=== PATIENT | male | born 1975 | race Caucasian/White ===

== ENCOUNTER 2025-04-10 16:48 | Emergency (ER) | payer SELFPAY ==
[2025-04-10 16:49] VITALS: BP 136/87; PULSE 74; RESP 18; TEMP 36.9; O2SAT 96; BMI 33.0
[2025-04-10 16:56] VITALS: BP 136/87; PULSE 76; RESP 18; TEMP 36.9; O2SAT 96
[2025-04-10] MEDS: Ketorolac 30 MG/ML Syringe IV (17:18)
[2025-04-10 17:22] LABS: Hematocrit 38.3 % (40-54); Hemoglobin 12.8 g/dL (13.0-16.5); Immature Granulocytes Count 0.200 X10^3/uL (0.0-0.0); Mean Corp Hgb Conc 33.4 g/dL (32-36); Mean Corpuscular Volume 91.2 fL (80-94); Mean Platelet Vol. 9.5 fl (6.2-12.0); NRBC Flagged by Analyzer 0 % (0-5); Platelet Count 398 K/mm3 (150-450); RBC Distribution Width CV 13.6 % (11.6-14.6); RBC Distribution Width SD 45.3 fl (35.1-43.9); Red Blood Count 4.20 M/mm3 (4.6-6.2); White Blood Count 9.0 K/mm3 (4.4-11.0)
[2025-04-10 17:56] VITALS: BP 137/82; PULSE 98; RESP 18; TEMP 36.6; O2SAT 99
[2025-04-10 18:17] LABS: Anion Gap 12 (5-15); BUN 24 mg/dL (4-19); BUN/Creat Ratio 15.1 RATIO (10-20); Calcium,Total 9.2 mg/dL (7.6-11.0); Carbon Dioxide 23.1 mmol/L (21.0-32.0); Chloride 105 mmol/L (98-108); Estimated Creatinine Clearance 78.05 ml/min (50-250); Glucose 95 mg/dL (70-99); Potassium 4.4 mmol/L (3.3-5.1)
[2025-04-10] MEDS: Piperacil/Tazobactam 3.375 GM in 0.9% Normal Saline (50mL MB+) 50 ML IV (18:56)
[2025-04-10 18:59] VITALS: BP 130/98; PULSE 67; RESP 18; TEMP 36.6; O2SAT 97
[2025-04-10] MEDS: Vancomycin HCl 2,000 MG in 0.9% Normal Saline (500mL Bag) 500 ML 250 MG IV (19:29)
[2025-04-10 19:58] VITALS: BP 137/76; PULSE 59
[2025-04-10 21:54] VITALS: BP 149/88; PULSE 62; RESP 16; TEMP 36.6; O2SAT 95
== END 2025-04-10 22:16 | disposition home or self-care (01) ==
PROVIDERS: Physician Assistant; Emergency Provider Emergency Medicine; Visit Provider Emergency Medicine
DX: L03.115 Cellulitis of right lower limb (principal); L97.311 Non-pressure chronic ulcer of right ankle limited to breakdown of skin; Z95.828 Presence of other vascular implants and grafts
CPT/HCPCS: 73610; 80048; 85025; 96365; 96366; 96368; 96375; 99284; A4216

== ENCOUNTER 2025-04-12 15:03 | Emergency (ER) | payer SELFPAY ==
[2025-04-12 15:04] VITALS: BP 150/80; PULSE 80; RESP 16; TEMP 36.6; O2SAT 98
[2025-04-12 16:20] LABS: Hematocrit 39.8 % (40-54); Hemoglobin 13.3 g/dL (13.0-16.5); Immature Granulocytes Count 0.070 X10^3/uL (0.0-0.0); Mean Corp Hgb Conc 33.4 g/dL (32-36); Mean Corpuscular Volume 92.6 fL (80-94); Mean Platelet Vol. 9.3 fl (6.2-12.0); NRBC Flagged by Analyzer 0 % (0-5); Platelet Count 431 K/mm3 (150-450); RBC Distribution Width CV 13.7 % (11.6-14.6); RBC Distribution Width SD 46.5 fl (35.1-43.9); Red Blood Count 4.30 M/mm3 (4.6-6.2); White Blood Count 9.6 K/mm3 (4.4-11.0)
[2025-04-12 16:54] LABS: Anion Gap 15 (5-15); BUN 32 mg/dL (4-19); BUN/Creat Ratio 15.2 RATIO (10-20); Calcium,Total 9.5 mg/dL (7.6-11.0); Carbon Dioxide 20.7 mmol/L (21.0-32.0); Chloride 104 mmol/L (98-108); Glucose 102 mg/dL (70-99); Potassium 4.3 mmol/L (3.3-5.1)
== END 2025-04-12 18:00 | disposition left against medical advice (07) ==
PROVIDERS: Emergency Provider Emergency Medicine; Visit Provider Emergency Medicine
DX: L03.115 Cellulitis of right lower limb (principal); N17.9 Acute kidney failure, unspecified; E86.0 Dehydration; F15.90 Other stimulant use, unspecified, uncomplicated; F17.290 Nicotine dependence, other tobacco product, uncomplicated
CPT/HCPCS: 80048; 85025; 99285; A4216

== ENCOUNTER 2025-06-25 19:10 | Emergency (ER) | payer SELFPAY ==
[2025-06-25 19:11] VITALS: BP 143/101; PULSE 77; RESP 16; TEMP 36.9; O2SAT 98
[2025-06-25 19:17] VITALS: BMI 33.1
--- NOTE | 2025-06-25 19:45 | ED.RN ---
when this rn asks about pt meds he states yeah theres a list somewhere in that bag from the previous facility as he points to an extra large black trash bag with all patients belongings in it. this rn unable to obtain at this time. trash bag removed from room and this rn unable to lift. bag had to be drug across the floor.
--- OUTSIDE RECORDS SUMMARY | 2025-06-25 19:53 | XMS RPT_ITS | CCD ---
Author Organization [facility] Inform ion Partnership [facility] Care Team Providers Care Online Advertising Manager Name Role Phone OBED CELAYA Attending Unavailable PCP, NO Primary Care Unavailable LEONID PARRY Attending Unavailable Unavailable Primary Care Provider UnavailDr. Yahir Campo DO Emergency Provider [phone] Care Physician, No Primary Primary Care Provider Unavailable Dr. Bryant Orellana MD Emergency Provider [phone] ABEL CORTEZ Attending Unavailable ROBERT MICHAEL Consulting Unavailable FORTINO MILLER Admitting Unavailable Yahir Torres Attending Unavailable Care Physician, No Primary Primary Care Unava ilable Care Physician, No Primary Primary Care Unava ilBryant Guzman Attending Unavailable Medications Current Medications Medication Drug Class(es) Dates Sig (Normalized) Sig (Original) amoxicillin 875 mg / clavulanate 125 mg oral tablet (4 sources) Penicillin-class Antibacterial Start: 04-08-2025 End: 04-12-2025 Amoxicillin-Pot Clavulanate 875-125 mg tablet Active 1 {tbl} PO TWICE A DAY April 10, 2025 12:00am doxycycline hyclate 100 mg oral capsule (2 sources) Tetracycline-class Drug Start: 04-10-2025 take 1 capsule by mouth twice daily Doxycycline Hyclate 100 mg capsule Active 100 mg PO TWICE A DAY 14 7 0 April 10, 2025 12:00am gabapentin 300 mg oral capsule (6 sources) Anti-epileptic Agent Start: 04-10-2025 take 1 capsule by mouth every eight hours Gabapentin 300 mg capsule Active 300 mg PO Q8H April 10, 2025 12:00am Start: 04-03-2025 End: 04-08-2025 take 1 capsule by mouth every eight hours gabapentin (Neurontin) 300 MG capsule Take 1 capsule (300 mg) by mouth every 8 hours. 90 capsule 04/08/2025 1:57 PM EDT 04/08/2025 Active sulfamethoxazole 800 mg / trimethoprim 160 mg oral tablet (4 sources) Dihydrofolate Reductase Inhibitor Antibacterial, Sulfonamide Antimicrobial Start: 04-08-2025 End: 04-12-2025 Sulfamethoxazole-Trimethopri m (Bactrim Ds) 800-160 mg tablet Active 1 {tbl} PO TWICE A DAY April 10, 2025 12:00am traZODone hydrochloride 100 mg oral tablet (6 sources) Serotonin Reuptake Inhibitor Start: 04-10-2025 take 1 tablet by mouth at bedtime Trazodone 100 mg tablet Active 100 mg PO AT BEDTIME April 10, 2025 12:00am Start: 04-04-2025 End: 04-08-2025 take 1 tablet by mouth once daily traZODone (Desyrel) 100 MG tablet Take 1 tablet (100 mg) by mouth Nightly. 30 tablet 04/08/2025 1:57 PM EDT 04/08/2025 Active Completed/Discontinued Medications Medication Drug Class(es) Dates Sig (Normalized) Sig (Original) Acetaminophen (6 sources) Start: 04-03-2025 End: 04-03-2025 1,000 mg, IntraVENous, at 400 mL/hr, Administer over 15 Minutes, Once, On Sun04/03/25 at 0200, For 1 dose Start: 04-03-2025 End: 04-08-2025 take 1 tablet by mouth every six hours as needed for pain and fever acetaminophen (Tylenol) tablet 650 mg Start: 04-02-2025 End: 04-02-2025 650 mg, Oral, Once, On Sun at 1855, For 1 dose, Maximum dose of acetaminophen is 4000 mg from all sources in 24 hours. calcium chloride 0.0014 meq/ ml / potassium chloride 0.004 meq/ml / sodium chloride 0.103 meq/ml / sodium lactate 0.028 meq/ml injectable solution (4 sources) Start: 04-03-2025 End: 04-03-2025 1,000 mL, IntraVENous, at 50 0 mL/hr, Administer over 2 Hours, Once, On Sun04/03/25 at 1645, For 1 dose Start: 04-02-2025 End: 04-03-2025 take 200 mL intravenously every hour 200 mL/hr, IntraVENous, Continuous, Starting on Bekah 04/02/25 at 2155, For 12 hours chlordiazePOXIDE hydrochloride 25 mg oral capsule (2 sources) Benzodiazepine Start: 04-03-2025 End: 04-03-2025 take 25 mg by mouth once 25 mg, Oral, Once, On Sun04/03/25 at 1145, For 1 dose, Hold for excessive sedation 1 ml diphenhydrAMINE hydrochloride 50 mg/ml cartridge (2 sources) Histamine-1 Receptor Antagonist Start: 04-03-2025 End: 04-03-2025 50 mg, IntraVENous, Once, On Sun04/03/25 at 0145, For 1 dose 0.4 ml enoxaparin sodium 100 mg/ml prefilled syringe (2 sources) Low Molecular Weight Heparin Start: 04-03-2025 End: 04-08-2025 inject 40 mg by subcutaneous injection every twenty-four hours 40 mg, SubCUTAneous, Every 24 hours scheduled (Daily), First dose on Sun04/03/25 at 0900, Indication of Use: Prophylaxis-DVT/PE , Indications: Prophylaxis of Venous Thromboembolism gadopiclenol (Vueway) injection 11 mL (2 sources) Start: 04-05-2025 End: 04-07-2025 take 11 mL intravenously once as needed 11 mL, IntraVENous, IMG once PRN, contrast, Starting on Sun04/05/25 at 0911, For 1 dose 1 ml haloperidol 5 mg/ml prefilled syringe (2 sources) Typical Antipsychotic Start: 04-03-2025 End: 04-03-2025 5 mg, IntraMUSCular, Once, On Sun04/03/25 at 0145, For 1 dose, IM route of administration preferred. Because of the risk of TdP and QT prolongation, ECG monitoring is recommended if haloperidol is given IV hydrOXYzine pamoate 25 mg oral capsule (2 sources) Antihistamine Start: 04-04-2025 End: 04-04-2025 take 50 mg by mouth once as needed for anxiety 50 mg, Oral, Once PRN, anxiety prior to lab draw, Starting on 04/04/25 at 1035, For 1 dose iopamidol (Isovue-370) 76 % injection 75 mL (2 sources) Start: 04-02-2025 End: 04-02-2025 take 75 mL intravenously once as needed 75 mL, IntraVENous, IMG once PRN, contrast, Starting on Bkeah 04/02/25 at 1947, For 1 dose 1 ml LORazepam 2 mg/ml injection (10 sources) Benzodiazepine Start: 04-04-2025 End: 04-05-2025 take 1 mL intravenously once as needed 1 mg, IntraVENous, Once PRN, Please give shortly before MRI for anxiety, Starting on 04/04/25 at 1037, For 1 dose, Please notify day habilitation specialist attending if this has to be utilized for a seizure. For IV doses dilute dose with 1ml NS. Start: 04-03-2025 End: 04-03-2025 1 mg, IntraVENous, Once, On Sun04/03/25 at 0145, For 1 dose, For IV doses dilute dose with 1ml NS. Start: 04-03-2025 End: 04-07-2025 1 mg, IntraVENous, Every 3 h ours PRN, agitation, Starting on Sun04/03/25 at 0014, For IV doses dilute dose with 1ml NS. Start: 04-02-2025 End: 04-03-2025 take 1 mg intravenously every four hours as needed 1 mg, IntraVENous, Every 4 hours PRN, agitation, Starting on Sun04/02/25 at 2320, For IV doses dilute dose with 1ml NS. LORazepam (Ativan) injection 1 mg (2 sources) Start: 04-07-2025 End: 04-08-2025 LORazepam (Ativan) injection 1 mg melatonin 3 mg oral tablet (2 sources) Start: 04-03-2025 End: 04-08-2025 take 3 mg by mouth once daily as needed for sleep 3 mg, Oral, Nightly PRN, sleep, Starting on Sun04/03/25 at 0048 1 ml naloxone hydrochloride 0.4 mg/ml injection (2 sources) Opioid Antagonist Start: 04-07-2025 End: 04-08-2025 0.4 mg, IntraVENous, Every 5 min PRN, opioid reversal, respiratory depression, Starting on Sun04/07/25 at 1339, +++ For RR ondansetron ODT (Zofran-ODT) disintegrating tablet 4 mg (2 sources) Start: 04-03-2025 End: 04-08-2025 take 1 tablet by mouth every eight hours as needed for nausea and vomiting ondansetron ODT (Zofran-ODT) disintegrating tablet 4 mg oxyCODONE (2 sources) Opioid Agonist Start: 04-07-2025 End: 04-08-2025 take 1 tablet by mouth every four hours as needed for pain oxyCODONE (Roxicodone) immediate release tablet 2.5 mg perflutren protein A microsphere (Optison) 3 mL in sodium chloride (PF) 0.9 % 10 mL IV (2 sources) Start: 04-03-2025 End: 04-03-2025 0-10 mL, IntraVENous, IMG once PRN, other, Suboptimal echo image, Starting on Sun04/03/25 at 0950, For 1 dose, CV Procedural Medications, Administer via slow IVP for suboptimal echocardiogram enhancement. May administer as divided doses to reach optimal image enhancement piperacillin-tazoba ctam (Zosyn) 4,500 mg in sodium chloride 0.9 % 100 mL IVPB Mini-Bag Plus (2 sources) Start: 04-03-2025 End: 04-08-2025 take 4500 mg intravenously every six hours polyethylene glycol 3350 67347 mg powder for oral solution (2 sources) Osmotic Laxative Start: 04-03-2025 End: 04-08-2025 take 17 g by mouth every twenty-four hours as needed for constipation risperiDONE 1 mg oral tablet (4 sources) Atypical Antipsychotic Start: 04-05-2025 End: 04-05-2025 take 1 mg by mouth twice daily 1 mg, Oral, 2 times daily, First dose (after last modification) on Sun04/05/25 at 2100, For 1 dose, Indications: Delusion, Psychomotor Agitation Start: 04-05-2025 End: 04-05-2025 take 1 mg by mouth twice daily 1 mg, Oral, 2 times misty ly, First dose (after last modification) on Sun04/05/25 at 2100, For 1 dose, Indications: Delusion, Psychomotor Agitation Start: 04-03-2025 End: 04-05-2025 take 1 mg by mouth twice daily 1 mg, Oral, 2 times misty ly, First dose on Sun04/03/25 at 1145, Indications: Delusion, Psychomotor Agitation 50 ml sodium chloride 9 mg/ml injection (4 sources) Start: 04-02-2025 End: 04-02-2025 1,000 mL, IntraVENous, at 1,000 mL/hr, Administer over 1 Hours, Once, On Bekah 04/02/25 at 1855, For 1 dose Vancomycin (6 sources) Glycopeptide Antibacterial Start: 04-05-2025 End: 04-08-2025 take 1250 mg intravenously every twelve hours Start: 04-03-2025 End: 04-05-2025 Start: 04-02-2025 End: 04-02-2025 Problems Problem Classification Problem Date Documented Date Episodic/Chronic Acute and unspecified renal failure (1 source) Acute renal failure syndrome; Translations: [Acute kidney failure, unspecified] 04-12-2025 Episodic Fluid and electrolyte disorders (1 source) Dehydration; Translations: [Dehydration] 04-12-2025 Episodic Nonspecific chest pain (4 sources) Chest pain; Translations: [Chest pain, unspecified] Onset: 04-02-2025 04-02-2025 Episodic Other connective tissue disease (1 source) Pain in right foot; Translations: [Pain in right foot] Onset: 12-19-2024 Episodic Other connective tissue disease (1 source) Pain in lower limb Onset: 02-25-2025 Episodic Other connective tissue disease (2 sources) Non-traumatic rhabdomyolysis; Translations: [Rhabdomyolysis] 04-02-2025 Episodic Other connective tissue disease (2 sources) Rhabdomyolysis; Translations: [Rhabdomyolysis] Onset: 04-02-2025 Episodic Other lower respiratory disease (3 sources) Dyspnea; Translations: [Shortness of breath] Onset: 04-02-2025 04-02-2025 Episodic Other lower respiratory disease (1 source) Shortness of breath; Translations: [Shortness of breath] Onset: 04-02-2025 Episodic Other non-traumatic joint disorders (2 sources) Ankle pain; Translations: [Pain in right ankle and joints of right foot] 04-10-2025 Episodic Schizophrenia and other psychotic disorders (1 source) Delusional disorders; Translations: [Delusional disorders] Onset: 03-02-2025 Chronic Septicemia (except in labor) (8 sources) Sepsis; Translations: [Sepsis, unspecified organism] Onset: 04-02-2025 04-02-2025 Episodic Skin and subcutaneous tissue infections (4 sources) Cellulitis of right ankle; Translations: [Cellulitis of right lower limb] Onset: 04-17-2025 04-10-2025 Episodic Substance-related disorders (1 source) Methamphetamine abuse; Translations: [Other stimulant abuse, uncomplicated] 04-12-2025 Chronic Substance-related disorders (4 sources) Finding related to substance use; Translations: [Other stimulant use, unspecified, uncomplicated] Onset: 04-02-2025 04-03-2025 Episodic Unclassified (1 source) paranoia Onset: 03-02-2025 Results Test Name Value Interpretation Reference Range Facility Progress Noteon 04-13-2025 Progress Note Initial Post-Hospital Follow Up Call Call / mychart message / face to face attempted within 2 business days of discharge: yes Patient: Viral Ann Patient : 1975 Spoke with: n/a Discharge department/facilit y: [facility] Additional attempt made to contact Viral Ann via telephone. Again, there was no answer. Block Stacker did not leave additional voicemail. Plan: Sign encounter and await future recommendations. Gjp-qkjf-on-face services provided: Assessment and support for treatment adherence and medication management - Did the patient get his medications filled and are they taking them as instructed from discharge? -Unable to assess as call(s) went unanswered. - Patient was encouraged to follow his discharge instructions from his recent hospital stay. -Unable to complete as patient did not answer telephone call(s) - Confirmed patient is scheduled for a follow up appointment within 14 days of hospital discharge -Unable to assess transportation needs as call(s) went unanswered / unable to reach patient. Follow Up Future Appointments Date Time Provider Department Center 04/16/2025 3:00 PM Jazmín Devi DO [facility] Campbell RN Normal [facility] Progress Note Attempted to contact patient via telephone to discuss transition of care from recent hospitalization. Viral Ann did not answer, left generic voicemail. Mychart not activated for patient. Plan: Attempt to call patient again at a later time. If patient were to call back, please transfer call to Memo (Ext. [phone]), thank you. Normal [facility] Absolute lymphocyte countOrd ered By: Bryant Orellana on 04-12-2025 Lymphocytes Auto (Unsp spec) [#/Vol] 1.85 10*3/uL 0.83-4.51 [facility] Absolute neutrophil countOrd ered By: Bryant Orellana on 04-12-2025 Neutrophils (Bld) [#/Vol] 6.5 10*3/uL 2.0-7.7 [facility] Anion gap in Serum or Plasma Ordered By: Bryant Orellana on 04-12-2025 Anion gap [Moles/Vol] 15 mmol/L - [facility] Automated lymphocyte count a s percentage of total leukocytesOrdered By: Bryant Orellana on 04-12-2025 Lymphocytes/100 WBC Auto (Unsp spec) 19.3 % - [facility] BUN/creatinine ratioOrdered By: Bryant Orellana on 04-12-2025 Urea nitrogen/Creatinine [Mass ratio] 15.2 mg/mg 07-27 [facility] Basic Metabolic Profile (BMP )on 04-12-2025 BUN/CRE 15.2 RATIO Normal - [facility] Comment on above: Performed By: #### L 500.2500, L100.0100 #### [facility] [address] [place], [address] Calcium [Mass/Vol] 9.5 mg/dL Normal 7.6-11.0 [facility] Comment on above: Performed By: #### L 500.2500, L100.0100 #### [facility] [address] [place], [address] Chloride [Moles/Vol] 104 mmol/L Normal 98-108 [facility] Comment on above: Performed By: #### L 500.2500, L100.0100 #### [facility] [address] [place], [address] CO2 [Moles/Vol] 20.7 mmol/L Low 21.0-32.0 [facility] Comment on above: Performed By: #### L 500.2500, L100.0100 #### [facility] [address] [place], [address] Creatinine [Mass/Vol] 2.08 mg/dL High 0.70-1.20 [facility] Comment on above: Performed By: #### L 500.2500, L100.0100 #### [facility] [address] [place], [address] GAP 15 Normal 5-15 [facility] Comment on above: Performed By: #### L 500.2500, L100.0100 #### [facility] [address] [place], [address] GFR/1.73 sq M.predicted among non-blacks MDRD (S/P/Bld) [Vol rate/Area] 38 mL/min/{1.73_m2} Low >60 [facility] Comment on above: Result Comment: mL/m in/1.73m2 CKD-EPI Creatinine Equation (2020) Performed By: #### L 500.2500, L100.0100 #### [facility] [address] [place], [address] Glucose [Mass/Vol] 102 mg/dL High 70-99 [facility] Comment on above: Performed By: #### L 500.2500, L100.0100 #### [facility] [address] [place], [address] Potassium [Moles/Vol] 4.3 mmol/L Normal 3.3-5.1 [facility] Comment on above: Performed By: #### L 500.2500, L100.0100 #### [facility] [address] [place], [address] Sodium [Moles/Vol] 140 mmol/L Normal 133-145 [facility] Comment on above: Performed By: #### L 500.2500, L100.0100 #### [facility] [address] [place], [address] Urea nitrogen [Mass/Vol] 32 mg/dL High 4-19 [facility] Comment on above: Performed By: #### L 500.2500, L100.0100 #### [facility] [address] [place], [address] Basophil percentageOrdered B y: Bryant Orellana on 04-12-2024 Basophils/100 WBC (Bld) 0.6 % 0-[address] [facility] CBC W/Diff, Automatedon -2024 Absolute Lymph 1.85 X10 3/uL Normal 0.83-4.51 [facility] Comment on above: Performed By: #### L 500.2500, L100.0100 #### [facility] [address] [place], [address] Absolute Neut 6.5 X10 3/uL Normal 2.0-7.7 [facility] Comment on above: Performed By: #### L 500.2500, L100.0100 #### [facility] [address] [place], [address] Basophils/100 WBC (Bld) 0.6 % Normal 0-[address] [facility] Comment on above: Performed By: #### L 500.2500, L100.0100 #### [facility] [address] [place], [address] Eosinophils/100 WBC (Bld) 1.5 % Normal 0-5 [facility] Comment on above: Performed By: #### L 500.2500, L100.0100 #### [facility] [address] [place], [address] Erythrocyte distribution width (RBC) [Ratio] 13.7 % Normal 11.6-14.6 [facility] Comment on above: Performed By: #### L 500.2500, L100.0100 #### [facility] [address] [place], [address] Hematocrit (Bld) [Volume fraction] 39.8 % Low 40-54 [facility] Comment on above: Performed By: #### L 500.2500, L100.0100 #### [facility] [address] [place], [address] Hemoglobin (Bld) [Mass/Vol] 13.3 g/dL Normal 13.0-16.5 [facility] Comment on above: Performed By: #### L 500.2500, L100.0100 #### [facility] [address], [address] IG% 0.700 Normal 0.0-0.9 [facility] Comment on above: Result Comment: IG% - Immature Granulocytes (promyelocytes, myelocytes and metamyelocytes) > 1% indicates that a LEFT SHIFT is Present. Performed By: #### L 500.2500, L100.0100 #### [facility] [address] [place], [address] Lymphocytes/100 WBC (Bld) 19.3 % Normal 19-41 [facility] Comment on above: Performed By: #### L 500.2500, L100.0100 #### [facility] [address] [place], [address] MCH (RBC) [Entitic mass] 30.9 pg Normal 27.0-32.0 [facility] Comment on above: Performed By: #### L 500.2500, L100.0100 #### [facility] [address] [place], [address] MCHC (RBC) [Mass/Vol] 33.4 g/dL Normal 32-36 [facility] Comment on above: Performed By: #### L 500.2500, L100.0100 #### [facility] [address] [place], [address] MCV (RBC) [Entitic vol] 92.6 fL Normal 80-[address] [facility] Comment on above: Performed By: #### L 500.2500, L100.0100 #### [facility] [address] [place], [address] Monocytes/100 WBC (Bld) 10.6 % High 0-[address] [facility] Comment on above: Performed By: #### L 500.2500, L100.0100 #### [facility] [address] [place], [address] Neutrophils/100 WBC (Bld) 67.3 % Normal 47-70 [facility] Comment on above: Performed By: #### L 500.2500, L100.0100 #### [facility] [address] [place], [address] Nucleated RBC (Bld) [#/Vol] 0 10*3/uL Normal 0-5 [facility] Comment on above: Performed By: #### L 500.2500, L100.0100 #### [facility] [address] [place], [address] Platelet mean volume (Bld) [Entitic vol] 9.3 fL Normal 6.2-12.0 [facility] Comment on above: Performed By: #### L 500.2500, L100.0100 #### [facility] [address] [place], [address] Platelets (Bld) [#/Vol] 431 10*3/uL Normal 150-450 [facility] Comment on above: Performed By: #### L 500.2500, L100.0100 #### [facility] [address] [place], [address] RBC (Bld) [#/Vol] 4.30 10*6/uL Low 4.6-6.2 [facility] Comment on above: Performed By: #### L 500.2500, L100.0100 #### [facility] [address] [place], [address] RDW SD 46.5 fl High 35.1-43.9 [facility] Comment on above: Performed By: #### L 500.2500, L100.0100 #### [facility] [address] [place], [address] WBC (Bld) [#/Vol] 9.6 10*3/uL Normal 4.4-11.0 [facility] Comment on above: Performed By: #### L 500.2500, L100.0100 #### [facility] [address] [place] [place], [address] Carbon dioxide, total [Moles /volume] in Central venous bloodOrdered By: Bryant Orellana on 04-12-2025 CO2 [Moles/Vol] 20.7 mmol/L Low 21.0-32.0 [facility] Chloride assayOrdered By: Jasmyne Orellana on 04-12-2025 Chloride [Moles/Vol] 104 mmol/L 98-108 [facility] Emergency Department Summary on 04-12-2025 Emergency Department Summary [facility] Medical Records Department [address] [place] [address] Emergency Department Summary 04/12/25 MR#: [id number] Acct: [id number] Name: VIRAL ANN Rep #: [id number] : 1975 49 From: Bryant Orellana MD PCP: Care Physician,No Primary Status:REG ER Location: ED HPI History of Present Illness Chief Complaint: Cellulitis Detail of Chief Complaint: Patient was admitted to [facility] for 8 days for celluli Informant: patient Limited: other (Psychiatric disorder) Onset/Context/Neo ng Onset: - (HPI narrative) Context: - (HPI narrative) Quality: Increased pain and redness in the proximity of the lateral malleolus right Location: Lateral right ankle Current Severity: Mild Maximum Severity: Moderate Worsened by: Complains of increased pain with palpation Relieved by: Nothing Associated Symptoms Associated Symptoms: Nothing Narrative Narrative: Patient was admitted to [facility]. He was discharged 4 days ago. He was seen on April 10 in the emergency department by Dr. Torres. Dr. Torres's note was reviewed. Laboratory studies were obtained as well as imaging. Patient was prescribed antibiotics which she apparently did not fill. He states he was kicked out of here. He did receive IV antibiotics and had appropriate workup. He was discharged with doxycycline 100 mg twice daily. He was discharged with Bactrim and amoxicillin from [facility]. Patient denies fever, chills night sweats. Patient does have history of drug use. He states does not use any drugs in the last several months. Patient denies drainage from the area. Patient is concerned because he had prior infection in that foot. Patient denies paresthesia, anesthesia or motor weakness. Prior similar symptoms: Yes Recent Illness/Hospitaliz ation: Yes PFSH PFS Medical History IV drug user Marijuana abuse Methamphetamine abuse Deep venous thrombosis Pulmonary embolism Presence of IVC filter Cellulitis Home Medications ???Medication ???Instructions ???Recorded ???Last Taken ???Type amoxicillin 875 mg-potassium 1 tab PO BID 04/10/25 Unknown Hist ory clavulanate 125 mg tablet doxycycline hyclate 100 mg capsule 100 mg PO BID 7 days #14 caps Unknown Rx gabapentin 300 mg capsule 300 mg PO Q8H 04/10/25 Unknown His tory sulfamethoxazole 800 1 tab PO BID 04/10/25 Unknown Hist ory mg-trimethoprim 160 mg tablet (Bactrim DS) trazodone 100 mg tablet 100 mg PO QHS 04/10/25 Unknown His tory Allergy/AdvReac Type Severity Reaction Status Date / Time No Known Allergies Allergy Verified 04/12/25 15:03 Surgical History Hx of tonsillectomy H/O hernia repair Social History (Updated 04/12/25 @ 16:[address] Bryant Orellana MD) Smoking Status: Current every day smoker tobacco type: e-cigarettes substance use type: marijuana and amphetamines ROS ROS ED Constitutional Constitutional ED: Denies chills, fever(s), subjective, sweats or weight loss Eyes Eyes: Denies blurry vision or change in vision Cardiovascular Cardiovascular: Denies chest pain or palpitations Respiratory/Chest Respiratory/Chest: Denies cough, dyspnea or dyspnea on exertion Gastrointestinal Gastrointestinal: Denies abdominal pain, diarrhea, nausea or vomiting Musculoskeletal Musculoskeletal: Denies arthralgias, back pain or myalgias Integumentary Reports rash Neurologic Neurologic: Denies paresthesias or weakness Hematologic/Lympha tic Hematologic/Lympha tic: Reports systems reviewed and no addt'l complaints, except as documented EXAM Physical Exam Const Vital Signs: 04/12/25 15:04 Temperature 97.8 F Temperature Source Temporal Pulse Rate 80 Respiratory Rate 16 Blood Pressure 150/80 H Blood Pressure Mean 103 Pulse Ox 98 Oxygen Delivery Method Room Air Positive well nourished and well developed General Appearance ED: well developed and NAD; Negative for cyanotic or diaphoretic HEENT Reports moist mucous membranes HEENT Narrative: There is atraumatic normocephalic. Ears normal. Nares patent Eyes PERRL and EOMs intact bilaterally General Eye ED: Negative for pale conjunctiva or scleral icterus Resp normal respiratory effort Cardio regular rate and regular rhythm Extremity Negative for normal to inspection Extremity Narrative: Patient has 2 areas that are healing without evidence of infection. There is no fluctuance. There is slight erythema in the area of the lateral malleolus. There is no lymphangitis. There is no popliteal lymphadenopathy. Patient has absent pulses. He does have symptoms consistent with claudication. He also has stigmata vascular disease with thic (more content not included)... Normal [facility] Eosinophil percentageOrdered By: Bryant Orellana on 04-12-2025 Eosinophils/100 WBC (Bld) 1.5 % 0-5 [facility] Erythrocyte distribution wid th ratioOrdered By: Bryant Orellana on 04-12-2025 Erythrocyte distribution width (RBC) [Ratio] 13.7 % 11.6-14.6 [facility] Erythrocyte distribution wid th standard deviationOrdered By: Bryant Orellana on 04-12-2025 Erythrocyte distribution width (RBC) [Ratio] 46.5 fl High 35.1-43.9 [facility] Glomerular filtration rate ( GFR) estimation/1.73 sq m using serum, plasma, or whole bOrdered By: Bryant Orellana on 04-12-2025 GFR/1.73 sq M.predicted among non-blacks MDRD (S/P/Bld) [Vol rate/Area] 38 mL/min/{1.73_m2} Low >60 [facility] Comment on above: mL/min/1.73m2 CKD-EP I Creatinine Equation (2020) Hematocrit Auto (Bld) [Volum e fraction]Ordered By: Bryant Orellana on 04-12-2025 Hematocrit (Bld) [Volume fraction] 39.8 % Low 40-54 [facility] Hemoglobin measurementOrdere d By: Bryant Orellana on 04-12-2025 Hemoglobin (Bld) [Mass/Vol] 13.3 g/dL 13.0-16.5 [facility] Immature granulocytes/100 WB C Auto (Bld)Ordered By: Bryantkayla Orellana on 04-12-2025 Immature granulocytes/100 WBC (Bld) 0.700 % 0.0-0.9 [facility] Comment on above: IG% - Immature Granu locytes (promyelocytes, myelocytes and metamyelocytes) > 1% indicates that a LEFT SHIFT is Present. MCV (mean corpuscular volume ) determinationOrdered By: Bryant Orellana on 04-12-2025 MCV (RBC) [Entitic vol] 92.6 fL 80-[address] [facility] Mean corpuscular hemoglobin (MCH) determinationOrdered By: Bryantkayla Orellana on 04-12-2025 MCH (RBC) [Entitic mass] 30.9 pg 27.0-32.0 [facility] Mean corpuscular hemoglobin concentration (MCHC) determinationOrdered By: Bryantkayla Orellana on 04-12-2025 MCHC (RBC) [Mass/Vol] 33.4 g/dL 32-36 [facility] Mean platelet volume determi nationOrdered By: Bryant Orellana on 04-12-2025 Platelet mean volume (Bld) [Entitic vol] 9.3 fL 6.2-12.0 [facility] Monocyte percentageOrdered B y: Bryant Orellana on 04-12-2025 Monocytes/100 WBC (Bld) 10.6 % High 0-[address] [facility] Neutrophil percentageOrdered By: Bryant Orellana on 04-12-2025 Neutrophils/100 WBC (Bld) 67.3 % 47-70 [facility] Nucleated red blood cell per centageOrdered By: Bryant Orellana on 04-12-2025 Nucleated RBC/100 WBC (Bld) [Ratio] 0 % 0-5 [facility] Platelet countOrdered By: Jasmyne garza Orellana on 04-12-2025 Platelets (Bld) [#/Vol] 431 10*3/uL 150-450 [facility] Potassium measurement (mass/ volume)Ordered By: Bryant Orellana on 04-12-2025 Potassium (Unsp spec) [Mass/Vol] 4.3 mmol/L 3.3-5.1 [facility] RBC Auto (Bld) [#/Vol]Ordere d By: Bryant Orellana on 04-12-2025 RBC (Bld) [#/Vol] 4.30 10*6/uL Low 4.6-6.2 [facility] Serum creatinine measurement (mass/volume)Ordered By: Bryant Orellana on 04-12-2025 Creatinine [Mass/Vol] 2.08 mg/dL High 0.70-1.20 [facility] Serum glucose measurement (m ass/volume)Ordered By: Bryant Orellana on 04-12-2025 Glucose [Mass/Vol] 102 mg/dL High 70-99 [facility] Serum or plasma calcium susannah urement (mass/volume)Ordered By: Bryant Orellana on 04-12-2025 Calcium [Mass/Vol] 9.5 mg/dL 7.6-11.0 [facility] Serum or plasma urea nitroge n measurement (mass/volume)Ordered By: Bryant Orellana on 04-12-2025 Urea nitrogen [Mass/Vol] 32 mg/dL High 4-19 [facility] Sodium levelOrdered By: Bryant Orellana on 04-12-2025 Sodium [Moles/Vol] 140 mmol/L 133-145 [facility] White blood cell (WBC) count Ordered By: Bryant Orellana on 04-12-2025 WBC (Bld) [#/Vol] 9.6 10*3/uL 4.4-11.0 [facility] Absolute lymphocyte countOrd ered By: Ale Ortiz on 04-10-2025 Lymphocytes Auto (Unsp spec) [#/Vol] 1.89 10*3/uL 0.83-4.51 [facility] Absolute neutrophil countOrd ered By: Ale Ortiz on 04-10-2025 Neutrophils (Bld) [#/Vol] 5.6 10*3/uL 2.0-7.7 [facility] Anion gap in Serum or Plasma Ordered By: Ale Ortiz on 04-10-2025 Anion gap [Moles/Vol] 12 mmol/L - [facility] Ankle min 3 Viewson 04-10-20 Ankle min 3 Views [facility] Imaging Services [address] [place], [place] [address] Ankle min 3 Views MR#: [id number] Acct: [id number] Name: VIRAL ANN Rep #: [id number] : 1975 M 49 From: Shalini Webb nd, MD PCP: Care Physician,No Primary Status: REG ER Study: Ankle min 3 Views Date of Exam: 04/10/25 Exam# [id number] Ordering Dr: Ale Ortiz PROCEDURE: ANKLE MIN 3 VIEWS N/A REASON FOR EXAM: INFECTION TECHNIQUE: ANKLE MIN 3 VIEWS COMPARISON: None. FINDINGS: Bones: No acute fracture. No aggressive osseous lesions. No focal area of cortical lucency to suggest osteomyelitis. Joints: Normal alignment. Mild degenerative changes. Soft tissues: No obvious soft tissue swelling or soft tissue gas seen by radiographic imaging. Other: No radiopaque foreign body. RAD/Ankle min 3 Views IMPRESSION: NO ACUTE FRACTURE OR DISLOCATION. Reading Location: [id number] CC: RUDDY Ferguson; No Primary Care Physician St[employer] Sewer: Signed Normal [facility] Automated lymphocyte count a s percentage of total leukocytesOrdered By: Ale Ortiz on 04-10-2025 Lymphocytes/100 WBC Auto (Unsp spec) 21.0 % - [facility] BUN/creatinine ratioOrdered By: Ale Ortiz on 04-10-2025 Urea nitrogen/Creatinine [Mass ratio] 15.1 mg/mg - [facility] Basic Metabolic Profile (BMP )on 04-10-2025 BUN/CRE 15.1 RATIO Normal 07-27 [facility] Comment on above: Performed By: #### L 500.2500, L100.0100 #### [facility] [address] [place], [address] Calcium [Mass/Vol] 9.2 mg/dL Normal 7.6-11.0 [facility] Comment on above: Performed By: #### L 500.2500, L100.0100 #### [facility] [address] [place], [address] Chloride [Moles/Vol] 105 mmol/L Normal 98-108 [facility] Comment on above: Performed By: #### L 500.2500, L100.0100 #### [facility] [address] [place], [address] CO2 [Moles/Vol] 23.1 mmol/L Normal 21.0-32.0 [facility] Comment on above: Performed By: #### L 500.2500, L100.0100 #### [facility] [address] [place], [address] Creatinine [Mass/Vol] 1.58 mg/dL High 0.70-1.20 [facility] Comment on above: Performed By: #### L 500.2500, L100.0100 #### [facility] [address] [place], [address] ECRCL 78.05 ml/min Normal 50-250 [facility] Comment on above: Performed By: #### L 500.2500, L100.0100 #### [facility] [address] [place], [address] GAP 12 Normal 5-15 [facility] Comment on above: Performed By: #### L 500.2500, L100.0100 #### [facility] [address] [place], [address] GFR/1.73 sq M.predicted among non-blacks MDRD (S/P/Bld) [Vol rate/Area] 53 mL/min/{1.73_m2} Low >60 [facility] Comment on above: Result Comment: mL/m in/1.73m2 CKD-EPI Creatinine Equation (2020) Performed By: #### L 500.2500, L100.0100 #### [facility] [address] [place], [address] Glucose [Mass/Vol] 95 mg/dL Normal 70-99 [facility] Comment on above: Performed By: #### L 500.2500, L100.0100 #### [facility] [address] [place], [address] Potassium [Moles/Vol] 4.4 mmol/L Normal 3.3-5.1 [facility] Comment on above: Performed By: #### L 500.2500, L100.0100 #### [facility] [address] [place], [address] Sodium [Moles/Vol] 140 mmol/L Normal 133-145 [facility] Comment on above: Performed By: #### L 500.2500, L100.0100 #### [facility] [address] [place], [address] Urea nitrogen [Mass/Vol] 24 mg/dL High 4-19 [facility] Comment on above: Performed By: #### L 500.2500, L100.0100 #### [facility] [address] [place], [address] Basophil percentageOrdered B y: Ale Ortiz on 04-10-2025 Basophils/100 WBC (Bld) 1.0 % 0-[address] [facility] CBC W/Diff, Automatedon Absolute Lymph 1.89 X10 3/uL Normal 0.83-4.51 [facility] Comment on above: Performed By: #### L 500.2500, L100.0100 #### [facility] [address] [place] [place], [address] Absolute Neut 5.6 X10 3/uL Normal 2.0-7.7 [facility] Comment on above: Performed By: #### L 500.2500, L100.0100 #### [facility] [address] [place], [address] Basophils/100 WBC (Bld) 1.0 % Normal 0-[address] [facility] Comment on above: Performed By: #### L 500.2500, L100.0100 #### [facility] [address] [place], [address] Eosinophils/100 WBC (Bld) 1.9 % Normal 0-5 [facility] Comment on above: Performed By: #### L 500.2500, L100.0100 #### [facility] [address] [place], [address] Erythrocyte distribution width (RBC) [Ratio] 13.6 % Normal 11.6-14.6 [facility] Comment on above: Performed By: #### L 500.2500, L100.0100 #### [facility] [address] [place], [address] Hematocrit (Bld) [Volume fraction] 38.3 % Low 40-54 [facility] Comment on above: Performed By: #### L 500.2500, L100.0100 #### [facility] [address] [place], [address] Hemoglobin (Bld) [Mass/Vol] 12.8 g/dL Low 13.0-16.5 [facility] Comment on above: Performed By: #### L 500.2500, L100.0100 #### [facility] [address] [place], [address] IG% 2.200 High 0.0-0.9 [facility] Comment on above: Result Comment: IG% - Immature Granulocytes (promyelocytes, myelocytes and metamyelocytes) > 1% indicates that a LEFT SHIFT is Present. Performed By: #### L 500.2500, L100.0100 #### [facility] [address] [place], [address] Lymphocytes/100 WBC (Bld) 21.0 % Normal 19-41 [facility] Comment on above: Performed By: #### L 500.2500, L100.0100 #### [facility] [address] [place], [address] MCH (RBC) [Entitic mass] 30.5 pg Normal 27.0-32.0 [facility] Comment on above: Performed By: #### L 500.2500, L100.0100 #### [facility] [address] [place], [address] MCHC (RBC) [Mass/Vol] 33.4 g/dL Normal 32-36 [facility] Comment on above: Performed By: #### L 500.2500, L100.0100 #### [facility] [address] [place], [address] MCV (RBC) [Entitic vol] 91.2 fL Normal 80-94 [facility] Comment on above: Performed By: #### L 500.2500, L100.0100 #### [facility] [address] [place], [address] Monocytes/100 WBC (Bld) 11.3 % High 0-[address] [facility] Comment on above: Performed By: #### L 500.2500, L100.0100 #### [facility] [address] [place], [address] Neutrophils/100 WBC (Bld) 62.6 % Normal 47-70 [facility] Comment on above: Performed By: #### L 500.2500, L100.0100 #### [facility] [address] [place], [address] Nucleated RBC (Bld) [#/Vol] 0 10*3/uL Normal 0-5 [facility] Comment on above: Performed By: #### L 500.2500, L100.0100 #### [facility] [address] [place], [address] Platelet mean volume (Bld) [Entitic vol] 9.5 fL Normal 6.2-12.0 [facility] Comment on above: Performed By: #### L 500.2500, L100.0100 #### [facility] [address] [place], [address] Platelets (Bld) [#/Vol] 398 10*3/uL Normal 150-450 [facility] Comment on above: Performed By: #### L 500.2500, L100.0100 #### [facility] [address] [place], [address] RBC (Bld) [#/Vol] 4.20 10*6/uL Low 4.6-6.2 [facility] Comment on above: Performed By: #### L 500.2500, L100.0100 #### [facility] [address] [place], [address] RDW SD 45.3 fl High 35.1-43.9 [facility] Comment on above: Performed By: #### L 500.2500, L100.0100 #### [facility] [address] [place], [address] WBC (Bld) [#/Vol] 9.0 10*3/uL Normal 4.4-11.0 [facility] Comment on above: Performed By: #### L 500.2500, L100.0100 #### [facility] [address] [place], [address] Carbon dioxide, total [Moles /volume] in Central venous bloodOrdered By: lAe Ortiz on 04-10-2025 CO2 [Moles/Vol] 23.1 mmol/L 21.0-32.0 [facility] Chloride assayOrdered By: Babita Ortiz on 04-10-2025 Chloride [Moles/Vol] 105 mmol/L 98-108 [facility] Emergency Department Summary on 04-10-2025 Emergency Department Summary [facility] Medical Records Department [address] [place] [address] Emergency Department Summary 04/10/25 MR#: [id number] Acct: [id number] Name: VIRAL ANN Rep #: [id number] : 1975 49 From: Yahir Torres DO PCP: Care Physician,No [facility] Location: ED Patient was seen and examined with physician spa assistant manager Ale All components of the history and physical confirmed and agreed. History of present illness and physical exam: Patient is a 49-year-old male with past medical history of DVT, PE IVC filter in place, IV drug user who presents to the emergency department with a chief complaint of right ankle pain and concern for infection. Patient states that he was at [facility] for 8 days and received IV antibiotics he states that he was discharged on 4 more days of oral antibiotics and states that he is not getting better therefore he came here for further evaluation management. Patient states that in the past after several days of IV antibiotics when this happened also he was much improved. He states that he is on Bactrim and Augmentin at this point in time. Patient denies any history of diabetes. Patient states that he was given gabapentin but states that he did not try this for pain. Review of systems: Reviewed above Physical exam: Agree with above MDM Patient is a 49-year-old male who presented to the emergency department chief complaint of right ankle and foot pain with a concern for infection. On the differential diagnose includes but not limited to cellulitis, osteomyelitis. Once workup is obtained reviewed he will be reevaluated. Patient CBC reviewed showed no evidence leukocytosis white blood count normal at 9, hemoglobin 12.8, platelet count 398. Patient sodium was 140, potassium normal 4.4, creatinine was 1.58. Patient's x-ray reviewed by myself and by radiology showed no acute fracture dislocations no osseous changes. Patient be given IV antibiotics as he is persistent then he needs strong IV antibiotics to be given vancomycin and Zosyn and Toradol for pain. Patient does have range of motion of his ankle no short arc syndrome. Patient was updated on the results and he would like to go home at this point time. Clinically the wound appears to be healing well and there is minimal surrounding erythema. I do feel that the patient's cellulitis has resolved at this point in time however he is insistent that it is not. We will change his antibiotics to doxycycline and was advised to follow-up with her doctor in the outpatient setting. He states he is homeless and states that retirement currently does not have a primary care physician and wants to try to obtain 1. All question concerns answered he is discharged home in stable condition. Final impression: Right ankle pain History of cellulitis Disposition: Patient will be discharged home in stable condition Supervising attending attestation: Yahir MEEHAN History of Present Illness Chief Complaint: Cellulitis Narrative Narrative: 49-year-old male states he was admitted at [facility] for 1 week for right ankle and foot cellulitis. He had a small wound on the ankle. He is not sure how it started but developed redness and swelling. 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 He states he is not on blood thinners because he has an IVC filter. After 7 days of IV antibiotics he was discharged 2 days ago on Bactrim and Augmentin but states the pain and swelling has not improved prompting him to come in. It has not worsened. He has no fever or chills. He denies diabetes or immunocompromise. He is not taking any pain relievers. The hospital prescribed him gabapentin but he did not try it. [facility] Medical History (Updated 04/10/25 @ 19:15 by RUDDY Ferguson) IV drug user Marijuana abuse Methamphetamine abuse Deep venous thrombosis Pulmonary embolism Presence of IVC filter Cellulitis Home Medications ???Medication ???Instructions ???Recorded ???Last Taken ???Type amoxicillin 875 mg-potassium 1 tab PO BID 04/10/25 Unknown Hist ory clavulanate 125 mg tablet doxycycline hyclate 100 mg capsule 100 mg PO BID 7 days #14 caps Unknown Rx gabapentin 300 mg capsule 300 mg PO Q8H 04/10/25 Unknown His tory sulfamethoxazole 800 1 tab PO BID 04/10/25 Unknown Hist ory mg-trimethoprim 160 mg tablet (Bactrim DS) trazodone 100 mg tablet 100 mg PO QHS 04/10/25 Unknown His tory Allergy/AdvReac Type Severity Reaction Status Date / Time No Known Allergies Allergy Verified 04/10/25 16:49 Surgical History Hx of tonsillectomy H/O hernia repair Social History Smoking Status: Current every day smoker tobacco type: e-cigarettes ROS ROS ED ROS Narrative Constituti (more content not included)... Normal [facility] Eosinophil percentageOrdered By: Ale Ortiz on 04-10-2025 Eosinophils/100 WBC (Bld) 1.9 % 0-5 [facility] Erythrocyte distribution wid th ratioOrdered By: Ale Ortiz on 04-10-2025 Erythrocyte distribution width (RBC) [Ratio] 13.6 % 11.6-14.6 [facility] Erythrocyte distribution wid th standard deviationOrdered By: Ale Ortiz on 04-10-2025 Erythrocyte distribution width (RBC) [Ratio] 45.3 fl High 35.1-43.9 [facility] Glomerular filtration rate ( GFR) estimation/1.73 sq m using serum, plasma, or whole bOrdered By: Ale Ortiz on 04-10-2025 GFR/1.73 sq M.predicted among non-blacks MDRD (S/P/Bld) [Vol rate/Area] 53 mL/min/{1.73_m2} Low >60 [facility] Comment on above: mL/min/1.73m2 CKD-EP I Creatinine Equation (2020) Hematocrit Auto (Bld) [Volum e fraction]Ordered By: Ale Ortiz on 04-10-2025 Hematocrit (Bld) [Volume fraction] 38.3 % Low 40-54 [facility] Hemoglobin measurementOrdere d By: Ale Ortiz on 04-10-2025 Hemoglobin (Bld) [Mass/Vol] 12.8 g/dL Low 13.0-16.5 [facility] Immature granulocytes/100 WB C Auto (Bld)Ordered By: Ale Ortiz on 04-10-2025 Immature granulocytes/100 WBC (Bld) 2.200 % High 0.0-0.9 [facility] Comment on above: IG% - Immature Granu locytes (promyelocytes, myelocytes and metamyelocytes) > 1% indicates that a LEFT SHIFT is Present. MCV (mean corpuscular volume ) determinationOrdered By: Ale Ortiz on 04-10-2025 MCV (RBC) [Entitic vol] 91.2 fL 80-[address] [facility] Mean corpuscular hemoglobin (MCH) determinationOrdered By: Ale Ortiz on 04-10-2025 MCH (RBC) [Entitic mass] 30.5 pg 27.0-32.0 [facility] Mean corpuscular hemoglobin concentration (MCHC) determinationOrdered By: Ale Ortiz on 04-10-2025 MCHC (RBC) [Mass/Vol] 33.4 g/dL 32-36 [facility] Mean platelet volume determi nationOrdered By: Ale Ortiz on 04-10-2025 Platelet mean volume (Bld) [Entitic vol] 9.5 fL 6.2-12.0 [facility] Monocyte percentageOrdered B y: Ale Ortiz on 04-10-2025 Monocytes/100 WBC (Bld) 11.3 % High 0-[address] [facility] Neutrophil percentageOrdered By: Ale Ortiz on 04-10-2025 Neutrophils/100 WBC (Bld) 62.6 % 47-70 [facility] Nucleated red blood cell per centageOrdered By: Ale Ortiz on 04-10-2025 Nucleated RBC/100 WBC (Bld) [Ratio] 0 % 0-5 [facility] Platelet countOrdered By: Babita Ortiz on 04-10-2025 Platelets (Bld) [#/Vol] 398 10*3/uL 150-450 [facility] Potassium measurement (mass/ volume)Ordered By: Ale Ortiz on 04-10-2025 Potassium (Unsp spec) [Mass/Vol] 4.4 mmol/L 3.3-5.1 [facility] RBC Auto (Bld) [#/Vol]Ordere d By: Ale Ortiz on 04-10-2025 RBC (Bld) [#/Vol] 4.20 10*6/uL Low 4.6-6.2 [facility] Serum creatinine measurement (mass/volume)Ordered By: Ale Ortiz on 04-10-2025 Creatinine [Mass/Vol] 1.58 mg/dL High 0.70-1.20 [facility] Serum glucose measurement (m ass/volume)Ordered By: Ale Ortiz on 04-10-2025 Glucose [Mass/Vol] 95 mg/dL 70-99 [facility] Serum or plasma calcium susannah urement (mass/volume)Ordered By: Ale Ortiz on 04-10-2025 Calcium [Mass/Vol] 9.2 mg/dL 7.6-11.0 [facility] Serum or plasma urea nitroge n measurement (mass/volume)Ordered By: Ale Ortiz on 04-10-2025 Urea nitrogen [Mass/Vol] 24 mg/dL High 4-19 [facility] Sodium levelOrdered By: Ale Ortiz on 04-10-2025 Sodium [Moles/Vol] 140 mmol/L 133-145 [facility] White blood cell (WBC) count Ordered By: Ale Ortiz on 04-10-2025 WBC (Bld) [#/Vol] 9.0 10*3/uL 4.4-11.0 [facility] 30on 04-08-2025 30 Problem: Pain - Adult Goal: Verbalizes/display s adequate comfort level or baseline comfort level Outcome: Progressing Problem: Safety - Adult Goal: Free from fall injury Outcome: Progressing Problem: Discharge Planning Goal: Discharge to home or other facility with appropriate resources Outcome: Progressing Problem: Chronic Conditions and Co-morbidities Goal: Patient's chronic conditions and co-morbidity symptoms are monitored and maintained or improved Outcome: Progressing Problem: Knowledge Deficit Goal: Patient/family/car egiver demonstrates understanding of disease process, treatment plan, medications, and discharge instructions Outcome: Progressing Problem: Potential for Compromised Skin Integrity Goal: Skin Integrity is Maintained or Improved Outcome: Progressing Goal: Nutritional status is improving Outcome: Progressing Problem: Urinary Incontinence Goal: Perineal skin integrity is maintained or improved Outcome: Progressing Normal [facility] [id number] 04-08-2025 [id number] follow up: Received secure chat, [facility] RN met with pt last night. Pt agreeable and signed release for a referral to [facility]. SW met with pt. Pt is exploring options. Pt felt drt and drts' sponsor were pressuring pt to go to treatment. Pt indicated pt had been to many treatment facilities, doesn't feel he needs recovery, but if there is not another option, pt would go to [facility]. Pt plans on making calls and researching options. Pt agreeable for SW to send referral to [facility]. SW met with pt, updated sent referral. Pt then indicated now wants to go to [facility]. Pt called [place] and no openings at [facility]. Called a retirement in [place], no openings. SW sent clinical referral to [facility] intake. DJ from [facility] let SW know, their clinical team reviewed, and they can accept pt. SW went to update pt, [facility] accepted, and pt will need to call [facility] and complete telephone intake. Pt updated SW, change in plan, pt found a retirement in [place] [facility] , that is able to accept pt. Pt declined [facility] as a discharge plan. Pt indicated pt will just need transport set up to the homeless [facility]. Address :[address] [place], [place] [address] , [place]. Called [facility] updated, pt declined program. SW completed Roundtrip, requesting uber with hospital paying, as pt insurance does not cover transport. Requested transport at 2:00pm. Updated team on discharge time. . 36on 04-08-2025 36 Notification of Hospital Discharge Viral Ann was discharged from [facility] to home on 04/08/2025. Viral Ann plans to follow up outpatient with the [facility]. Will route this note to Pantera Campbell (Nate) to initiate Transitional Care Management Process. Prior to patient's discharge, the patient was scheduled an [facility] follow up appointment within 7 days of hospital discharge (preferred). Future Appointments Date Time Provider Department Center 04/16/2025 3:00 PM Jazmín Devi DO [facility] RNA panel SAMUEL+probeon 07 -02-2025 HCV RNA SAMUEL+probe [Log units/Vol] Not detected [facility] HCV RNA SAMUEL+probe Qn Not detected [facility] Interpretation and review of laboratory results Normal [facility] The linear detection limit for this assay is 15 HCV IU/ml. A result of <15 IU (<1.18 log IU) indicates that HCV was detected, but at a level below the linear cutoff. A result of None Detected means that no HCV RNA was detected. This test is performed via rtPCR methodology. [facility] MR Ankle - right WO and W co ntrast Mark 04-08-2025 Impression: Mildly enhancing nonloculated soft tissue fluid and edema along the lateral aspect of the ankle; correlate with cellulitis. No organized fluid collection or abscess. CRITICAL TEST RESULT COMMUNICATION: Notification of these findings was made to Dr. Bradly Dyer via [employer] Secure Chat on 04/07/2025 10:26 PM EDT. [Valeriy Feng 04-07-2025, 22:26] Report Dictated on Electronically Signed By: Mauro Andersen MD Electronically Signed Date/Time: 04/08/2025 11:41 AM T [facility] Patient Name: VIRAL ANN : 1975 Exam Date/Time: 04/07/2025 18:23 Procedure: MR ANKLE RIGHT W AND WO CONTRAST Ordering Provider: NEELY MEREDITH Reason For Exam: Concern for possible abcess found on previous imaging Examination: MRI right ankle Clinical Indication: Concern for abscess. Cellulitis. Comparison: None Findings: Multiplanar multisequence MRI images were obtained through the right ankle with and without administration of intravenous gadolinium. Mildly enhancing nonloculated soft tissue fluid and edema along the lateral aspect of the ankle. No organized fluid collection or abscess. No joint effusion to suggest septic arthritis. No abnormal bone marrow signal intensity/replacem ent or postcontrast enhancement to suggest osteomyelitis No evidence of fracture, contusion or avascular necrosis. No osteochondral lesion. Lateral ankle: The anterior and posterior talofibular and calcaneofibular ligaments are intact. The tibiofibular ligaments are preserved. The anterior and posterior syndesmosis are intact. The peroneal brevis and longus tendons are normal. The sinus tarsi fat is preserved. Medial structures: The deep fibers of the deltoid ligament are intact. The posterior tibial, flexor digitorum longus and flexor hallucis longus tendons are normal. Anterior structures: The extensor tendons are within normal limits. Posterior structures: The Achilles tendon is normal. The fat within Kaeger's fat pad is preserved. Normal muscle volume and signal intensity. Normal plantar fascia. [facility] Mauro Andersen MD - 04/08/2025 Patient Name: VIRAL ANN : 1975 Exam Date/Time: 04/07/2025 18:23 Procedure: MR ANKLE RIGHT W AND WO CONTRAST Ordering Provider: NEELY MEREDITH Reason For Exam: Concern for possible abcess found on previous imaging Examination: MRI right ankle Clinical Indication: Concern for abscess. Cellulitis. Comparison: None Findings: Multiplanar multisequence MRI images were obtained through the right ankle with and without administration of intravenous gadolinium. Mildly enhancing nonloculated soft tissue fluid and edema along the lateral aspect of the ankle. No organized fluid collection or abscess. No joint effusion to suggest septic arthritis. No abnormal bone marrow signal intensity/replacem ent or postcontrast enhancement to suggest osteomyelitis No evidence of fracture, contusion or avascular necrosis. No osteochondral lesion. Lateral ankle: The anterior and posterior talofibular and calcaneofibular ligaments are intact. The tibiofibular ligaments are preserved. The anterior and posterior syndesmosis are intact. The peroneal brevis and longus tendons are normal. The sinus tarsi fat is preserved. Medial structures: The deep fibers of the deltoid ligament are intact. The posterior tibial, flexor digitorum longus and flexor hallucis longus tendons are normal. Anterior structures: The extensor tendons are within normal limits. Posterior structures: The Achilles tendon is normal. The fat within Kaeger's fat pad is preserved. Normal muscle volume and signal intensity. Normal plantar fascia. IMPRESSION: Impression: Mildly enhancing nonloculated soft tissue fluid and edema along the lateral aspect of the ankle; correlate with cellulitis. No organized fluid collection or abscess. CRITICAL TEST RESULT COMMUNICATION: Notification of these findings was made to Dr. Bradly Dyer via [employer] Secure Chat on 04/07/2025 10:26 PM EDT. [Valeriy Feng 04-07-2025, 22:26] Report Dictated on Electronically Signed By: Mauro Andersen MD Electronically Signed Date/Time: 04/08/2025 11:41 AM EDT [facility] MR Ankle - right WO and W co ntrast IVOrdered By: Mauro Andersen on 04-08-2025 [facility] Factor 14 Work Phone: Nursing Noteon 04-08-2025 Nursing Note Wound Care consulted for Pressure Injury Prevention. Pt's Noah= 20, pt is no longer at risk at this time. Will continue to follow peripherally. Please vocera or secure chat message with any questions. Deepti Garay RN, CWCN [facility] 30on 04-07-2025 30 Problem: Pain - Adult Goal: Verbalizes/display s adequate comfort level or baseline comfort level Outcome: Progressing Problem: Safety - Adult Goal: Free from fall injury Outcome: Progressing Problem: Discharge Planning Goal: Discharge to home or other facility with appropriate resources Outcome: Progressing Problem: Chronic Conditions and Co-morbidities Goal: Patient's chronic conditions and co-morbidity symptoms are monitored and maintained or improved Outcome: Progressing Problem: Knowledge Deficit Goal: Patient/family/car egiver demonstrates understanding of disease process, treatment plan, medications, and discharge instructions Outcome: Progressing 30 Problem: Pain - Adult Goal: Verbalizes/display s adequate comfort level or baseline comfort level Outcome: Progressing Problem: Safety - Adult Goal: Free from fall injury Outcome: Progressing Problem: Discharge Planning Goal: Discharge to home or other facility with appropriate resources Outcome: Progressing Problem: Chronic Conditions and Co-morbidities Goal: Patient's chronic conditions and co-morbidity symptoms are monitored and maintained or improved Outcome: Progressing Problem: Knowledge Deficit Goal: Patient/family/car egiver demonstrates understanding of disease process, treatment plan, medications, and discharge instructions Outcome: Progressing Problem: Potential for Compromised Skin Integrity Goal: Skin Integrity is Maintained or Improved Outcome: Progressing Goal: Nutritional status is improving Outcome: Progressing Problem: Urinary Incontinence Goal: Perineal skin integrity is maintained or improved Outcome: Progressing Normal [facility] [id number] 04-07-2025 [id number] THOMAS follow up: THOMAS met with pt, pt drt and dressence' sponsor at bedside. Introduced self/role to drt. Drt is here to be a support for pt, and advocating for pt to enter substance abuse treatment. Pt is agreeable to this option. Drt does not want pt to go to [facility], where pt has no support. SW discussed if pt goes to rehab, SW will assist in getting transportation arranged, and can send, with pt permission clinicals to rehab. SW discussed having hospital [facility] RN meet with pt, to discuss treatment options, pt agreeable. THOMAS sent secure chat to [facility] team, requesting a visit to assess pt for possible in-patient. . Bacteria identified Cx Nom ( Bld)on 04-07-2025 Interpretation and review of laboratory results Normal [facility] Blood Collection Site: Right Antecubital [facility] Interpretation and review of laboratory results Normal [facility] Blood Collection Site: Left Forearm [facility] C-REACTIVE PROTEINon 025 CRP [Mass/Vol] 27.2 mg/L High <5.0 [facility] Comment on above: Performed By: #### L [id number] #### [employer] Processor: MYLA EDDY ([id number]) [facility] ([facility]) [address] [place] [address] CBC (HEMOGRAM)on 04-07-2025 Erythrocyte distribution width (RBC) [Ratio] 13.4 % Normal 11.5-15.0 [facility] Comment on above: Performed By: #### L [id number] ####[employer] Processor: MYLA [id number])[facility] ([facility])[address] [place] [address] Hematocrit (Bld) [Volume fraction] 38.1 % Low 40.0-52.0 [facility] Comment on above: Performed By: #### L [id number] ####[employer] Processor: MYLA [id number])[facility])[address] [place] [address] Hemoglobin (Bld) [Mass/Vol] 12.6 g/dL Low 13.0-18.0 [facility] Comment on above: Performed By: #### L [id number] ####[employer]or: MYLA EDDY ([id number])[facility])[address] [place] [address] MCH (RBC) [Entitic mass] 30.5 pg Normal 26.0-34.0 [facility] Comment on above: Performed By: #### L [id number] ####[employer] Processor: MYLA EDDY ([id number])[facility])[address] [place] [address] MCHC 33.1 % Normal 30.5-36.0 [facility] Comment on above: Performed By: #### L [id number] ####[employer] Processor: MYLA EDDY ([id number])[facility] ([facility])[address] [place] [address] MCV (RBC) [Entitic vol] 92.3 fL Normal 77.0-99.0 [facility] Comment on above: Performed By: #### L [id number] ####[employer] Processor: MYLA EDDY ([id number])[facility])[address] [place] [address] Platelet mean volume (Bld) [Entitic vol] 10.4 fL Normal 9.0-12.7 [facility] Comment on above: Performed By: #### L AB294 ####[employer] Processor: MYLA EDDY ([id number])[facility] ([facility])[address] [place] [address] [place] Platelets (Bld) [#/Vol] 269 10*3/uL Normal 140-440 [facility] Comment on above: Performed By: #### L [id number] ####[employer] Processor: MYLA EDDY ([id number])[facility])[address] [place] [address] RBC (Bld) [#/Vol] 4.13 10*6/uL Low 4.40-5.90 [facility] Comment on above: Performed By: #### L AB294 ####[employer] Processor: MYLA EDDY ([id number])[facility] ([facility])[address] [place] [address] WBC (Bld) [#/Vol] 7.5 10*3/uL Normal 3.6-10.7 [facility] Comment on above: Performed By: #### L AB294 ####[employer] Processor: MYLA EDDY ([id number])[facility] ([facility])[address] [place] [address] CBC panel Auto (Bld)Ordered By: Mar Henao on 04-07-2025 Erythrocyte distribution width (RBC) [Ratio] 13.4 % 11.5 - 15.0 % [facility] Hematocrit (Bld) [Volume fraction] 38.1 % Low 40.0 - 52.0 % [facility] Hemoglobin (Bld) [Mass/Vol] 12.6 g/dL Low 13.0 - 18.0 g/dL [facility] Interpretation and review of laboratory results Abnormal [facility] MCH (RBC) [Entitic mass] 30.5 pg 26.0 - 34.0 pg [facility] MCHC (RBC) [Mass/Vol] 33.1 % 30.5 - 36.0 % [facility] MCV (RBC) [Entitic vol] 92.3 fL 77.0 - 99.0 fL [facility] Platelet mean volume (Bld) [Entitic vol] 10.4 fL 9.0 - 12.7 fL [facility] Platelets (Bld) [#/Vol] 269 10*3/uL 140 - 440 10*3/uL [facility] RBC (Bld) [#/Vol] 4.13 10*6/uL Low 4.40 - 5.9 0 10*6/uL [facility] WBC (Bld) [#/Vol] 7.5 10*3/uL 3.6 - 10.7 10*3/uL [facility] COMPREHENSIVE METABOLIC PANE Abraham 04-07-2025 Albumin [Mass/Vol] 3.2 g/dL Low 3.5-5.0 [facility] Comment on above: Performed By: #### L [id number], LAB17 ####[employer]or: MYLA EDDY ([id number])[facility] ([facility])[address] [place] [address] ALP [Catalytic activity/Vol] 24 U/L Low 40-150 [facility] Comment on above: Performed By: #### L AB103, LAB17 ####[employer]or: MYLA EDDY ([id number])[facility] ([facility])[address] [place] [address] ALT [Catalytic activity/Vol] 27 U/L Normal <40 [facility] Comment on above: Performed By: #### L AB103, LAB17 ####[employer]or: MYLA EDDY ([id number])[facility] ([facility])[address] [place] [address] Anion gap [Moles/Vol] 7 mmol/L Normal 3-13 [facility] Comment on above: Performed By: #### L AB103, LAB17 ####[employer]or: MYLA EDDY ([id number])[facility] ([facility])[address] [place] [address] AST [Catalytic activity/Vol] 33 U/L Normal <34 [facility] Comment on above: Performed By: #### L AB103, LAB17 ####[employer]or: MYLA EDDY ([id number])[facility] ([facility])[address] [place] [address] Bilirubin [Mass/Vol] 0.3 mg/dL Normal <1.2 [facility] Comment on above: Performed By: #### L AB103, LAB17 ####[employer]or: MYLA EDDY ([id number])[facility] ([facility])[address] [place] [address] [place] Calcium [Mass/Vol] 9.0 mg/dL Normal 8.4-10.2 [facility] Comment on above: Performed By: #### L AB103, LAB17 ####[employer]or: MYLA EDDY ([id number])[facility] ([facility])[address] [place] [address] Chloride [Moles/Vol] 106 mmol/L Normal 98-107 [facility] Comment on above: Performed By: #### L AB103, LAB17 ####[employer] Processor: MYLA EDDY ([id number])[facility])[address] [place] [address] CO2 [Moles/Vol] 26 mmol/L Normal 22-29 [facility] Comment on above: Performed By: #### L AB103, LAB17 ####[employer] Processor: MYLA EDDY ([id number])[facility])[address] [place] [address] Creatinine [Mass/Vol] 1.25 mg/dL Normal 0.72-1.25 [facility] Comment on above: Performed By: #### L AB103, LAB17 ####[employer] Processor: MYLA EDDY ([id number])[facility])[address] [place] [address] GLOMERULAR FILTRATION RATE ML/MIN/1.73 SQ M.PREDICTED 70.2 mL/min/1.73m*2 Normal >60.0 [facility] Comment on above: Result Comment: Calc ulation based on the Chronic Kidney Disease Epidemiology Collaboration (CKD-EPI) equation refit without adjustment for race Performed By: #### L AB103, LAB17 ####[employer] Processor: MYLA EDDY ([id number])[facility])[address] [place] [address] Glucose [Mass/Vol] 93 mg/dL Normal 74-100 [facility] Comment on above: Performed By: #### L AB103, LAB17 ####[employer] Processor: MYLA EDDY ([id number])[facility])[address] [place] [address] Potassium [Moles/Vol] 4.0 mmol/L Normal 3.5-5.1 [facility] Comment on above: Result Comment: [facility] potassium values may be up to 0.5 mmol/L lower than serum values. Performed By: #### L AB103, LAB17 ####[employer]or: MYLA EDDY ([id number])[facility] ([facility])[address] [place] [address] Protein [Mass/Vol] 7.1 g/dL Normal 6.4-8.3 [facility] Comment on above: Performed By: #### L AB103, LAB17 ####[employer] Processor: MYLA EDDY ([id number])[facility] ([facility])[address] [place] [address] Sodium [Moles/Vol] 139 mmol/L Normal 136-145 [facility] Comment on above: Performed By: #### L AB103, LAB17 ####[employer] Processor: MYLA EDDY ([id number])[facility] ([facility])[address] [place] [address] Urea nitrogen [Mass/Vol] 15 mg/dL Normal 9-23 [facility] Comment on above: Performed By: #### L AB103, LAB17 ####[employer] Processor: MYLA EDDY ([id number])[facility] ([facility])[address] [place] [address] CREATININE, SERUMon 04-07-20 25 Creatinine [Mass/Vol] 0.97 mg/dL Normal 0.72-1.25 [facility] Comment on above: Performed By: #### L [id number] #### [employer]or: MYLA EDDY ([id number]) [facility] ([facility]) [address] [place] [address] GLOMERULAR FILTRATION RATE ML/MIN/1.73 SQ M.PREDICTED >90.0 Normal >60.0 [facility] Comment on above: Result Comment: Calc ulation based on the Chronic Kidney Disease Epidemiology Collaboration (CKD-EPI) equation refit without adjustment for race Performed By: #### L AB462 #### [employer]or: MYLA EDDY ([id number]) [facility] ([facility]) [address] [place] [address] [place] CRP [Mass/Vol]on 04-07-2025 Interpretation and review of laboratory results Abnormal [facility] metabolic 1998 panelon 04-07-2025 Albumin [Mass/Vol] 3.2 g/dL Low 3.5 - 5.0 g/dL [facility] ALP [Catalytic activity/Vol] 24 U/L Low 40 - 150 U/L [facility] ALT [Catalytic activity/Vol] 27 U/L [facility] U/L [facility] Anion gap [Moles/Vol] 7 mmol/L 3 - 13 mmol/L [facility] AST [Catalytic activity/Vol] 33 U/L [facility] - 34 U/L [facility] Bilirubin [Mass/Vol] 0.3 mg/dL NINF - 1.2 mg/dL [facility] Calcium [Mass/Vol] 9 mg/dL 8.4 - 10. 2 mg/dL [facility] Chloride [Moles/Vol] 106 mmol/L 98 - 10 7 mmol/L [facility] CO2 [Moles/Vol] 26 mmol/L 22 - 29 mmol/L [facility] Creatinine [Mass/Vol] 1.25 mg/dL 0.72 - 1.25 mg/dL [facility] GFR/1.73 sq M.predicted (S/P/Bld) [Vol rate/Area] 70.2 mL/min - [facility] Comment on above: Calculation based on the Chronic Kidney Disease Epidemiology Collaboration (CKD-EPI) equation refit without adjustment for race Glucose [Mass/Vol] 93 mg/dL 74 - 100 mg/dL [facility] Interpretation and review of laboratory results Abnormal [facility] th Potassium [Moles/Vol] 4 mmol/L 3.5 - 5.1 mmol/L [facility] Comment on above: Plasma potassium ramesh ues may be up to 0.5 mmol/L lower than serum values. Protein [Mass/Vol] 7.1 g/dL 6.4 - 8.3 g/dL [facility] Sodium [Moles/Vol] 139 mmol/L 136 - 145 mmol/L [facility] Urea nitrogen [Mass/Vol] 15 mg/dL 9 - 23 mg/d L [facility] Creatinine [Mass/Vol]on GFR/1.73 sq M.predicted (S/P/Bld) [Vol rate/Area] - [facility] Comment on above: Calculation based on the Chronic Kidney Disease Epidemiology Collaboration (CKD-EPI) equation refit without adjustment for race Interpretation and review of laboratory results Normal [facility] HBSAG CONFIRMATIONon 025 HBSAG CONFIRMATION Positive Abnormal Non Confirmed [facility] Comment on above: Result Comment: Hepa titis B surface antigen (HBsAg) did neutralize using anti-HBs. This specimen is therefore POSITIVE for HBsAg. False positives can occur. If the result is not supported by clinical evidence, repeat testing of a new sample usually helps clarify the diagnosis. INTERPRETIVE INFORMATION: Hepatitis B Surface Ag Confirmation This assay should not be used for blood donor screening, associated re-entry protocols, or for screening Human Cells, Tissues and Cellular and Tissue-Based Products (HCT/P). Performed By: [facility] [address] [place] [id number] Ep Tech: Cruz Oakley MD, PhD CLIA Number: [id number] Performed By: #### L [id number] ####[facility] ([facility])[address] [place] [id number] [place] HBV core IgM IA Qlon 025 Interpretation and review of laboratory results Normal [facility] HBV surface Ab IA Qnon 04-07 Interpretation: <8.0 Non-Reactive 8.0-11.9 Equivocal >= 12.0 Ab Detected Note: If an equivocal result is interpreted, an antibody status is unable to be determined. Collect new specimen if clinically indicated. [facility] HBV surface Ag IA QlOrdered By: Karyna Martin on 04-07-2025 Interpretation and review of laboratory results Abnormal [facility] HEPATITIS B CORE ANTIBODY, I GMon 04-07-2025 HEPATITIS B VIRUS CORE IGM AB Not detected Normal Not Detected [facility] Comment on above: Performed By: #### L AB549, [id number], [id number] ####[employer] Processor: MYLA EDDY ([id number])[address] HEPATITIS B SURFACE ANTIBODY on 04-07-2025 HEPATITIS B VIRUS SURFACE AB <8.0 Normal [facility] Comment on above: Result Comment: JESSICA Brown COMMENTS: Interpretation: <8.0 Non-Reactive 8.0-11.9 Equivocal >= 12.0 Ab Detected Note: If an equivocal result is interpreted, an antibody status is unable to be determined. Collect new specimen if clinically indicated. Performed By: #### L AB549, [id number], [id number] ####[employer] Processor: MYLA EDDY ([id number])[facility])[address] [place] [address] HEPATITIS B SURFACE ANTIGENo n 04-07-2025 HEPATITIS B VIRUS SURFACE AG Detected Abnormal Not Detected [facility] Comment on above: Result Comment: Conf irmation needs to be collected. Performed By: #### L AB549, [id number], [id number] ####[employer] Processor: MYLA EDDY ([id number])[address] HEPATITIS C VIRAL LOADon HCV RNA QUANT (ND) Not detected Normal <15 [facility] Comment on above: Performed By: #### L [id number] ####[employer] Processor: MYLA EDDY ([id number])[facility])[address] [place] [address] HCV RNA QUANT LOG (ND) Not detected Normal <1.18 [facility] Comment on above: Result Comment: JESSICA Brown COMMENTS: The linear detection limit for this assay is 15 HCV IU/ml. A result of <15 IU (<1.18 log IU) indicates that HCV was detected, but at a level below the linear cutoff. A result of None Detected means that no HCV RNA was detected. This test is performed via rtPCR methodology. Performed By: #### L [id number] ####[employer]or: MYLA EDDY ([id number])[facility])[address] [place] [address] Laboratory - Chemistry and C hemistry - challengeon 04-07-2025 Creatinine [Mass/Vol] 0.97 mg/dL 0.72 - 1.25 mg/dL [facility] [facility] CRP [Mass/Vol] 27.2 mg/L High NINF - 5.0 mg/L [facility] Magnesium [Mass/Vol] 1.7 mg/dL 1.6 - 2 .6 mg/dL [facility] Laboratory - Microbiology an d Antimicrobial susceptibilityon 04-07-2025 Bacteria identified Cx Nom (Bld) No growth at 5 days [facility] Bacteria identified Cx Nom (Bld) No growth at 5 days [facility] HBV core IgM IA Ql Not detected Not Detected [facility] HBV surface Ab IA Qn mIU/mL [facility] Laboratory - Microbiology an d Antimicrobial susceptibilityOrdered By: Karyna Martin on 04-07-2025 HBV surface Ag IA Ql Detected Abnormal Not Detected [facility] Comment on above: Confirmation needs t o be collected. MAGNESIUMon 04-07-2025 Magnesium [Mass/Vol] 1.7 mg/dL Normal 1.6-2.6 [facility] Comment on above: Result Comment: ORDE R COMMENTS: Higher values can be expected in females during menses. Performed By: #### L [id number], [id number] ####Solid Propellant Processor: MYLA EDDY ([id number])[facility] ([facility])[address] [place] [address] MR Ankle - right WO and W co ntrast Mark 04-07-2025 Radiology Study observation (narrative) [facility] Magnesium [Mass/Vol]on 04-07 Interpretation and review of laboratory results Normal [facility] th Higher values can be expected in females during menses. [facility] No Panel Informationon 04-07 [facility] Nursing Noteon 04-07-2025 Nursing Note This ACC RN went to see patient. Patient had just went to ultrasound. Will leave consult open. Normal [facility] Progress Noteon 04-07-2025 Progress Note -------- Attestation signed by Abel Cortez MD at 04/07/2025 6:01 PM I have personally examined the patient and reviewed the case with the residents. I agree with the current plan of care including the workup, evaluation, management, and diagnosis. Care plan has been discussed. The above documentation has been reviewed and edited as needed to reflect the findings of my evaluation. - pt has had a right foot non-contrasted MRI, which showed a fluid collection at the base of his 5th metatarsal joint. Pt states he has always had this abnormality. - his pain is primarily over the lateral right ankle, with erythema, and considerable tenderness. - will do a contrasted MRI of the foot and ankle, to r/o osteomyelitis. - continue Vanco and Zosyn as empiric atbx. -------- Med Team Progress Note Viral Ann : 1975(49 y.o.) Date: April 07, 2025 Med Team: Monica Attending: Dr. Cortez Chief Complaint: Right foot pain Brief Hospital Course: 49 y.o. male with PMHx IVDU and substance-induced psychosis that presented to [facility] on 04/02/2025 from home for acute on chronic right foot pain. A picture of the patient's right foot is uploaded in the media tab. A non-contrast right foot MRI was completed for concern of tissue infection requiring surgical intervention, which showed cellulitis and small fluid collection along the plantar lateral aspect of the fifth metatarsal head (may represent adventitious bursitis vs a small abscess) w/ no evidence of acute osteomyelitis. Awaiting contrast MRI of the ankle to rule out osteomyelitis. Subjective: - Patient's IV was infiltrated causing swelling of the left upper arm. IV was removed. - Currently, denies any questions or concerns. States that he has a history of infections, last one was treated with oral antibiotics while in snf. Rates pain as a 7/10 when walking, but is able to walk around the unit with no issues and no assistance. PRN meds used in last 24hrs: ativan x1, tylenol x1 Review of Systems Constitutional: Negative. Respiratory: Negative. Cardiovascular: Negative. Musculoskeletal: Negative. Skin: Positive for wound. Wound present on right ankle Neurological: Negative. Scheduled Meds:Scheduled Meds[1] Continuous Infusions:Continuo us Meds[2] Objective: BP 131/75 Pulse 64 Temp 36.3 ?C (97.4 ?F) (Temporal) Resp 18 Ht 6' 3 (1.905 m) Wt 250 lb (113 kg) SpO2 91% BMI 31.25 kg/m? Physical Exam Constitutional: General: He is not in acute distress. Appearance: Normal appearance. He is normal weight. HENT: Head: Normocephalic. Mouth/Throat: Mouth: Mucous membranes are moist. Pharynx: Oropharynx is clear. Cardiovascular: Rate and Rhythm: Normal rate and regular rhythm. Heart sounds: No murmur heard. Pulmonary: Effort: Pulmonary effort is normal. Breath sounds: Normal breath sounds. Abdominal: General: Abdomen is flat. Palpations: Abdomen is soft. Musculoskeletal: General: Swelling (right ankle) and tenderness (Right ankle) present. Cervical back: Normal range of motion. Neurological: Mental Status: He is alert and oriented to person, place, and time. Psychiatric: Mood and Affect: Mood normal. Select Recent Labs BMP: Recent Labs 04/05/25 1310 NA 139 K 4.0 CL 110* CO2 23 BUN 13 CREATININE 1.06 CALCIUM 8.3* LFTs: Recent Labs 04/05/25 1310 AST 44* ALT 24 PROT 6.5 ALBUMIN 2.8* BILITOT 0.3 ALKPHOS 23* Glucose: Recent Labs 04/05/25 1310 GLUCOSE 99 Procal: No results for input(s): PROCAL in the last 72 hours. CBC: Recent Labs 04/05/25 1310 04/07/25 1320 WBC 6.5 7.5 HGB 12.6* 12.6* HCT 37.1* 38.1* PLT 187 269 MCV 92.3 92.3 RDW 13.4 13.4 ABGs: No results for input(s): PHART, ACM9MSF, PO2ART, UVX2OLI, SO2ART, J7LEOAKJ in the last 72 hours. Lactic Acid: No results for input(s): LACTATE in the last 72 hours. INR: No results for input(s): INR in the last 72 hours. Cardiac Injury Profile: No results for input(s): CKTOTAL, CKMB, TROPONINI, TROPHSBASE, TROPHS2, BNP in the last 72 hours. Notable Prior Labs: No results found for: TSH, VITD25, PSA, INR, GLUF Notable Imaging: MR foot right wo IV contrast - Cellulitis. Small fluid collection, adventitious bursitis vs a small abscess. No evidence of acute osteomyelitis. Notable Micro: - Assessment and Plan: Acute on chronic R foot pain, cellulitis- clinically minimally improved, less tender to palpation, WBC trending down Reported history of R foot infection (NOS) -XR shows hallux valgus without definitive fx and no evidence of osteomyelitis -Wound appears stable on today's exam. See picture in media tab for compar (more content not included)... Normal [facility] [id number] 04-06-2025 [id number] THOMAS consult-homelessne ss. Reviewed chart. Pt address listed as being in [place]. THOMAS contacted [facility]. Spoke with Marco Antonio, who verified pt has stayed at the [facility] in the past and is able to return, if pt so desires. THOMAS met with pt. Introduced self/role. Pt agreeable to speaking with THOMAS. Pt reports being in [place] for about a week. Pt feels [place] is too big of an area to stay in. Pt expressed concern at staying at [facility], as you have to leave the retirement everyday. Pt worried about his foot infection and walking around all day, would not be good for pt foot infection. Pt asked several times if THOMAS could get bus pass for pt to go back to [place] or [place]. Pt is from [place], has family there. Pt left [place] about 10 years ago. Pt indicated he likes to travel. Had a car, up until a year ago, when car broke down. Pt would stay in campsites , during pt travels. when pt had his car. Pt took awhile to get up to [place], via hitchhiking. Pt indicated in [facility], he would be able to obtain housing within 30 days, which is why pt would like to go to [place]. In [place], pt has family he could stay with. THOMAS explained [facility] is able to accept pt back. THOMAS discussed SW would explore options. THOMAS reached out to SW bilingual case manager, Arminda Smallwood, asking if obtaining a bus ticket out of state is an option. SW waiting to hear back from bilingual case manager. . follow up: Nut Picker Arminda Bronson responded. Suggested calling [facility] and speak with director to see if pt could sit in day room, rather than walk street, until foot heals. Nut Picker not inclined to assist with bus trip to [place]. Indicated, if SW able to verify the retirement in [place] and verify pt could stay there, perhaps bilingual case manager may be agreeable to bus. Not willing to assist if pt would just be on the streets in [place], SW spoke with pt. Pt will try and get this info for SW to verify in the morning. SW explained if [place] discharges today, pt option would be [facility]. . [facility] Consulton 04-06-2025 Consult Ortho Consult Patient: Viral Ann Date of : 1975 Acct: [id number] PCP: No primary care provider on file. Date of Admission: 04/02/2025 Date of Service: Pt seen/examined on 04/06/2025 Chief Complaint: Right ankle cellulitis History Of Present Illness: This is a 49 y.o. male who has cellulitis of the right ankle and dorsal foot. Patient states that he has previously had an infection in the similar area approximately 4 months ago that was treated with antibiotics and improved. He states that the new infection has been present for several weeks and pain with ambulation is what prompted him to present to the hospital. He denies any new numbness and tingling in his lower extremity. He denies fevers and chills. Patient does not have any documented past medical history. 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 He notes chronic swelling to the right lower extremity and attributes his cellulitis to this. He is not known to any local orthopedic surgeons. He did have a left biceps repair around 20 to 30 years ago in [place]. Patient denies alcohol and tobacco use states that his IV methamphetamine, and has recently used cocaine proximately 1 week ago in the right antecubital fossa. Patient ambulation status: no difficulty Antiplatelets/Anti coagulation includes: none Hx from chart and/or Pt. Past Medical History: Medical History[1] Past Surgical History: Surgical History[2] Home Medications: Prior to Admission medications Not on File Current Hospital Medications: Current Medications[3] Allergies: Patient has no known allergies. Social History: Social History Socioeconomic History Marital status: Single Spouse name: Not on file Number of children: Not on file Years of education: Not on file Highest education level: Not on file Occupational History Not on file Tobacco Use Smoking status: Some Days Types: Cigarettes Smokeless tobacco: Never Vaping Use Vaping status: Never Used Substance and Sexual Activity Alcohol use: Not Currently Drug use: Yes Types: Cocaine, Methamphetamines, Marijuana Sexual activity: Not on file Other Topics Concern Not on file Social History Narrative Not on file Social Drivers of Health Financial Resource Strain: Not on file Food Insecurity: Not on file Transportation Needs: Not on file Physical Activity: Not on file Stress: Not on file Social Connections: Not on file Intimate Partner Violence: Not on file Housing Stability: Not on file Family History: Family History[4] Further Family History is noncontributory to this injury. REVIEW OF SYSTEMS: Review of Systems - General ROS: negative for - chills, fatigue, fever, malaise or night sweats Psychological ROS: negative Ophthalmic ROS: negative ENT ROS: negative for - headaches or sore throat Hematological and Lymphatic ROS: negative for - bleeding problems or blood clots Respiratory ROS: no cough, shortness of breath, or wheezing Cardiovascular ROS: no chest pain or dyspnea on exertion Gastrointestinal ROS: negative Musculoskeletal ROS: See HPI Neurological ROS: negative for - bowel and bladder control changes, gait disturbance or numbness/tingling All other systems reviewed and are negative PHYSICAL EXAM: BP 90/50 Pulse 65 Temp 37.1 ?C (98.7 ?F) (Temporal) Resp 17 Ht 1.905 m (6' 3) Wt 113 kg (250 lb) SpO2 95% BMI 31.25 kg/m? GENERAL APPEARANCE: Awake and oriented x 3. No acute distress, except appropriate to injury. MOOD AND AFFECT: Calm appropriate to situation GAIT AND STATION: Patient is in bed and unable to ambulate secondary to known injury. COORDINATION and BALANCE: Patient is grossly coordinated unable to ambulate secondary to known injury. Right Upper Extremity: -No obvious pain or deformity to inspection with normal joint range of motion, stability, and muscle strength except noted below -No TTP over clavicle, shoulder, humerus, elbow, forearm, wrist, hand, or fingers -TTP: nontender throughout extremity -Radial pulse palpable -SILT in radial/median/ ulnar nerve distributions -Motor + AIN/PIN/ulnar nerve functions -Skin intact except where noted below -Painless pROM at shoulder/elbow/wri st Injection site noted in the right antecubital fossa Left Upper Extremity: -No obvious pain or deformity to inspection with normal joint range of motion, stability, and muscle strength except noted below -No TTP over clavicle, shoulder, humerus, elbow, forearm, wrist, hand, or fingers -TTP: nontender throughout extremity -Radial pulse palpable -SILT in radial/median/ ulnar nerve distributions -Motor + AIN/PIN/ulnar nerve functions -Skin intact except where noted below -Painless pROM at shoulder/elbow/wri st Atraumatic Right Lower Extremity: -No obvious pain or deformity to inspection with normal joint range of mot (more content not included)... Normal [facility] HCV Ab IA QlOrdered By: Jeremy Hawk on 04-06-2025 Interpretation and review of laboratory results Abnormal [facility] HIV 1+2 Ab+HIV1 p24 Ag IA Ql on 04-06-2025 Interpretation and review of laboratory results Normal [facility] Laboratory - Microbiology an d Antimicrobial susceptibilityOrdered By: Christen Hawk on 04-06-2025 HCV Ab IA Ql Detected Abnormal Not Detected [facility] Comment on above: Patients with DETECT ED Hepatitis C Ab results should have a new specimen submitted for supplemental testing with a Hepatitis C Quantitative RNA assay (viral load), if clinically indicated. Laboratory - Microbiology an d Antimicrobial susceptibilityon 04-06-2025 HIV 1+2 Ab+HIV1 p24 Ag IA Ql Non-Reactive Nonreactive [facility] Comment on above: The specimen was non -reactive for HIV-1 and HIV-2 antibodies and p24 antigen using an FDA-cleared 4th generation HIV test. Based on this non-reactive screen result, further reflexive testing was not indicated and was, therefore, not performed. MR Foot - right WO contrasto n 04-06-2025 1. No evidence of acute osteomyelitis. 2. Cellulitis. 3. Small fluid collection along the plantar lateral aspect of the fifth metatarsal head. This may represent adventitious bursitis versus a small abscess. 4. Hallux valgus deformity and moderate first MTP joint DJD. Report Dictated on Electronically Signed By: Jazmine Duran MD Electronically Signed Date/Time: 04/06/2025 8:48 AM EDT [facility] [employer] Patient Name: VIRAL ANN : 1975 Exam Date/Time: 04/05/2025 09:10 Procedure: MR FOOT RIGHT WO IV CONTRAST Ordering Provider: NEELY MEREDITH Reason For Exam: Right foot swelling, worsening erythemia, concern for infection EXAM: MR Right Lower Extremity Without Intravenous Contrast, Foot CLINICAL INDICATION: Right foot swelling, worsening erythema, concern for infection. Elevated white count. Right foot wound. TECHNIQUE: Multiplanar magnetic resonance images of the right forefoot and midfoot without intravenous contrast. COMPARISON: Right foot radiographs from 04/02/2025 FINDINGS: Limitations: Some sequences are limited by motion artifact. LIGAMENTS: MEDIAL COLLATERAL: Unremarkable. LATERAL COLLATERAL: Unremarkable. LISFRANC: Unremarkable. TENDONS: FLEXOR: Unremarkable. EXTENSOR: Unremarkable. PERONEAL: Unremarkable. TIBIALIS ANTERIOR: Unremarkable. TIBIALIS POSTERIOR: Unremarkable. MUSCLES: Unremarkable. FLUID: Small first MTP joint effusion. PLANTAR FASCIA: Unremarkable as visualized. CARTILAGE: Unremarkable. BONES/JOINTS: Hallux valgus deformity. Moderate first MTP joint DJD. Incidental bipartite tibial hallux sesamoid. Mild degenerative change of the second IP joints. There appear to be a healed chronic fracture deformity of the fifth metatarsal proximal diaphysis. Mild degenerative change between the bases of the fourth and fifth metatarsals. Mild second TMT joint DJD. No evidence of acute osteomyelitis. No acute fracture. SOFT TISSUES: Subcutaneous edema at the dorsal and lateral aspects of the forefoot. Small fluid collection in the subcutaneous tissues at the plantar and lateral aspects of the fifth metatarsal head. This measures 1.6 x 0.4 x 2.0 cm. Lack of intravenous contrast material somewhat limits assessment for an abscess. [facility] Jazmine Duran MD - 04/06/2025 Patient Name: VIRAL ANN : 1975 Exam Date/Time: 04/05/2025 09:10 Procedure: MR FOOT RIGHT WO IV CONTRAST Ordering Provider: NEELY MEREDITH Reason For Exam: Right foot swelling, worsening erythemia, concern for infection EXAM: MR Right Lower Extremity Without Intravenous Contrast, Foot CLINICAL INDICATION: Right foot swelling, worsening erythema, concern for infection. Elevated white count. Right foot wound. TECHNIQUE: Multiplanar magnetic resonance images of the right forefoot and midfoot without intravenous contrast. COMPARISON: Right foot radiographs from 04/02/2025 FINDINGS: Limitations: Some sequences are limited by motion artifact. LIGAMENTS: MEDIAL COLLATERAL: Unremarkable. LATERAL COLLATERAL: Unremarkable. LISFRANC: Unremarkable. TENDONS: FLEXOR: Unremarkable. EXTENSOR: Unremarkable. PERONEAL: Unremarkable. TIBIALIS ANTERIOR: Unremarkable. TIBIALIS POSTERIOR: Unremarkable. MUSCLES: Unremarkable. FLUID: Small first MTP joint effusion. PLANTAR FASCIA: Unremarkable as visualized. CARTILAGE: Unremarkable. BONES/JOINTS: Hallux valgus deformity. Moderate first MTP joint DJD. Incidental bipartite tibial hallux sesamoid. Mild degenerative change of the second IP joints. There appear to be a healed chronic fracture deformity of the fifth metatarsal proximal diaphysis. Mild degenerative change between the bases of the fourth and fifth metatarsals. Mild second TMT joint DJD. No evidence of acute osteomyelitis. No acute fracture. SOFT TISSUES: Subcutaneous edema at the dorsal and lateral aspects of the forefoot. Small fluid collection in the subcutaneous tissues at the plantar and lateral aspects of the fifth metatarsal head. This measures 1.6 x 0.4 x 2.0 cm. Lack of intravenous contrast material somewhat limits assessment for an abscess. IMPRESSION: 1. No evidence of acute osteomyelitis. 2. Cellulitis. 3. Small fluid collection along the plantar lateral aspect of the fifth metatarsal head. This may represent adventitious bursitis versus a small abscess. 4. Hallux valgus deformity and moderate first MTP joint DJD. Report Dictated on Electronically Signed By: Jazmine Duran MD Electronically Signed Date/Time: 04/06/2025 8:48 AM EDT [facility] MR Foot - right WO contrastO rdered By: Jazmine Duran on 04-06-2025 [facility] Work Phone: 30on 04-05-2025 30 Problem: Pain - Adult Goal: Verbalizes/display s adequate comfort level or baseline comfort level Outcome: Progressing Problem: Safety - Adult Goal: Free from fall injury Outcome: Progressing Problem: Discharge Planning Goal: Discharge to home or other facility with appropriate resources Outcome: Progressing Problem: Chronic Conditions and Co-morbidities Goal: Patient's chronic conditions and co-morbidity symptoms are monitored and maintained or improved Outcome: Progressing Problem: Knowledge Deficit Goal: Patient/family/car egiver demonstrates understanding of disease process, treatment plan, medications, and discharge instructions Outcome: Progressing Problem: Potential for Compromised Skin Integrity Goal: Skin Integrity is Maintained or Improved Outcome: Progressing Goal: Nutritional status is improving Outcome: Progressing Problem: Urinary Incontinence Goal: Perineal skin integrity is maintained or improved Outcome: Progressing Normal [facility] C-REACTIVE PROTEINon 025 CRP [Mass/Vol] 90.3 mg/L High <5.0 [facility] Comment on above: Performed By: #### L [id number] #### Solid [employer] Processor: MYLA EDDY ([id number]) [facility]) [address] [place] [address] CBC (HEMOGRAM)on 04-05-2025 Erythrocyte distribution width (RBC) [Ratio] 13.4 % Normal 11.5-15.0 [facility] Comment on above: Performed By: #### L [id number], [id number] ####[employer] Processor: MYLA [id number])[address] Hematocrit (Bld) [Volume fraction] 37.1 % Low 40.0-52.0 [facility] Comment on above: Performed By: #### L [id number], [id number] ####[employer] Processor: MYLA EDDY ([id number])[facility])[address] [place] [address] Hemoglobin (Bld) [Mass/Vol] 12.6 g/dL Low 13.0-18.0 [facility] Comment on above: Performed By: #### L [id number], [id number] ####Solid [employer] Processor: MYLA [id number])[facility] ([facility])[address] [place] [address] MCH (RBC) [Entitic mass] 31.3 pg Normal 26.0-34.0 [facility] Comment on above: Performed By: #### L [id number], [id number] ####Solid [employer] Processor: MYLA EDDY ([id number])[facility])[address] [place] [address] MCHC 34.0 % Normal 30.5-36.0 [facility] Comment on above: Performed By: #### L [id number], [id number] ####Solid [employer] Processor: MYLA EDDY ([id number])[facility])[address] [place] [address] MCV (RBC) [Entitic vol] 92.3 fL Normal 77.0-99.0 [facility] Comment on above: Performed By: #### Bethany [id number], [id number] ####Solid [employer] Processor: MYLA EDDY ([id number])[facility] ([facility])[address] [place] [address] Platelet mean volume (Bld) [Entitic vol] 10.6 fL Normal 9.0-12.7 [facility] Comment on above: Performed By: #### L [id number], [id number] ####[employer] Processor: MYLA EDDY ([id number])[facility])[address] [place] [address] Platelets (Bld) [#/Vol] 187 10*3/uL Normal 140-440 [facility] Comment on above: Performed By: #### L [id number], [id number] ####[employer] Processor: MYLA EDDY ([id number])[facility])[address] [place] [address] RBC (Bld) [#/Vol] 4.02 10*6/uL Low 4.40-5.90 [facility] Comment on above: Performed By: #### Bethany [id number], [id number] ####[employer] Processor: MYLA EDDY ([id number])[facility] ([facility])[address] [place] [address] WBC (Bld) [#/Vol] 6.5 10*3/uL Normal 3.6-10.7 [facility] Comment on above: Performed By: #### L AB322, [id number] ####[employer] Processor: MYLA EDDY ([id number])[facility] ([facility])[address] [place] [address] CBC panel Auto (Bld)on 04-05 Erythrocyte distribution width (RBC) [Ratio] 13.4 % 11.5 - 15.0 % [facility] Hematocrit (Bld) [Volume fraction] 37.1 % Low 40.0 - 52.0 % [facility] Hemoglobin (Bld) [Mass/Vol] 12.6 g/dL Low 13.0 - 18.0 g/dL [facility] Interpretation and review of laboratory results Abnormal [facility] MCH (RBC) [Entitic mass] 31.3 pg 26.0 - 34.0 pg [facility] MCHC (RBC) [Mass/Vol] 34 % 30.5 - 36.0 % [facility] MCV (RBC) [Entitic vol] 92.3 fL 77.0 - 99.0 fL [facility] Platelet mean volume (Bld) [Entitic vol] 10.6 fL 9.0 - 12.7 fL [facility] Platelets (Bld) [#/Vol] 187 10*3/uL 140 - 440 10*3/uL [facility] RBC (Bld) [#/Vol] 4.02 10*6/uL Low 4.40 - 5.9 0 10*6/uL [facility] WBC (Bld) [#/Vol] 6.5 10*3/uL 3.6 - 10.7 10*3/uL [facility] COMPREHENSIVE METABOLIC PANE Abraham 04-05-2025 Albumin [Mass/Vol] 2.8 g/dL Low 3.5-5.0 [facility] Comment on above: Performed By: #### L [id number] #### [employer] Processor: MYLA EDDY ([id number]) [facility] [address] [place] [address] [place] ALP [Catalytic activity/Vol] 23 U/L Low 40-150 [facility] Comment on above: Performed By: #### L [id number] #### [employer]or: MYLA EDDY ([id number]) [facility] ([facility]) [address] [place] [address] ALT [Catalytic activity/Vol] 24 U/L Normal <40 [facility] Comment on above: Performed By: #### L [id number] #### [employer] Processor: MYLA EDDY ([id number]) [facility] ([facility]) [address] [place] [address] Anion gap [Moles/Vol] 6 mmol/L Normal 3-13 [facility] Comment on above: Performed By: #### L [id number] #### [employer]or: MYLA EDDY ([id number]) [facility] ([facility]) [address] [place] [address] AST [Catalytic activity/Vol] 44 U/L High <34 [facility] Comment on above: Performed By: #### L [id number] #### [employer]or: MYLA EDDY ([id number]) [facility] ([facility]) [address] [place] [address] Bilirubin [Mass/Vol] 0.3 mg/dL Normal <1.2 [facility] Comment on above: Performed By: #### L [id number] #### [employer]or: MYLA EDDY ([id number]) [facility] ([facility]) [address] [place] [address] Calcium [Mass/Vol] 8.3 mg/dL Low 8.4-10.2 [facility] Comment on above: Performed By: #### L [id number] #### [employer]or: MYLA EDDY ([id number]) [facility] ([facility]) [address] [place] [address] [place] Chloride [Moles/Vol] 110 mmol/L High 98-107 [facility] Comment on above: Performed By: #### L [id number] #### [employer] Processor: MYLA EDDY ([id number]) [facility] ([facility]) [address] [place] [address] CO2 [Moles/Vol] 23 mmol/L Normal 22-29 [facility] Comment on above: Performed By: #### L [id number] #### [employer] Processor: MYLA EDDY ([id number]) [facility] ([facility]) [address] [place] [address] Creatinine [Mass/Vol] 1.06 mg/dL Normal 0.72-1.25 [facility] Comment on above: Performed By: #### L [id number] #### [employer]or: MYLA EDDY ([id number]) [facility] ([facility]) [address] [place] [address] GLOMERULAR FILTRATION RATE ML/MIN/1.73 SQ M.PREDICTED 85.5 mL/min/1.73m*2 Normal >60.0 [facility] Comment on above: Result Comment: Calc ulation based on the Chronic Kidney Disease Epidemiology Collaboration (CKD-EPI) equation refit without adjustment for race Performed By: #### L [id number] #### [employer] Processor: MYLA EDDY ([id number]) [facility] ([facility]) [address] [place] [address] Glucose [Mass/Vol] 99 mg/dL Normal 74-100 [facility] Comment on above: Performed By: #### L [id number] #### [employer] Processor: MYLA EDDY ([id number]) [facility]) [address] [place] [address] [place] Potassium [Moles/Vol] 4.0 mmol/L Normal 3.5-5.1 [facility] Comment on above: Result Comment: [facility] potassium values may be up to 0.5 mmol/L lower than serum values. Performed By: #### L [id number] #### [employer]or: MYLA EDDY ([id number]) [facility] ([facility]) [address] [place] [address] Protein [Mass/Vol] 6.5 g/dL Normal 6.4-8.3 [facility] Comment on above: Performed By: #### L [id number] #### [employer]or: MYLA EDDY ([id number]) [facility] ([facility]) [address] [place] [address] Sodium [Moles/Vol] 139 mmol/L Normal 136-145 [facility] Comment on above: Performed By: #### L [id number] #### [employer] Processor: MYLA EDDY ([id number]) [facility] [address] [place] [address] Urea nitrogen [Mass/Vol] 13 mg/dL Normal 9-23 [facility] Comment on above: Performed By: #### L [id number] #### [employer]or: MYLA EDDY ([id number]) [facility] [address] [place] [address] CRP [Mass/Vol]on 04-05-2025 Interpretation and review of laboratory results Abnormal [facility] Comprehensive metabolic 1998 panelon 04-05-2025 Albumin [Mass/Vol] 2.8 g/dL Low 3.5 - 5.0 g/dL [facility] ALP [Catalytic activity/Vol] 23 U/L Low 40 - 150 U/L [facility] ALT [Catalytic activity/Vol] 24 U/[facility] U/L [facility] Anion gap [Moles/Vol] 6 mmol/L 3 - 13 mmol/L [facility] AST [Catalytic activity/Vol] 44 U/L High [facility] - 34 U/L [facility] Bilirubin [Mass/Vol] 0.3 mg/dL NINF - 1.2 mg/dL [facility] Calcium [Mass/Vol] 8.3 mg/dL Low 8.4 - 10. 2 mg/dL [facility] Chloride [Moles/Vol] 110 mmol/L High 98 - 10 7 mmol/L [facility] CO2 [Moles/Vol] 23 mmol/L 22 - 29 mmol/L [facility] Creatinine [Mass/Vol] 1.06 mg/dL 0.72 - 1.25 mg/dL [facility] GFR/1.73 sq M.predicted (S/P/Bld) [Vol rate/Area] 85.5 mL/min - PINF [facility] Comment on above: Calculation based on the Chronic Kidney Disease Epidemiology Collaboration (CKD-EPI) equation refit without adjustment for race Glucose [Mass/Vol] 99 mg/dL 74 - 100 mg/dL [facility] Interpretation and review of laboratory results Abnormal [facility] Potassium [Moles/Vol] 4 mmol/L 3.5 - 5.1 mmol/L [facility] Comment on above: Plasma potassium ramesh ues may be up to 0.5 mmol/L lower than serum values. Protein [Mass/Vol] 6.5 g/dL 6.4 - 8.3 g/dL [facility] Sodium [Moles/Vol] 139 mmol/L 136 - 145 mmol/L [facility] Urea nitrogen [Mass/Vol] 13 mg/dL 9 - 23 mg/d L [facility] ESR (Bld) [Velocity]Ordered By: Mckenzie Oseguera on 04-05-2025 Interpretation and review of laboratory results Abnormal [facility] HEPATITIS C ANTIBODYon 04-05 HCV Ab IA Ql Detected Abnormal Not Detected [facility] Comment on above: Result Comment: Karmen ents with DETECTED Hepatitis C Ab results should have a new specimen submitted for supplemental testing with a Hepatitis C Quantitative RNA assay (viral load), if clinically indicated. Performed By: #### L [id number] #### [employer] Processor: MYLA EDDY ([id number]) [address] HIV1,2 COMBO ANTIGEN-ANTIBOD Y SCREENon 04-05-2025 HIV 1,2 COMBO ANTIGEN/ANTIBODY Non-Reactive Normal Nonreactive [facility] Comment on above: Result Comment: The specimen was non-reactive for HIV-1 and HIV-2 antibodies and p24 antigen using an FDA-cleared 4th generation HIV test. Based on this non-reactive screen result, further reflexive testing was not indicated and was, therefore, not performed. Performed By: #### L [id number] #### [employer] Processor: MYLA EDDY ([id number]) [facility]) [address] [place] [address] Laboratory - Chemistry and C hemistry - challengeon 04-05-2025 CRP [Mass/Vol] 90.3 mg/L High NINF - 5.0 mg/L [facility] Laboratory - Hematology and Cell countsOrdered By: Mckenzie Oseguera on 04-05-2025 ESR (Bld) [Velocity] 17 mm/h High [facility] MR Foot - right WO contrasto n 04-05-2025 Radiology Study observation (narrative) [facility] He alth SEDIMENTATION RATE, AUTOMATE Don 04-05-2025 SEDIMENTATION RATE, ERYTHROCYTE 17 mm/hr High 0-10 [facility] Comment on above: Performed By: #### L [id number], [id number] ####[employer] Processor: MYLA EDDY ([id number])[facility] ([facility])[address] [place] [address] 30on 04-04-2025 30 Problem: Pain - Adult Goal: Verbalizes/display s adequate comfort level or baseline comfort level Outcome: Progressing Problem: Safety - Adult Goal: Free from fall injury Outcome: Progressing Problem: Discharge Planning Goal: Discharge to home or other facility with appropriate resources Outcome: Progressing Problem: Chronic Conditions and Co-morbidities Goal: Patient's chronic conditions and co-morbidity symptoms are monitored and maintained or improved Outcome: Progressing Problem: Knowledge Deficit Goal: Patient/family/car egiver demonstrates understanding of disease process, treatment plan, medications, and discharge instructions Outcome: Progressing Problem: Potential for Compromised Skin Integrity Goal: Skin Integrity is Maintained or Improved Outcome: Progressing Goal: Nutritional status is improving Outcome: Progressing Problem: Urinary Incontinence Goal: Perineal skin integrity is maintained or improved Outcome: Progressing Normal [facility] 30 Problem: Pain - Adult Goal: Verbalizes/display s adequate comfort level or baseline comfort level Outcome: Progressing Problem: Safety - Adult Goal: Free from fall injury Outcome: Progressing Problem: Discharge Planning Goal: Discharge to home or other facility with appropriate resources Outcome: Progressing Problem: Chronic Conditions and Co-morbidities Goal: Patient's chronic conditions and co-morbidity symptoms are monitored and maintained or improved Outcome: Progressing Problem: Knowledge Deficit Goal: Patient/family/car egiver demonstrates understanding of disease process, treatment plan, medications, and discharge instructions Outcome: Progressing Problem: Potential for Compromised Skin Integrity Goal: Skin Integrity is Maintained or Improved Outcome: Progressing Goal: Nutritional status is improving Outcome: Progressing Problem: Potential for Compromised Skin Integrity Goal: Skin Integrity is Maintained or Improved Outcome: Progressing Goal: Nutritional status is improving Outcome: Progressing Problem: Urinary Incontinence Goal: Perineal skin integrity is maintained or improved Outcome: Progressing Normal [facility] CBC W Auto Differential pane l (Bld)on 04-04-2025 Basophils (Bld) [#/Vol] 0 10*3/uL 0.0 - 0.2 10*3/uL [facility] Basophils/100 WBC (Bld) 0.3 % 0.0 - 2.0 % [facility] Eosinophils (Bld) [#/Vol] 0 10*3/uL 0. 0 - 0.5 10*3/uL [facility] Eosinophils/100 WBC (Bld) 0 % 0.0 - 6.0 % [facility] Erythrocyte distribution width (RBC) [Ratio] 13.5 % 11.5 - 15.0 % [facility] Hematocrit (Bld) [Volume fraction] 36.7 % Low 40.0 - 52.0 % [facility] Hemoglobin (Bld) [Mass/Vol] 12.3 g/dL Low 13.0 - 18.0 g/dL [facility] Immature granulocytes (Bld) [#/Vol] 0.1 10*3/uL High NINF - 0.1 10*3/uL [facility] Immature granulocytes/100 WBC (Bld) 0.5 % 0.0 - 2.0 % [facility] Interpretation and review of laboratory results Abnormal [facility] th Lymphocytes (Bld) [#/Vol] 1 10*3/uL 1. 0 - 4.3 10*3/uL [facility] Lymphocytes/100 WBC (Bld) 8.5 % Low 15.0 - 45. 0 % [facility] MCH (RBC) [Entitic mass] 30.4 pg 26.0 - 34.0 pg [facility] MCHC (RBC) [Mass/Vol] 33.5 % 30.5 - 36.0 % [facility] MCV (RBC) [Entitic vol] 90.6 fL 77.0 - 99.0 fL [facility] Monocytes (Bld) [#/Vol] 1.1 10*3/uL High 0.0 - 0.9 10*3/uL [facility] Monocytes/100 WBC (Bld) 9.2 % 5.0 - 13.0 % [facility] Neutrophils (Bld) [#/Vol] 9.4 10*3/uL High 1. 8 - 7.5 10*3/uL [facility] Neutrophils/100 WBC (Bld) 81.5 % 38.0 - 82. 0 % [facility] Nucleated RBC/100 WBC (Bld) [Ratio] 0 % [facility] Platelet mean volume (Bld) [Entitic vol] 10.3 fL 9.0 - 12.7 fL [facility] Platelets (Bld) [#/Vol] 159 10*3/uL 140 - 440 10*3/uL [facility] RBC (Bld) [#/Vol] 4.05 10*6/uL Low 4.40 - 5.9 0 10*6/uL [facility] WBC (Bld) [#/Vol] 11.5 10*3/uL High 3.6 - 10.7 10*3/uL [facility] CBC WITH AUTO DIFFERENTIALon 04-04-2025 Basophils (Bld) [#/Vol] 0.0 10*3/uL Normal 0.0-0.2 [facility] Comment on above: Performed By: #### L [id number] ####[employer] Processor: MYLA EDDY ([id number])[facility])[address] [place] [address] Basophils/100 WBC (Bld) 0.3 % Normal 0.0-2.0 [facility] Comment on above: Performed By: #### L [id number] ####[employer] Processor: MYLA EDDY ([id number])[facility])[address] [place] [address] Eosinophils (Bld) [#/Vol] 0.0 10*3/uL Normal 0.0-0.5 [facility] Comment on above: Performed By: #### L [id number] ####[employer] Processor: MYLA EDDY ([id number])[facility])[address] [place] [address] Eosinophils/100 WBC (Bld) 0.0 % Normal 0.0-6.0 [facility] Comment on above: Performed By: #### L [id number] ####[employer] Processor: MYLA [id number])[facility])[address] [place] [address] Erythrocyte distribution width (RBC) [Ratio] 13.5 % Normal 11.5-15.0 [facility] Comment on above: Performed By: #### L [id number] ####[employer] Processor: MYLA EDDY ([id number])[facility])[address] [place] [address] Hematocrit (Bld) [Volume fraction] 36.7 % Low 40.0-52.0 [facility] Comment on above: Performed By: #### L [id number] ####[employer] Processor: MYLA EDDY ([id number])[facility])[address] [place] [address] Hemoglobin (Bld) [Mass/Vol] 12.3 g/dL Low 13.0-18.0 [facility] Comment on above: Performed By: #### L [id number] ####[employer] Processor: MYLA EDDY ([id number])[facility])[address] [place] [address] IMMATURE GRANS % 0.5 % Normal 0.0-2.0 [facility] Comment on above: Performed By: #### L [id number] ####[employer] Processor: MYLA EDDY ([id number])[facility])[address] [place] [address] IMMATURE GRANS ABSOLUTE 0.1 10*3/uL High <0.1 [facility] Comment on above: Performed By: #### L [id number] ####[employer] Processor: MYLA EDDY ([id number])[facility])[address] [place] [address] Lymphocytes (Bld) [#/Vol] 1.0 10*3/uL Normal 1.0-4.3 [facility] Comment on above: Performed By: #### L [id number] ####[employer] Processor: MYLA EDDY ([id number])[address] Lymphocytes/100 WBC (Bld) 8.5 % Low 15.0-45.0 [facility] Comment on above: Performed By: #### L [id number] ####[employer] Processor: MYLA EDDY ([id number])[facility])[address] [place] [address] MCH (RBC) [Entitic mass] 30.4 pg Normal 26.0-34.0 [facility] Comment on above: Performed By: #### L [id number] ####[employer] Processor: MYLA EDDY ([id number])[facility])[address] [place] [address] MCHC 33.5 % Normal 30.5-36.0 [facility] Comment on above: Performed By: #### L [id number] ####[employer] Processor: MYLA EDDY ([id number])[facility])[address] [place] [address] MCV (RBC) [Entitic vol] 90.6 fL Normal 77.0-99.0 [facility] Comment on above: Performed By: #### L [id number] ####[employer] Processor: MYLA EDDY ([id number])[facility])[address] [place] [address] Monocytes (Bld) [#/Vol] 1.1 10*3/uL High 0.0-0.9 [facility] Comment on above: Performed By: #### L [id number] ####[employer] Processor: MYLA EDDY ([id number])[facility])[address] [place] [address] Monocytes/100 WBC (Bld) 9.2 % Normal 5.0-13.0 [facility] Comment on above: Performed By: #### L [id number] ####[employer] Processor: MYLA EDDY ([id number])[facility])[address] [place] [address] NEUTROPHILS ABSOLUTE 9.4 10*3/uL High 1.8-7.5 [facility] Comment on above: Performed By: #### L [id number] ####[employer] Processor: MYLA EDDY ([id number])[facility] [place] [address] Neutrophils/100 WBC (Bld) 81.5 % Normal 38.0-82.0 [facility] Comment on above: Performed By: #### L [id number] ####[employer] Processor: MYLA EDDY ([id number])[facility] ([facility])[address] [place] [address] NRBC 0.0 /100 WBCs Normal 0.0-2.0 [facility] Comment on above: Performed By: #### L [id number] ####[employer] Processor: MYLA EDDY ([id number])[facility] ([facility])[address] [place] [address] Platelet mean volume (Bld) [Entitic vol] 10.3 fL Normal 9.0-12.7 [facility] Comment on above: Performed By: #### L [id number] ####[employer] Processor: MYLA EDDY ([id number])[facility] ([facility])[address] [place] [address] Platelets (Bld) [#/Vol] 159 10*3/uL Normal 140-440 [facility] Comment on above: Performed By: #### L [id number] ####[employer] Processor: MYLA EDDY ([id number])[facility] ([facility])[address] [place] [address] RBC (Bld) [#/Vol] 4.05 10*6/uL Low 4.40-5.90 [facility] Comment on above: Performed By: #### L [id number] ####[employer] Processor: MYLA EDDY ([id number])[facility] ([facility])[address] [place] [address] WBC (Bld) [#/Vol] 11.5 10*3/uL High 3.6-10.7 [facility] Comment on above: Performed By: #### L [id number] ####[employer] Processor: MYLA EDDY ([id number])[facility] ([facility])[address] [place] [address] CKon 04-04-2025 CK [Catalytic activity/Vol] 928 U/L High 30-185 [facility] Comment on above: Performed By: #### L [id number] #### [employer] Processor: MYLA EDDY ([id number]) [facility] ([facility]) [address] [place] [address] COMPREHENSIVE METABOLIC PANE Abraham 04-04-2025 Albumin [Mass/Vol] 2.8 g/dL Low 3.5-5.0 [facility] Comment on above: Performed By: #### L [id number] #### [employer] Processor: MYLA EDDY ([id number]) [facility] ([facility]) [address] [place] [address] ALP [Catalytic activity/Vol] 24 U/L Low 40-150 [facility] Comment on above: Performed By: #### L [id number] #### [employer] Processor: MYLA EDDY ([id number]) [facility] ([facility]) [address] [place] [address] ALT [Catalytic activity/Vol] 23 U/L Normal <40 [facility] Comment on above: Performed By: #### L [id number] #### [employer] Processor: MYLA EDDY ([id number]) [facility]) [address] [place] [address] Anion gap [Moles/Vol] 7 mmol/L Normal 3-13 [facility] Comment on above: Performed By: #### L [id number] #### [employer] Processor: MYLA EDDY ([id number]) [facility]) [address] [place] [address] AST [Catalytic activity/Vol] 42 U/L High <34 [facility] Comment on above: Performed By: #### L [id number] #### [employer] Processor: MYLA EDDY ([id number]) [facility]) [address] [place] [address] Bilirubin [Mass/Vol] 0.5 mg/dL Normal <1.2 [facility] Comment on above: Performed By: #### L [id number] #### [employer] Processor: MYLA EDDY ([id number]) [facility] [address] [place] [address] Calcium [Mass/Vol] 7.9 mg/dL Low 8.4-10.2 [facility] Comment on above: Performed By: #### L [id number] #### [employer]or: MYLA EDDY ([id number]) [facility] [address] [place] [address] [place] Chloride [Moles/Vol] 107 mmol/L Normal 98-107 [facility] Comment on above: Performed By: #### L [id number] #### [employer] Processor: MYLA EDDY ([id number]) [facility] [address] [place] [address] CO2 [Moles/Vol] 23 mmol/L Normal 22-29 [facility] Comment on above: Performed By: #### L [id number] #### [employer]or: MYLA EDDY ([id number]) [facility] [address] [place] [address] [place] Creatinine [Mass/Vol] 1.38 mg/dL High 0.72-1.25 [facility] Comment on above: Performed By: #### L [id number] #### [employer]or: MYLA EDDY ([id number]) [facility] ([facility]) [address] [place] [address] [place] GLOMERULAR FILTRATION RATE ML/MIN/1.73 SQ M.PREDICTED 62.3 mL/min/1.73m*2 Normal >60.0 [facility] Comment on above: Result Comment: Calc ulation based on the Chronic Kidney Disease Epidemiology Collaboration (CKD-EPI) equation refit without adjustment for race Performed By: #### L [id number] #### [employer]or: MYLA EDDY ([id number]) [facility] [address] [place] [address] [place] Glucose [Mass/Vol] 118 mg/dL High 74-100 [facility] Comment on above: Performed By: #### L [id number] #### [employer]or: MYLA EDDY ([id number]) [facility] ([facility]) [address] [place] [address] Potassium [Moles/Vol] 3.4 mmol/L Low 3.5-5.1 [facility] Comment on above: Result Comment: [facility] potassium values may be up to 0.5 mmol/L lower than serum values. Performed By: #### L [id number] #### [employer]or: MYLA EDDY ([id number]) [facility] [address] [place] [address] Protein [Mass/Vol] 6.1 g/dL Low 6.4-8.3 [facility] Comment on above: Performed By: #### L [id number] #### [employer]or: MYLA EDDY ([id number]) [facility] ([facility]) [address] [place] [address] Sodium [Moles/Vol] 137 mmol/L Normal 136-145 [facility] Comment on above: Performed By: #### L [id number] #### [employer]or: MYLA EDDY ([id number]) [facility] [address] [place] [address] Urea nitrogen [Mass/Vol] 15 mg/dL Normal 9-23 [facility] Comment on above: Performed By: #### L [id number] #### [employer]or: MYLA EDDY ([id number]) [facility] ([facility]) [address] [place] [address] Comprehensive metabolic 1998 panelon 04-04-2025 Albumin [Mass/Vol] 2.8 g/dL Low 3.5 - 5.0 g/dL [facility] ALP [Catalytic activity/Vol] 24 U/L Low 40 - 150 U/L [facility] ALT [Catalytic activity/Vol] 23 U/L NINF - 40 U/L [facility] Anion gap [Moles/Vol] 7 mmol/L 3 - 13 mmol/L [facility] AST [Catalytic activity/Vol] 42 U/L High NINF - 34 U/L [facility] Bilirubin [Mass/Vol] 0.5 mg/dL NINF - 1.2 mg/dL [facility] Calcium [Mass/Vol] 7.9 mg/dL Low 8.4 - 10. 2 mg/dL [facility] Chloride [Moles/Vol] 107 mmol/L 98 - 10 7 mmol/L [facility] CO2 [Moles/Vol] 23 mmol/L 22 - 29 mmol/L [facility] [facility] Creatinine [Mass/Vol] 1.38 mg/dL High 0.72 - 1.25 mg/dL [facility] GFR/1.73 sq M.predicted (S/P/Bld) [Vol rate/Area] 62.3 mL/min - PINF [facility] Comment on above: Calculation based on the Chronic Kidney Disease Epidemiology Collaboration (CKD-EPI) equation refit without adjustment for race Glucose [Mass/Vol] 118 mg/dL High 74 - 100 mg/dL [facility] Potassium [Moles/Vol] 3.4 mmol/L Low 3.5 - 5.1 mmol/L [facility] Comment on above: Plasma potassium ramesh ues may be up to 0.5 mmol/L lower than serum values. Protein [Mass/Vol] 6.1 g/dL Low 6.4 - 8.3 g/dL [facility] Sodium [Moles/Vol] 137 mmol/L 136 - 145 mmol/L [facility] Urea nitrogen [Mass/Vol] 15 mg/dL 9 - 23 mg/d L [facility] Laboratory - Chemistry and C hemistry - challengeon 04-04-2025 Magnesium [Mass/Vol] 1.7 mg/dL 1.6 - 2 .6 mg/dL [facility] CK [Catalytic activity/Vol] 928 U/L High 30 - 185 U/L [facility] Laboratory - Drug toxicology on 04-04-2025 Vancomycin trough [Mass/Vol] 6.7 ug/mL [facility] MAGNESIUMon 04-04-2025 Magnesium [Mass/Vol] 1.7 mg/dL Normal 1.6-2.6 [facility] Comment on above: Result Comment: JESSICA Brown COMMENTS: Higher values can be expected in females during menses. Performed By: #### L [id number] #### Solid Propellant Processor: MYLA EDDY ([id number]) [facility] ([facility]) [address] [place] [address] Magnesium [Mass/Vol]on 04-04 Interpretation and review of laboratory results Normal [facility] Higher values can be expected in females during menses. [facility] No Panel Informationon 04-04 Interpretation and review of laboratory results Abnormal [facility] Nursing Noteon 04-04-2025 Nursing Note Patient refused labs. Normal [facility] Nursing Note Patient refused his labs again Normal [facility] Progress Noteon 04-04-2025 Progress Note Needs screened for MRI please or will need KUB and orbit xrays for MRI clearance Normal [facility] Progress Note Nutrition rescreen completed. Chart reviewed. Patient to be monitored and followed by the diet plasma processing technician. Normal [facility] VANCOMYCIN, AUC TIMED DOSING on 04-04-2025 VANCOMYCIN, AUC 6.7 ug/mL Normal [facility] Comment on above: Result Comment: JESSICA Brown COMMENTS: Please draw random level at least >2 hours after the end of the last vancomycin infusion, or 30-minutes before next infusion. Toxicity is seen at concentrations >80-100 ug/mL Therapeutic (Peak) range: 20-40 Therapeutic (Trough) range: 5-10 Performed By: #### L [id number] ####[employer] Processor: MYLA EDDY ([id number])[facility] ([address] Vancomycin trough [Mass/Vol] on 04-04-2025 Toxicity is seen at concentrations >80-100 ug/mL Therapeutic (Peak) range: 20-40 Therapeutic (Trough) range: 5-10 [facility] [id number] 04-03-2025 [id number] Social work follow up on consult- homelessness. Social work review of chart. Appears patient may be from [place]- visiting family in the area? Social work attempted to meet with the patient on this day- soundly sleeping. Social work will continue to follow and will follow back up as time permits. W Auto Differential pane l (Bld)on 04-03-2025 Basophils (Bld) [#/Vol] 0 10*3/uL 0.0 - 0.2 10*3/uL [facility] Basophils/100 WBC (Bld) 0.3 % 0.0 - 2.0 % [facility] Eosinophils (Bld) [#/Vol] 0 10*3/uL 0. 0 - 0.5 10*3/uL [facility] Eosinophils/100 WBC (Bld) 0.1 % 0.0 - 6.0 % [facility] Erythrocyte distribution width (RBC) [Ratio] 13.2 % 11.5 - 15.0 % [facility] Hematocrit (Bld) [Volume fraction] 37.6 % Low 40.0 - 52.0 % [facility] Hemoglobin (Bld) [Mass/Vol] 12.6 g/dL Low 13.0 - 18.0 g/dL [facility] Immature granulocytes (Bld) [#/Vol] 0.1 10*3/uL High NINF - 0.1 10*3/uL [facility] Immature granulocytes/100 WBC (Bld) 0.5 % 0.0 - 2.0 % [facility] Interpretation and review of laboratory results Abnormal [facility] th Lymphocytes (Bld) [#/Vol] 0.8 10*3/uL Low 1. 0 - 4.3 10*3/uL [facility] Lymphocytes/100 WBC (Bld) 5.5 % Low 15.0 - 45. 0 % [facility] MCH (RBC) [Entitic mass] 31.2 pg 26.0 - 34.0 pg [facility] MCHC (RBC) [Mass/Vol] 33.5 % 30.5 - 36.0 % [facility] MCV (RBC) [Entitic vol] 93.1 fL 77.0 - 99.0 fL [facility] Monocytes (Bld) [#/Vol] 0.8 10*3/uL 0.0 - 0.9 10*3/uL [facility] Monocytes/100 WBC (Bld) 5.5 % 5.0 - 13.0 % [facility] Neutrophils (Bld) [#/Vol] 12.2 10*3/uL High 1. 8 - 7.5 10*3/uL [facility] Neutrophils/100 WBC (Bld) 88.1 % High 38.0 - 82. 0 % [facility] Nucleated RBC/100 WBC (Bld) [Ratio] 0 % [facility] Platelet mean volume (Bld) [Entitic vol] 10.3 fL 9.0 - 12.7 fL [facility] Platelets (Bld) [#/Vol] 193 10*3/uL 140 - 440 10*3/uL [facility] RBC (Bld) [#/Vol] 4.04 10*6/uL Low 4.40 - 5.9 0 10*6/uL [facility] WBC (Bld) [#/Vol] 13.9 10*3/uL High 3.6 - 10.7 10*3/uL [facility] CBC WITH AUTO DIFFERENTIALon 04-03-2025 Basophils (Bld) [#/Vol] 0.0 10*3/uL Normal 0.0-0.2 [facility] Comment on above: Performed By: #### L [id number] ####[employer] Processor: MYLA EDDY ([id number])[facility] ([facility])[address] [place] [address] Basophils/100 WBC (Bld) 0.3 % Normal 0.0-2.0 [facility] Comment on above: Performed By: #### L [id number] ####[employer] Processor: MYLA EDDY ([id number])[facility] ([facility])[address] [place] [address] Eosinophils (Bld) [#/Vol] 0.0 10*3/uL Normal 0.0-0.5 [facility] Comment on above: Performed By: #### L [id number] ####[employer] Processor: MYLA EDDY ([id number])[facility] ([facility])[address] [place] [address] Eosinophils/100 WBC (Bld) 0.1 % Normal 0.0-6.0 [facility] Comment on above: Performed By: #### L [id number] ####[employer] Processor: MYLA EDDY ([id number])[facility])[address] [place] [address] Erythrocyte distribution width (RBC) [Ratio] 13.2 % Normal 11.5-15.0 [facility] Comment on above: Performed By: #### L [id number] ####[employer] Processor: MYLA [id number])[facility] ([facility])[address] [place] [address] Hematocrit (Bld) [Volume fraction] 37.6 % Low 40.0-52.0 [facility] Comment on above: Performed By: #### L [id number] ####[employer] Processor: MYLA EDDY ([id number])[facility])[address] [place] [address] Hemoglobin (Bld) [Mass/Vol] 12.6 g/dL Low 13.0-18.0 [facility] Comment on above: Performed By: #### L [id number] ####[employer] Processor: MYLA EDDY ([id number])[facility])[address] [place] [address] IMMATURE GRANS % 0.5 % Normal 0.0-2.0 [facility] Comment on above: Performed By: #### L [id number] ####[employer] Processor: MYLA EDDY ([id number])[facility])[address] [place] [address] IMMATURE GRANS ABSOLUTE 0.1 10*3/uL High <0.1 [facility] Comment on above: Performed By: #### L [id number] ####[employer] Processor: MYLA EDDY ([id number])[facility])[address] [place] [address] Lymphocytes (Bld) [#/Vol] 0.8 10*3/uL Low 1.0-4.3 [facility] Comment on above: Performed By: #### L [id number] ####[employer] Processor: MYLA EDDY ([id number])[facility])[address] [place] [address] Lymphocytes/100 WBC (Bld) 5.5 % Low 15.0-45.0 [facility] Comment on above: Performed By: #### L [id number] ####[employer] Processor: MYLA EDDY ([id number])[facility])[address] [place] [address] [place] MCH (RBC) [Entitic mass] 31.2 pg Normal 26.0-34.0 [facility] Comment on above: Performed By: #### L [id number] ####[employer] Processor: MYLA EDDY ([id number])[facility])[address] [place] [address] MCHC 33.5 % Normal 30.5-36.0 [facility] Comment on above: Performed By: #### L [id number] ####[employer] Processor: MYLA EDDY ([id number])[facility])[address] [place] [address] MCV (RBC) [Entitic vol] 93.1 fL Normal 77.0-99.0 [facility] Comment on above: Performed By: #### L [id number] ####Solid [employer] Processor: MYLA EDDY ([id number])[facility])[address] [place] [address] Monocytes (Bld) [#/Vol] 0.8 10*3/uL Normal 0.0-0.9 [facility] Comment on above: Performed By: #### L [id number] ####Solid [employer] Processor: MYLA EDDY ([id number])[facility])[address] [place] [address] Monocytes/100 WBC (Bld) 5.5 % Normal 5.0-13.0 [facility] Comment on above: Performed By: #### L [id number] ####Solid Propellant Processor: MYLA EDDY ([id number])[facility])[address] [place] [address] NEUTROPHILS ABSOLUTE 12.2 10*3/uL High 1.8-7.5 [facility] Comment on above: Performed By: #### L [id number] ####Solid Propellant Processor: MYLA EDDY ([id number])[facility])[address] [place] [address] Neutrophils/100 WBC (Bld) 88.1 % High 38.0-82.0 [facility] Comment on above: Performed By: #### L [id number] ####Solid Propellant Processor: MYLA EDDY ([id number])[facility] ([facility])[address] [place] [address] NRBC 0.0 /100 WBCs Normal 0.0-2.0 [facility] Comment on above: Performed By: #### L [id number] ####Solid Propellant Processor: MYLA EDDY ([id number])[facility] ([facility])[address] [place] [address] Platelet mean volume (Bld) [Entitic vol] 10.3 fL Normal 9.0-12.7 [facility] Comment on above: Performed By: #### L [id number] ####Solid Propellant Processor: MYLA EDDY ([id number])[facility] ([facility])[address] [place] [address] Platelets (Bld) [#/Vol] 193 10*3/uL Normal 140-440 [facility] Comment on above: Performed By: #### L [id number] ####Solid Propellant Processor: MYLA EDDY ([id number])[facility] ([facility])[address] [place] [address] RBC (Bld) [#/Vol] 4.04 10*6/uL Low 4.40-5.90 [facility] Comment on above: Performed By: #### L [id number] ####Solid [employer]ellant Processor: MYLA EDDY ([id number])[facility] ([facility])[address] [place] [address] WBC (Bld) [#/Vol] 13.9 10*3/uL High 3.6-10.7 [facility] Comment on above: Performed By: #### L [id number] ####Solid [employer]ellant Processor: MYLA EDDY ([id number])[facility])[address] [place] [address] CKon 04-03-2025 CK [Catalytic activity/Vol] 1021 U/L High 30-185 [facility] Comment on above: Performed By: #### L [id number], LAB17, LAB62 ####Solid [employer] Processor: MYLA EDDY ([id number])[facility] ([facility])[address] [place] [address] CK [Catalytic activity/Vol]o n 04-03-2025 Interpretation and review of laboratory results Abnormal [facility] Interpretation and review of laboratory results Abnormal [facility] COMPREHENSIVE METABOLIC PANE Abraham 04-03-2025 Albumin [Mass/Vol] 3.2 g/dL Low 3.5-5.0 [facility] Comment on above: Performed By: #### Bethany BECERRA, LAB17, LAB62 ####Solid Propellant Processor: MYLA EDDY ([id number])[facility] ([facility])[address] [place] [address] ALP [Catalytic activity/Vol] 25 U/L Low 40-150 [facility] Comment on above: Performed By: #### Bethany BECERRA, LAB17, LAB62 ####Solid Propellant Processor: MYLA EDDY ([id number])[facility] ([facility])[address] [place] [address] ALT [Catalytic activity/Vol] 25 U/L Normal <40 [facility] Comment on above: Performed By: #### Bethany BECERRA, LAB17, LAB62 ####Solid Propellant Processor: MYLA EDDY ([id number])[facility] ([facility])[address] [place] [address] Anion gap [Moles/Vol] 8 mmol/L Normal 3-13 [facility] Comment on above: Performed By: #### Bethany BECERRA, LAB17, LAB62 ####Solid Propellant Processor: MYLA EDDY ([id number])[facility] ([facility])[address] [place] [address] AST [Catalytic activity/Vol] 50 U/L High <34 [facility] Comment on above: Performed By: #### Bethany ABAlirio, LAB17, LAB62 ####Solid Propellant Processor: MYLA EDDY ([id number])[facility] ([facility])[address] [place] [address] Bilirubin [Mass/Vol] 0.8 mg/dL Normal <1.2 [facility] Comment on above: Performed By: #### Bethany BECERRA, LAB17, LAB62 ####Solid Propellant Processor: MYLA EDDY ([id number])[facility] ([facility])[address] [place] [address] Calcium [Mass/Vol] 8.1 mg/dL Low 8.4-10.2 [facility] Comment on above: Performed By: #### Bethany BECERRA, LAB17, LAB62 ####Solid Propellant Processor: MYLA EDDY ([id number])[facility] ([facility])[address] [place] [address] Chloride [Moles/Vol] 104 mmol/L Normal 98-107 [facility] Comment on above: Performed By: #### Bethany BECERRA LAB17, LAB62 ####Solid Propellant Processor: MYLA EDDY ([id number])[facility] ([facility])[address] [place] [address] CO2 [Moles/Vol] 21 mmol/L Low 22-29 [facility] Comment on above: Performed By: #### Bethany BECERRA LAB17, LAB62 ####Solid Propellant Processor: MYLA EDDY ([id number])[facility])[address] [place] [address] Creatinine [Mass/Vol] 1.40 mg/dL High 0.72-1.25 [facility] Comment on above: Performed By: #### Bethany BECERRA LAB17, LAB62 ####Solid Propellant Processor: MYLA EDDY ([id number])[facility])[address] [place] [address] [place] GLOMERULAR FILTRATION RATE ML/MIN/1.73 SQ M.PREDICTED 61.2 mL/min/1.73m*2 Normal >60.0 [facility] Comment on above: Result Comment: Calc ulation based on the Chronic Kidney Disease Epidemiology Collaboration (CKD-EPI) equation refit without adjustment for race Performed By: #### Bethany BECERRA, LAB17, LAB62 ####Solid Propellant Processor: MYLA EDDY ([id number])[facility])[address] [place] [address] Glucose [Mass/Vol] 94 mg/dL Normal 74-100 [facility] Comment on above: Performed By: #### Bethany BECERRA, LAB17, LAB62 ####Solid Propellant Processor: MYLA EDDY ([id number])[facility] ([facility])[address] [place] [address] Potassium [Moles/Vol] 3.5 mmol/L Normal 3.5-5.1 [facility] Comment on above: Result Comment: [facility] potassium values may be up to 0.5 mmol/L lower than serum values. Performed By: #### Bethany BECERRA, LAB17, LAB62 ####Solid Propellant Processor: MYLA EDDY ([id number])[facility] ([facility])[address] [place] [address] Protein [Mass/Vol] 6.1 g/dL Low 6.4-8.3 [facility] Comment on above: Performed By: #### Bethany BECERRA, LAB17, LAB62 ####Solid Propellant Processor: MYLA EDDY ([id number])[facility] ([facility])[address] [place] [address] Sodium [Moles/Vol] 133 mmol/L Low 136-145 [facility] Comment on above: Performed By: #### Bethany BECERRA, LAB17, LAB62 ####Solid Propellant Processor: MYLA EDDY ([id number])[facility])[address] [place] [address] Urea nitrogen [Mass/Vol] 24 mg/dL High 9-23 [facility] Comment on above: Performed By: #### Bethany BECERRA, LAB17, LAB62 ####Solid Propellant Processor: MYLA EDDY ([id number])[facility])[address] [place] [address] Comprehensive metabolic 1998 panelOrdered By: Emilie Ngo on 04-03-2025 Albumin [Mass/Vol] 3.2 g/dL Low 3.5 - 5.0 g/dL [facility] ALP [Catalytic activity/Vol] 25 U/L Low 40 - 150 U/L [facility] ALT [Catalytic activity/Vol] 25 U/L [facility]/L [facility] Anion gap [Moles/Vol] 8 mmol/L 3 - 13 mmol/L [facility] AST [Catalytic activity/Vol] 50 U/L High [facility] - 34 U/L [facility] Bilirubin [Mass/Vol] 0.8 mg/dL NINF - 1.2 mg/dL [facility] Calcium [Mass/Vol] 8.1 mg/dL Low 8.4 - 10. 2 mg/dL [facility] Chloride [Moles/Vol] 104 mmol/L 98 - 10 7 mmol/L [facility] CO2 [Moles/Vol] 21 mmol/L Low 22 - 29 mmol/L [facility] Creatinine [Mass/Vol] 1.4 mg/dL High 0.72 - 1.25 mg/dL [facility] GFR/1.73 sq M.predicted (S/P/Bld) [Vol rate/Area] 61.2 mL/min - PINF [facility] Comment on above: Calculation based on the Chronic Kidney Disease Epidemiology Collaboration (CKD-EPI) equation refit without adjustment for race Glucose [Mass/Vol] 94 mg/dL 74 - 100 mg/dL [facility] Interpretation and review of laboratory results Abnormal [facility] th Potassium [Moles/Vol] 3.5 mmol/L 3.5 - 5.1 mmol/L [facility] Comment on above: Plasma potassium ramesh ues may be up to 0.5 mmol/L lower than serum values. Protein [Mass/Vol] 6.1 g/dL Low 6.4 - 8.3 g/dL [facility] Sodium [Moles/Vol] 133 mmol/L Low 136 - 145 mmol/L [facility] Urea nitrogen [Mass/Vol] 24 mg/dL High 9 - 23 mg/d L [facility] Consulton 04-03-2025 Consult [facility] Consult service H&P Admit Date: 04/02/2025 Primary Care Physician: No primary care provider on file. ] Chief Complaint Patient presents with Shortness of Breath Pt has hx of blood clots in his right leg and IVC filter, pt reports shortness of breath. Pt able to speak in full sentences at this time. Substance dependence disorder History of Present Illness Viral Ann is a 49 y.o. year old male unknown to addiction medicine department The patient presented to the emergency room for left foot pain Addiction medicine is consulted because the patient was positive for amphetamine The patient is a very poor historian because he is extremely restless Patient also that he is paranoid but he denies any auditory or visual hallucinations Patient stated that he injects around 2 g of methamphetamine daily for years He also said that he has not had a good sleep for few days now Patient denies alcohol use disorder Denies sedative use disorder Denies opioid use disorder Patient denies any history withdrawal seizures Denies any history of DTs Denies any history of overdoses The patient said that he had multiple admissions psych wards in the past due to hallucinations but not suicidal or homicidal ideation Patient denies being on any psych medication Denies being diagnosed with any psych illness Urine drug screen is positive for methamphetamine Also his CK was elevated above 1200 Substance Use Disorder Criteria 1. Taking substance in larger amounts and/or for longer than intended [x] 2. Wanting to cut down or quit substance use but not being able to [x] 3. Spending a lot of time obtaining the substance [x] 4. Craving or a strong desire to use substance [x] 5. Repeatedly doesn't carry out major obligations due to substance use [x] 6. Using despite recurring social or interpersonal problems caused by substance use [x] 7. Reducing social, occupational, or recreational activities due to substance use [x] 8. Recurrent use of substance in physically hazardous situations [x] 9. Consistent use of substance despite recurrent physical or psychological difficulties [x] 10. Tolerance (increased amounts to achieve intoxication or diminished effect) [x] 11. Withdrawal syndrome or the substance is used to avoid withdrawal [x] 2-3 = mild; 4-5 = moderate; 6 or >6 = severe substance use disorder Remaining History Medical History[1] Surgical History[2] Family History[3] Social History Socioeconomic History Marital status: Single Spouse name: Not on file Number of children: Not on file Years of education: Not on file Highest education level: Not on file Occupational History Not on file Tobacco Use Smoking status: Some Days Types: Cigarettes Smokeless tobacco: Never Vaping Use Vaping status: Never Used Substance and Sexual Activity Alcohol use: Not Currently Drug use: Yes Types: Cocaine, Methamphetamines, Marijuana Sexual activity: Not on file Other Topics Concern Not on file Social History Narrative Not on file Social Drivers of Health Financial Resource Strain: Not on file Food Insecurity: Not on file Transportation Needs: Not on file Physical Activity: Not on file Stress: Not on file Social Connections: Not on file Intimate Partner Violence: Not on file Housing Stability: Not on file Allergies: Patient has no known allergies. Review of Systems Denies suicidal or homicidal ideation denies tactile auditory or visual hallucinations All of systems ROS was completed and was negative unless stated above Physical Exam Vitals: 04/03/25 0149 04/03/25 0247 04/03/25 0249 04/03/25 0416 BP: 105/80 90/56 BP Location: Right arm Patient Position: Sitting Pulse: 92 97 93 82 Resp: 22 20 Temp: 37.4 ?C (99.3 ?F) (!) 38.2 ?C (100.7 ?F) TempSrc: Oral Temporal SpO2: 96% 91% 95% 96% Weight: Height: General appearance: Cooperative, no distress, appears stated age, non-toxic. Musculoskeletal: Normal muscle strength and tone in 4 distal extremities. Normal range of motion in 4 distal extremities. Psychiatric: Alert and oriented to person, place, and time. Insight: poor. Judgment: poor. Diaphoresis: 0/10 Restlessness: 0/10 Palmar Erythema 0/10 Tongue Fasciculations: 0/10 Extremity Tremors: 0/10 Imaging/Labs/Meds @RISRSLT@ Recent Results (from the past 48 hours) ECG 12 lead Collection Time: 04/02/25 6:27 PM Result Value Ref Range Heart Rate 100 bpm QRSD Interval 103 ms QT Interval 323 ms QTC Interval 417 ms P [place] 2 degrees QRS [place] -11 degrees T Wave [place] 59 degrees DE Interval 147 ms Basic metabolic panel Collection Time: 04/02/25 7:16 PM Result Value Ref Range SODIUM 137 136 - 145 mmol/L POTASSIUM 3.7 3.5 - 5.1 mmol/L CHLORIDE 101 98 - 107 mmol/L CARBON DIOXIDE 21 (L) 22 - 29 mmol/L UREA NITROGEN 51 (H) 9 - 23 mg/dL CREATININE 2.43 (H) 0.72 - 1.25 mg/dL GLUCOSE 91 (more content not included)... Normal [facility] ECG 12-LEADon 04-03-2025 ECG 12-LEAD IMPRESSION: Sinus tachycardia Electronically Signed On 04-03-2025 06:59:05 EDT by Cruz Simons Normal [facility] ED Nursing Noteon 04-03-2025 ED Nursing Note Patient is calm and responsive to staff, breathing even and unlabored on RA. Patient vitals are stable. Patient is ready for transport at this time. Normal [facility] Laboratory - Chemistry and C hemistry - challengeon 04-03-2025 Magnesium [Mass/Vol] 1.7 mg/dL 1.6 - 2 .6 mg/dL [facility] CK [Catalytic activity/Vol] 1021 U/L High 30 - 185 U/L [facility] Urate [Mass/Vol] 9 mg/dL High 3.7 - 7.7 mg/dL [facility] CK [Catalytic activity/Vol] 1296 U/L High 30 - 185 U/L [facility] Laboratory - Drug toxicology on 04-03-2025 Vancomycin trough [Mass/Vol] 6.9 ug/mL [facility] MAGNESIUMon 04-03-2025 Magnesium [Mass/Vol] 1.7 mg/dL Normal 1.6-2.6 [facility] Comment on above: Result Comment: JESSICA Brown COMMENTS: Higher values can be expected in females during menses. Performed By: #### L [id number], LAB17, LAB62 ####[employer] Processor: MYLA EDDY ([id number])[address] Magnesium [Mass/Vol]on 04-03 Interpretation and review of laboratory results Normal [facility] Higher values can be expected in females during menses. [facility] No Panel InformationOrdered By: Cruz Simons on 04-03-2025 P [place] 2 degrees [facility] [employer] Work Phone: DE Interval 147 ms [facility] [employer] Work Phone: QRS [place] -11 degrees [facility] [employer] Work Phone: QRSD Interval 103 ms [facility] h Work Phone: QT Interval 323 ms [facility] [employer] Work Phone: QTC Interval 417 ms [facility] [employer] Work Phone: T Wave [place] 59 degrees [facility] [employer] Phone: [facility] [employer] Phone: No Panel Informationon 04-03 Sinus tachycardia Electronically Signed On 04-03-2025 06:59:05 EDT by Cruz Simons CV Cruz Quiroz MD - 04/03/2025 IMPRESSION: Sinus tachycardia Electronically Signed On 04-03-2025 06:59:05 EDT by Cruz Simons [facility] Nursing Noteon 04-03-2025 Nursing Note This RN asked patient several time if I could draw his labs, he ept telling me to come back later. I came back later and now patient is telling me he will do it in the am. Will try again. Normal [facility] Nursing Note Patient brought to floor by transport. Patient laying on on his side with his eyes closed yelling out making whale like sounds. Patient thrashing around on the cart. Resident called to bedside, see new orders. Patient able to answer some basic questions but admission questions unable to be answered at this time. Raine Ngo RN Normal [facility] Progress Noteon 04-03-2025 Progress Note PHYSICAL THERAPY [facility] Name/MRN: Viral Ann ([id number]) Date: 04/03/2025 PT orders received and eval attempted. RN, Sarthak, reports pt currently has withdrawal symptoms and is not appropriate for participation with therapy at this time. Will follow and re-attempt at later date/time as schedule permits. Jazmine Reyna, PT Normal [facility] US Heart TransthoracicOrdere d By: Erick Pickering on 04-03-2025 Aortic Arch 4.9 cm [facility] [employer] Phone: Aortic Sinus Valsalva 3.8 cm [facility] [employer] Work Phone: Aortic Sinus Valsalva Index 1.58 cm/m2 [facility] [employer] Phone: Aortic valve Mean systole pressure gradient by US.doppler derived full Bernoulli 5 mmHg [facility] [employer] Phone: Aortic valve Orifice area by US 4.2 cm2 [facility] Work Phone: Aortic valve Peak systolic flow by US.doppler 1.1 m/s [facility] Work Phone: Ascending Aorta 4.7 cm [facility] Work Phone: Ascending Aorta Index 1.95 cm/m2 [facility] Work Phone: AV Area by Peak Velocity 3.5 cm2 [facility] Work Phone: AV Area by VTI 3.9 cm2 [facility] Work Phone: AV Peak Gradient 11 mmHg [facility] al[facility] Work Phone: AV Peak Velocity 1.7 m/s [facility] Work Phone: AV Velocity Ratio 0.82 [facility] Work Phone: AV VTI 25.9 cm [facility] Work Phone: KAYE/BSA Peak Velocity 1.5 cm2/m2 [facility] Work Phone: KAYE/BSA VTI 1.6 cm2/m2 [facility] Work Phone: E/E' Lateral 5.56 [facility] Work Phone: E/E' Ratio (Averaged) 7.73 [facility] Work Phone: E/E' Septal 9.89 [facility] Work Phone: Est. RA Pressure 3 mmHg [facility] Work Phone: Fractional Shortening 2D 28 % 28 - 44 % [facility] Work Phone: Interpretation and review of laboratory results Abnormal [facility] Work Phone: IVC Diameter 1.9 cm [facility] Work Phone: IVSd 1.2 cm Abnormal 0.6 - 1.0 cm [facility] Work Phone: LA Volume 2C 71 mL Abnormal 18 - 58 mL [facility] Work Phone: LA Volume 4C 52 mL 18 - 58 mL [facility] Work Phone: LA Volume A/L 69 mL [facility] Work Phone: LA Volume BP 65 mL Abnormal 18 - 58 mL [facility] Work Phone: LA Volume Index 2C 29 mL/m2 16 - 34 mL/m2 [facility] Work Phone: LA Volume Index 4C 22 mL/m2 16 - 34 mL/m2 [facility] Work Phone: LA Volume Index A/L 29 mL/m2 16 - 34 mL/m2 [facility] Work Phone: LA Volume Index BP 27 ml/m2 16 - 34 ml/m2 [facility] Work Phone: Left ventricular Ejection fraction by US.2D+Calculated by biplane method of disks 71 % 55 - 100 % [facility] Work Phone: LV E' Lateral Velocity 16 cm/s [facility] Work Phone: LV E' Septal Velocity 9 cm/s [facility] Work Phone: LV EDV A2C 98 mL [facility] Work Phone: LV EDV A4C 111 mL [facility] Work Phone: LV EDV BP 104 mL 67 - 155 mL [facility] Work Phone: LV EDV Index A2C 41 mL/m2 [facility] Work Phone: LV EDV Index A4C 46 mL/m2 [facility] Work Phone: LV EDV Index BP 43 mL/m2 [facility] Work Phone: LV Ejection Fraction A2C 73 % [facility] Work Phone: LV Ejection Fraction A4C 72 % [facility] Work Phone: LV ESV A2C 27 mL [facility] Work Phone: LV ESV A4C 31 mL [facility] Work Phone: LV ESV BP 30 mL 22 - 58 mL [facility] Work Phone: LV ESV Index A2C 11 mL/m2 [facility] al[facility] Work Phone: LV ESV Index A4C 13 mL/m2 [facility] Work Phone: LV ESV Index BP 12 mL/m2 [facility] Work Phone: LV Mass 2D 165.5 g 88 - 224 g [facility] Work Phone: LV Mass 2D Index 68.7 g/m2 49 - 115 g/m2 [facility] Work Phone: LV RWT Ratio 0.6 [facility] Work Phone: LVIDd 4 cm Abnormal 4.2 - 5.9 cm [facility] [employer] Work Phone: LVIDd Index 1.66 cm/m2 [facility] [employer] Work Phone: LVIDs 2.9 cm [facility] Work Phone: LVIDs Index 1.2 cm/m2 [facility] [employer] Work Phone: LVOT Cardiac Output 8.8 liter/minute [facility] [employer] Work Phone: LVOT Diameter 2.3 cm [facility] [employer] Work Phone: LVOT Mean Gradient 4 mmHg [facility] [employer] Work Phone: LVOT Peak Gradient 8 mmHg [facility] [employer] Work Phone: LVOT Peak Velocity 1.4 m/s [facility] [employer] Work Phone: LVOT Stroke Volume Index 41.5 mL/m2 [facility] [employer] Work Phone: LVOT SV 100.1 ml [facility] Work Phone: LVOT VTI 24.1 cm [facility] Work Phone: LVOT:AV VTI Index 0.93 [facility] Work Phone: LVPWd 1.2 cm Abnormal 0.6 - 1.0 cm [facility] Work Phone: MV A Velocity 1.03 m/s [facility] [employer] Work Phone: MV E Velocity 0.89 m/s [facility] [employer] Work Phone: MV E Wave Deceleration Time 171.9 ms [facility] Work Phone: MV E/A 0.86 [facility] Work Phone: Pulmonary Artery EDP 5 mmHg [facility] Work Phone: RA Area 4C 59.6 mL [facility] Work Phone: RA Area 4C 58 mL [facility] Work Phone: RV Basal Dimension 3.5 cm [facility] Work Phone: RV Free Wall Peak S' 19 cm/s [facility] Work Phone: RV Longitudinal Dimension 9.9 cm [facility] Work Phone: RV Mid Dimension 2.4 cm [facility] alth Work Phone: Sinotubular Junction 3.6 cm [facility] Work Phone: TAPSE 2.6 cm 1.7 cm [facility] Work Phone: [phone] [facility] [employer] Work Phone: [phone] US Heart Transthoracicon Left Ventricle: Left ventricle size is normal. Mildly increased wall thickness. Normal left ventricular systolic function. EF by 2D [employer] is 71%. Normal wall motion. Right Ventricle: Right ventricle size is normal. Normal systolic function. Aorta: Mildly dilated sinuses of Valsalva. Sinuses of Valsalva diameter is 3.8 cm. Moderately dilated ascending aorta. Ao ascending diameter is 4.7 cm. AHI (cm/m) 2.6, correlates to a 7% risk of aortic complications in one year. No significant valvular abnormalities. No vegetations or other evidence for infectious endocarditis. Left Ventricle Left ventricle size is normal. Mildly increased wall thickness. Normal left ventricular systolic function. EF by 2D [employer] is 71%. Normal wall motion. Normal diastolic function. Right Ventricle Right ventricle size is normal. Normal systolic function. Left Atrium Left atrium size is normal. LA Vol Index A/L is 29 mL/m2. Right Atrium Right atrium size is normal. IVC/SVC IVC diameter is normal and decreases greater than 50% during inspiration; therefore the estimated right atrial pressure is normal (~3 mmHg). Mitral Valve Valve structure is normal. Trace regurgitation. No stenosis noted. Tricuspid Valve Valve structure is normal. Trace regurgitation. Aortic Valve Trileaflet. No cusp thickening. No cusp calcification. Trace regurgitation. No stenosis. Pulmonic Valve The pulmonic valve visualization is suboptimal but appears to be functioning normally. Mild (1+) regurgitation. Ascending Aorta Mildly dilated sinuses of Valsalva. Sinuses of Valsalva diameter is 3.8 cm. Moderately dilated ascending aorta. Ao ascending diameter is 4.7 cm. AHI (cm/m) 2.6, correlates to a 7% risk of aortic complications in one year. Pericardium No pericardial effusion. Septum No interatrial shunt visualized on color Doppler. Study Details Image quality: fair. Heart rate: 89 bpm. Blood pressure: 90/56 mmHg. Technical qualifiers: Technically difficult study and technically difficult study with poor endocardial visualization. Ultrasound enhancement agent was given to enhance imaging. Echo Additional Conclusions No significant valvular abnormalities.No vegetations or other evidence for infectious endocarditis. CV CPACS Urate [Mass/Vol]on Interpretation and review of laboratory results Abnormal [facility] VANCOMYCIN, AUC TIMED DOSING on 04-03-2025 VANCOMYCIN, AUC 6.9 ug/mL Normal [facility] Comment on above: Result Comment: JESSICA Brown COMMENTS: Please draw random level at least >2 hours after the end of the last vancomycin infusion, or 30-minutes before next infusion. Toxicity is seen at concentrations >80-100 ug/mL Therapeutic (Peak) range: 20-40 Therapeutic (Trough) range: 5-10 Performed By: #### L [id number] #### [employer] Processor: MYLA EDDY ([id number]) [facility] ([facility] [address] [place] [address] Vancomycin trough [Mass/Vol] on 04-03-2025 Toxicity is seen at concentrations >80-100 ug/mL Therapeutic (Peak) range: 20-40 Therapeutic (Trough) range: 5-10 [facility] Vital signsOrdered By: Long Simons on 04-03-2025 Heart rate 100 /min bpm [facility] Work Phone: BASIC METABOLIC PANELon 06-2 Anion gap [Moles/Vol] 15 mmol/L High 3-13 [facility] Comment on above: Performed By: #### L AB15, [id number], [id number], [id number] ####[employer] Processor: MYLA EDDY ([id number])[facility] ([facility])[address] [place] [address] Calcium [Mass/Vol] 8.8 mg/dL Normal 8.4-10.2 [facility] Comment on above: Performed By: #### L AB15, [id number], [id number], LAB62 ####[employer]or: MYLA EDDY ([id number])[facility] ([facility])[address] [place] [address] Chloride [Moles/Vol] 101 mmol/L Normal 98-107 [facility] Comment on above: Performed By: #### L AB15, [id number], [id number], LAB62 ####[employer] Processor: MYLA EDDY ([id number])[facility] ([facility])[address] [place] [address] CO2 [Moles/Vol] 21 mmol/L Low 22-29 [facility] Comment on above: Performed By: #### L AB15, [id number], [id number], LAB62 ####[employer] Processor: MYLA EDDY ([id number])[facility] ([facility])[address] [place] [address] Creatinine [Mass/Vol] 2.43 mg/dL High 0.72-1.25 [facility] Comment on above: Performed By: #### L AB15, [id number], [id number], LAB62 ####[employer] Processor: MYLA EDDY ([id number])[facility])[address] [place] [address] GLOMERULAR FILTRATION RATE ML/MIN/1.73 SQ M.PREDICTED 31.6 mL/min/1.73m*2 Low >60.0 [facility] Comment on above: Result Comment: Calc ulation based on the Chronic Kidney Disease Epidemiology Collaboration (CKD-EPI) equation refit without adjustment for race Performed By: #### L AB15, [id number], [id number], LAB62 ####[employer] Processor: MYLA EDDY ([id number])[facility])[address] [place] [address] Glucose [Mass/Vol] 91 mg/dL Normal 74-100 [facility] Comment on above: Performed By: #### L AB15, [id number], [id number], LAB62 ####[employer] Processor: MYLA EDDY ([id number])[facility])[address] [place] [address] Potassium [Moles/Vol] 3.7 mmol/L Normal 3.5-5.1 [facility] Comment on above: Result Comment: [facility] potassium values may be up to 0.5 mmol/L lower than serum values. Performed By: #### Bethany AB15, [id number], [id number], LAB62 ####[employer] Processor: MYLA EDDY ([id number])[facility])[address] [place] [address] Sodium [Moles/Vol] 137 mmol/L Normal 136-145 [facility] Comment on above: Performed By: #### L AB15, [id number], [id number], LAB62 ####[employer] Processor: MYLA EDDY ([id number])[facility])[address] [place] [address] Urea nitrogen [Mass/Vol] 51 mg/dL High 9-23 [facility] Comment on above: Performed By: #### L AB15, [id number], [id number], LAB62 ####[employer] Processor: MYLA EDDY ([id number])[facility])[address] [place] [address] BLOOD CULTUREon 04-02-2025 Bacteria identified Cx Nom (Bld) BLOOD CULTURE Reference No growth at 5 days ORDER COMMENTS: Blood Collection Site: Right Antecubital [ S = SUSCEPTIBLE R = RESISTANT I = INTERMEDIATE S-DD = Susceptible-dose dependent NS = Non-susceptible NO = No Interpretation ] Normal [facility] Comment on above: Performed By: #### L [id number] #### [employer] Processor: MYLA EDDY ([id number]) [address] Bacteria identified Cx Nom (Bld) BLOOD CULTURE Reference No growth at 5 days ORDER COMMENTS: Blood Collection Site: Left Forearm [ S = SUSCEPTIBLE R = RESISTANT I = INTERMEDIATE S-DD = Susceptible-dose dependent NS = Non-susceptible NO = No Interpretation ] Normal [facility] Comment on above: Performed By: #### L [id number] ####[employer] Processor: MYLA EDDY ([id number])[facility] ([address] Basic metabolic 1998 panelon 04-02-2025 Anion gap [Moles/Vol] 15 mmol/L High 3 - 13 mmol/L [facility] Calcium [Mass/Vol] 8.8 mg/dL 8.4 - 10. 2 mg/dL [facility] Chloride [Moles/Vol] 101 mmol/L 98 - 10 7 mmol/L [facility] CO2 [Moles/Vol] 21 mmol/L Low 22 - 29 mmol/L [facility] Creatinine [Mass/Vol] 2.43 mg/dL High 0.72 - 1.25 mg/dL [facility] GFR/1.73 sq M.predicted (S/P/Bld) [Vol rate/Area] 31.6 mL/min Low - PINF [facility] Comment on above: Calculation based on the Chronic Kidney Disease Epidemiology Collaboration (CKD-EPI) equation refit without adjustment for race Glucose [Mass/Vol] 91 mg/dL 74 - 100 mg/dL [facility] Potassium [Moles/Vol] 3.7 mmol/L 3.5 - 5.1 mmol/L [facility] Comment on above: Plasma potassium ramesh ues may be up to 0.5 mmol/L lower than serum values. Sodium [Moles/Vol] 137 mmol/L 136 - 145 mmol/L [facility] Urea nitrogen [Mass/Vol] 51 mg/dL High 9 - 23 mg/d L [facility] C-REACTIVE PROTEINon 025 CRP [Mass/Vol] 26.9 mg/L High <5.0 [facility] Comment on above: Performed By: #### L AB15, [id number], [id number], LAB62 ####[employer]or: MYLA EDDY ([id number])[facility] ([facility])[address] [place] [address] CBC W Auto Differential pane l (Bld)Ordered By: Senia Bello on 04-02-2025 Erythrocyte distribution width (RBC) [Ratio] 13.2 % 11.5 - 15.0 % [facility] Hematocrit (Bld) [Volume fraction] 38.5 % Low 40.0 - 52.0 % [facility] Hemoglobin (Bld) [Mass/Vol] 13.3 g/dL 13.0 - 18.0 g/dL [facility] Interpretation and review of laboratory results Abnormal [facility] MCH (RBC) [Entitic mass] 31.1 pg 26.0 - 34.0 pg [facility] MCHC (RBC) [Mass/Vol] 34.5 % 30.5 - 36.0 % [facility] MCV (RBC) [Entitic vol] 90.2 fL 77.0 - 99.0 fL [facility] Platelet mean volume (Bld) [Entitic vol] 10.1 fL 9.0 - 12.7 fL [facility] Platelets (Bld) [#/Vol] 233 10*3/uL 140 - 440 10*3/uL [facility] RBC (Bld) [#/Vol] 4.27 10*6/uL Low 4.40 - 5.9 0 10*6/uL [facility] WBC (Bld) [#/Vol] 16.3 10*3/uL High 3.6 - 10.7 10*3/uL [facility] CBC WITH AUTO DIFFERENTIALon 04-02-2025 Erythrocyte distribution width (RBC) [Ratio] 13.2 % Normal 11.5-15.0 [facility] Comment on above: Performed By: #### L [id number], [id number], [id number] ####[employer]or: MYLA EDDY ([id number])[facility] ([facility])[address] [place] [address] Hematocrit (Bld) [Volume fraction] 38.5 % Low 40.0-52.0 [facility] Comment on above: Performed By: #### L [id number], [id number], [id number] ####[employer]or: MYLA EDDY ([id number])[facility])[address] [place] [address] Hemoglobin (Bld) [Mass/Vol] 13.3 g/dL Normal 13.0-18.0 [facility] Comment on above: Performed By: #### Bethany [id number], [id number], [id number] ####[employer]or: MYLA EDDY ([id number])[facility] ([facility])[address] [place] [address] MCH (RBC) [Entitic mass] 31.1 pg Normal 26.0-34.0 [facility] Comment on above: Performed By: #### Bethany [id number], [id number], [id number] ####[employer]or: MYLA EDDY ([id number])[facility] ([facility])[address] [place] [address] MCHC 34.5 % Normal 30.5-36.0 [facility] Comment on above: Performed By: #### Bethany [id number], [id number], [id number] ####[employer]or: MYLA EDDY ([id number])[facility] ([facility])[address] [place] [address] MCV (RBC) [Entitic vol] 90.2 fL Normal 77.0-99.0 [facility] Comment on above: Performed By: #### L [id number], [id number], [id number] ####[employer]or: MYLA EDDY ([id number])[facility])[address] [place] [address] Platelet mean volume (Bld) [Entitic vol] 10.1 fL Normal 9.0-12.7 [facility] Comment on above: Performed By: #### L [id number], [id number], [id number] ####[employer]or: MYLA EDDY ([id number])[facility] [place] [address] Platelets (Bld) [#/Vol] 233 10*3/uL Normal 140-440 [facility] Comment on above: Performed By: #### L [id number], [id number], [id number] ####[employer]or: MYLA EDDY ([id number])[facility] ([facility])[address] [place] [address] RBC (Bld) [#/Vol] 4.27 10*6/uL Low 4.40-5.90 [facility] Comment on above: Performed By: #### L [id number], [id number], [id number] ####[employer]or: MYLA EDDY ([id number])[facility])[address] [place] [address] WBC (Bld) [#/Vol] 16.3 10*3/uL High 3.6-10.7 [facility] Comment on above: Performed By: #### L [id number], [id number], [id number] ####[employer]or: MYLA EDDY ([id number])[facility] ([facility])[address] [place] [address] 04-02-2025 CK [Catalytic activity/Vol] 1296 U/L High 30-185 [facility] Comment on above: Performed By: #### L [id number] #### [employer]or: MYLA EDDY ([id number]) [facility]) [address] [place] [address] CK [Catalytic activity/Vol] 1504 U/L High 30-185 [facility] Comment on above: Performed By: #### L AB15, [id number], [id number], LAB62 ####[employer]or: MYLA EDDY ([id number])[facility])[address] [place] [address] COMPLETE URINALYSIS WITH REF ANDREA TO CULTUREon 04-02-2025 BACTERIA (#/HPF) IN URINE Negative Normal Negative [facility] Comment on above: Performed By: #### L [id number] ####[employer]or: MYLA EDDY ([id number])[facility] ([facility])[address] [place] [address] BILIRUBIN, TOTAL PRESENCE IN URINE Negative Normal Negative [facility] Comment on above: Performed By: #### L [id number] ####Solid Propellant Processor: MYLA EDDY ([id number])[facility] ([facility])[address] [place] [address] Clarity (U) Clear Normal Clear [facility] Comment on above: Performed By: #### L [id number] ####Solid Propellant Processor: MYLA EDDY ([id number])[facility])[address] [place] [address] Color (U) Light Yellow Normal Lt. Yellow [facility] Comment on above: Performed By: #### L [id number] ####Solid Propellant Processor: MYLA EDDY ([id number])[facility] ([facility])[address] [place] [address] GLUCOSE (MG/DL) IN URINE Normal Normal Normal (<70 ) [facility] Comment on above: Performed By: #### L [id number] ####Solid Propellant Processor: MYLA EDDY ([id number])[facility] ([facility])[address] [place] [address] HEMOGLOBIN PRESENCE IN URINE 0.1 mg/dL Abnormal Negative [facility] Comment on above: Performed By: #### L [id number] ####Solid Propellant Processor: MYLA EDDY ([id number])[facility] ([facility])[address] [place] [address] HYALINE CASTS (#/LPF) IN URINE SEDIMENT BY MICROSCOPY 0-2 Abnormal Negative [facility] Comment on above: Performed By: #### L [id number] ####Solid [employer]ellant Processor: MYLA EDDY ([id number])[facility] ([facility])[address] [place] [address] Ketones Ql (U) 10 mg/dL Abnormal Negative [facility] Comment on above: Performed By: #### L [id number] ####Solid Propellant Processor: MYLA EDDY ([id number])[facility] ([facility])[address] [place] [address] LEUKOCYTE ESTERASE PRESENCE IN URINE BY TEST STRIP Negative Normal Negative [facility] Comment on above: Performed By: #### L [id number] ####Solid Propellant Processor: MYLA EDDY ([id number])[facility] ([facility])[address] [place] [address] [place] MUCUS (#/LPF) IN URINE SEDIMENT Few Normal Negative [facility] Comment on above: Performed By: #### L [id number] ####Solid Propellant Processor: MYLA EDDY ([id number])[facility] ([facility])[address] [place] [address] NITRITE PRESENCE IN URINE Negative Normal Negative [facility] Comment on above: Performed By: #### L [id number] ####Solid Propellant Processor: MYLA EDDY ([id number])[facility] ([facility])[address] [place] [address] pH (U) 5.5 [pH] Normal 5.0-8.0 [facility] Comment on above: Performed By: #### L [id number] ####Solid Propellant Processor: MYLA EDDY ([id number])[facility] ([facility])[address] [place] [address] Protein (U) [Mass/Vol] 50 mg/dL Abnormal Negative [facility] Comment on above: Performed By: #### L [id number] ####Solid Propellant Processor: MYLA EDDY ([id number])[facility] ([facility])[address] [place] [address] RBC (#/HPF) IN URINE SEDIMENT 0-2 Normal 0-2 [facility] Comment on above: Performed By: #### L [id number] ####Solid Propellant Processor: MYLA EDDY ([id number])[facility] ([facility])[address] [place] [address] Specific gravity (U) [Rel density] 1.038 High 1.005-1.030 [facility] Comment on above: Result Comment: JESSICA Kevin COMMENTS: A specimen with <=10 WBC is not consistent with inflammation. This specimen will not reflex to a urine culture. Performed By: #### L [id number] ####Solid Propellant Processor: MYLA EDDY ([id number])[facility] ([facility])[address] [place] [address] SQUAMOUS EPITHELIAL CELLS (#/HPF) IN URINE SEDIMENT 0-2 Normal 3-5 [facility] Comment on above: Performed By: #### L [id number] ####Solid Propellant Processor: MYLA EDDY ([id number])[facility] ([facility])[address] [place] [address] UROBILINOGEN (MG/DL) IN URINE Normal Normal Normal (0-1) [facility] Comment on above: Performed By: #### L [id number] ####Solid Propellant Processor: MYLA EDDY ([id number])[facility] ([facility])[address] [place] [address] WBC (LEUKOCYTE) (#/HPF) IN URINE SEDIMENT 0-2 Normal 0-5 [facility] Comment on above: Performed By: #### L [id number] ####Solid Propellant Processor: MYLA EDDY ([id number])[facility])[address] [place] [address] CT CHEST ANGIOGRAM W AND/OR WO IV CONTRASTon 04-02-2025 CT CHEST ANGIOGRAM W AND/OR WO IV CONTRAST Patient Name: VIRAL ANN : 1975 [facility]#: [id number] Exam Date/Time: 04/02/2025 19:41 Procedure: CT CHEST ANGIOGRAM W AND/OR WO IV CONTRAST Ordering Provider: WOLFE AKASH Reason For Exam: Pulmonary embolism (PE) suspected, high prob HISTORY: Pulmonary embolism suspected CT scan of the chest were performed with bolus contrast and high resolution scans for CT pulmonary angiographic study, with images post-processed by myself on [employer] workstation, with 3D - volume rendered CT and MPR angiographic images reconstructed. Dose reduction was employed with automatic exposure control The heart size is normal, and there are no pericardial or pleural effusions. There are no congestive changes in the pulmonary vasculature. The thoracic aorta is unremarkable. CT pulmonary angiographic examination is a high quality study, which demonstrates no evidence of acute pulmonary embolism. The right side of the heart, pulmonary outflow tract, right and left main, lobar, and larger segmental pulmonary arteries all appear clear. Note that the technique is limited for detection of small, subsegmental, peripheral emboli, but none are seen. IMPRESSION: 1.Negative CT scan of the chest for evidence of acute pulmonary embolism. Report Dictated on Electronically Signed By: Buzz Riley MD Electronically Signed Date/Time: 04/02/2025 7:59 PM EDT Pt has hx of blood clots in his right leg and IVC filter, pt reports shortness of breath. Pt able to speak in full sentences at this time. Best possible images , pt will not stop moving and talking ... Pt refused reinjection Normal [facility] CTA Chest vessels WO and W c ontrast Mark 04-02-[address] scan of the chest for evidence of acute pulmonary embolism. Report Dictated on Electronically Signed By: Buzz Riley MD Electronically Signed Date/Time: 04/02/2025 7:59 PM EDT [facility] Patient Name: VIRAL ANN : 1975 [facility]#: [id number] Exam Date/Time: 04/02/2025 19:41 Procedure: CT CHEST ANGIOGRAM W AND/OR WO IV CONTRAST Ordering Provider: WOLFE AKASH Reason For Exam: Pulmonary embolism (PE) suspected, high prob HISTORY: Pulmonary embolism suspected CT scan of the chest were performed with bolus contrast and high resolution scans for CT pulmonary angiographic study, with images post-processed by myself on [employer] workstation, with 3D - volume rendered CT and MPR angiographic images reconstructed. Dose reduction was employed with automatic exposure control The heart size is normal, and there are no pericardial or pleural effusions. There are no congestive changes in the pulmonary vasculature. The thoracic aorta is unremarkable. CT pulmonary angiographic examination is a high quality study, which demonstrates no evidence of acute pulmonary embolism. The right side of the heart, pulmonary outflow tract, right and left main, lobar, and larger segmental pulmonary arteries all appear clear. Note that the technique is limited for detection of small, subsegmental, peripheral emboli, but none are seen. [facility] Buzz Riley MD - 04/02/2025 Patient Name: VIRAL ANN : 1975 [facility]#: [id number] Exam Date/Time: 04/02/2025 19:41 Procedure: CT CHEST ANGIOGRAM W AND/OR WO IV CONTRAST Ordering Provider: WOLFE AKASH Reason For Exam: Pulmonary embolism (PE) suspected, high prob HISTORY: Pulmonary embolism suspected CT scan of the chest were performed with bolus contrast and high resolution scans for CT pulmonary angiographic study, with images post-processed by myself on [employer] workstation, with 3D - volume rendered CT and MPR angiographic images reconstructed. Dose reduction was employed with automatic exposure control The heart size is normal, and there are no pericardial or pleural effusions. There are no congestive changes in the pulmonary vasculature. The thoracic aorta is unremarkable. CT pulmonary angiographic examination is a high quality study, which demonstrates no evidence of acute pulmonary embolism. The right side of the heart, pulmonary outflow tract, right and left main, lobar, and larger segmental pulmonary arteries all appear clear. Note that the technique is limited for detection of small, subsegmental, peripheral emboli, but none are seen. IMPRESSION: 1.Negative CT scan of the chest for evidence of acute pulmonary embolism. Report Dictated on Electronically Signed By: Buzz Riley MD Electronically Signed Date/Time: 04/02/2025 7:59 PM EDT [facility] Radiology Study observation (narrative) [facility] irvin DRUGS OF ABUSEon 04-02-2025 AMPHETAMINE SCREEN Positive Normal [facility] Comment on above: Performed By: #### L [id number] ####Solid Propellant Processor: MYLA EDDY ([id number])[facility] ([facility])[address] [place] [address] BARBITURATES SCREEN Negative Normal [facility] Comment on above: Performed By: #### L [id number] ####Solid Propellant Processor: MYLA EDDY ([id number])[facility] ([facility])[address] BENZODIAZEPINE SCREEN Negative Normal [facility] Comment on above: Performed By: #### L [id number] ####Solid Propellant Processor: MYLA EDDY ([id number])[facility] ([facility])[address] COCAINE METAB. SCREEN Negative Normal [facility] Comment on above: Performed By: #### L [id number] ####Solid Propellant Processor: MYLA EDDY ([id number])[facility] ([facility])[address] [place] [address] FENTANYL SCREEN, UR QUAL Negative Normal [facility] Comment on above: Result Comment: JESSICA Brown COMMENTS: The expected value for all of the drugs listed above is Negative. The following drugs or drug groups have been screened for by Immunoassay at the following thresholds: Amphetamine class (1000 ng/mL) Barbiturates (200 ng/mL) Benzodiazepines (200 ng/mL) Cocaine (300 ng/mL) Methadone (300 ng/mL) Opiates (300 ng/mL) Oxycodone (100 ng/mL) PCP (25 ng/mL) Fentanyl (1.0 ng/ml) NOTE: These results are for medical treatment only. Analysis performed using non-forensic procedures. POSITIVE results are NOT confirmed by a more specific alternative method unless requested. If confirmation is needed, request confirmation under separate order. Performed By: #### L [id number] ####Solid Propellant Processor: MYLA EDDY ([id number])[facility] ([facility])[address] METHADONE SCREEN Negative Normal [facility] Comment on above: Performed By: #### L [id number] ####Solid Propellant Processor: MYLA EDDY ([id number])[facility] [place] [address] [place] OPIATES SCREEN Negative Normal [facility] Comment on above: Performed By: #### L [id number] ####Solid Propellant Processor: MYLA EDDY ([id number])[facility] ([facility])[address] [place] [address] [place] OXYCODONE SCREEN Negative Normal [facility] Comment on above: Performed By: #### L [id number] ####Solid Propellant Processor: MYLA YOMerry ([id number])[facility] ([facility])[address] [place] [address] PHENCYCLIDINE SCREEN Negative Normal [facility] Comment on above: Performed By: #### L [id number] ####Solid Propellant Processor: MYLA YOMerry ([id number])[facility] ([facility])[address] [place] [address] ED Nursing Noteon 04-02-2025 ED Nursing Note Provided patient with sacked lunch Normal [facility] ED Nursing Note Admitting team at bedside ED Provider Noteon ED Provider Note Emergency Department Encounter [facility] Patient: Viral Ann : 1975 Date of Evaluation: 04/02/2025 ED Supervising Physician: David Wolfe DO I personally evaluated Viral Ann and made/approved the management plan and take responsibility for the patient management. This will serve as my Supervisory note and shared attestation. I did perform a substantive portion of the visit including all aspects of the Medical Decision Making. I wore appropriate PPE for the entirety of this encounter. In brief, Viral Ann is a 49 y.o. that presents to the emergency department with complaints of chest pain and shortness of breath. Patient is concerned there is an infection in his right foot. 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 Unable to verify validity. Patient also endorses polysubstance abuse including meth and cocaine use today and history of IV drug use. Patient is a little tangential in history taking Focused exam: On exam, vitals tachycardic, febrile. Gen: Nontoxic appearing. Head: NC/AT. CV: RRR. Resp: CTA bilaterally. Abd: Abd soft and notender. Back: No midline vertebral tenderness, no stepoff, no deformity Ext: No obvious deformity or abnormalities of bilat UE and LE, Pulses 2+ bilateral UE and LE. Neuro: No focal neurologic deficit. Skin: No obvious rashes, warm, dry Brief ED course/MDM: Patient with hx of drug abuse presents to the ED with a chief complaint of sob. Additional information found above and also refer to cookie/resident note for further details. On exam, vitals febrile. Per above. Otherwise per above Additional information found above and also refer to cookie/resident note for further details. (Differential diagnosis) With consideration of age, sex/gender, risk factors, to evaluate patient for high risk causes of morbidity and mortality such as, but not limited to, .acute infectious process (ie. CAP/viral/other) vs viral syndrome vs ACS vs inflammatory process vs other Today we will obtain labs and imaging We will also provide medical/symptomati c management with antipyretic . Diagnostic tests considered but not performed: na Independently reviewed external documents including previous none available Discussed plan with patient who agrees with current plan. Diagnostics interpreted by me: Per below I personally discussed the patient's management with other clinicians: Per resident End of visit medical decision making Patient was reassessed. Resting comfortably. No acute distress. Independently reviewed and interpreted the lab results which demonstrated the following: Leukocytosis of 16.3, no significant anemia, no major electrolyte abnormalities, GUIDO with a creatinine of 2.4 and a GFR of 31 with a CPK of 1200 consider rhabdo, lactic acid at 1.6, troponin negative, UDS positive for amphetamines, UA without overt signs of cystitis Independently reviewed and interpreted CXR which demonstrated the following: No acute intrathoracic abnormalities. No obvious consolidation. Sharp costophrenic angles. No pneumothorax. Trachea midline. Independently reviewed and interpreted EKG which demonstrated the following: Sinus tachycardia Rhythm Strip: The case monitor was ordered secondary to the patient's history of blood clots and to monitor the patient for dysrhythmia. I performed an independent interpretation of the rhythm strip which showed no arrhythmia, no signs of ischemic changes, no ectopy. Independently reviewed the reports of other imaging which demonstrated the following: no PE no acute intrathoracic abnl Response to medical management provided in the ED: improving (Consults) Discussed care with: Discussed case with financial consultant, admitting team. They agree with current work up and management. They will evaluate and provide further recommendations, please refer to their note for detailed explanation. They agree to admit the patient for further workup and management. Discussed all results with patient and/or family members. They verbalize understanding. Offered admission for further management. Discussed risks, benefits and alternatives for further management in the hospital. Due to high risk of morbidity and mortality of the stated findings and results, patient will be admitted for further management and care. Patient is agreeable to the plan. Discussed patient information, presentation and workup with admitting team. Admitting team is agreeable to current workup and evaluation. They will admit the patient and provide further care. Pending results to be followed by primary admitting team. Patient will need med [facility] level of care and not appropriate for lower acuity location of care due to risk of morbidity and mortality Patient's condition and/or care was impacted by drug use Patient's condition and/or care w (more content not included)... ED Provider Note EMERGENCY DEPARTMENT ENCOUNTER Pt Name: Viral Ann Birthdate 1975 Date of evaluation: 04/02/2025 ED Provider: Alta Medina DO CHIEF COMPLAINT Chief Complaint Patient presents with Shortness of Breath Pt has hx of blood clots in his right leg and IVC filter, pt reports shortness of breath. Pt able to speak in full sentences at this time. HISTORY OF PRESENT ILLNESS (Location/Symptom, Timing/Onset, Context/Setting, Quality, Duration, Modifying Factors, Severity) Note limiting factors. I wore appropriate PPE for the entirety of this encounter. HPI Viral Ann is a 49 y.o. who presents to the emergency department with concern for chest pain and shortness of breath and concerned that he has an infection in his right foot. The patient states he has a history of blood clots in his right leg and has had an IVC filter in place for the past 15 years. He states he was also in the hospital for a month for a previous infection of his right foot. He also endorses meth and cocaine use today. He does have a history of IV drug use. The patient has no medical history on chart for review. Patient denies any other medical conditions, he does not take any other medications. Patients speech is rapid and pressured on arrival. Nursing Notes were reviewed. Limitations to history: None Outside historians: None REVIEW OF SYSTEMS Review of Systems Constitutional: Positive for fever. Negative for chills. Respiratory: Positive for shortness of breath. Negative for cough and wheezing. Cardiovascular: Positive for chest pain. Gastrointestinal: Negative for abdominal pain, diarrhea, nausea and vomiting. Genitourinary: Negative for difficulty urinating and dysuria. Neurological: Negative for dizziness, syncope, light-headedness and headaches. Pertinent positives and negatives as per HPI. PAST MEDICAL HISTORY Medical History[1] SURGICAL HISTORY Surgical History[2] CURRENT MEDICATIONS Previous Medications No medications on file ALLERGIES Patient has no known allergies. FAMILY HISTORY Family History[3] SOCIAL HISTORY Social History[4] SCREENINGS PHYSICAL EXAM ED Triage Vitals [04/02/25 1835] Temp Heart Rate Resp BP (!) 38.9 ?C (102 ?F) 99 21 122/88 SpO2 Temp Source Heart Rate Source Patient Position 96 % Temporal -- -- BP Location FiO2 (%) -- -- Physical Exam Constitutional: General: He is not in acute distress. Cardiovascular: Rate and Rhythm: Regular rhythm. Tachycardia present. Heart sounds: Normal heart sounds. No murmur heard. Pulmonary: Effort: Pulmonary effort is normal. No respiratory distress. Breath sounds: No wheezing or rales. Abdominal: General: Abdomen is flat. There is no distension. Palpations: Abdomen is soft. Tenderness: There is no abdominal tenderness. There is no guarding. Musculoskeletal: Right lower leg: No edema. Left lower leg: No edema. Comments: Right foot appears atraumatic, no skin changes concerning for infection. Skin: General: Skin is warm and dry. Neurological: Mental Status: He is alert and oriented to person, place, and time. Psychiatric: Speech: Speech is rapid and pressured. Behavior: Behavior is hyperactive. Behavior is cooperative. DIAGNOSTIC RESULTS RADIOLOGY (Per Emergency Physician): Interpretation per the Radiologist below, if available at the time of this note: CT chest angiogram w and/or wo IV contrast Final Result 1.Negative CT scan of the chest for evidence of acute pulmonary embolism. Report Dictated on Electronically Signed By: Buzz Riley MD Electronically Signed Date/Time: 04/02/2025 7:59 PM EDT XR foot 3+ views right Final Result XR chest 1 view Final Result 1. No acute findings. Report Dictated on Electronically Signed By: Gregory Caal MD Electronically Signed Date/Time: 04/02/2025 7:10 PM EDT LABS: Labs Reviewed BASIC METABOLIC PANEL - Abnormal Result Value SODIUM 137 POTASSIUM 3.7 CHLORIDE 101 CARBON DIOXIDE 21 (*) UREA NITROGEN 51 (*) CREATININE 2.43 (*) GLUCOSE 91 CALCIUM 8.8 ANION GAP 15 (*) eGFR 31.6 (*) CBC WITH AUTO DIFFERENTIAL - Abnormal Auto WBC 16.3 (*) RBC 4.27 (*) Hemoglobin 13.3 Hematocrit 38.5 (*) MCV 90.2 MCH 31.1 MCHC 34.5 RDW 13.2 Platelets 233 MPV 10.1 COMPLETE URINALYSIS WITH REFLEX TO CULTURE - Abnormal Color, Urine Light Yellow Clarity, Urine Clear pH, Urine 5.5 Leukocytes, Urine Negative Nitrite, Urine Negative Protein, Urine 50 (*) Glucose, Urine Normal Bilirubin, Urine Negative Ketones, Urine 10 (*) Urobilinogen, Urine Normal Blood, Urine 0.1 (*) RBC, Urine 0-2 WBC, Urine 0-2 Squamous Epithelial, Urine 0-2 Bacteria, Urine Negative Mucus, Urine Few Hyaline Casts, Urine 0-2 (*) SPECIFIC GRAVITY OF URINE (NUMERIC) 1.038 (*) Narrative: A specimen with <=10 WBC is not consistent with inflammat (more content not included)... Normal [facility] ESR (Bld) [Velocity]on 04-02 Interpretation and review of laboratory results Abnormal [facility] HIGH SENSITIVITY TROPONIN, S ERIAL BASELINEon 04-02-2025 TROPONIN HS SERIAL BASELINE 5 ng/L Normal <=35 [facility] Comment on above: Result Comment: In i ndividuals presenting with symptoms > 2h, a baseline troponin <= 5 ng/L suggests acute cardiac injury is unlikely and further serial testing is generally not indicated. Performed By: #### L [id number] ####[employer] Processor: MYLA EDDY ([id number])[facility] ([address] HIGH SENSITIVITY TROPONIN, S ERIAL, SECOND TESTon 04-02-2025 2H TROPONIN HS (SERIAL 2ND TROPONIN) 6 ng/L Normal <=35 [facility] Comment on above: Result Comment: Risi ng or falling troponin delta below 2 ng/L as compared to baseline value suggests that acute cardiac injury is unlikely. Performed By: #### L [id number] #### [employer] Processor: MYLA EDDY ([id number]) [facility] ([facility]) [address] [place] [address] LACTIC ACID WITH REFLEXon Lactate [Moles/Vol] 1.6 mmol/L Normal 0.5-2.2 [facility] Comment on above: Performed By: #### L [id number] #### [employer] Processor: MYLA EDDY ([id number]) [facility] ([facility]) [address] [place] [address] Laboratory - Chemistry and C hemistry - challengeon 04-02-2025 CK [Catalytic activity/Vol] 1504 U/L High 30 - 185 U/L [facility] CRP [Mass/Vol] 26.9 mg/L High NINF - 5.0 mg/L [facility] Lactate [Moles/Vol] 1.6 mmol/L 0.5 - 2. 2 mmol/L [facility] Laboratory - Drug toxicology on 04-02-2025 Amphetamines Screen method >1000 ng/mL Ql (U) Positive [facility] Barbiturates Screen method >200 ng/mL Ql (U) Negative [facility]alth Benzodiazepines Ql (U) Negative [facility] Methadone Screen Ql (U) Negative [facility] Opiates Screen Ql (U) Negative [facility] oxyCODONE Ql (U) Negative [facility]th Phencyclidine Ql (U) Negative [facility] Laboratory - Hematology and Cell countson 04-02-2025 ESR (Bld) [Velocity] 14 mm/h High [facility] Lymphocytes (Bld) [#/Vol] 2.4 10*3/uL 1. 0 - 4.3 10*3/uL [facility] Lymphocytes/100 WBC (Bld) 15 % 15 - 45 % [facility] Monocytes (Bld) [#/Vol] 2.1 10*3/uL High 0.0 - 0.9 10*3/uL [facility] Monocytes/100 WBC (Bld) 13 % 5 - 13 % [facility] Neutrophils (Bld) [#/Vol] 11.9 10*3/uL High 1. 8 - 7.5 10*3/uL [facility] RBC morphology finding Nom (Bld) Normal [facility] Segmented neutrophils/100 WBC (Bld) 73 % 38 - 82 % [facility] MANUAL DIFFERENTIAL (CELLAVI SANTHOSH)on 04-02-2025 BAND NEUTROPHILS TOTAL PER COUNTED LEUKOCYTES BY MANUAL COUNT Comment on above: Performed By: #### L [id number], [id number], [id number] ####[employer]or: MYLA EDDY ([id number])[facility] [place] [address] [place] BASOPHILS TOTAL PER COUNTED LEUKOCYTES BY MANUAL COUNT Comment on above: Performed By: #### L [id number], [id number], [id number] ####[employer]or: MYLA EDDY ([id number])[facility] ([facility])[address] [place] [address] BLASTS TOTAL PER COUNTED LEUKOCYTES BY MANUAL COUNT Comment on above: Performed By: #### Bethany [id number], [id number], [id number] ####[employer]or: MYLA EDDY ([id number])[facility] [place] [address] [place] EOSINOPHILS TOTAL PER COUNTED LEUKOCYTES BY MANUAL COUNT Comment on above: Performed By: #### L [id number], [id number], [id number] ####[employer]or: MYLA EDDY ([id number])[facility] ([facility] [place] [address] [place] LYMPHOCYTES (10*3/UL) IN BLOOD-CELLAVISION 2.4 10*3/uL Normal 1.0-4.3 [facility] Comment on above: Performed By: #### L [id number], [id number], [id number] ####[employer]or: MYLA EDDY ([id number])[facility] ([facility])[address] [place] [address] [place] LYMPHOCYTES TOTAL PER COUNTED LEUKOCYTES BY MANUAL COUNT 15 Comment on above: Performed By: #### L [id number], [id number], [id number] ####[employer]or: MYLA EDDY ([id number])[facility] ([facility])[address] [place] [address] [place] LYMPHOCYTES/100 LEUKOCYTES IN BLOOD-CELLAVISION 15 % Normal 15-45 [facility] Comment on above: Performed By: #### L [id number], [id number], [id number] ####[employer]or: MYLA EDDY ([id number])[facility] ([facility])[address] [place] [address] [place] METAMYELOCYTES TOTAL PER COUNTED LEUKOCYTES BY MANUAL COUNT Normal [facility] Comment on above: Performed By: #### L [id number], [id number], [id number] ####[employer]or: MYLA EDDY ([id number])[facility] ([facility] [place] [address] [place] MONOCYTES (10*3/UL) IN BLOOD-CELLAVISION 2.1 10*3/uL High 0.0-0.9 [facility] Comment on above: Performed By: #### Bethany [id number], [id number], [id number] ####[employer]or: MYLA EDDY ([id number])[facility] [place] [address] [place] MONOCYTES TOTAL PER COUNTED LEUKOCYTES BY MANUAL COUNT 13 Normal [facility] Comment on above: Performed By: #### L [id number], [id number], [id number] ####[employer]or: MYLA EDDY ([id number])[facility] [place] [address] [place] MONOCYTES/100 LEUKOCYTES IN BLOOD-ANNIE 13 % Normal 5-13 [facility] Comment on above: Performed By: #### L [id number], [id number], [id number] ####[employer]or: MYLA EDDY ([id number])[facility] ([facility])[address] [place] [address] [place] MYELOCYTES COUNTED BY MANUAL COUNT Comment on above: Performed By: #### L [id number], [id number], [id number] ####[employer]or: MYLA EDDY ([id number])[facility] ([facility])[address] [place] [address] [place] NEUTROPHILS TOTAL PER COUNTED LEUKOCYTES BY MANUAL COUNT 74 Comment on above: Performed By: #### L [id number], [id number], [id number] ####[employer]or: MYLA EDDY ([id number])[facility] [place] [address] [place] PROMYELOCYTES TOTAL PER COUNTED LEUKOCYTES BY MANUAL COUNT Comment on above: Performed By: #### Bethany [id number], [id number], [id number] ####[employer]or: MYLA EDDY ([id number])[facility] [place] [address] [place] RBC MORPHOLOGY IN BLOOD Normal [facility] Comment on above: Performed By: #### Bethany [id number], [id number], [id number] ####[employer]or: MYLA EDDY ([id number])[facility] ([facility])[address] [place] [address] [place] SEGMENTED NEUTROPHILS (10*3/UL) IN BLOOD-CELLAVISION 11.9 10*3/uL High 1.8-7.5 [facility] Comment on above: Performed By: #### Bethany [id number], [id number], [id number] ####[employer]or: MYLA EDDY ([id number])[facility] ([facility])[address] [place] [address] [place] SEGMENTED NEUTROPHILS/100 LEUKOCYTES-CE 73 % Normal 38-82 [facility] Comment on above: Performed By: #### Bethany [id number], [id number], [id number] ####[employer]or: MYLA EDDY ([id number])[facility] [place] [address] [place] UNCLASSIFIED CELLS TOTAL PER COUNTED LEUKOCYTES BY MANUAL COUNT Comment on above: Performed By: #### Betahny [id number], [id number], [id number] ####[employer]or: MYLA EDDY ([id number])[facility] ([facility])[address] [place] [address] [place] VARIANT LYMPHOCYTES TOTAL PER COUNTED LEUKOCYTES BY MANUAL COUNT Comment on above: Performed By: #### L [id number], [id number], [id number] ####[employer]or: MYLA EDDY ([id number])[facility] ([facility] No Panel Informationon 04-02 COCAINE METAB. SCREEN Negative [facility] FENTANYL SCREEN, UR QUAL Negative [facility] The expected value for all of the drugs listed above is Negative. The following drugs or drug groups have been screened for by Immunoassay at the following thresholds: Amphetamine class (1000 ng/mL) Barbiturates (200 ng/mL) Benzodiazepines (200 ng/mL) Cocaine (300 ng/mL) Methadone (300 ng/mL) Opiates (300 ng/mL) Oxycodone (100 ng/mL) PCP (25 ng/mL) Fentanyl (1.0 ng/ml) NOTE: These results are for medical treatment only. Analysis performed using non-forensic procedures. POSITIVE results are NOT confirmed by a more specific alternative method unless requested. If confirmation is needed, request confirmation under separate order. [facility] 2h Troponin HS (Serial 2nd Troponin) 6 ng/L NINF - 35 ng/L [facility] Comment on above: Rising or falling tr oponin delta below 2 ng/L as compared to baseline value suggests that acute cardiac injury is unlikely. Interpretation and review of laboratory results Normal [facility] Atypical Lymphocytes Manual [facility] Bands Manual [facility] Basophils Manual [facility] Blasts Manual [facility] Eosin[facility] Manual [facility] Interpretation and review of laboratory results Abnormal [facility] Lymphocytes Manual 15 [facility] Metamyelocytes Manual [facility] Monocytes Manual 13 [facility] Myelocytes Manual [facility] Neutrophils Manual 74 [facility] Promyelocytes Manual [facility] Unclassified Cells, Manual [facility] Interpretation and review of laboratory results Normal [facility] Troponin HS Serial Baseline 5 ng/L NINF - 35 ng/L [facility] Comment on above: In individuals prese nting with symptoms > 2h, a baseline troponin <= 5 ng/L suggests acute cardiac injury is unlikely and further serial testing is generally not indicated. [facility] Interpretation and review of laboratory results Abnormal [facility] Interpretation and review of laboratory results Normal [facility] Radiology Study observation (narrative) [facility] Progress Noteon 04-02-2025 Progress Note Pharmacy Managed Vancomycin Dosing Service Consult Note Consult Date: 04/02/25 Patient Name: Viral Ann Allergies: Patient has no known allergies. Age: 49 y.o. Sex: male Estimated body mass index is 31.25 kg/m? as calculated from the following: Height as of this encounter: 1.905 m (6' 3). Weight as of this encounter: 113 kg (250 lb). DW: 113 kg Lab Results Component Value Date CREATININE 2.43 (H) 04/02/2025 BUN 51 (H) 04/02/2025 WBC 16.3 (H) 04/02/2025 Calculated CrCl: 58 mL/min (Cockcroft-Gault) Consulted By: David Wolfe DO Infectious Diagnosis: Sepsis (AUC Goal 400-600 mg/L*hr) Antimicrobials: Patient recently received an antibiotic (last 12 hours) Date/Time Action Medication Dose Rate 04/02/252058 New Bag vancomycin in NS (Vancocin) IVPB 2,000 mg 2,000 mg 250 mL/hr Assessment/Plan: Doses, serum creatinine, and vancomycin levels interfaced automatically to [employer] and data has been analyzed and interpreted. Start Vancomycin 1250 mg every 24 hours based on patient age, weight, renal function, and infectious diagnosis (11.1 mg/kg). Predicted AUC = 534 mg/L*hr (goal 400-600 mg/L*hr) PAUC = 92% (probability that AUC is >400 mg/L*hr) Pconc = 26% (probability that Ctrough is above 20 mcg/mL (toxicity)) Will assess random level on 04/03/25 and adjust as appropriate. Trend serum creatinine. Orders placed. Thank you for this consult. Please secure text or call with questions. DATE: 04/02/25 TIME: 9:55 PM Nicole MetzD Clinical Pharmacist Available via Secure Chat Normal [facility] SEDIMENTATION RATE, AUTOMATE Don 04-02-2025 SEDIMENTATION RATE, ERYTHROCYTE 14 mm/hr High 0-10 [facility] Comment on above: Performed By: #### L [id number], [id number], [id number] ####[employer]or: MYLA EDDY ([id number])[facility] ([facility])[address] [place] [address] URIC ACIDon 04-02-2025 Urate [Mass/Vol] 9.0 mg/dL High 3.7-7.7 [facility] Comment on above: Performed By: #### L [id number] #### [employer]or: MYLA EDDY ([id number]) [facility] ([facility]) [address] [place] [address] Urinalysis complete panel (U )on 04-02-2025 Bacteria LM.HPF (Urine sed) [#/Area] Negative Negative /HPF [facility] Bilirubin Ql (U) Negative Negative mg/dL [facility] Clarity (U) Clear Clear [facility] Color (U) Light Yellow Lt. Yellow [facility] Epithelial cells.squamous LM.HPF (Urine sed) [#/Area] 0-2 [facility] Glucose Ql (U) Normal Normal (<70) mg/dL [facility] Hemoglobin Ql (U) 0.1 mg/dL Abnormal Negative [facility] Hyaline casts Auto (Urine sed) [#/Area] 0-2 Abnormal Negative /LPF [facility] Interpretation and review of laboratory results Abnormal [facility] Ketones (U) [Mass/Vol] 10 mg/dL Abnormal Negative [facility] Leukocyte esterase Test strip Ql (U) Negative Negative Jacey/uL [facility] Mucus LM.HPF (Urine sed) [#/Area] Few Negative /LPF [facility] Nitrite Ql (U) Negative Negative [facility] th pH (U) 5.5 [pH] 5.0 - 8.0 pH [facility] Protein (U) [Mass/Vol] 50 mg/dL Abnormal Negative [facility] RBC LM.HPF (Urine sed) [#/Area] 0-2 [facility] Specific gravity (U) [Rel density] 1.038 High 1.005 - 1.030 [facility] Urobilinogen (U) [Mass/Vol] Normal Normal (0-1) mg/dL [facility] WBC LM.HPF (Urine sed) [#/Area] 0-2 [facility] A specimen with <=10 WBC is not consistent with inflammation. This specimen will not reflex to a urine culture. [facility] XR Chest Single viewon 04-02 1. No acute findings. Report Dictated on Electronically Signed By: Gregory Caal MD Electronically Signed Date/Time: 04/02/2025 7:10 PM EDT [facility] 1975 [id number] Exam Date/Time: 04/02/2025 19:03 Procedure: XR CHEST 1 VIEW Ordering Provider: WOLFE AKASH Reason For Exam: CHEST PAIN; Chest Pain CHEST PORTABLE CLINICAL INDICATION: CHEST PAIN TECHNIQUE: Portable chest x-ray(s). COMPARISON: None. FINDINGS: Cardiac and mediastinal silhouette within normal limits. Lungs are grossly clear. No significant vascular congestion. No apparent pneumothorax. Bony thorax grossly unremarkable. [facility] Gregory Caal MD - 04/02/2025 [facility] Name: [facility]IRAL ANN : 1975 [id number] Exam Date/Time: 04/02/2025 19:03 Procedure: XR CHEST 1 VIEW Ordering Provider: WOLFE AKASH Reason For Exam: CHEST PAIN; Chest Pain CHEST PORTABLE CLINICAL INDICATION: CHEST PAIN TECHNIQUE: Portable chest x-ray(s). COMPARISON: None. FINDINGS: Cardiac and mediastinal silhouette within normal limits. Lungs are grossly clear. No significant vascular congestion. No apparent pneumothorax. Bony thorax grossly unremarkable. IMPRESSION: 1. No acute findings. Report Dictated on Electronically Signed By: Gregory Caal MD Electronically Signed Date/Time: 04/02/2025 7:10 PM EDT [facility] XR Chest Single viewOrdered By: Gregory Caal on 04-02-2025 [facility] 14 Work Phone: XR Foot - right 3 Viewson Patient Name: VIRAL ANN : 1975 Exam Date/Time: 04/02/2025 19:03 Procedure: XR FOOT 3+ VIEWS RIGHT Ordering Provider: WOLFE AKASH Reason For Exam: infx HISTORY: Pain Three views right foot shows changes of hallux valgus with no definite acute fracture seen Report Dictated on Electronically Signed By: Buzz Riley MD Electronically Signed Date/Time: 04/02/2025 7:09 PM EDT [facility] Buzz Riley MD - 04/02/2025 Patient Name: VIRAL ANN : 1975 Exam Date/Time: 04/02/2025 19:03 Procedure: XR FOOT 3+ VIEWS RIGHT Ordering Provider: WOLFE AKASH Reason For Exam: infx HISTORY: Pain Three views right foot shows changes of hallux valgus with no definite acute fracture seen Report Dictated on Electronically Signed By: Buzz Riley MD Electronically Signed Date/Time: 04/02/2025 7:09 PM EDT [facility] XR Foot - right 3 ViewsOrder ed By: Buzz Riley on 04-02-2025 [facility] Work Phone: Bacteria Bld Culton 12-21-19 25 Bacteria identified Cx Nom (Bld) Culture, Blood Status = F No growth at 5 days Normal [facility] Comment on above: Performed By: #### 6 00-7 #### [facility] ([facility]) [facility] [address] [place] [address] CBC W Differential panel, me thod unspecified (Bld)on 12-20-2024 Sed Rate 35 mm/hr High 0-15 [facility] Comment on above: Performed By: #### 6 [id number] #### [facility] [address] [place] [address] LACTATE, WITH REFLEXon 12-20 Lactate [Moles/Vol] 1.1 mmol/L Normal 0.5-2.0 [facility] Comment on above: Performed By: #### L [id number] #### [facility] [address] [place] [address] Tropinin I.cardiac panel Hig h sensitivity methodon 12-20-2024 C-Reactive Protein 2.1 mg/dL High 0.0-1.0 [facility] Comment on above: Performed By: #### 8 [id number] #### [facility] [address] [place] [address] XR ANKLE 3+ VIEWS RIGHTon XR ANKLE 3+ VIEWS RIGHT EXAMINATION TYPE : XR ANKLE 3+ VIEWS RIGHT, XR FOOT 3+ VIEWS RIGHT DATE OF EXAM : 12/19/2024 9:50 PM HISTORY: fracture, foot infection with worsening pain COMPARISON: None FINDINGS: RIGHT ANKLE No fracture or dislocation. Mild degenerative changes at the anterior tibiotalar joint, best appreciated on the lateral view with a tibial plafond osteophyte. Medial and lateral malleoli are normal. Mineralization is normal. No loose body or foreign body. RIGHT FOOT Moderate hallux valgus with small bunion. Minimal narrowing of the 1st MTP joint. The other digits and metatarsals are normal. Tarsal bones are normal. There is dorsal soft tissue swelling. No foreign body. IMPRESSION: 1. No fracture or foreign body 2. Moderate hallux valgus with bunion 3. Dorsal soft tissue swelling over the foot -------- FINAL REPORT -------- Dictated By: Jony Levy Dictated Date: 12/19/2024 22:08 Assigned Physician: Jony Levy Reviewed and Electronically Signed By: Jony Levy Signed Date: 12/19/2024 22:10 Workstation ID: [id number] Transcribed By: Self Edit Transcribed Date: 12/19/2024 22:08 Normal [facility] XR FOOT 3+ VIEWS RIGHTon XR FOOT 3+ VIEWS RIGHT EXAMINATION TYPE: XR ANKLE 3+ VIEWS RIGHT, XR FOOT 3+ VIEWS RIGHT DATE OF EXAM : 12/19/2024 9:50 PM HISTORY: fracture, foot infection with worsening pain COMPARISON: None FINDINGS: RIGHT ANKLE No fracture or dislocation. Mild degenerative changes at the anterior tibiotalar joint, best appreciated on the lateral view with a tibial plafond osteophyte. Medial and lateral malleoli are normal. Mineralization is normal. No loose body or foreign body. RIGHT FOOT Moderate hallux valgus with small bunion. Minimal narrowing of the 1st MTP joint. The other digits and metatarsals are normal. Tarsal bones are normal. There is dorsal soft tissue swelling. No foreign body. IMPRESSION: 1. No fracture or foreign body 2. Moderate hallux valgus with bunion 3. Dorsal soft tissue swelling over the foot -------- FINAL REPORT -------- Dictated By: Jony Levy Dictated Date: 12/19/2024 22:08 Assigned Physician: Jony Levy Reviewed and Electronically Signed By: Jony Levy Signed Date: 12/19/2024 22:10 Workstation ID: [id number] Transcribed By: Self Edit Transcribed Date: 12/19/2024 22:08 Normal [facility] Vital Signs Date Time Vital Sign Value Performing Clinician Facility 04-12-2025 15:04-0400 Body height 190.[address] Yahir Torres DO Work Phone: [facility] 04-12-2025 15:04-0400 Body temperature 97.8 [degF] Dr. Yahir Torres DO Work Phone: [facility] 04-12-2025 15:04-0400 Diastolic blood pressure 80 mm[Hg] Dr. Yahir Torres DO Work Phone: [facility] 04-12-2025 15:04-0400 Heart rate 80 /min Dr. Yahir Torres DO Work Phone: [facility] 04-12-2025 15:04-0400 Respiratory rate 16 /min Dr. Yahir Torres DO Work Phone: [facility] 04-12-2025 15:04-0400 SaO2% (BldA) [Mass fraction] 98 % Dr. Yahir Torres DO Work Phone: [facility] 04-12-2025 15:04-0400 Systolic blood pressure 150 mm[Hg] Dr. Yahir Torres DO Work Phone: [facility] 04-10-2025 21:54-0400 Body temperature 97.9 [degF] Dr. Yahir Torers DO Work Phone: [facility] 04-10-2025 21:54-0400 Diastolic blood pressure 88 mm[Hg] Dr. Yahir Torres DO Work Phone: 8(820)840-262286 [place] [address] 04-10-2025 21:54-0400 Heart rate 62 /min Dr. Yahir Torres DO Work Phone: 5(985)538-567786 [place] [address] 04-10-2025 21:54-0400 Respiratory rate 16 /min Dr. Yahir Torres DO Work Phone: 0(987)758-176286 [place] [address] 04-10-2025 21:54-0400 SaO2% (BldA) [Mass fraction] 95 % Dr. Yahir Torres DO Work Phone: 1(813)221-170986 [place] [address] 04-10-2025 21:54-0400 Systolic blood pressure 149 mm[Hg] Dr. Yahir Torres DO Work Phone: 3(647)821-117086 [place] [address] 04-10-2025 16:49-0400 Body height 190.[address] Yahir Torres DO Work Phone: 6(045)965-660486 [place] [address] 04-10-2025 16:49-0400 Body mass index (BMI) [Ratio] 33 kg/m2 Dr. Yahir Torres DO Work Phone: [facility] 04-10-2025 16:49-0400 Body weight 119.[address] Yahir Torres DO Work Phone: [facility] 04-07-2025 16:42-0400 Body temperature 97.11 [degF] David Wolfe DO Work Phone: [facility] 04-07-2025 16:42-0400 Diastolic blood pressure 84 mm[Hg] David Wolfe DO Work Phone: [facility] 04-07-2025 16:42-0400 Heart rate 70 /min David Wolfe DO Work Phone: [facility] 04-07-2025 16:42-0400 Respiratory rate 16 /min David Wolfe DO Work Phone: [facility] 04-07-2025 16:42-0400 SaO2% (BldA) [Mass fraction] 95 % David Wolfe DO Work Phone: [facility] 04-07-2025 16:42-0400 Systolic blood pressure 127 mm[Hg] David Wolfe DO Work Phone: [facility] 04-03-2025 11:35-0400 Body height 190.5 cm David Wolfe DO Work Phone: [facility] 04-03-2025 11:35-0400 Body mass index (BMI) [Ratio] 31.25 kg/m2 David Wolfe DO Work Phone: [facility] 04-03-2025 11:35-0400 Body weight 113.4 kg David Wolfe DO Work Phone: [facility] Encounters Encounter Date Encounter Type Care Provider Facility Start: 04-12-2025 End: 04-12-2025 Emergency department patient visit Dr. Yahir Torres DO Work Phone: -Emergency Department Work Phone: Start: 04-10-2025 End: 04-10-2025 Emergency department patient visit Dr. Yahir Torres DO Work Phone: -Emergency Department Work Phone: Start: 04-02-2025 End: 04-08-2025 Evaluation and management of inpatient David Wolfe DO Work Phone: [facility] Res[facility] 7W Comment on above: Sepsis (HCC) (Primar y Dx); Shortness of breath; Chest pain, unspecified type; Non-traumatic rhabdomyolysis; Amphetamine use Start: 03-02-2025 End: 03-03-2025 Emergency department patient visit [facility] Start: 02-25-2025 End: 02-25-2025 Emergency department patient visit [facility] Start: 12-19-2024 End: 12-20-2024 Emergency department patient visit OBED CELAYA [facility] Procedures Date Procedure Procedure Detail Performing Clinician Start: 04-10-2025 X-ray of ankle, thre e or more views Dr. Yahir Torres DO Work Phone: Start: 04-10-[address] Yahir Torres DO Work Phone: Start: 04-07-2025 Mri any jt lower ext rem w/o & w/contrast malini Mathew DO Work Phone: Start: 04-07-2025 C-reactive protein Malcolm Manuel MD Work Phone: Start: 04-07-2025 Creatinine blood Jyotsnakusum Khalil Lang DO Work Phone: Start: 04-07-2025 Comprehensive metabo lic panel Jazmín Devi DO Work Phone: Start: 04-07-2025 Hepatitis b surf ant ibody hbsab Jyotsnakusum Khalil Lang DO Work Phone: Start: 04-07-2025 Iaad ia hepatitis b surface antigen Jyotsnakusum Khalil Lang DO Work Phone: Start: 04-05-2025 C-reactive protein Jhonny Mathew DO Work Phone: Start: 04-05-2025 Comprehensive metabo lic panel Adam Gauthier DO Work Phone: Start: 04-05-2025 Iaad ia hiv-1 ag w/h iv-1 & hiv-2 antbdy single Santiago Chicas MD Work Phone: Start: 04-05-2025 Mri lower extrem oth /thn jt w/contrast carolinal Juan Antonio Mathew DO Work Phone: Start: 04-04-2025 Comprehensive metabo lic panel Adam Gauthier DO Work Phone: Start: 04-04-2025 Drug screen quantita tive vancomycin Juan Antonio Mathew DO Work Phone: Start: 04-03-2025 Comprehensive metabo lic panel Adam Gauthier DO Work Phone: Start: 04-03-2025 Drug screen quantita tive vancomycin David Wolfe DO Work Phone: Start: 04-03-2025 TTE w or wo fol wcon,Doppler Adam Gauthier DO Work Phone: Start: 04-03-2025 Blood count complete auto&auto difrntl wbc Adam Gauthier DO Work Phone: Start: 04-02-2025 Drug tst prsmv instr mnt chem analyzers pr date David Wolfe DO Work Phone: Start: 04-02-2025 Urnls dip stick/tabl et reagent auto microscopy David Brown Wolfe DO Work Phone: Start: 04-02-2025 Creatine kinase total J berry Gauthier DO Work Phone: Start: 04-02-2025 Ct angiography chest w/contrast/noncontrast David Wolfe DO Work Phone: Start: 04-02-2025 End: 04-02-2025 Bacteria identified in Blood by Culture David Wolfe DO Work Phone: Start: 04-02-2025 Basic metabolic pane l calcium total David R Wolfe DO Work Phone: Start: 04-02-2025 C-reactive protein Akcharles Brown Wolfe DO Work Phone: Start: 04-02-2025 Manual Differential panel - Blood David R Wolfe DO Work Phone: Start: 04-02-2025 Radex foot complete minimum 3 views Davidyamilet Wolfe DO Work Phone: Start: 04-02-2025 Radiologic exam ches t single view David Brown Wolfe DO Work Phone: Start: 04-02-2025 Ecg routine ecg w/le ast 12 lds i&r only David R Wolfe DO Work Phone: Plan of Treatment Date Care Activity Detail Author Start: 2049 RSV Immunization for Adults (1 - 1-dose 75+ series) RSV Immunization for Adults (1 - 1-dose 75+ series) [facility] Start: 06-08-2025 Influenza vaccination Influenza Vacc ine (#1) [facility] Start: 04-16-2025 End: 04-16-2025 Patient encounter procedure 04/16/2025 3:00 PM EDT Office Visit [facility] [address] [place] [address] Jazmín Devi DO [address] [place] [address] [facility] Start: 04-10-2025 [facility] Start: 2024 Zoster Vaccines (1 of 2) Zoste r Vaccines (1 of 2) [facility] Start: 06-08-2024 COVID-19 Vaccine ( - season) COVID-19 Vaccine ( - season) [facility] Start: 1993 DTaP/Tdap/Td Vaccine s (1 - Tdap) DTaP/Tdap/Td Vaccines (1 - Tdap) [facility] Start: 1993 Hepatitis B Vaccines (1 of 3 - 19+ 3-dose series) Hepatitis B Vaccines (1 of 3 - 19+ 3-dose series) [facility] Start: 1993 Pneumococcal Vaccine : 50+ Years (1 of 2 - PCV) Pneumococcal Vaccine: 50+ Years (1 of 2 - PCV) [facility] Start: 1992 Diabetes mellitus screening Diabetes Screening [facility] Start: 1986 Depression Screening Depression Scre ening [facility] Start: 1975 MMR Vaccines (1 of 1 - Standard series) MMR Vaccines (1 of 1 - Standard series) [facility] Start: 1974 Lipid panel Lipid Panel [facility] Start: 1974 Screening for malign ant neoplasm of colon [facility] End: 04-07-2025 HBsAG Confirmation [facility] Work Phone: Comment on above: Once (Lab) for 1 Occ urrences starting 04/07/2025 until 04/07/2025 Patient Education [facility] Work Phone: Payers Date Payer Category Payer Self-pay 2024 [employer] - O IRVING GASTONKevin EXCHANGE [id number] 2024 Unknown [id number] Unknown [id number] Unknown [id number] Unknown [id number] Social History Date Type Detail Facility Start: 04-02-[address] [facility] Occasional tobacco smoker [facility] History of tobacco use Cigarette Smoker [facility] Start: 04-02-2025 Tobacco use and exposure Smokeless tobacco non-user [facility] Start: 04-02-2025 Alcoholic beverage intake Ex-drinker (finding) [facility] Start: 04-02-2025 History of Social function [facility] Start: 04-02-2025 Tobacco use panel [facility] Start: 1975 Sex assigned at Not on file [facility] Start: 04-02-2025 Sex Male (finding) [facility] Start: 04-10-2025 End: 04-12-2025 Tobacco smoking status NHIS Smokes tobacco daily (finding) [facility] Start: 1975 Sex Assigned At Male [facility] Mental Status Date Assessment Result Facility 04-10-2025 Cognitive function Level Of Cons ciousness Awake;Alert;Appropriate;Follow s Commands [facility] Work Phone: Clinical Notes 04-02-2025 to 04-13-2025 Note Date & Type Note Facility 04-13-2025 Note Hospital discharge t o home noted. Please see separate patient outreach encounter. [facility] 04-13-2025 Note Chart reviewed. ED A ddiction Coordinator KRISTNI Natarajan attempted to contact Viral at approx 1245 today but had to lvm. Plan to outreach Viral at a later time. [facility] 04-12-2025 Discharge summary Note Date/Time April 12, 2025 5:50p m [facility] Medical Records Department [address] [place] [address] Emergency Department Summary 04/12/25 MR#: [id number] Acct: [id number] Name: VIRAL ANN Rep #:[id number] : 1975 49 From: Bryant Orellana MD PCP: Care Physician,No Primary Status :REG ER Location: ED HPI History of Present Illness Chief Complaint: Cellulitis Detail of Chief Complaint: Patient was admitted to [facility] for 8 days for celluli Informant: patient Limited: other (Psychiatric disorder) Onset/Context/Timing Onset: - (HPI narrative) Context: - (HPI narrative) Quality: Increased pain and redness in the proximity of the lateral malleolus right Location: Lateral right ankle Current Severity: Mild Maximum Severity: Moderate Worsened by: Complains of increased pain with palpation Relieved by: Nothing Associated Symptoms Associated Symptoms: Nothing Narrative Narrative: Patient was admitted to [facility]. He was discharged 4 days ago. He was seen on April 10 in the emergency department by Dr. Torres. Dr. Torres's note was reviewed. Laboratory studies were obtained as well as imaging. Patient was prescribed antibiotics which she apparently did not fill. He states he was kicked out of here. He did receive IV antibiotics and had appropriate workup. He was discharged with doxycycline 100 mg twice daily. He was discharged with Bactrim and amoxicillin from [facility]. Patient denies fever, chills night sweats. Patient does have history of drug use. He states does not use any drugs in the last several months. Patient denies drainage from the area. Patient is concerned because he had prior infection in that foot. Patient denies paresthesia, anesthesia or motor weakness. Prior similar symptoms: Yes Recent Illness/Hospitalization: Yes PFSH PFSH Medical History IV drug user Marijuana abuse Methamphetamine abuse Deep venous thrombosis Pulmonary embolism Presence of IVC filter Cellulitis Home Medications ?Medication ?Instructions ?Recorded ?Last Taken ?Type amoxicillin 875 mg-potassium 1 tab PO BID 04/10/25 Unk nown History clavulanate 125 mg tablet doxycycline hyclate 100 mg capsule 100 mg PO BID 7 day s #14 caps 04/10/25 Unknown Rx gabapentin 300 mg capsule 300 mg PO Q8H 04/10/25 Unkno wn History sulfamethoxazole 800 1 tab PO BID 04/10/25 Unknow n History mg-trimethoprim 160 mg tablet (Bactrim DS) trazodone 100 mg tablet 100 mg PO QHS 04/10/25 Unkno wn History Allergy/AdvReac Type Severity Reaction Status Date / Time No Known Allergies Allergy Verified 04/12/25 15:03 Surgical History Hx of tonsillectomy H/O hernia repair Social History (Updated 04/12/25 @ 16:[address] Bryant Orellana MD) Smoking Status: Current every day smoker tobacco type: e-cigarettes substance use type: marijuana and amphetamines ROS ROS ED Constitutional Constitutional ED: Denies chills, fever(s), subjective, sweats or weight loss Eyes Eyes: Denies blurry vision or change in vision Cardiovascular Cardiovascular: Denies chest pain or palpitations Respiratory/Chest Respiratory/Chest: Denies cough, dyspnea or dyspnea on exertion Gastrointestinal Gastrointestinal: Denies abdominal pain, diarrhea, nausea or vomiting Musculoskeletal Musculoskeletal: Denies arthralgias, back pain or myalgias Integumentary Reports rash Neurologic Neurologic: Denies paresthesias or weakness Hematologic/Lymphatic Hematologic/Lymphatic: Reports systems reviewed and no addt'l complaints, exceptas documented EXAM Physical Exam Const Vital Signs: 04/12/25 15:04 Temperature 97.8 F Temperature Source Temporal Pulse Rate 80 Respiratory Rate 16 Blood Pressure 150/80 H Blood Pressure Mean 103 Pulse Ox 98 Oxygen Delivery Method Room Air Positive well nourished and well developed General Appearance ED: well developed and NAD; Negative for cyanotic or diaphoretic HEENT Reports moist mucous membranes HEENT Narrative: There is atraumatic normocephalic. Ears normal. Nares patent Eyes PERRL and EOMs intact bilaterally General Eye ED: Negative for pale conjunctiva or scleral icterus Resp normal respiratory effort Cardio regular rate and regular rhythm Extremity Negative for normal to inspection Extremity Narrative: Patient has 2 areas that are healing without evidence of infection. There is nofluctuance. There is slight erythema in the area of the lateral malleolus. There is no lymphangitis. There is no popliteal lymphadenopathy. Patient has absent pulses. He does have symptoms consistent with claudication. He also hasstigmata vascular disease with thickened toenails and absence of hair to his toes. Capillary refill is prompt. He has some venous congestion of his foot. Neuro oriented x3 and CN's II-XII intact bilaterally Sensorium / Orientation: alert Psych Psych Narrative: Patient is upset. He verbalized that he was upset and felt he was not treated appropriately on his prior ER visit. Skin Skin Narrative: Mild area of cellulitis size of a silver dollar lateral aspect of the right ankle. MDM MDM MDM Narrative Medical decision making narrative: Since patient is complaining of worsening symptoms has been noncompliant with his medication blood work was obtained and will compare to prior. History & Record Review Additional record(s) reviewed:: Prior inpatient record ([facility]), Prior ED visit (ER visit April 10) and Prior labs Lab Data Attestation: I reviewed the patient's lab results. Lab results narrative: White count is normal. There is no shift. BUN is 32 with a creatinine of 2.08 and an estimated GFR of 38. Patient's BUN and creatinine are worse compared to April 10. Labs: Laboratory Results - last 24 hr 04/12/25 16:03 WBC 9.6 RBC 4.30 L Hgb 13.3 Hct 39.8 L MCV 92.6 MCH 30.9 MCHC 33.4 RDW Std Deviation 46.5 H RDW Coeff of Errol 13.7 Plt Count 431 MPV 9.3 Immature Gran % (Auto) 0.700 Neut % (Auto) 67.3 Lymph % (Auto) 19.3 [place] % (Auto) 10.6 H Eos % (Auto) 1.5 Baso % (Auto) 0.6 Absolute Neuts (auto) 6.5 Absolute Lymphs (auto) 1.85 Nucleated RBC % 0 Sodium 140 Potassium 4.3 Chloride 104 Carbon Dioxide 20.7 L Anion Gap 15 BUN 32 H Creatinine 2.08 H Est GFR (MDRD) Non-Af 38 L BUN/Creatinine Ratio 15.2 Glucose 102 H Calcium 9.5 Treatment and Re-Evaluation :: Patient is not willing to stay now. Will have him sign out AGAINST MEDICAL ADVICE. He was explained risk benefits. And my professional opinion patient has capacity and understands the risks involved. With recent use of methamphetamine also will need to consider rhabdomyolysis. Patient not willing to have additional blood work drawn. The hospitalist was made aware. She stated if patient changes his mind and stated she will gladly see him. Comments:: Unable to obtain any old labs within the past year through [facility]. Since patient's BUN/creatinine have gotten worse over the past 48 hours hospitalist was paged for admission. Discharge Plan Triage Chief Complaint: Cellulitis ED Provider: Bryant Orellana Dx/Rx/DC Orders Clinical Impression: Cellulitis of right ankle, Acute kidney injury, Acute dehydration, Methamphetamine use Instructions: ED Cellulitis, ED Renal Insufficiency Prescriptions: No Action gabapentin 300 mg capsule 300 mg PO Q8H amoxicillin-pot clavulanate 875-125 mg tablet 1 tab PO BID trazodone 100 mg tablet 100 mg PO QHS sulfamethoxazole-trimethoprim [Bactrim DS] 800-160 mg tablet 1 tab PO BID doxycycline hyclate 100 mg capsule 100 mg PO BID 7 Days Qty: 14 0RF Primary Care Provider: Care Physician,Ping Primary Referrals: Care Physician,Ping Primary [Primary Care Provider] - [facility],Clari Baez [Non-Staff] - As soon as possible Activity Restrictions/Additional Instructions: I have been informed by Dr. Orellana that I need to be admitted because of injury to my kidney. I have been told that this may result in complications due to worsening kidney functions which includes but not limited to renal failure requiring dialysis, worsening really failure that would inhibit my lifestyle. Inability to perform 1 or more activities of daily living, seizure disorder, high semivegetative vegetative state. May require life support, feeding tube ortracheostomy for short or long-term. May result in my . There are additional tests that need to be done and I realize that not complying may result in more complications. Print Language: Cymro Disposition Disposition: Against Medical Advice What to do if you have Problems For any increased pain, shortness of breath, bleeding, nausea or vomiting, chestpain, or any unexpected problems, contact your Primary Care Provider. Call [facility] ([phone]) or report to the closest Emergency Room. Call 911 if necessary. 04/12/25 1750 <Electronically signed by Bryant Orellana MD> Cosigner Signature (if applicable): CC: No Primary Care Physician ~ Signed [facility] Work Phone: [phone]) 793-943507-06-2025 Discharge summary [facility] Medical Records Department [address] [place] [address] Emergency Department Summary 04/12/25 MR#: [id number] Acct: [id number] Name: VIRAL ANN Rep #:[id number] : 1975 49 From: Bryant Orellana MD PCP: Care Physician,No Primary Status :REG ER Location: ED HPI History of Present Illness Chief Complaint: Cellulitis Detail of Chief Complaint: Patient was admitted to [facility] for 8 days for celluli Informant: patient Limited: other (Psychiatric disorder) Onset/Context/Timing Onset: - (HPI narrative) Context: - (HPI narrative) Quality: Increased pain and redness in the proximity of the lateral malleolus right Location: Lateral right ankle Current Severity: Mild Maximum Severity: Moderate Worsened by: Complains of increased pain with palpation Relieved by: Nothing Associated Symptoms Associated Symptoms: Nothing Narrative Narrative: Patient was admitted to [facility]. He was discharged 4 days ago. He was seen on April 10 in the emergency department by Dr. Torres. Dr. Torres's note was reviewed. Laboratory studieswere obtained as well as imaging. Patient was prescribed antibiotics which she apparently did not fill. He states he was kicked out of here. He did receive IV antibiotics and had appropriate workup. He was discharged with doxycycline 100 mg twice daily. He was discharged with Bactrim and amoxicillin from [facility]. Patient denies fever, chills night sweats. Patient does have history of drug use. He states does not use any drugs in the last several months. Patient denies drainage from the area. Patient is concerned because he had prior infection in that foot. Patient denies paresthesia, anesthesia or motor weakness. Prior similar symptoms: Yes Recent Illness/Hospitalization: Yes PFSH PFSH Medical History IV drug user Marijuana abuse Methamphetamine abuse Deep venous thrombosis Pulmonary embolism Presence of IVC filter Cellulitis Home Medications ?Medication ?Instructions ?Recorded ?Last Taken ?Type amoxicillin 875 mg-potassium 1 tab PO BID 04/10/25 Unk nown History clavulanate 125 mg tablet doxycycline hyclate 100 mg capsule 100 mg PO BID 7 day s #14 caps 04/10/25 Unknown Rx gabapentin 300 mg capsule 300 mg PO Q8H 04/10/25 Unkno wn History sulfamethoxazole 800 1 tab PO BID 04/10/25 Unknow n History mg-trimethoprim 160 mg tablet (Bactrim DS) trazodone 100 mg tablet 100 mg PO QHS 04/10/25 Unkno wn History Allergy/AdvReac Type Severity Reaction Status Date / Time No Known Allergies Allergy Verified 04/12/25 15:03 Surgical History Hx of tonsillectomy H/O hernia repair Social History (Updated 04/12/25 @ 16:[address] Bryant Orellana MD) Smoking Status: Current every day smoker tobacco type: e-cigarettes substance use type: marijuana and amphetamines ROS ROS ED Constitutional Constitutional ED: Denies chills, fever(s), subjective, sweats or weight loss Eyes Eyes: Denies blurry vision or change in vision Cardiovascular Cardiovascular: Denies chest pain or palpitations Respiratory/Chest Respiratory/Chest: Denies cough, dyspnea or dyspnea on exertion Gastrointestinal Gastrointestinal: Denies abdominal pain, diarrhea, nausea or vomiting Musculoskeletal Musculoskeletal: Denies arthralgias, back pain or myalgias Integumentary Reports rash Neurologic Neurologic: Denies paresthesias or weakness Hematologic/Lymphatic Hematologic/Lymphatic: Reports systems reviewed and no addt'l complaints, exceptas documented EXAM Physical Exam Const Vital Signs: 04/12/25 15:04 Temperature 97.8 F Temperature Source Temporal Pulse Rate 80 Respiratory Rate 16 Blood Pressure 150/80 H Blood Pressure Mean 103 Pulse Ox 98 Oxygen Delivery Method Room Air Positive well nourished and well developed General Appearance ED: well developed and NAD; Negative for cyanotic or diaphoretic HEENT Reports moist mucous membranes HEENT Narrative: There is atraumatic normocephalic. Ears normal. Nares patent Eyes PERRL and EOMs intact bilaterally General Eye ED: Negative for pale conjunctiva or scleral icterus Resp normal respiratory effort Cardio regular rate and regular rhythm Extremity Negative for normal to inspection Extremity Narrative: Patient has 2 areas that are healing without evidence of infection. There is nofluctuance. There isslight erythema in the area of the lateral malleolus. There is no lymphangitis. There is no popliteal lymphadenopathy. Patient has absent pulses. He does have symptoms consistent with claudication. He also hasstigmata vascular disease with thickened toenails and absence of hair to his toes. Capillary refill is prompt. He has some venous congestion of his foot. Neuro oriented x3 and CN's II-XII intact bilaterally Sensorium / Orientation: alert Psych Psych Narrative: Patient is upset. He verbalized that he was upset and felt he was not treated appropriately on his prior ER visit. Skin Skin Narrative: Mild area of cellulitis size of a silver dollar lateral aspect of the right ankle. MDM MDM MDM Narrative Medical decision making narrative: Since patient is complaining of worsening symptoms has been noncompliant with his medication blood work was obtained and will compare to prior. History & Record Review Additional record(s) reviewed:: Prior inpatient record ([facility]), Prior ED visit (ER visit April 10) and Prior labs Lab Data Attestation: I reviewed the patient's lab results. Lab results narrative: White count is normal. There is no shift. BUN is 32 with a creatinine of 2.08 and an estimated GFR of 38. Patient's BUN and creatinine are worse compared to April 10. Labs: Laboratory Results - last 24 hr 04/12/25 16:03 WBC 9.6 RBC 4.30 L Hgb 13.3 Hct 39.8 L MCV 92.6 MCH 30.9 MCHC 33.4 RDW Std Deviation 46.5 H RDW Coeff of Errol 13.7 Plt Count 431 MPV 9.3 Immature Gran % (Auto) 0.700 Neut % (Auto) 67.3 Lymph % (Auto) 19.3 [place] % (Auto) 10.6 H Eos % (Auto) 1.5 Baso % (Auto) 0.6 Absolute Neuts (auto) 6.5 Absolute Lymphs (auto) 1.85 Nucleated RBC % 0 Sodium 140 Potassium 4.3 Chloride 104 Carbon Dioxide 20.7 L Anion Gap 15 BUN 32 H Creatinine 2.08 H Est GFR (MDRD) Non-Af 38 L BUN/Creatinine Ratio 15.2 Glucose 102 H Calcium 9.5 Treatment and Re-Evaluation :: Patient is not willing to stay now. Will have him sign out AGAINST MEDICAL ADVICE. He was explainedrisk benefits. And my professional opinion patient has capacity and understands the risks involved.With recent use of methamphetamine also will need to consider rhabdomyolysis. Patient not willing to have additional blood work drawn. The hospitalist was made aware. She stated if patient changes his mind and stated she will gladly see him. Comments:: Unable to obtain any old labs within the past year through [facility]. Since patient's BUN/creatinine have gotten worse over the past 48 hours hospitalist was paged for admission. Discharge Plan Triage Chief Complaint: Cellulitis ED Provider: Bryant Orellana Dx/Rx/DC Orders Clinical Impression: Cellulitis of right ankle, Acute kidney injury, Acute dehydration, Methamphetamine use Instructions: ED Cellulitis, ED Renal Insufficiency Prescriptions: No Action gabapentin 300 mg capsule 300 mg PO Q8H amoxicillin-pot clavulanate 875-125 mg tablet 1 tab PO BID trazodone 100 mg tablet 100 mg PO QHS sulfamethoxazole-trimethoprim [Bactrim DS] 800-160 mg tablet 1 tab PO BID doxycycline hyclate 100 mg capsule 100 mg PO BID 7 Days Qty: 14 0RF Primary Care Provider: Care Physician,Ping Primary Referrals: Care Physician,No [facility] - As soon as possible Activity Restrictions/Additional Instructions: I have been informed by Dr. Orellana that I need to be admitted because of injury to my kidney. I havebeen told that this may result in complications due to worsening kidney functions which includes but not limited to renal failure requiring dialysis, worsening really failure that would inhibit my lifestyle. Inability to perform 1 or more activities of daily living, seizure disorder, high semivegetative vegetative state. May require life support, feeding tube ortracheostomy for short or long-term. May result in my . There are additional tests that need to be done and I realize that not complying may result in more complications. Print Language: Cymro Disposition Disposition: Against Medical Advice What to do if you have Problems For any increased pain, shortness of breath, bleeding, nausea or vomiting, chestpain, or any unexpected problems, contact your Primary Care Provider. Call [facility] ([phone]) or report tothe closest Emergency Room. Call 911 if necessary. 04/12/25 1750 Cosigner Signature (if applicable): CC: No Primary Care Physician ~ Signed [facility]07-04-2025 Discharge summary Author Yahir Torres [facility] Note Date/Time April 10, 2025 8:16p m [facility] Medical Records Department [address] [place] [address] Emergency Department Summary 04/10/25 MR#: [id number] Acct: [id number] Name: VIRAL ANN Rep #:[id number] : 1975 49 From: Yahir Torres DO PCP: Care Physician,No Primary Status :REG ER Location: ED <Statement entered by Yahir Torres DO - 04/10/25 20:16> Patient was seen and examined with physician spa assistant manager Ale All components of the history and physical confirmed and agreed. History of present illness and physical exam: Patient is a 49-year-old male with past medical history of DVT, PE IVC filter inplace, IV drug user who presents to the emergency department with a chief complaint of right ankle pain and concern for infection. [facility] he states that he was discharged on 4 more days of oral antibiotics and states that he is not getting better therefore he came here for further evaluation management. Patient statesthat in the past after several days of IV antibiotics when this happened also hewas much improved. He states that he is on Bactrim and Augmentin at this point in time. Patient denies any history of diabetes. Patient states that he was given gabapentin but states that he did not try this for pain. Review of systems: Reviewed above Physical exam: Agree with above MDM Patient is a 49-year-old male who presented to the emergency department chief complaint of right ankle and foot pain with a concern for infection. On the differential diagnose includes but not limited to cellulitis, osteomyelitis. Once workup is obtained reviewed he will be reevaluated. Patient CBC reviewed showed no evidence leukocytosis white blood count normal at9, hemoglobin 12.8, platelet count 398. Patient sodium was 140, potassium normal 4.4, creatinine was 1.58. Patient's x-ray reviewed by myself and by radiology showed no acute fracture dislocations no osseous changes. Patient be given IV antibiotics as he is persistent then he needs strong IV antibiotics to be given vancomycin and Zosyn and Toradol for pain. Patient does have range of motion of his ankle no short arc syndrome. Patient was updated on the results and he would like to go home at this point time. Clinically the wound appears to be healing well and there is minimal surrounding erythema. I do feel that the patient's cellulitis has resolved at this point in time however he is insistent that it is not. We will change his antibiotics to doxycycline and was advised to follow-up with her doctor in the outpatient setting. He states he is homeless and states that retirement currently does not have a primary care physician and wants to try to obtain 1. All question concerns answered he is discharged home in stable condition. Final impression: Right ankle pain History of cellulitis Disposition: Patient will be discharged home in stable condition Supervising attending attestation: Yahir Torres D.O. [facility] History of Present Illness Chief Complaint: Cellulitis Narrative Narrative: 49-year-old male states he was admitted at [facility] for 1 week for right ankleand foot cellulitis. He had a small wound on the ankle. He is not sure how it started but developed redness and swelling. 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 He states he is not on blood thinners because hehas an IVC filter. After 7 days of IV antibiotics he was discharged 2 days ago on Bactrim and Augmentin but states the pain and swelling has not improved prompting him to come in. It has not worsened. He has no fever or chills. He denies diabetes or immunocompromise. He is not taking any pain relievers. The hospital prescribed him gabapentin but he did not try it. [facility] Medical History (Updated 04/10/25 @ 19:15 by RUDDY Ferguson) IV drug user Marijuana abuse Methamphetamine abuse Deep venous thrombosis Pulmonary embolism Presence of IVC filter Cellulitis Home Medications ?Medication ?Instructions ?Recorded ?Last Taken ?Type amoxicillin 875 mg-potassium 1 tab PO BID 04/10/25 Unk nown History clavulanate 125 mg tablet doxycycline hyclate 100 mg capsule 100 mg PO BID 7 day s #14 caps 04/10/25 Unknown Rx gabapentin 300 mg capsule 300 mg PO Q8H 04/10/25 Unkno wn History sulfamethoxazole 800 1 tab PO BID 04/10/25 Unknow n History mg-trimethoprim 160 mg tablet (Bactrim DS) trazodone 100 mg tablet 100 mg PO QHS 04/10/25 Unkno wn History Allergy/AdvReac Type Severity Reaction Status Date / Time No Known Allergies Allergy Verified 04/10/25 16:49 Surgical History Hx of tonsillectomy H/O hernia repair Social History Smoking Status: Current every day smoker tobacco type: e-cigarettes ROS ROS ED ROS Narrative Constitutional: Negative for fever, chills, malaise. GI: Negative for nausea, vomiting. Neuro: Negative for motor/sensory dysfunction. Skin: Positive for redness. EXAM Physical Exam Narrative Exam Narrative: CONST: Patient sitting in no acute distress. EYES: Normal inspection. NECK: Normal inspection. RESP: No respiratory distress, CTAB. CVS: Regular rate and rhythm, no murmur, no gallop. EXTREMITIES: Edema of right ankle and foot. Erythema and warmth. Superficial dime sized ulceration right lateral ankle. No lymphangitic streaking, compartments soft, no fluctuance or crepitus. 2+ DP pulses. NEURO: Alert and answering questions appropriately. PSYCH: Normal affect. Const Vital Signs: 04/10/25 16:49 04/10/25 16:56 04/10/25 17:21 Temperature 98.5 F 98.5 F Temperature Source Oral Oral Pulse Rate 74 76 Respiratory Rate 18 18 Respiratory Effort Normal Respiratory Pattern Normal Blood Pressure 136/87 H 136/87 H Blood Pressure Mean 103 103 Pulse Ox 96 96 Oxygen Delivery Method 04/10/25 17:56 04/10/25 18:59 Temperature 98 F 98 F Temperature Source Oral Oral Pulse Rate 98 67 Respiratory Rate 18 18 Respiratory Effort Respiratory Pattern Blood Pressure 137/82 H 130/98 H Blood Pressure Mean 100 108 Pulse Ox 99 97 Oxygen Delivery Method Room Air Room Air MDM MDM MDM Narrative Medical decision making narrative: Differential includes but not limited to cellulitis, abscess, osteomyelitis 49-year-old male has cellulitis of his right ankle and foot with a superficial ulcerative wound. He recently completed 1 week of IV antibiotics at [facility] and is on day 2 of p.o. Bactrim and Augmentin. I [facility] find these records [facility], but he does have discharge paperwork with him from [facility] verifying heis on these oral antibiotics. He appears well and nontoxic. He is afebrile andhemodynamically stable. Right lower extremity ankle and foot appears cellulitic. There is no signs of abscess. There is no crepitus or lymphangiticstreaking so I have low concern for necrotizing fasciitis. Extremity is neurovascularly intact. Labs show normal WBC of 9.0. Hemoglobin 12.8. Creatinine is 1.58 with no prior for comparison. Right ankle x-ray is negative with no acute osseous changes. States he had an MRI of his foot that was negative for osteomyelitis at [facility] recently. He was very concerned that the infection needs further treatment because it has not been improving, although itis not worsening. He was given a dose of IV vancomycin and Zosyn and Toradol for pain. I do not think he requires admission for IV antibiotics as he does not have systemic symptoms of illness, is hemodynamically stable, and has no leukocytosis. I prescribed doxycycline for 1 week. I recommended he follow-up with a PCP. He states he is homeless and stays at a retirement and does not have [facility] care doctor. He is staying in [place] and wants to try and obtain a PCP there. I thoroughly discussed return precautions and he was discharged in stable condition. Lab Data Attestation: I reviewed the patient's lab results. Labs: Laboratory Results - last 24 hr 04/10/25 17:14 WBC 9.0 RBC 4.20 L Hgb 12.8 L Hct 38.3 L MCV 91.2 MCH 30.5 MCHC 33.4 RDW Std Deviation 45.3 H RDW Coeff of Errol 13.6 Plt Count 398 MPV 9.5 Immature Gran % (Auto) 2.200 H Neut % (Auto) 62.6 Lymph % (Auto) 21.0 [place] % (Auto) 11.3 H Eos % (Auto) 1.9 Baso % (Auto) 1.0 Absolute Neuts (auto) 5.6 Absolute Lymphs (auto) 1.89 Nucleated RBC % 0 Sodium 140 Potassium 4.4 Chloride 105 Carbon Dioxide 23.1 Anion Gap 12 BUN 24 H Creatinine 1.58 H Estim Creat Clear Calc 78.05 Est GFR (MDRD) Non-Af 53 L BUN/Creatinine Ratio 15.1 Glucose 95 Calcium 9.2 Radiography Diagnostic Testing: Clinical Impression(s) from Imaging Studies Ankle X-Ray 04/10/25 18:50 IMPRESSION: NO ACUTE FRACTURE OR DISLOCATION. Reading [facility] ED attending interpretation of right ankle shows no fracture or dislocation, no bony changes. Discharge Plan Triage Chief Complaint: Cellulitis ED Midlevel Provider: Ale Ortiz ED Provider: Yahir Torres Dx/Rx/DC Orders Clinical Impression: Cellulitis of right ankle, Ankle pain, right Instructions: Cellulitis Dc Prescriptions: New doxycycline hyclate 100 mg capsule 100 mg PO BID 7 Days Qty: 14 0RF No Action gabapentin 300 mg capsule 300 mg PO Q8H amoxicillin-pot clavulanate 875-125 mg tablet 1 tab PO BID trazodone 100 mg tablet 100 mg PO QHS sulfamethoxazole-trimethoprim [Bactrim DS] 800-160 mg tablet 1 tab PO BID Primary Care Provider: Care PhysicianPing Primary Referrals: NOT,DEFINED [Non-Staff] - Activity Restrictions/Additional Instructions: You are given a dose of IV antibiotics. I also prescribed a new antibiotic to take at home called doxycycline which is twice daily. Follow-up with your primary care doctor closely. If symptoms worsen such as redness spreading up your leg, red streaking, fever, or pus from the wound please come back to the ER. Print Language: Cymro Disposition Disposition: Home, Self Care What to do if you have Problems For any increased pain, shortness of breath, bleeding, nausea or vomiting, chestpain, or any unexpected problems, contact your Primary Care Provider. Call [facility] ([phone]) or report to the closest Emergency Room. Call 911 if necessary. 04/10/252015 <Electronically signed by Yahir Torres DO> Cosigner Signature (if applicable): 04/10/251935 <Electronically signed by Ale FOX> CC: No Primary Care Physician ~ Signed [facility] Work Phone: [phone]) 618-220907-04-2025 Discharge summary [facility] Medical Records Department [address] [place] [address] Emergency Department Summary 04/10/25 MR#: [id number] Acct: [id number] Name: VIRAL ANN Rep #:[id number] : 1975 49 From: Yahir Torres DO PCP: Care Physician,No Primary Status :REG ER Location: ED Patient was seen and examined with physician spa assistant manager Ale All components of the history and physical confirmed and agreed. History of present illness and physical exam: Patient is a 49-year-old male with past medical history of DVT, PE IVC filter inplace, IV drug userwho presents to the emergency department with a chief complaint of right ankle pain and concern forinfection. [facility] and [facility] antibiotics he statesthat he was discharged on 4 more days of oral antibiotics and states that he is not getting better therefore he came here for further evaluation management. Patient statesthat in the past after several days of IV antibiotics when this happened also hewas much improved. He states that he is on Bactrim and Augmentin at this point in time. Patient denies any history of diabetes. Patient states that he was given gabapentin but states that he did not try this for pain. Review of systems: Reviewed above Physical exam: Agree with above MDM Patient is a 49-year-old male who presented to the emergency department chief complaint of right ankle and foot pain with a concern for infection. On the differential diagnose includes but not limited to cellulitis, osteomyelitis. Once workup is obtained reviewed he will be reevaluated. Patient CBC reviewed showed no evidence leukocytosis white blood count normal at9, hemoglobin 12.8,platelet count 398. Patient sodium was 140, potassium normal 4.4, creatinine was 1.58. Patient's x-ray reviewed by myself and by radiology showed no acute fracture dislocations no osseous changes. Patient be given IV antibiotics as he is persistent then he needs strong IV antibiotics to be given vancomycin and Zosyn and Toradol for pain. Patient does have range of motion of his ankle no short arcsyndrome. Patient was updated on the results and he would like to go home at this point time. Clinically the wound appears to be healing well and there is minimal surrounding erythema. I do feel that the patient's cellulitis has resolved at this point in time however he is insistent that it is not. We will change his antibiotics to doxycycline and was advised to follow-up with her doctor in the outpatient setting. He states he is homeless and states that retirement currently does not have a primary care physician and wants to try to obtain 1. All question concerns answered he is discharged home in stable condition. Final impression: Right ankle pain History of cellulitis Disposition: Patient will be discharged home in stable condition Supervising attending attestation: Yahir MEEHAN History of Present Illness Chief Complaint: Cellulitis Narrative Narrative: 49-year-old male states he was admitted at [facility] for 1 week for right ankleand foot cellulitis. He had a small wound on the ankle. He is not sure how it started but developed redness and swelling. 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 He states he is not on blood thinners because hehas an IVC filter. After 7 days of IV antibiotics he was discharged 2 days ago on Bactrim and Augmentin but states the pain and swelling has not improved prompting him to come in. It has not worsened. He has no fever or chills. He denies diabetes or immunocompromise. He is not taking any pain relievers. The hospital prescribed him gabapentin but he did not try it. [facility] Medical History (Updated 04/10/25 @ 19:15 by RUDDY Ferguson) IV drug user Marijuana abuse Methamphetamine abuse Deep venous thrombosis Pulmonary embolism Presence of IVC filter Cellulitis Home Medications ?Medication ?Instructions ?Recorded ?Last Taken ?Type amoxicillin 875 mg-potassium 1 tab PO BID 04/10/25 Unk nown History clavulanate 125 mg tablet doxycycline hyclate 100 mg capsule 100 mg PO BID 7 day s #14 caps 04/10/25 Unknown Rx gabapentin 300 mg capsule 300 mg PO Q8H 04/10/25 Unkno wn History sulfamethoxazole 800 1 tab PO BID 04/10/25 Unknow n History mg-trimethoprim 160 mg tablet (Bactrim DS) trazodone 100 mg tablet 100 mg PO QHS 04/10/25 Unkno wn History Allergy/AdvReac Type Severity Reaction Status Date / Time No Known Allergies Allergy Verified 04/10/25 16:49 Surgical History Hx of tonsillectomy H/O hernia repair Social History Smoking Status: Current every day smoker tobacco type: e-cigarettes ROS ROS ED ROS Narrative Constitutional: Negative for fever, chills, malaise. GI: Negative for nausea, vomiting. Neuro: Negative for motor/sensory dysfunction. Skin: Positive for redness. EXAM Physical Exam Narrative Exam Narrative: CONST: Patient sitting in no acute distress. EYES: Normal inspection. NECK: Normal inspection. RESP: No respiratory distress, CTAB. CVS: Regular rate and rhythm, no murmur, no gallop. EXTREMITIES: Edema of right ankle and foot. Erythema and warmth. Superficial dime sized ulceration right lateral ankle. No lymphangitic streaking, compartments soft, no fluctuance or crepitus. 2+ DP pulses. NEURO: Alert and answering questions appropriately. PSYCH: Normal affect. Const Vital Signs: 04/10/25 16:49 04/10/25 16:56 04/10/25 17:21 Temperature 98.5 F 98.5 F Temperature Source Oral Oral Pulse Rate 74 76 Respiratory Rate 18 18 Respiratory Effort Normal Respiratory Pattern Normal Blood Pressure 136/87 H 136/87 H Blood Pressure Mean 103 103 Pulse Ox 96 96 Oxygen Delivery Method 04/10/25 17:56 04/10/25 18:59 Temperature 98 F 98 F Temperature Source Oral Oral Pulse Rate 98 67 Respiratory Rate 18 18 Respiratory Effort Respiratory Pattern Blood Pressure 137/82 H 130/98 H Blood Pressure Mean 100 108 Pulse Ox 99 97 Oxygen Delivery Method Room Air Room Air MDM MDM MDM Narrative Medical decision making narrative: Differential includes but not limited to cellulitis, abscess, osteomyelitis 49-year-old male has cellulitis of his right ankle and foot with a superficial ulcerative wound. Herecently completed 1 week of IV antibiotics at [facility] and is on day 2 of p.o. Bactrim and Augmentin. I cannot find these records in [facility], but he does have discharge paperwork with him from [facility] verifying heis on these oral antibiotics. He appears well and nontoxic. He is afebrile andhemodynamically stable. Right lower extremity ankle and foot appears cellulitic. There is no signs of abscess. There is no crepitus or lymphangiticstreaking so I have low concern for necrotizing fasciitis.Extremity is neurovascularly intact. Labs show normal WBC of 9.0. Hemoglobin 12.8. Creatinine is 1.58 with no prior for comparison. Right ankle x-ray is negative with no acute osseous changes. Stateshe had an MRI of his foot that was negative for osteomyelitis at [facility] recently. He was very concerned that the infection needs further treatment because it has not been improving, although itis not w orsening. He was given a dose of IV vancomycin and Zosyn and Toradol for pain. I do not think he requires admission for IV antibiotics as he does not have systemic symptoms of illness, is hemodynamically stable, and has no leukocytosis. I prescribed doxycycline for 1 week. I recommended he follow-up with a PCP. He states he is homeless and stays at a retirement and [facility]. He is staying in [place] and wants to try and obtain a PCP there. I thoroughly discussed return precautions and he was discharged in stable condition. Lab Data Attestation: I reviewed the patient's lab results. Labs: Laboratory Results - last 24 hr 04/10/25 17:14 WBC 9.0 RBC 4.20 L Hgb 12.8 L Hct 38.3 L MCV 91.2 MCH 30.5 MCHC 33.4 RDW Std Deviation 45.3 H RDW Coeff of Errol 13.6 Plt Count 398 MPV 9.5 Immature Gran % (Auto) 2.200 H Neut % (Auto) 62.6 Lymph % (Auto) 21.0 [place] % (Auto) 11.3 H Eos % (Auto) 1.9 Baso % (Auto) 1.0 Absolute Neuts (auto) 5.6 Absolute Lymphs (auto) 1.89 Nucleated RBC % 0 Sodium 140 Potassium 4.4 Chloride 105 Carbon Dioxide 23.1 Anion Gap 12 BUN 24 H Creatinine 1.58 H Estim Creat Clear Calc 78.05 Est GFR (MDRD) Non-Af 53 L BUN/Creatinine Ratio 15.1 Glucose 95 Calcium 9.2 Radiography Diagnostic Testing: Clinical Impression(s) from Imaging Studies Ankle X-Ray 04/10/25 18:50 IMPRESSION: NO ACUTE FRACTURE OR DISLOCATION. Reading [facility] ED attending interpretation of right ankle shows no fracture or dislocation, no bony changes. Discharge Plan Triage Chief Complaint: Cellulitis ED Midlevel Provider: Ale Ortiz ED Provider: Yahir Torres Dx/Rx/DC Orders Clinical Impression: Cellulitis of right ankle, Ankle pain, right Instructions: Cellulitis Dc Prescriptions: New doxycycline hyclate 100 mg capsule 100 mg PO BID 7 Days Qty: 14 0RF No Action gabapentin 300 mg capsule 300 mg PO Q8H amoxicillin-pot clavulanate 875-125 mg tablet 1 tab PO BID trazodone 100 mg tablet 100 mg PO QHS sulfamethoxazole-trimethoprim [Bactrim DS] 800-160 mg tablet 1 tab PO BID Primary Care Provider: Care Physician,No Primary Referrals: NOT,DEFINED [Non-Staff] - Activity Restrictions/Additional Instructions: You are given a dose of IV antibiotics. I also prescribed a new antibiotic to take at home called doxycycline which is twice daily. Follow-up with your primary care doctor closely. If symptoms worsensuch as redness spreading up your leg, red streaking, fever, or pus from the wound please come backto the ER. Print Language: Cymro Disposition Disposition: Home, Self Care What to do if you have Problems For any increased pain, shortness of breath, bleeding, nausea or vomiting, chestpain, or any unexpected problems, contact your Primary Care Provider. Call [facility] ([phone]) or report tothe closest Emergency Room. Call 911 if necessary. 04/10/252015 Cosigner Signature (if applicable): 04/10/25 1936 CC: No Primary Care Physician ~ Signed [facility]07-04-2025 Radiology Diagnostic study note [facility] Imaging Services [address] [place], [place] [id number] Ankle min 3 Views MR#: [id number] Acct: [id number] Name: VIRAL ANN Rep #: [id number] : 1975 M 49 From: Ramandeep Casas MD PCP: Care Physician,No Primary Status: REG ER Study:Ankle min 3 Views Date of Exam: Exam# [id number] Ordering Dr: Ale Pettit PROCEDURE: ANKLE MIN 3 VIEWS N/A REASON FOR EXAM: INFECTION TECHNIQUE: ANKLE MIN 3 VIEWS COMPARISON: None. FINDINGS: Bones: No acute fracture. No aggressive osseous lesions. No focal area of cortical lucency to suggest osteomyelitis. Joints: Normal alignment. Mild degenerative changes. Soft tissues: No obvious soft tissue swelling or soft tissue gas seen by radiographic imaging. Other: No radiopaque foreign body. RAD/Ankle min 3 Views IMPRESSION: NO ACUTE FRACTURE OR DISLOCATION. Reading Location: [id number] CC: RUDDY Ferguson; No Primary Care Physician ~ Strap Sewer: Signed [facility]07-02-2025 Note Attestation signed by Abel Cortez MD at 04/09/2025 9:17 AM I have personally examined the patient and reviewed the case with the residents on 04/08/25. I agree with the current plan of care including the workup, evaluation, management, and diagnosis. Care plan has been discussed. The above documentation has been reviewed and edited as needed to reflect the findings of my evaluation. - pt states his right ankle pain is markedly improved, even with ambulation. - MRI of the right ankle did not show osteomyelitis, only cellulitis changes. - Vanco and Zosyn have been transitioned to Bactrim and Augmentin for 4 more days. - Stable for transfer to [facility] Internal Medicine: Med Team Discharge Summary Viral Ann : 1975 ADMIT DATE: 04/02/2025 DISCHARGE DATE: 04/08/25 PCP: No primary care provider on file. Visit Status: Admission Code Status: FULL CODE Primary Discharge Diagnosis: Acute on chronic R foot pain, cellulitis- clinically minimally improved, less tender to palpation, WBC trending down Reported history of R foot infection (NOS) Secondary Discharge Diagnoses: IV Meth amphetamine use Cocaine use Simple sepsis of unknown source, resolved Drug induced Rhabdomyolysis GUIDO, resolved Reported Hx of Hepatitis C Dilated Ascending Aorta Reported history of DVT/PE s/p IVC filter Homelessness Reason for Admission & Hospital Course: Viral Ann is a 49 y.o. male with PMHx IVDU and substance-induced psychosis that presented to [facility] on 04/02/2025 and was admitted for acute on chronic right foot pain with concern for possible osteomyelitis vs cellulitis. An MRI of the right foot wo contrast as well a right ankle MRI w and wo contrast were obtained which showed no evidence for osteomyelitis and mildly enhancing nonloculated soft tissue fluid and edema along the lateral aspect of the ankle supporting cellulitis. Orthopedic surgery was consulted, they reviewed the imaging and evaluated the patient. Patient initially presented with simple sepsis 2/2 to cellulitis of the right foot and was given a total of 6 days of zosyn and vancomycin over the course of their hospital stay with transitioning to bactrim and Augmentin on discharge for a total antibiotic course of 10 days. 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 Addiction medicine was consulted, he was given risperdal 1mg BID for 3 days, d/c'd on 04/05, trazodone 100 nightly for sleep w/ ativan 1mg q3h prn agitation. He was discharged on trazodone for sleep and gabapentin for withdrawal symptoms with recommendations for outpatient options, but patient was not interested in any ADM treatment after discharge. CTA chest was obtained for initial presentation of tachycardia and febrile in the setting of hx of DVT/PE, which was negative. TTE was obtained in the setting of sepsis presentation w/ hx of IVDU which was negative for vegetations. Blood cultures were obtained and showed no growth at 4 days. Patient was stable for discharged to [facility] in [place] on 04/08/2025. Physical Exam on Day of Discharge: Physical Exam Constitutional: General: He is not in acute distress. Appearance: Normal appearance. He is normal weight. HENT: Head: Normocephalic and atraumatic. Mouth/Throat: Mouth: Mucous membranes are moist. Pharynx: Oropharynx is clear. Cardiovascular: Rate and Rhythm: Normal rate and regular rhythm. Pulses: Normal pulses. Heart sounds: Normal heart sounds. Pulmonary: Effort: Pulmonary effort is normal. Breath sounds: Normal breath sounds. Abdominal: General: Abdomen is flat. Bowel sounds are normal. Palpations: Abdomen is soft. Musculoskeletal: General: No tenderness. Cervical back: Normal range of motion. Skin: General: Skin is warm and dry. Neurological: General: No focal deficit present. Mental Status: He is alert. Psychiatric: Mood and Affect: Mood normal. Disposition: Home Activity: No restriction. up with assist Diet: Adult diet Regular Discharge Medications: Medication List START taking these medications amoxicillin-clavulanate 875-125 MG tablet Commonly known as: Augmentin Take 1 tablet by mouth 2 times daily for 4 days. gabapentin 300 MG capsule Commonly known as: Neurontin Take 1 capsule (300 mg) by mouth every 8 hours. sulfamethoxazole-trimethoprim 800-160 MG tablet Commonly known as: Bactrim DS Take 1 tablet by mouth 2 times daily for 4 days. traZODone 100 MG tablet Commonly known as: Desyrel Take 1 tablet (100 mg) by mouth Nightly. Where to Get Your Medications These medic (more content not included)...[facility]07-02-2025 Note * Care Coordination - JACOBO Pressley - 04/08/2025 11:52 AM EDT THOMAS follow up: Received secure chat, ACC RN met with pt last night. Pt agreeable and signed release for a referral[facility]. SW met with pt. Pt is exploring options. Pt felt drt and drts' sponsor were pressuring pt to go to treatment. Pt indicated pt had been to many treatment facilities, doesn't feel he needs recovery, but if there is not another option, pt would go [facility]. Pt plans on making calls and researching options. Pt agreeable for SW to send referral to [facility]. SW met with pt, updated sent referral. Pt then indicated now wants to go to [facility]. Pt called [place] and no openings at [place]. [place] a retirement in [place], no openings. SW sent clinical referral to [facility]. DJ from [facility] let SW know, their clinical team reviewed, and they can accept pt. SW went to update pt, [facility] accepted, and pt will need to call [facility] and complete telephone intake. Pt updated SW, change in plan, pt found a retirement in [place] [facility] , that is able to accept pt. Pt declined [facility] as a discharge plan. Pt indicated pt will just need transport set up to the homeless retirement. Address :[facility] [address] , [place]. Called [facility] updated, pt declined program. SW completed Roundtrip, requesting uber with hospital paying, as pt insurance does not cover transport. Requested transport at 2:00pm. Updated team on discharge time. . [facility] [id number] Note* Care Coordination - JACOBO Pressley - 04/08/2025 11:52 AM EDT SW follow up: Received secure chat, ACC RN met with pt last night. Pt agreeable and signed release for a referralto [facility]. SW met with pt. Pt is exploring options. Pt felt drt and drts' sponsor were pressuring pt to go to treatment. Pt indicated pt had been to many treatment facilities, doesn't feel he needs recovery, but if there is not another option, pt would go to [facility]. Pt plans on making calls and researching options. Pt agreeable for SW to send referral to [facility]. SW met with pt, updated sent referral. Pt then indicated now wants to go to [facility]. Pt called [place] and no openings at [place]. Called a retirement in [place], no openings. SW sent clinical referral to [facility] intake. DJ from [facility] let SW know, their clinical team reviewed, and they can accept pt. SW went to update pt, [facility] accepted, and pt will need to call [facility] and complete telephone intake. Pt updated THOMAS, change in plan, pt found a retirement in [facility] , that is able to accept pt. Pt declined [facility] as a discharge plan. Pt indicated pt will just need transport set up to the homeless retirement. Address :[address] [place] [address], [place]. Called [facility] updated, pt declined program. SW completed Roundtrip, requesting uber with hospital paying, as pt insurance does not cover transport. Requested transport at 2:00pm. Updated team on discharge time. . [facility] [id number] Miscellaneous Notes* Care Coordination - JACOBO Pressley - 04/08/2025 11:52 AM EDT THOMAS follow up: Received secure chat, ACC RN met with pt last night. Pt agreeable and signed release for a referralto [facility]. SW met with pt. Pt is exploring options. Pt felt drt and drts' sponsor were pressuring pt to go to treatment. Pt indicated pt had been to many treatment facilities, doesn't feel he needs recovery, but if there is not another option, pt would go to [facility]. Pt plans on making calls and researching options. Pt agreeable for SW to send referral to [facility]. SW met with pt, updated sent referral. Pt then indicated now wants to go to [facility]. Pt called [place] and no openings at [place]. [place] a retirement in [place], no openings. SW sent clinical referral to [facility]. DJ from [facility] let SW know, their clinical team reviewed, and they can accept pt. SW went to update pt, [facility] accepted, and pt will need to call [facility] and complete telephone intake. Pt updated THOMAS, change in plan, pt found a retirement in [facility] , that is able to accept pt. Pt declined [facility] as a discharge plan. Pt indicated pt will just need transport set up to the homeless retirement. Address :[facility] [address] , [place]. Called [facility] updated, pt declined program. SW completed Roundtrip, requesting uber with hospital paying, as pt insurance does not cover transport. Requested transport at 2:00pm. Updated team on discharge time. . * Care Coordination - Shayy Loo RN - 04/08/2025 8:25 AM EDT Care Management Progress Note Short Medical why still here: IV atb plan, ortho so, noting no OM, cellulitis. ACC and SW assistingpt with [facility]. ACC, SW and CM will follow for assist with dc planning. Planned Discharge Disposition: Other (Comment) ([facility]) Barriers/Today we still Wait: Administering IV medications, Clinical stability, Post-discharge arrangement completion (comment) Length of Stay (Days): 6 GMLOS: 3.5 * Care Plan - Tyree Fisher RN - 04/08/2025 5:34 AM EDT Problem: Pain - Adult Goal: Verbalizes/displays adequate comfort level or baseline comfort level Outcome: Progressing Problem: Safety - Adult Goal: Free from fall injury Outcome: Progressing Problem: Discharge Planning Goal: Discharge to home or other facility with appropriate resources Outcome: Progressing Problem: Chronic Conditions and Co-morbidities Goal: Patient's chronic conditions and co-morbidity symptoms are monitored and maintained or improved Outcome: Progressing Problem: Knowledge Deficit Goal: Patient/family/caregiver demonstrates understanding of disease process, treatment plan, medications, and discharge instructions Outcome: Progressing Problem: Potential for Compromised Skin Integrity Goal: Skin Integrity is Maintained or Improved Outcome: Progressing Goal: Nutritional status is improving Outcome: Progressing Problem: Urinary Incontinence Goal: Perineal skin integrity is maintained or improved Outcome: Progressing * Care Plan - Lelo Lux RN - 04/07/2025 6:15 PM EDT Problem: Pain - Adult Goal: Verbalizes/displays adequate comfort level or baseline comfort level Outcome: Progressing Problem: Safety - Adult Goal: Free from fall injury Outcome: Progressing Problem: Discharge Planning Goal: Discharge to home or other facility with appropriate resources Outcome: Progressing Problem: Chronic Conditions and Co-morbidities Goal: Patient's chronic conditions and co-morbidity symptoms are monitored and maintained or improved Outcome: Progressing Problem: Knowledge Deficit Goal: Patient/family/caregiver demonstrates understanding of disease process, treatment plan, medications, and discharge instructions Outcome: Progressing * Care Coordination - JACOBO Pressley - 04/07/2025 12:37 PM EDT THOMAS follow up: SW met with pt, pt drt and drts' sponsor at bedside. Introduced self/role to drt. Drt is here to henrietta support for pt, and advocating for pt to enter substance abuse treatment. Pt is agreeable to thisoption. Drt does not want pt to go to [place], where pt has no support. SW discussed if pt goes to rehab, SW will assist in getting transportation arranged, and can send, with pt permission clinicals to rehab. THOMAS discussed having hospital ACC RN meet with pt, to discuss treatment options, pt agreeable. THOMAS sent secure chat to ACC team, requesting a visit to assess pt for possible in-patient. . * Care Plan - Tyree Fisher RN - 04/07/2025 4:21 AM EDT Problem: Pain - Adult Goal: Verbalizes/displays adequate comfort level or baseline comfort level Outcome: Progressing Problem: Safety - Adult Goal: Free from fall injury Outcome: Progressing Problem: Discharge Planning Goal: Discharge to home or other facility with appropriate resources Outcome: Progressing Problem: Chronic Conditions and Co-morbidities Goal: Patient's chronic conditions and co-morbidity symptoms are monitored and maintained or improved Outcome: Progressing Problem: Knowledge Deficit Goal: Patient/family/caregiver demonstrates understanding of disease process, treatment plan, medications, and discharge instructions Outcome: Progressing Problem: Potential for Compromised Skin Integrity Goal: Skin Integrity is Maintained or Improved Outcome: Progressing Goal: Nutritional status is improving Outcome: Progressing Problem: Urinary Incontinence Goal: Perineal skin integrity is maintained or improved Outcome: Progressing * Care Coordination - Ale Charles, DIRECTOR LEARNING SERVICES - 04/06/2025 2:23 PM EDT SW consult-homelessness. Reviewed chart. Pt address listed as being in [place]. SW contacted [facility]. Spoke with Marco Antonio, who verified pt has stayed at the [facility] and is able to return, if pt so desires. THOMAS met with pt. Introduced self/role. Pt agreeable to speaking with THOMAS. Pt reports being in [place] for about a week. Pt feels [place] is too big of an area to stay in. Pt expressed concern at staying at [facility], as you have to leave the retirement everyday. Pt worried about his foot infection and walking around all day, would not be good for pt foot infection. Pt asked several times if THOMAS could get bus pass for pt to go back to [place] or [place]. Pt is from [place], has family there. Pt left [place] about 10 years ago. Pt indicated he likes to travel. Had a car, up until a year ago, when car broke down. Pt would stay in campsites , during pt travels. when pt had his car. Pt took awhile to get up to [place], via hitchhiking. Pt indicated in [facility], he would be able to obtain housing within 30 days, which is why pt would like to go to [place]. In [place], pt has family he could stay with. THOMAS explained [facility] is able to accept pt back. THOMAS discussed SW would explore options. THOMAS reached out to bilingual case manager, Arminda Smallwood, asking if obtaining a bus ticket [place] [facility] [place] option. SW waiting to hear back from bilingual case manager. . follow up: Nut Picker Arminda Bronson responded. Suggested calling [facility] and speak with director to see if pt could sit in day room, rather than walk street, until foot heals. Nut Picker not inclined to assist with bus trip to [place]. Indicated, if SW able to verify the retirement in [place] and verify pt could stay there, perhaps bilingual case manager may be agreeable to bus. Not willing to assist if pt would just be on the streets in [place], SW spoke with pt. Pt will try and get this info for SW to verify in the morning. SW explained if [place] discharges today, pt option would be [facility]. . * Care Coordination - Shayy Loo RN - 04/06/2025 8:29 AM EDT Care Management Progress Note Short Medical why still here: IV atbs. MRI results pending. PT/OT rec home Independently; PT homeless, SW follows will provide resources as needed. Plan TBD. CM and SW follow for dc planning needs. Planned Discharge Disposition: Other (Comment) (Homeless) Barriers/Today we still Wait: Test results (comment), Post-discharge arrangement completion (comment), Symptomatic control, Diagnostic workup, Clinical stability Length of Stay (Days): 4 GMLOS: No GMLOS Documented * Care Plan - Jen Byrne RN - 04/05/2025 8:56 PM EDT Problem: Pain - Adult Goal: Verbalizes/displays adequate comfort level or baseline comfort level Outcome: Progressing Problem: Safety - Adult Goal: Free from fall injury Outcome: Progressing Problem: Discharge Planning Goal: Discharge to home or other facility with appropriate resources Outcome: Progressing Problem: Chronic Conditions and Co-morbidities Goal: Patient's chronic conditions and co-morbidity symptoms are monitored and maintained or improved Outcome: Progressing Problem: Knowledge Deficit Goal: Patient/family/caregiver demonstrates understanding of disease process, treatment plan, medications, and discharge instructions Outcome: Progressing Problem: Potential for Compromised Skin Integrity Goal: Skin Integrity is Maintained or Improved Outcome: Progressing Goal: Nutritional status is improving Outcome: Progressing Problem: Urinary Incontinence Goal: Perineal skin integrity is maintained or improved Outcome: Progressing * Care Plan - Jen Byrne RN - 04/04/2025 11:07 PM EDT Problem: Pain - Adult Goal: Verbalizes/displays adequate comfort level or baseline comfort level Outcome: Progressing Problem: Safety - Adult Goal: Free from fall injury Outcome: Progressing Problem: Discharge Planning Goal: Discharge to home or other facility with appropriate resources Outcome: Progressing Problem: Chronic Conditions and Co-morbidities Goal: Patient's chronic conditions and co-morbidity symptoms are monitored and maintained or improved Outcome: Progressing Problem: Knowledge Deficit Goal: Patient/family/caregiver demonstrates understanding of disease process, treatment plan, medications, and discharge instructions Outcome: Progressing Problem: Potential for Compromised Skin Integrity Goal: Skin Integrity is Maintained or Improved Outcome: Progressing Goal: Nutritional status is improving Outcome: Progressing Problem: Urinary Incontinence Goal: Perineal skin integrity is maintained or improved Outcome: Progressing * Care Plan - Melonie Gilmore RN - 04/04/2025 4:15 AM EDT Problem: Pain - Adult Goal: Verbalizes/displays adequate comfort level or baseline comfort level Outcome: Progressing Problem: Safety - Adult Goal: Free from fall injury Outcome: Progressing Problem: Discharge Planning Goal: Discharge to home or other facility with appropriate resources Outcome: Progressing Problem: Chronic Conditions and Co-morbidities Goal: Patient's chronic conditions and co-morbidity symptoms are monitored and maintained or improved Outcome: Progressing Problem: Knowledge Deficit Goal: Patient/family/caregiver demonstrates understanding of disease process, treatment plan, medications, and discharge instructions Outcome: Progressing Problem: Potential for Compromised Skin Integrity Goal: Skin Integrity is Maintained or Improved Outcome: Progressing Goal: Nutritional status is improving Outcome: Progressing Problem: Potential for Compromised Skin Integrity Goal: Skin Integrity is Maintained or Improved Outcome: Progressing Goal: Nutritional status is improving Outcome: Progressing Problem: Urinary Incontinence Goal: Perineal skin integrity is maintained or improved Outcome: Progressing * Care Coordination - Shayy Loo RN - 04/03/2025 1:38 PM EDT Care Management Progress Note Short Medical why still here: Pt admitted with Sepsis, SOB and infection in R foot. Hx of clots andIVC filter in RLE. IV atb's. TTE ordered. Pt polysubstance use, ADM follows, pt with reported withdrawal symptoms. Pt is noted as Homeless, from [place]. Pt sleeping soundly, will attempt to see at another time as able. SW to follow at other time as well. Planned Discharge Disposition: Other (Comment) (TBD, pt homeless) Barriers/Today we still Wait: Clinical stability, Symptomatic control, Identification Printing Machine Setter recommendations (comment), Post-discharge arrangement completion (comment) Length of Stay (Days): 1 GMLOS: No GMLOS Documented * Care Coordination - JACOBO Pitts - 04/03/2025 11:44 AM EDT Social work follow up on consult- homelessness. Social work review of chart. [place]- visiting family in the area? Social work attempted to meet with the patient on this day- soundly sleeping. Social work will continue to follow and will follow back up as time permits. documented in this [facility]07-02-2025 Nurse Note* Leanna Garay RN - 04/08/2025 8:43 AM EDT Wound Care consulted for Pressure Injury Prevention. Pt's Noah= 20, pt is no longer at risk at this time. Will continue to follow peripherally. Please vocera or secure chat message with any questions. Deepti Garay RN, CWCN [facility] [id number] Nurse Note* Leanna Garay RN - 04/08/2025 8:43 AM EDT Wound Care consulted for Pressure Injury Prevention. Pt's Noah= 20, pt is no longer at risk at this time. Will continue to follow peripherally. Please vocera or secure chat message with any questions. Deepti Garay RN, CWCN * Hallie Sunshine RN - 04/07/2025 7:43 PM EDT Patient agreeable to have referral sent over to [facility]. [facility] signed and in patient chart. I will notify to assist with referral process. * Hallie Sunshine RN - 04/07/2025 6:28 PM EDT This [facility] RN went to see patient. Patient had just went to ultrasound. Will leave consult open. * Hallie Sunshine RN - 04/07/2025 12:41 PM EDT This [facility] RN consulted by SW to see patient for evaluation for treatment options. Patient states Iwant to be alone right now. Please consult again if patient agreeable to discussion. * Lelo Lux RN - 04/04/2025 8:48 AM EDT Patient refused labs. * Melonie Gilmore RN - 04/04/2025 5:45 AM EDT Patient refused his labs again * Melonie Gilmore RN - 04/03/2025 9:00 PM EDT This RN asked patient several time if I could draw his labs, he ept telling me to come back later. I came back later and now patient is telling me he will do it in the am. Will try again. * Raine Ngo RN - 04/03/2025 1:50 AM EDT Patient brought to floor by transport. Patient laying on on his side with his eyes closed yelling out making whale like sounds. Patient thrashing around on the cart. Resident called to bedside, see new orders. Patient able to answer some basic questions but admission questions unable to be answeredat this time. Raine Ngo RN documented in this [facility]07-02-2025 Note* Care Coordination - Shayy Loo RN - 04/08/2025 8:25 AM EDT Care Management Progress Note Short Medical why still here: IV atb plan, ortho so, noting no OM, cellulitis. ACC and SW assistingpt with [facility]. ACC, SW and CM will follow for assist with dc planning. Planned Discharge Disposition: Other (Comment) ([facility]) Barriers/Today we still Wait: Administering IV medications, Clinical stability, Post-discharge arrangement completion (comment) Length of Stay (Days): 6 GMLOS: 3.5 [facility] [id number] Note* Care Coordination - Shayy Loo RN - 04/08/2025 8:25 AM EDT Care Management Progress Note Short Medical why still here: IV atb plan, ortho so, noting no OM, cellulitis. ACC and SW assistingpt with [facility]. ACC, SW and CM will follow for assist with dc planning. Planned Discharge Disposition: Other (Comment) ([facility]) Barriers/Today we still Wait: Administering IV medications, Clinical stability, Post-discharge arrangement completion (comment) Length of Stay (Days): 6 GMLOS: 3.5 [facility] [id number] NoteCare Management Progress Note Short Medical why still here: IV atb plan, ortho so, noting no OM, cellulitis. ACC and SW assisting pt with [facility]. ACC, SW and CM will follow for assist with dc planning. Planned Discharge Disposition: Other (Comment) ([facility]) Barriers/Today we still Wait: Administering IV medications, Clinical stability, Post-discharge arrangement completion (comment) Length of Stay (Days): 6 GMLOS: 3.5 [facility]07-02-2025 Hospital Discharge instructions* Discharge Instructions* Elba Oviedo PA-C - 04/08/2025 6:35 AM EDT Orthopaedic Surgery Discharge Instructions: - Weight bearing as tolerated - Activity as tolerated - Ice to reduce pain and swelling. Do not put ice directly on the skin. -Follow-up outpatient with Dr. Sorto. The office contact information is provided in your paperwork. -Take medications as prescribed by the hospital doctors documented in this [facility]07-02-2025 Plan of care note* Care Plan - Tyree Fisher RN - 04/08/2025 5:34 AM EDT Problem: Pain - Adult Goal: Verbalizes/displays adequate comfort level or baseline comfort level Outcome: Progressing Problem: Safety - Adult Goal: Free from fall injury Outcome: Progressing Problem: Discharge Planning Goal: Discharge to home or other facility with appropriate resources Outcome: Progressing Problem: Chronic Conditions and Co-morbidities Goal: Patient's chronic conditions and co-morbidity symptoms are monitored and maintained or improved Outcome: Progressing Problem: Knowledge Deficit Goal: Patient/family/caregiver demonstrates understanding of disease process, treatment plan, medications, and discharge instructions Outcome: Progressing Problem: Potential for Compromised Skin Integrity Goal: Skin Integrity is Maintained or Improved Outcome: Progressing Goal: Nutritional status is improving Outcome: Progressing Problem: Urinary Incontinence Goal: Perineal skin integrity is maintained or improved Outcome: Progressing [facility] [id number] NotePatient agreeable to have referral sent over to [facility]. [facility] signed and in patient chart. I will notify to assist with referral process. [facility]07-01-2025 Nurse Note* Hallie Sunshine RN - 04/07/2025 7:43 PM EDT Patient agreeable to have referral sent over to [facility]. [facility] signed and in patient chart. I will notify SW to assist with referral process. [facility] [id number] NoteOrthopedic progress note MRI: Right ankle: No apparent rim-enhancing fluid collection. No increased signal within the bone suggestive of osteomyelitis. Some increased signal within the lateral soft tissue suggestive of cellulitis. Inflammatory labs have been downtrending on IV antibiotics. Ortho to sign off. Bradly Dyer MD Orthopaedic Surgery [address]07-01-2025 History of Present illness Narrative* Bradly Dyer MD - 04/07/2025 6:53 PM EDT Orthopedic progress note MRI: Right ankle: No apparent rim-enhancing fluid collection. No increased signal within the bone suggestive of osteomyelitis. Some increased signal within the lateral soft tissue suggestive of cellulitis. Inflammatory labs have been downtrending on IV antibiotics. Ortho to sign off. Bradly Dyer MD Orthopaedic Surgery PGY2 * Nay Cardenas MD - 04/07/2025 1:33 PM EDT Med Team Progress Note Viral Ann : 1975(49 y.o.) Date: April 07, 2025 Med Team: Monica Attending: Dr. Cortez Chief Complaint: Right foot pain Brief Hospital Course: 49 y.o. male with PMHx IVDU and substance-induced psychosis that presented to [facility] on 04/02/2025 from home for acute on chronic right foot pain. A picture of the patient's right foot is uploaded in the media tab. A non-contrast right foot MRI was completed for concern of tissueinfection requiring surgical intervention, which showed cellulitis and small fluid collection alongthe plantar lateral aspect of the fifth metatarsal head (may represent adventitious bursitis vs a small abscess) w/ no evidence of acute osteomyelitis. Awaiting contrast MRI of the ankle to rule out osteomyelitis. Subjective: - Patient's IV was infiltrated causing swelling of the left upper arm. IV was removed. - Currently, denies any questions or concerns. States that he has a history of infections, last onewas treated with oral antibiotics while in snf. Rates pain as a 7/10 when walking, but is able to walk around the unit with no issues and no assistance. PRN meds used in last 24hrs: ativan x1, tylenol x1 Review of Systems Constitutional: Negative. Respiratory: Negative. Cardiovascular: Negative. Musculoskeletal: Negative. Skin: Positive for wound. Wound present on right ankle Neurological: Negative. Scheduled Meds:Scheduled Meds[1] Continuous Infusions:Continuous Meds[2] Objective: BP 131/75 Pulse 64 Temp 36.3 C (97.4 F) (Temporal) Resp 18 Ht 6' 3 (1.905 m) Wt 250 lb (113 kg) SpO2 91% BMI 31.25 kg/m Physical Exam Constitutional: General: He is not in acute distress. Appearance: Normal appearance. He is normal weight. HENT: Head: Normocephalic. Mouth/Throat: Mouth: Mucous membranes are moist. Pharynx: Oropharynx is clear. Cardiovascular: Rate and Rhythm: Normal rate and regular rhythm. Heart sounds: No murmur heard. Pulmonary: Effort: Pulmonary effort is normal. Breath sounds: Normal breath sounds. Abdominal: General: Abdomen is flat. Palpations: Abdomen is soft. Musculoskeletal: General: Swelling (right ankle) and tenderness (Right ankle) present. Cervical back: Normal range of motion. Neurological: Mental Status: He is alert and oriented to person, place, and time. Psychiatric: Mood and Affect: Mood normal. Select Recent Labs BMP: Recent Labs 04/05/25 1310 NA 139 K 4.0 CL 110* CO2 23 BUN 13 CREATININE 1.06 CALCIUM 8.3* LFTs: Recent Labs 04/05/25 1310 AST 44* ALT 24 PROT 6.5 ALBUMIN 2.8* BILITOT 0.3 ALKPHOS 23* Glucose: Recent Labs 04/05/25 1310 GLUCOSE 99 Procal: No results for input(s): PROCAL in the last 72 hours. CBC: Recent Labs 04/05/25 1310 04/07/25 1320 WBC 6.5 7.5 HGB 12.6* 12.6* HCT 37.1* 38.1* PLT 187 269 MCV 92.3 92.3 RDW 13.4 13.4 ABGs: No results for input(s): PHART, LKU8UUE, PO2ART, ZVE4RFU, SO2ART, E4MNKFRW in thelast 72 hours. Lactic Acid: No results for input(s): LACTATE in the last 72 hours. INR: No results for input(s): INR in the last 72 hours. Cardiac Injury Profile: No results for input(s): CKTOTAL, CKMB, TROPONINI, TROPHSBASE, TROPHS2, BNP in the last 72 hours. Notable Prior Labs: No results found for: TSH, VITD25, PSA, INR, GLUF Notable Imaging: MR foot right wo IV contrast - Cellulitis. Small fluid collection, adventitious bursitis vs a smallabscess. No evidence of acute osteomyelitis. Notable Micro: - Assessment and Plan: Acute on chronic R foot pain, cellulitis- clinically minimally improved, less tender to palpation, WBC trending down Reported history of R foot infection (NOS) -XR shows hallux valgus without definitive fx and no evidence of osteomyelitis -Wound appears stable on today's exam. See picture in media tab for comparison -Continue vanc/zosyn. Zosyn Day 5. Vanc Day 3 -MRI foot shows no evidence of acute osteomyelitis but there is a small fluid collection along the plantar lateral aspect of the fifth metatarsal head that may represent adventitious bursitis versus a small abscess. MRI with contrast of foot and ankle was ordered to further investigate osteomyelitis vs cellulitis. -Ortho consulted for further evaluation -If no indication for surgical treatment, will discharge on oral Augmentin and bactrim. IV Meth amphetamine use Cocaine use - ADM consulted and following - Ativan 1 mg q3h prn agitation - Risperdal 1 mg BID for drug induced psychosis and paranoia -trazodone 100 nightly for sleep -Not interested in any ADM treatment after discharge per ADM Resolved Problems: Simple sepsis of unknown source -TTE negative for vegetations - blood cx no growth at 4 days Drug induced Rhabdomyolysis GUIDO -Cr 2.43->1.38 -CK 1,500-928 and consistently down trending Chronic Problems and Follow Up Items: Reported Hx of Hepatitis C - Positive Hep C antibody, Hep C quant ordered - Hep B surface antibody, antigen, and core antibody ordered. Consider administering vaccine if indicated before discharge. 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 - Goals of Care: FULL CODE - DVT Prophylaxis: Lovenox 40 q24hr - CrCl >30 - GI Prophylaxis: Not Indicated - Diet: General [1] enoxaparin, 40 mg, SubCUTAneous, Daily gabapentin, 300 mg, Oral, q8h piperacillin-tazobactam, 4,500 mg, IntraVENous, q6h traZODone, 100 mg, Oral, Nightly vancomycin, 1,250 mg, IntraVENous, q12h [2] Cosigned by Abel Cortez MD at 04/07/2025 6:01 PM EDT Associated attestation - Abel Cortez MD - 04/07/2025 6:01 PM EDT I have personally examined the patient and reviewed the case with the residents. I agree with the current plan of care including the workup, evaluation, management, and diagnosis. Care plan has been discussed. The above documentation has been reviewed and edited as needed to reflect the findings ofmy evaluation. - pt has had a right foot non-contrasted MRI, which showed a fluid collection at the base of his 5th metatarsal joint. Pt states he has always had this abnormality. - his pain is primarily over the lateral right ankle, with erythema, and considerable tenderness. - will do a contrasted MRI of the foot and ankle, to r/o osteomyelitis. - continue Vanco and Zosyn as empiric atbx. * Radha Cavazos, PharmD - 04/07/2025 8:45 AM EDT Pharmacy to Dose Vancomycin - Progress Note Lab Results Component Value Date CREATININE 1.06 04/05/2025 BUN 13 04/05/2025 WBC 6.5 04/05/2025 VANCOTROUGH 6.7 04/04/2025 Doses, serum creatinine, and vancomycin levels interfaced automatically to Mobisc[employer] and data has been analyzed and interpreted. Infectious Diagnosis: Sepsis Est CrCl: 132 mL/min (Cockcroft-Gault) Assessment: Current regimen vancomycin 1250 mg every 12 hours (11.1 mg/kg) Predicted AUC = 461 mg/L*hr (goal 400-600 mg/L*hr) PAUC = 81% (probability that AUC is >400 mg/L*hr) Pconc = 5% (probability that Ctrough is above 20 mcg/mL (toxicity)) Plan: Is the current dose therapeutic? [x] Yes - obtain next level on 04/08 unless predicted AUC is sub-/supra-therapeutic or change in serum creatinine. Patient's IV infiltrated, labs refused this AM. Will re-order for 04/08 with a Scr. Trend serum creatinine. Trend AUC using Bayesian Modeling. Orders placed. DATE: 04/07/25 TIME: 8:43 AM Radha Cavazos PharmD Clinical Pharmacist Available via Secure Chat * Candelaria Neely MD - 04/06/2025 2:09 PM EDT Med Team Progress Note Viral Ann : 1975(49 y.o.) Date: April 06, 2025 Med Team: Monica Attending: Dr. Neely Chief Complaint: Right foot injury Brief Hospital Course: Viral Ann is a 49 y.o. male with PMHx IVDU and substance-induced psychosis that presented to [facility] on 04/02/2025 from home for acute on chronic right foot pain. A picture of the patient's right foot is uploaded in the media tab. A MRI was completed for concern of tissue infection requiring surgical intervention. Small abscess found on MRI, ortho has been consulted. Subjective: - No acute events overnight. - Currently, Viral is seen lying in his hospital bed, awake, and pleasant on approach. He denies any acute concerns or complaints. He states the last time his foot was infected he was admitted to the hospital for IV antibiotics and was discharged with oral antibiotics. He is agreeable to discharge with oral antibiotics pending further work-up based on formal MRI read. He states he plans on moving to a different state but is agreeable to following up in the [facility] in the interim. PRN meds used in last 24hrs: ativan x1, melatonin x3, Pt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 Normal. Comments: Right foot wound stable (see picture in media tab for comparison). Significantly less tender to palpation on today's exam Neurological: General: No focal deficit present. Mental Status: He is alert and oriented to person, place, and time. Awake, alert. Appears tired but not toxic, or even ill. Right foot erythema slightly improved, although remains indurated over forefoot. No extension of regions of erythema. No new skin changes. Slightly less TTP, no lymphangitic streaking. See image under media dated today. Left foot benign. Select Recent Labs BMP: Recent Labs 04/02/25 1916 04/03/25 1424 04/04/25 1047 NA 137 133* 137 K 3.7 3.5 3.4* CL 101 104 107 CO2 21* 21* 23 BUN 51* 24* 15 CREATININE 2.43* 1.40* 1.38* CALCIUM 8.8 8.1* 7.9* MG -- 1.7 1.7 LFTs: Recent Labs 04/02/25 2131 04/03/25 1424 04/04/25 1047 AST -- 50* 42* ALT -- PROT -- 6.1* 6.1* ALBUMIN -- 3.2* 2.8* BILITOT -- 0.8 0.5 BILIRUBINU Negative -- -- ALKPHOS -- 25* 24* Glucose: Recent Labs 04/02/25191504/03/25 1424 04/04/25 1047 GLUCOSE 91 94 118* Procal: No results for input(s): PROCAL in the last 72 hours. CBC: Recent Labs 04/02/25191504/03/25 0530 04/04/25 1047 WBC 16.3* 13.9* 11.5* HGB 13.3 12.6* 12.3* HCT 38.5* 37.6* 36.7* PLT 233 193 159 MCV 90.2 93.1 90.6 RDW 13.2 13.2 13.5 ABGs: No results for input(s): PHART, GWX8KCV, PO2ART, UWT3JYI, SO2ART, E9PZIGYE in thelast 72 hours. Lactic Acid: Recent Labs 04/02/251915 LACTATE 1.6 INR: No results for input(s): INR in the last 72 hours. Cardiac Injury Profile: Recent Labs 04/02/25191504/02/25 2102 04/03/25 1424 04/04/25 1047 CKTOTAL 1,504* 1,296* 1,021* 928* TROPHSBASE 5 -- -- -- TROPHS2 -- 6 -- -- Notable Prior Labs: No results found for: TSH, VITD25, PSA, INR, GLUF Assessment and Plan: Acute on chronic R foot pain, cellulitis- clinically minimally improved, less pain although see very TTP, WBC trending down Reported history of R foot infection (NOS) -XR shows hallux valgus without definitive fx and no evidence of osteomyelitis -MRI of right foot ordered d/t worsening of lesion and exquisite tenderness on today's exam. Concern for infection. The MRI is complete, we are awaiting the formal read -Wound appears stable on today's exam. See picture in media tab for comparison -Continue vanc/zosyn. Pharmacy consulted to dose vancomycin -Will get repeat CRP and ESR today .Agree. MRI done, awaiting read. Am making efforts to track down a radiologist to review (Sunday). IV Meth amphetamine use Cocaine use - ADM consulted and following - Ativan 1 mg q3h prn agitation -Risperdal 1 mg BID for drug induced psychosis and paranoia -trazodone 100 nightly for sleep -Not interested in any ADM treatment after discharge per ADM Agree. 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 I reviewed and agree with the findings and plan as documented in their note except as amended in green font. Addendums may have been dictated using the [employer] Voice Recognition Feature. The document was proofread; however, unrecognized voice recognition family reunification specialist errors may be present. Please note, the time of this note does not reflect the time I saw this patient today, but the time of this documentaton. Discussed with: [x]Residents [x]Patient []Family [x]RN []Consultants []SW/TCC [] PT/OT []Pharmacist [x]Other- MRI techs Reviewed: [x]Epic notes []Radiology studies [x]Labs []EKG []Other Subsequent Inpatient/OBS: Spent total time 50 minutes counseling or coordinating care, and discussion regarding stressing to pt the importance of getting MRI (refused last night) and labs. Pt finallyagreeable. 7AM-5PM: contact resident on [facility] (found by hovering over attending's name on left side of patient's chart) 5PM-7AM: contact AI3 resident 2025-04-05 2:35 pm addendum- Dr Mulligan of radiology briefly reviewed MRI foot (formal read tomorrow/Sunday)- no evidence of osteo or abscess. MD Chin [1] enoxaparin, 40 mg, SubCUTAneous, Daily gabapentin, 300 mg, Oral, q8h piperacillin-tazobactam, 4,500 mg, IntraVENous, q6h risperiDONE, 1 mg, Oral, BID traZODone, 100 mg, Oral, Nightly vancomycin, 1,500 mg, IntraVENous, q18h [2] * Juan Antonio Mathew DO - 04/04/2025 4:59 PM EDT Brief Progress Note: The patient's right foot wound was reassessed this evening. The degree of swelling, erythema, and tenderness to palpation appear the same compared to the exam this morning. The photo in the media tabwas used for [id number] comparison. Viral was encouraged to inform his nurse or other provider if the above symptoms worsen. * Jennifer Stiles PharmD - 04/04/2025 1:39 PM EDT Pharmacy to Dose Vancomycin - Progress Note Lab Results Component Value Date CREATININE 1.38 (H) 04/04/2025 BUN 15 04/04/2025 WBC 11.5 (H) 04/04/2025 VANCOTROUGH 6.7 04/04/2025 Doses, serum creatinine, and vancomycin levels interfaced automatically to [employer] and data has been analyzed and interpreted. Infectious Diagnosis: Sepsis Est CrCl: 100 mL/min (Cockcroft-Gault) Assessment: Current regimen vancomycin 1500 mg every 18 hours (13.3 mg/kg) Predicted AUC = 458 mg/L*hr (goal 400-600 mg/L*hr) PAUC = 82% (probability that AUC is >400 mg/L*hr) Pconc = 2% (probability that Ctrough is above 20 mcg/mL (toxicity)) Plan: Is the current dose therapeutic? [x] Yes - obtain next level on 04/07/25 unless predicted AUC is sub-/supra-therapeutic or change in serum creatinine. [] No Trend serum creatinine. Trend AUC using Bayesian Modeling. Orders placed. DATE: 04/04/25 TIME: 1:34 PM Jennifer Stiles PharmD Clinical Pharmacist Available via Secure Chat * Xochitl Cheng RT (R)(MR) - 04/04/2025 11:05 AM EDT Needs screened for MRI please or will need KUB and orbit xrays for MRI clearance * Анна Santos - 04/04/2025 10:04 AM EDT Nutrition rescreen completed. Chart reviewed. Patient to be monitored and followed by the diet plasma processing technician. * Candelaria Neely MD - 04/04/2025 8:46 AM EDT Med Team Progress Note Viral Ann : 1975(49 y.o.) Date: April 04, 2025 Med Team: C Attending: Dr. Neely Chief Complaint: Right foot pain Subjective: - NAEO - Currently, Viral is seen lying in hospital bed with eyes closed, easily roused to voice. He is noticeably more conversant today compared to yesterday. He agrees to blood work and an MRI today. Wediscussed trying hydroxyzine PRN for anxiety before blood work and ativan PRN for anxiety before imaging, he is agreeable. He continued to endorse right foot pain. Denied auditory or visual hallucinations. PRN meds used in last 24hrs: ativan 1 mg x1, melatonin 3 mg x1 Pt seen and examined earlier today on bedside resident teaching rounds. Hx and PE independently obtained and agree with above. Eye contact still only intermittent, but improved over yesterday. Appears in no distress. Pt states he has no metal in body other than IVC filter. Has NOT worked with metalgrinding or other means to have risk of metal in eye. No joint replacements. Review of Systems Cardiovascular: Negative for chest pain. Skin: Positive for wound (right lateral foot). Neurological: Negative for weakness and numbness. Psychiatric/Behavioral: Negative for hallucinations and sleep disturbance. The patient is nervous/anxious. Agree. Scheduled Meds:Scheduled Meds[1] Continuous Infusions:Continuous Meds[2] Objective: BP 99/58 (BP Location: Right arm, Patient Position: Lying) Pulse 84 Temp 37.4 C (99.4 F) (Temporal) Resp 20 Ht 6' 3 (1.905 m) Wt 250 lb (113 kg) SpO2 94% BMI 31.25 kg/m Physical Exam Vitals reviewed. Constitutional: General: He is not in acute distress. Appearance: He is ill-appearing. He is not toxic-appearing or diaphoretic. HENT: Head: Normocephalic. Eyes: Comments: Unable to adequately assess due to the patient having eyes closed during majority of exam Cardiovascular: Rate and Rhythm: Normal rate. Pulmonary: Effort: Pulmonary effort is normal. No respiratory distress. Musculoskeletal: Cervical back: Normal range of motion. Right upper leg: Normal. Left upper leg: Normal. Right lower leg: Normal. Left lower leg: Normal. Right ankle: Swelling present. Tenderness present over the lateral malleolus. Left ankle: Normal. Right foot: Swelling and tenderness (lateral aspect) present. Left foot: Normal. Neurological: General: No focal deficit present. Mental Status: He is alert. Psychiatric: Attention and Perception: He is inattentive. He does not perceive auditory or visual hallucinations. Mood and Affect: Affect is blunt. Speech: Speech normal. Behavior: Behavior is withdrawn. Thought Content: Thought content normal. Agree. Right foot (+) indurated with (+) TTP over medial malleolus as well as over dorsal aspect ofright foot. Appears slightly more progressed than yesterday. No lymphangitic streaks. No crepitance. Select Recent Labs BMP: Recent Labs 04/02/25191504/03/25142304/04/25 1047 NA 137 133* 137 K 3.7 3.5 3.4* CL 101 104 107 CO2 21* 21* 23 BUN 51* 24* 15 CREATININE 2.43* 1.40* 1.38* CALCIUM 8.8 8.1* 7.9* MG -- 1.7 1.7 LFTs: Recent Labs 04/02/25213004/03/25142304/04/25 1047 AST -- 50* 42* ALT -- PROT -- 6.1* 6.1* ALBUMIN -- 3.2* 2.8* BILITOT -- 0.8 0.5 BILIRUBINU Negative -- -- ALKPHOS -- 25* 24* Glucose: Recent Labs 04/02/25191504/03/25142304/04/25 1047 GLUCOSE 91 94 118* Procal: No results for input(s): PROCAL in the last 72 hours. CBC: Recent Labs 04/02/25191504/03/25 0530 04/04/25 1047 WBC 16.3* 13.9* 11.5* HGB 13.3 12.6* 12.3* HCT 38.5* 37.6* 36.7* PLT 233 193 159 MCV 90.2 93.1 90.6 RDW 13.2 13.2 13.5 ABGs: No results for input(s): PHART, GJS1IIV, PO2ART, JBS7EYL, SO2ART, W5HZUWRR in thelast 72 hours. Lactic Acid: Recent Labs 04/02/251915 LACTATE 1.6 INR: No results for input(s): INR in the last 72 hours. Cardiac Injury Profile: Recent Labs 04/02/25191504/02/25 21004/03/25142328/25 1047 CKTOTAL 1,504* 1,296* 1,021* 928* TROPHSBASE 5 -- -- -- TROPHS2 -- 6 -- -- Notable Prior Labs: No results found for: TSH, VITD25, PSA, INR, GLUF Assessment and Plan: Simple sepsis of unknown source- resolved - Fever of 38.9 C and WBC of 16.3 on arrival, now temp consistently about 99 but afebrile. Tmax 100.7 at 5:20 am today. WBC 11.5 -CTA chest negative -TTE negative for vegetations - blood cx no growth at 24 hours -Vanc, Zosyn for now; de-escalate as appropriate -Pharmacy consulted to dose vancomycin Agree. Acute on chronic R foot pain Reported history of R foot infection (NOS) -XR shows hallux valgus without definitive fx and no evidence of osteomyelitis -MRI of right foot ordered d/t worsening of lesion and exquisite tenderness on today's exam. Concern for infection. See media for image -Continue vanc/zosyn as above Agree. For MRI later today after 7 pm per d/w MRI team. Serial exams, and will plan on contacting Ortho if right foot exam progresses further. 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 I reviewed and agree with the findings and plan as documented in their note except as amended in green font. Addendums may have been dictated using the [employer] Voice Recognition Feature. The document was proofread; however, unrecognized voice recognition family reunification specialist errors may be present. Please note, the time of this note does not reflect the time I saw this patient today, but the time of this documentaton. Discussed with: [x]Residents [x]Patient []Family [x]RN []Consultants []SW/TCC [] PT/OT []Pharmacist []Other Reviewed: [x]Epic notes []Radiology studies [x]Labs []EKG []Other Subsequent Inpatient/OBS: Spent total time 35 minutes counseling or coordinating care, and discussion with pt regarding importance of allowing blood work to follow renal function, also MRI given progressive changes in right foot. 7AM-5PM: contact resident on [facility] Med Team (found by hovering over attending's name on left side of patient's chart) 5PM-7AM: contact AI3 resident [1] enoxaparin, 40 mg, SubCUTAneous, Daily gabapentin, 300 mg, Oral, q8h piperacillin-tazobactam, 4,500 mg, IntraVENous, q6h risperiDONE, 1 mg, Oral, BID traZODone, 100 mg, Oral, Nightly vancomycin, 1,500 mg, IntraVENous, q18h [2] * Micheline Moeller, BANKRUPTCY PROCESSOR - COMPOUND COATING MACHINE OFFBEARER - 04/04/2025 8:35 AM EDT Addiction Medicine Progress Note Patient: Viral Ann Chief Complaint Patient presents with Shortness of Breath Pt has hx of blood clots in his right leg and IVC filter, pt reports shortness of breath. Pt able to speak in full sentences at this time. Problem List: Principal Problem: Sepsis (HCC) Subjective Interim History: Patient was lying in bed. Endorses symptoms of withdrawal paranoia, diaphoreses and restlessness. Overall, withdrawal symptoms are same. No other physical complaints voiced. Has require PRN medicine.Positive signs and/or symptoms of withdrawal observed. No events overnight documented. Objective Review of Systems: All ROS was completed and was negative unless stated above Physical Exam: Vitals: 04/03/25 1135 04/03/25 1704 04/04/25 0519 04/04/25 0753 BP: 100/55 96/52 99/58 BP Location: Right arm Right arm Right arm Patient Position: Sitting Lying Lying Pulse: 89 81 84 Resp: 19 16 20 Temp: 36.9 C (98.5 F) (!) 38.2 C (100.7 F) 37.4 C (99.4 F) TempSrc: Temporal Temporal Temporal SpO2: 93% 95% 94% Weight: 113 kg (250 lb) Height: 1.905 m (6' 3) Physical Exam Vitals and nursing note reviewed. Constitutional: Appearance: He is not diaphoretic. Cardiovascular: Rate and Rhythm: Normal rate. Pulmonary: Effort: Pulmonary effort is normal. Musculoskeletal: General: Normal range of motion. Skin: General: Skin is dry. Coloration: Skin is not pale. Neurological: Mental Status: He is alert and oriented to person, place, and time. Psychiatric: Attention and Perception: He does not perceive auditory or visual hallucinations. Behavior: Behavior is withdrawn. Thought Content: Thought content is paranoid. Thought content does not include homicidal or suicidal ideation. Comments: restlessness Medications: Scheduled Meds[1] PRN Meds[2] Labs: Last 24 hours: Recent Results (from the past 24 hours) Comprehensive metabolic panel Collection Time: 04/03/25 2:24 PM Result Value Ref Range SODIUM 133 (L) 136 - 145 mmol/L POTASSIUM 3.5 3.5 - 5.1 mmol/L CHLORIDE 104 98 - 107 mmol/L CARBON DIOXIDE 21 (L) 22 - 29 mmol/L ANION GAP 8 3 - 13 mmol/L UREA NITROGEN 24 (H) 9 - 23 mg/dL CREATININE 1.40 (H) 0.72 - 1.25 mg/dL GLUCOSE 94 74 - 100 mg/dL CALCIUM 8.1 (L) 8.4 - 10.2 mg/dL AST (SGOT) 50 (H) <34 U/L ALT 25 <40 U/L ALKALINE PHOSPHATASE 25 (L) 40 - 150 U/L ALBUMIN 3.2 (L) 3.5 - 5.0 g/dL BILIRUBIN, TOTAL 0.8 <1.2 mg/dL TOTAL PROTEIN 6.1 (L) 6.4 - 8.3 g/dL eGFR 61.2 >60.0 mL/min/1.73m*2 CK Collection Time: 04/03/25 2:24 PM Result Value Ref Range CK 1,021 (H) 30 - 185 U/L Vancomycin, AUC Timed Dosing Collection Time: 04/03/25 2:24 PM Result Value Ref Range VANCOMYCIN, AUC 6.9 ug/mL Magnesium Collection Time: 04/03/25 2:24 PM Result Value Ref Range MAGNESIUM 1.7 1.6 - 2.6 mg/dL Assessment & Plan Methamphetamine use disorder, severe Counseled patient on biopsychosocial consequences of substance use. Encouraged professional chemical dependency treatment. Encouraged 12 step meeting attendance. Addiction treatment plan with patient: Patient not interested in any aftercare treatment. Stimulant withdrawal Last used [employer] T[employer] Continue Risperdal to manage methamphetamine withdrawal symptoms. 1 mg every 12 hours Trazodone 100 mg nightly CINA scores per unit protocol. PRN medications for withdrawal symptom management Homelessness Social work following Rhabdomyolysis GUIDO Per primary team Disposition: Detox anticipated pending: Resolution of withdrawal symptoms. Medical stabilization. Labs/tests/tasks: reviewed. Identification Printing Machine Setter recommendations: None. Remaining medical management per primary team. Will follow. Micheline Moeller APRN - COMPOUND COATING MACHINE OFFBEARER Addiction Medicine 04/04/2025 at 10:42 AM Note: Narrative portions of note written using [employer] dictation software. Efforts are made to dictate clearly and proofread but errors in dictation still may occur. Please reach out to author with any clarifying questions. [1] enoxaparin, 40 mg, SubCUTAneous, Daily gabapentin, 300 mg, Oral, q8h piperacillin-tazobactam, 4,500 mg, IntraVENous, q6h risperiDONE, 1 mg, Oral, BID traZODone, 100 mg, Oral, Nightly vancomycin, 1,500 mg, IntraVENous, q18h [2] PRN medications: acetaminophen OR acetaminophen, hydrOXYzine pamoate, LORazepam, LORazepam,melatonin, ondansetron ODT OR ondansetron, polyethylene glycol (PEG) 3350 * Erick Bruce RPh - 04/03/2025 3:08 PM EDT Pharmacy to Dose Vancomycin - Progress Note Lab Results Component Value Date CREATININE 1.40 (H) 04/03/2025 BUN 24 (H) 04/03/2025 WBC 13.9 (H) 04/03/2025 VANCOTROUGH 6.9 04/03/2025 Doses, serum creatinine, and vancomycin levels interfaced automatically to Mobiscope and data has been analyzed and interpreted. Infectious Diagnosis: Sepsis Est CrCl: 85 mL/min (Cockcroft-Gault) Assessment: Current regimen vancomycin 1250 mg every 24 hours (11.1 mg/kg) Predicted AUC = 318 mg/L*hr (goal 400-600 mg/L*hr) PAUC = 3% (probability that AUC is >400 mg/L*hr) Pconc = 0% (probability that Ctrough is above 20 mcg/mL (toxicity)) Plan: Is the current dose therapeutic? [x] No - change current regimen to vancomycin 1500 mg every 18 hours (13.3 mg/kg) for predicted AUC= 506 mg/L*hr, PAUC = 97% , and Pconc* = 5%. Obtain next level on Trend serum creatinine. Trend AUC using Bayesian Modeling. Orders placed. DATE: 04/03/25 TIME: 3:08 PM Erick Bruce RPh, PharmD. Available via Secure Chat * Jazmine Reyna, PT - 04/03/2025 10:21 AM EDT Images from the original note were not included. PHYSICAL THERAPY [facility] Name/MRN: Viral Ann ([id number]) Date: 04/03/2025 PT orders received and eval attempted. RN, Sarthak, reports pt currently has withdrawal symptoms and is not appropriate for participation with therapy at this time. Will follow and re-attempt at later date/time as schedule permits. Jazmine Reyna, PT * Nicole MetzD - 04/02/2025 10:01 PM EDT Images from the original note were not included. Pharmacy Managed Vancomycin Dosing Service Consult Note Consult Date: 04/02/25 Patient Name: Viral Ann Allergies: Patient has no known allergies. Age: 49 y.o. Sex: male Estimated body mass index is 31.25 kg/m as calculated from the following: Height as of this encounter: 1.905 m (6' 3). Weight as of this encounter: 113 kg (250 lb). DW: 113 kg Lab Results Component Value Date CREATININE 2.43 (H) 04/02/2025 BUN 51 (H) 04/02/2025 WBC 16.3 (H) 04/02/2025 Calculated CrCl: 58 mL/min (Cockcroft-Gault) Consulted By: David Wolfe DO Infectious Diagnosis: Sepsis (AUC Goal 400-600 mg/L*hr) Antimicrobials: Patient recently received an antibiotic (last 12 hours) Date/Time Action Medication Dose Rate 04/02/252058 New Bag vancomycin in NS (Vancocin) IVPB 2,000 mg 2,000 mg 250 mL/hr Assessment/Plan: Doses, serum creatinine, and vancomycin levels interfaced automatically to Mobiscope and data has been analyzed and interpreted. Start Vancomycin 1250 mg every 24 hours based on patient age, weight, renal function, and infectious diagnosis (11.1 mg/kg). Predicted AUC = 534 mg/L*hr (goal 400-600 mg/L*hr) PAUC = 92% (probability that AUC is >400 mg/L*hr) Pconc = 26% (probability that Ctrough is above 20 mcg/mL (toxicity)) Will assess random level on 04/03/25 and adjust as appropriate. Trend serum creatinine. Orders placed. Thank you for this consult. Please secure text or call with questions. DATE: 04/02/25 TIME: 9:55 PM Jazmín Farooq PharmD Clinical Pharmacist Available via Secure Chat documented in this [facility]07-01-2025 Nurse Note* Hallie Sunshine RN - 04/07/2025 6:28 PM EDT This ACC RN went to see patient. Patient had just went to ultrasound. Will leave consult open. [facility] [id number] Plan of care note* Care Plan - Lelo Lux RN - 04/07/2025 6:15 PM EDT Problem: Pain - Adult Goal: Verbalizes/displays adequate comfort level or baseline comfort level Outcome: Progressing Problem: Safety - Adult Goal: Free from fall injury Outcome: Progressing Problem: Discharge Planning Goal: Discharge to home or other facility with appropriate resources Outcome: Progressing Problem: Chronic Conditions and Co-morbidities Goal: Patient's chronic conditions and co-morbidity symptoms are monitored and maintained or improved Outcome: Progressing Problem: Knowledge Deficit Goal: Patient/family/caregiver demonstrates understanding of disease process, treatment plan, medications, and discharge instructions Outcome: Progressing [facility] [id number] NoteThis ACC RN consulted by to see patient for evaluation for treatment options. Patient states I want to be alone right now. Please consult again if patient agreeable to discussion.[facility]07-01-2025 Nurse Note* Hallie Sunshine RN - 04/07/2025 12:41 PM EDT This ACC RN consulted by to see patient for evaluation for treatment options. Patient states Iwant to be alone right now. Please consult again if patient agreeable to discussion. [facility] [id number] Note* Care Coordination - JACOBO Pressley - 04/07/2025 12:37 PM EDT THOMAS follow up: THOMAS met with pt, pt drt and drts' sponsor at bedside. Introduced self/role to drt. Drt is here to henrietta support for pt, and advocating for pt to enter substance abuse treatment. Pt is agreeable to thisoption. Drt does not want pt to go to [place], where pt has no support. SW discussed if pt goes to rehab, SW will assist in getting transportation arranged, and can send, with pt permission clinicals to rehab. SW discussed having hospital ACC RN meet with pt, to discuss treatment options, pt agreeable. SW sent secure chat to ACC team, requesting a visit to assess pt for possible in-patient. . [facility] [id number] Note* Care Coordination - JACOBO Pressley - 04/07/2025 12:37 PM EDT THOMAS follow up: THOMAS met with pt, pt drt and drts' sponsor at bedside. Introduced self/role to drt. Drt is here to henrietta support for pt, and advocating for pt to enter substance abuse treatment. Pt is agreeable to thisoption. Drt does not want pt to go [place], where [place] has no support. THOMAS discussed if pt goes to rehab, SW will assist in getting transportation arranged, and can send, with pt permission clinicals to rehab. SW discussed having hospital ACC RN meet with pt, to discuss treatment options, pt agreeable. SW sent secure chat to ACC team, requesting a visit to assess pt for possible in-patient. . [facility] Indy Food ToursOlmsted Medical [id number] NotePharmacy to Dose Vancomycin - Progress Note Lab Results Component Value Date CREATININE 1.06 04/05/2025 BUN 13 04/05/2025 WBC 6.5 04/05/2025 VANCOTROUGH 6.7 04/04/2025 Doses, serum creatinine, and vancomycin levels interfaced automatically to Mobiscope and data has been analyzed and interpreted. Infectious Diagnosis: Sepsis Est CrCl: 132 mL/min (Cockcroft-Gault) Assessment: Current regimen vancomycin 1250 mg every 12 hours (11.1 mg/kg) Predicted AUC = 461 mg/L*hr (goal 400-600 mg/L*hr) PAUC = 81% (probability that AUC is >400 mg/L*hr) Pconc = 5% (probability that Ctrough is above 20 mcg/mL (toxicity)) Plan: Is the current dose therapeutic? [x] Yes - obtain next level on 04/08 unless predicted AUC is sub-/supra-therapeutic or change in serum creatinine. Patient's IV infiltrated, labs refused this AM. Will re-order for 04/08 with a Scr. Trend serum creatinine. Trend AUC using Bayesian Modeling. Orders placed. DATE: 04/07/25 TIME: 8:43 AM Radha Cavazos, NicoleD Clinical Pharmacist Available via Secure [place] [id number] Plan of care note* Care Plan - Tyree Fisher RN - 04/07/2025 4:21 AM EDT Problem: Pain - Adult Goal: Verbalizes/displays adequate comfort level or baseline comfort level Outcome: Progressing Problem: Safety - Adult Goal: Free from fall injury Outcome: Progressing Problem: Discharge Planning Goal: Discharge to home or other facility with appropriate resources Outcome: Progressing Problem: Chronic Conditions and Co-morbidities Goal: Patient's chronic conditions and co-morbidity symptoms are monitored and maintained or improved Outcome: Progressing Problem: Knowledge Deficit Goal: Patient/family/caregiver demonstrates understanding of disease process, treatment plan, medications, and discharge instructions Outcome: Progressing Problem: Potential for Compromised Skin Integrity Goal: Skin Integrity is Maintained or Improved Outcome: Progressing Goal: Nutritional status is improving Outcome: Progressing Problem: Urinary Incontinence Goal: Perineal skin integrity is maintained or improved Outcome: Progressing [facility] [id number] Consult note* Delgado Sorto MD - 04/06/2025 6:03 PM EDT Associated Order(s): IP CONSULT TO ORTHOPAEDIC SURGERY Images from the original note were not included. Ortho Consult Patient: Viral Ann Date of : 1975 Acct: [id number] PCP: No primary care provider on file. Date of Admission: 04/02/2025 Date of Service: Pt seen/examined on 04/06/2025 Chief Complaint: Right ankle cellulitis History Of Present Illness: This is a 49 y.o. male who has cellulitis of the right ankle and dorsalfoot. Patient states that he has previously had an infection in the similar area approximately 4 months ago that was treated with antibiotics and improved. He states that the new infection has been present for several weeks and pain with ambulation is what prompted him to present to the hospital. He denies any new numbness and tingling in his lower extremity. He denies fevers and chills. Patient does not have any documented past medical history. 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 He notes chronic swelling to the right lower extremity and attributes his cellulitis to this. He is not known to any local orthopedic surgeons. He did have a left biceps repair around 20 to 30 years ago in [place]. 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 Patient ambulation status: no difficulty Antiplatelets/Anticoagulation includes: none Hx from chart and/or Pt. Past Medical History: Medical History[1] Past Surgical History: Surgical History[2] Home Medications: Prior to Admission medications Not on File Current Hospital Medications: Current Medications[3] Allergies: Patient has no known allergies. Social History: Social History Socioeconomic History Marital status: Single Spouse name: Not on file Number of children: Not on file Years of education: Not on file Highest education level: Not on file Occupational History Not on file Tobacco Use Smoking status: Some Days Types: Cigarettes Smokeless tobacco: Never Vaping Use Vaping status: Never Used Substance and Sexual Activity Alcohol use: Not Currently Drug use: Yes Types: Cocaine, Methamphetamines, Marijuana Sexual activity: Not on file Other Topics Concern Not on file Social History Narrative Not on file Social Drivers of Health Financial Resource Strain: Not on file Food Insecurity: Not on file Transportation Needs: Not on file Physical Activity: Not on file Stress: Not on file Social Connections: Not on file Intimate Partner Violence: Not on file Housing Stability: Not on file Family History: Family History[4] Further Family History is noncontributory to this injury. REVIEW OF SYSTEMS: Review of Systems - General ROS: negative for - chills, fatigue, fever, malaise or night sweats Psychological ROS: negative Ophthalmic ROS: negative ENT ROS: negative for - headaches or sore throat Hematological and Lymphatic ROS: negative for - bleeding problems or blood clots Respiratory ROS: no cough, shortness of breath, or wheezing Cardiovascular ROS: no chest pain or dyspnea on exertion Gastrointestinal ROS: negative Musculoskeletal ROS: See HPI Neurological ROS: negative for - bowel and bladder control changes, gait disturbance or numbness/tingling All other systems reviewed and are negative PHYSICAL EXAM: BP 90/50 Pulse 65 Temp 37.1 C (98.7 F) (Temporal) Resp 17 Ht 1.905 m (6' 3) Wt 113 kg (250 lb) SpO2 95% BMI 31.25 kg/m GENERAL APPEARANCE: Awake and oriented x 3. No acute distress, except appropriate to injury. MOOD AND AFFECT: Calm appropriate to situation GAIT AND STATION: Patient is in bed and unable to ambulate secondary to known injury. COORDINATION and BALANCE: Patient is grossly coordinated unable to ambulate secondary to known injury. Right Upper Extremity: -No obvious pain or deformity to inspection with normal joint range of motion, stability, and muscle strength except noted below -No TTP over clavicle, shoulder, humerus, elbow, forearm, wrist, hand, or fingers -TTP: nontender throughout extremity -Radial pulse palpable -SILT in radial/median/ ulnar nerve distributions -Motor + AIN/PIN/ulnar nerve functions -Skin intact except where noted below -Painless pROM at shoulder/elbow/wrist Injection site noted in the right antecubital fossa Left Upper Extremity: -No obvious pain or deformity to inspection with normal joint range of motion, stability, and muscle strength except noted below -No TTP over clavicle, shoulder, humerus, elbow, forearm, wrist, hand, or fingers -TTP: nontender throughout extremity -Radial pulse palpable -SILT in radial/median/ ulnar nerve distributions -Motor + AIN/PIN/ulnar nerve functions -Skin intact except where noted below -Painless pROM at shoulder/elbow/wrist Atraumatic Right Lower Extremity: -No obvious pain or deformity to inspection with normal joint range of motion, stability, and muscle strength except noted below -No TTP over pelvis, hip, thigh, knee, tibia, medial mal, calc, forefoot -TTP: lateral mal and midfoot -Pulse: DP Palpable -SILT in the superficial peroneal, deep peroneal, tibial, sural, saphenous nerve distributions -Motor function of quad, tibialis anterior, extensor hallucis longus, and gactrocsoleus complex intact -Skin intact except where noted below -Painless pROM at hip/knee/ankle Erythema and edema noted over the right lateral ankle and dorsum of the foot. The area of erythema is warm to touch. There is no obvious palpable fluctuance or isolated palpable abscess but the skin is quite boggy and he does not allow thorough evaluation due to pain. There is some epidermal lysis in the middle of the wound. There is no drainage from the wound. Left Lower Extremity: -No obvious pain or deformity to inspection with normal joint range of motion, stability, and muscle strength except noted below -No TTP over pelvis, hip, thigh, knee, tibia, lateral mal, medial mal, calc, midfoot, forefoot -TTP: Nontender throughout extremity -Pulse: DP Palpable -SILT in the superficial peroneal, deep peroneal, tibial, sural, saphenous nerve distributions -Motor function of quad, tibialis anterior, extensor hallucis longus, and gactrocsoleus complex intact -No Lymphedema -Skin intact except where noted below -Painless pROM at hip/knee/ankle Atraumatic Labs: CBC: Lab Results Component Value Date WBC 6.5 04/05/2025 RBC 4.02 (L) 04/05/2025 BMP: Lab Results Component Value Date GLUCOSE 99 04/05/2025 CO2 23 04/05/2025 BUN 13 04/05/2025 CREATININE 1.06 04/05/2025 CALCIUM 8.3 (L) 04/05/2025 PT/INR: No results found for: PT, INR, APTT Type and Screen: No results found for: RH, LABANTI CRP: Lab Results Component Value Date CRP 90.3 (H) 04/05/2025 ESR: Lab Results Component Value Date SEDRATE 17 (H) 04/05/2025 HgBA1c: No components found for: LABA1C The above labs were reviewed by me. Radiology: The below images were independently reviewed and interpreted with pertinent findings noted below. XR: Right foot: No acute fracture or dislocation. Hallux valgus deformity noted. There is soft tissue edema noted over the lateral aspect of the fifth metatarsal head that corresponds with bunionette deformity MRI: Right foot: Incompletely visualized subcutaneous edema and fluid collection overlying the lateral aspect of the foot/ankle. Soft tissue edema noted over the dorsum and lateral aspect of the right foot that is consistent with cellulitis. There is fluid collection present over the lateral aspect of the fifth metatarsal head that is consistent with bursitis from his bunionette deformity. No other abscesses noted, unable to fully visualize right ankle. Radiology reports reviewed. ASSESSMENT: 49 y.o. male right ankle cellulitis PLAN: -No acute surgical intervention. Recommend MRI with and without contrast of the right ankle to further evaluate if there is an abscess underlying the noted skin cellulitis. Recommend continued IV antibiotics for cellulitis. Recommend pain control with medical management. -WB as tolerated right lower extremity -Activity as tolerated -Ice & elevate -Neurovascular checks -Skin checks -IV antibiotics, medical management, and pain control per primary team -Dispo per primary -Orthopaedic surgery will follow for completion of right ankle MRI. Please page day habilitation specialist orthopaedicresident for questions or concerns. Santiago Chicas MD Orthopaedic Surgery PGY-1 Attestation: The patient was seen and examined on 04/07/25. All relevant radiographs were reviewed and independently interpreted which show a bunionette deformity of the right foot with associated bursal fluid collection seen on MRI. I agree with what is documented above with any changes noted. Theplan of care was discussed with the evaluating resident. Patient will require prescription medication for pain management - specifically has required oral oxycodone. I saw Viral this afternoon. He was coming by family. He has erythema and pain over the lateral side of his right ankle. This is consistent with cellulitis with concern for an underlying abscess. Heunderwent a right foot MRI which did not show any concerning findings. He does have some fluid collection over the bunion on his right foot but this is benign appearing on exam and nontender. He is pinpoint tender over the lateral malleolus so we will order an MRI of his right ankle to better evaluate this. We did discuss that this could require surgery during this admission or we may continue totreat him with IV antibiotics depending on what the MRI results show. All of their questions were answered. Electronically signed by Delgado Sorto M.D. 04/07/2025 at 1:54 PM. [1] History reviewed. No pertinent past medical history. [2] History reviewed. No pertinent surgical history. [3] Current Facility-Administered Medications: acetaminophen (Tylenol) tablet 650 mg, 650 mg, Oral, q6h PRN OR acetaminophen (Tylenol) suppository 650 mg, 650 mg, Rectal, q6h PRN, Adam Gauthier DO enoxaparin (Lovenox) syringe 40 mg, 40 mg, SubCUTAneous, Daily, Adam Gauthier DO, 40 mg at 04/06/25 0959 gabapentin (Neurontin) capsule 300 mg, 300 mg, Oral, q8h, Agapito Hoffman MD, 300 mg at 04/06/25 1216 gadopiclenol (Vueway) injection 11 mL, 11 mL, IntraVENous, Once PRN, Candelaria Neely MD LORazepam (Ativan) injection 1 mg, 1 mg, IntraVENous, q3h PRN, Adam Gauthier DO, 1 mg at 04/04/25 115 melatonin tablet 3 mg, 3 mg, Oral, Nightly PRN, Adam Gauthier DO, 3 mg at 04/05/25 194 ondansetron ODT (Zofran-ODT) disintegrating tablet 4 mg, 4 mg, Oral, q8h PRN OR ondansetron (Zofran) injection 4 mg, 4 mg, IntraVENous, q6h PRN, Adam Gauthier DO piperacillin-tazobactam (Zosyn) 4,500 mg in sodium chloride 0.9 % 100 mL IVPB Mini-Bag Plus, 4,500 mg, IntraVENous, q6h, Adam Gauthier DO, Last Rate: 33.3 mL/hr at 04/06/25 1723, 4,500 mg at 04/06/25 1723 polyethylene glycol (PEG) 3350 (Miralax) packet 17 g, 17 g, Oral, Daily PRN, Adam Gauthier DO traZODone (Desyrel) tablet 100 mg, 100 mg, Oral, Nightly, Micheline Moeller, BANKRUPTCY PROCESSOR - COMPOUND COATING MACHINE OFFBEARER, 100 mg at 04/05/25 194 vancomycin IVPB 1250 mg in 250 mL NS (premix), 1,250 mg, IntraVENous, q12h, David Wolfe DO, Stopped at 04/06/25 0430 [4] No family history on file. FIZZA Phone: [phone] 881-381206-30-2025 Consult note* Delgado Sorto MD - 04/06/2025 6:03 PM EDTAssociated Order(s): IP CONSULT TO ORTHOPAEDIC SURGERY Images from the original note were not included. Ortho Consult Patient: Viral Ann Date of : 1975 Acct: [id number] PCP: No primary care provider on file. Date of Admission: 04/02/2025 Date of Service: Pt seen/examined on 04/06/2025 Chief Complaint: Right ankle cellulitis History Of Present Illness: This is a 49 y.o. male who has cellulitis of the right ankle and dorsalfoot. Patient states that he has previously had an infection in the similar area approximately 4 months ago that was treated with antibiotics and improved. He states that the new infection has been present for several weeks and pain with ambulation is what prompted him to present to the hospital. He denies any new numbness and tingling in his lower extremity. He denies fevers and chills. Patient does not have any documented past medical history. 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 He notes chronic swelling to the right lower extremity and attributes his cellulitis to this. He is not known to any local orthopedic surgeons. He did have a left biceps repair around 20 to 30 years ago in [place]. 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 Patient ambulation status: no difficulty Antiplatelets/Anticoagulation includes: none Hx from chart and/or Pt. Past Medical History: Medical History[1] Past Surgical History: Surgical History[2] Home Medications: Prior to Admission medications Not on File Current Hospital Medications: Current Medications[3] Allergies: Patient has no known allergies. Social History: Social History Socioeconomic History Marital status: Single Spouse name: Not on file Number of children: Not on file Years of education: Not on file Highest education level: Not on file Occupational History Not on file Tobacco Use Smoking status: Some Days Types: Cigarettes Smokeless tobacco: Never Vaping Use Vaping status: Never Used Substance and Sexual Activity Alcohol use: Not Currently Drug use: Yes Types: Cocaine, Methamphetamines, Marijuana Sexual activity: Not on file Other Topics Concern Not on file Social History Narrative Not on file Social Drivers of Health Financial Resource Strain: Not on file Food Insecurity: Not on file Transportation Needs: Not on file Physical Activity: Not on file Stress: Not on file Social Connections: Not on file Intimate Partner Violence: Not on file Housing Stability: Not on file Family History: Family History[4] Further Family History is noncontributory to this injury. REVIEW OF SYSTEMS: Review of Systems - General ROS: negative for - chills, fatigue, fever, malaise or night sweats Psychological ROS: negative Ophthalmic ROS: negative ENT ROS: negative for - headaches or sore throat Hematological and Lymphatic ROS: negative for - bleeding problems or blood clots Respiratory ROS: no cough, shortness of breath, or wheezing Cardiovascular ROS: no chest pain or dyspnea on exertion Gastrointestinal ROS: negative Musculoskeletal ROS: See HPI Neurological ROS: negative for - bowel and bladder control changes, gait disturbance or numbness/tingling All other systems reviewed and are negative PHYSICAL EXAM: BP 90/50 Pulse 65 Temp 37.1 C (98.7 F) (Temporal) Resp 17 Ht 1.905 m (6' 3) Wt 113 kg (250 lb) SpO2 95% BMI 31.25 kg/m GENERAL APPEARANCE: Awake and oriented x 3. No acute distress, except appropriate to injury. MOOD AND AFFECT: Calm appropriate to situation GAIT AND STATION: Patient is in bed and unable to ambulate secondary to known injury. COORDINATION and BALANCE: Patient is grossly coordinated unable to ambulate secondary to known injury. Right Upper Extremity: -No obvious pain or deformity to inspection with normal joint range of motion, stability, and muscle strength except noted below -No TTP over clavicle, shoulder, humerus, elbow, forearm, wrist, hand, or fingers -TTP: nontender throughout extremity -Radial pulse palpable -SILT in radial/median/ ulnar nerve distributions -Motor + AIN/PIN/ulnar nerve functions -Skin intact except where noted below -Painless pROM at shoulder/elbow/wrist Injection site noted in the right antecubital fossa Left Upper Extremity: -No obvious pain or deformity to inspection with normal joint range of motion, stability, and muscle strength except noted below -No TTP over clavicle, shoulder, humerus, elbow, forearm, wrist, hand, or fingers -TTP: nontender throughout extremity -Radial pulse palpable -SILT in radial/median/ ulnar nerve distributions -Motor + AIN/PIN/ulnar nerve functions -Skin intact except where noted below -Painless pROM at shoulder/elbow/wrist Atraumatic Right Lower Extremity: -No obvious pain or deformity to inspection with normal joint range of motion, stability, and muscle strength except noted below -No TTP over pelvis, hip, thigh, knee, tibia, medial mal, calc, forefoot -TTP: lateral mal and midfoot -Pulse: DP Palpable -SILT in the superficial peroneal, deep peroneal, tibial, sural, saphenous nerve distributions -Motor function of quad, tibialis anterior, extensor hallucis longus, and gactrocsoleus complex intact -Skin intact except where noted below -Painless pROM at hip/knee/ankle Erythema and edema noted over the right lateral ankle and dorsum of the foot. The area of erythema is warm to touch. There is no obvious palpable fluctuance or isolated palpable abscess but the skin is quite boggy and he does not allow thorough evaluation due to pain. There is some epidermal lysis in the middle of the wound. There is no drainage from the wound. Left Lower Extremity: -No obvious pain or deformity to inspection with normal joint range of motion, stability, and muscle strength except noted below -No TTP over pelvis, hip, thigh, knee, tibia, lateral mal, medial mal, calc, midfoot, forefoot -TTP: Nontender throughout extremity -Pulse: DP Palpable -SILT in the superficial peroneal, deep peroneal, tibial, sural, saphenous nerve distributions -Motor function of quad, tibialis anterior, extensor hallucis longus, and gactrocsoleus complex intact -No Lymphedema -Skin intact except where noted below -Painless pROM at hip/knee/ankle Atraumatic Labs: CBC: Lab Results Component Value Date WBC 6.5 04/05/2025 RBC 4.02 (L) 04/05/2025 BMP: Lab Results Component Value Date GLUCOSE 99 04/05/2025 CO2 23 04/05/2025 BUN 13 04/05/2025 CREATININE 1.06 04/05/2025 CALCIUM 8.3 (L) 04/05/2025 PT/INR: No results found for: PT, INR, APTT Type and Screen: No results found for: RH, LABANTI CRP: Lab Results Component Value Date CRP 90.3 (H) 04/05/2025 ESR: Lab Results Component Value Date SEDRATE 17 (H) 04/05/2025 HgBA1c: No components found for: LABA1C The above labs were reviewed by me. Radiology: The below images were independently reviewed and interpreted with pertinent findings noted below. XR: Right foot: No acute fracture or dislocation. Hallux valgus deformity noted. There is soft tissue edema noted over the lateral aspect of the fifth metatarsal head that corresponds with bunionette deformity MRI: Right foot: Incompletely visualized subcutaneous edema and fluid collection overlying the lateral aspect of the foot/ankle. Soft tissue edema noted over the dorsum and lateral aspect of the right foot that is consistent with cellulitis. There is fluid collection present over the lateral aspect of the fifth metatarsal head that is consistent with bursitis from his bunionette deformity. No other abscesses noted, unable to fully visualize right ankle. Radiology reports reviewed. ASSESSMENT: 49 y.o. male right ankle cellulitis PLAN: -No acute surgical intervention. Recommend MRI with and without contrast of the right ankle to further evaluate if there is an abscess underlying the noted skin cellulitis. Recommend continued IV antibiotics for cellulitis. Recommend pain control with medical management. -WB as tolerated right lower extremity -Activity as tolerated -Ice & elevate -Neurovascular checks -Skin checks -IV antibiotics, medical management, and pain control per primary team -Dispo per primary -Orthopaedic surgery will follow for completion of right ankle MRI. Please page day habilitation specialist orthopaedicresident for questions or concerns. Santiago Chicas MD Orthopaedic Surgery PGY-1 Attestation: The patient was seen and examined on 04/07/25. All relevant radiographs were reviewed and independently interpreted which show a bunionette deformity of the right foot with associated bursal fluid collection seen on MRI. I agree with what is documented above with any changes noted. Theplan of care was discussed with the evaluating resident. Patient will require prescription medication for pain management - specifically has required oral oxycodone. I saw Viral this afternoon. He was coming by family. He has erythema and pain over the lateral side of his right ankle. This is consistent with cellulitis with concern for an underlying abscess. Heunderwent a right foot MRI which did not show any concerning findings. He does have some fluid collection over the bunion on his right foot but this is benign appearing on exam and nontender. He is pinpoint tender over the lateral malleolus so we will order an MRI of his right ankle to better evaluate this. We did discuss that this could require surgery during this admission or we may continue totreat him with IV antibiotics depending on what the MRI results show. All of their questions were answered. Electronically signed by Delgado Sorto M.D. 04/07/2025 at 1:54 PM. [1] History reviewed. No pertinent past medical history. [2] History reviewed. No pertinent surgical history. [3] Current Facility-Administered Medications: acetaminophen (Tylenol) tablet 650 mg, 650 mg, Oral, q6h PRN OR acetaminophen (Tylenol) suppository 650 mg, 650 mg, Rectal, q6h PRN, Adam Gauthier DO enoxaparin (Lovenox) syringe 40 mg, 40 mg, SubCUTAneous, Daily, Adam Gauthier DO, 40 mg at 04/06/25 0959 gabapentin (Neurontin) capsule 300 mg, 300 mg, Oral, q8h, Agapito Hoffman MD, 300 mg at 04/06/25 1216 gadopiclenol (Vueway) injection 11 mL, 11 mL, IntraVENous, Once PRN, Candelaria Neely MD LORazepam (Ativan) injection 1 mg, 1 mg, IntraVENous, q3h PRN, Adam Gauthier DO, 1 mg at 04/04/25 1152 melatonin tablet 3 mg, 3 mg, Oral, Nightly PRN, Adam Gauthier DO, 3 mg at 04/05/25 1944 ondansetron ODT (Zofran-ODT) disintegrating tablet 4 mg, 4 mg, Oral, q8h PRN OR ondansetron (Zofran) injection 4 mg, 4 mg, IntraVENous, q6h PRN, Adam Gauthier DO piperacillin-tazobactam (Zosyn) 4,500 mg in sodium chloride 0.9 % 100 mL IVPB Mini-Bag Plus, 4,500 mg, IntraVENous, q6h, Adam Gauthier DO, Last Rate: 33.3 mL/hr at 04/06/25 1723, 4,500 mg at 04/06/25 1723 polyethylene glycol (PEG) 3350 (Miralax) packet 17 g, 17 g, Oral, Daily PRN, Adam Gauthier DO traZODone (Desyrel) tablet 100 mg, 100 mg,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 and to alert nursing and physician staff to any changes in strength or mobility; pt verbalized understanding. No further PT needs at this time. Admitting Diagnosis: sepsis Prognosis: good Performance Deficits /Impairments: N/A Decision Making: Low Complexity Subjective Pt resting in bed and agreeable to PT tx; RN okayed session Pain: 0-10 pain scale: 8/10 Location: R foot Past Medical History: Medical History[1] Past Surgical History: Surgical History[2] Admission Diagnosis: Patient Active Problem List Diagnosis Date Noted Sepsis (HCC) 04/02/2025 Medical Precautions: No active isolations Proper PPE donned/doffed in accordance with facility standards. Fall Risk: Morales Fall Risk Score: 45 (High Risk) Precautions/Restrictions: Lines/Drains/Airways: IV, video monitor Family/Caregiver Present: none Overall Cognitive Status: WFL Overall Orientation Status: Oriented x4 Vision: Not Assessed Hearing: normal Social/Functional History Patient is currently homeless. Assistive Equipment: None Prior Level of Function Prior Level of ADL Function: Independent Prior Level of Mobility: Independent; Device: None Prior Level of Transfers: Independent Objective Lower Extremity Assessment AROM: WFL PROM: WFL Strength: WFL Sensation: Not assessed this session Balance: Balance During Session: Posture: good Sitting - Static: Independent Sitting - Dynamic: Independent Standing - Static: Independent Standing - Dynamic: Independent Bed Mobility: Supine to sit: Independent Sit to supine: Independent Transfers Sit to stand: Independent Stand to sit: Independent Ambulation Ambulation 1 Assistive device(s) used: None Assist level: Independent Distance (ft): 100ft Quality of gait: mild decreased florencia and step amplitude - improved with practice Outcome Measures AM-PAC How much HELP from another person do you currently need Turning from your back to your side while in a flat bed without using bedrails?: None Moving from lying on your back to sitting on the side of a flat bed without using bedrails?: None Moving to and from a bed to a chair (including a wheelchair)?: None Standing up from a chair using your arms (wheelchair or bedside chair)?: None Walking in a hospital room?: None Stair climbing assessed?: No AM-PAC Inpatient Mobility Raw Score (No Stairs) : 20 JH-HLM -HLM Score: Walked 25 ft or more (i.e. walked outside of room) Plan No skilled acute PT indicated at this time. Please reconsult should changes occur. Safety/Education Safety Safety Devices in place: call light within reach, nurse notified, patient left sitting EOB, and video monitor Restraints: No Education Education Given To: patient Education Provided: PT Role and Discharge Recommendations Education Method: Verbal Barriers to Learning: None Education Outcome: Verbalized Understanding Goals Patient Stated Goal: none stated Encounter Problems Encounter Problems (Active) Pain - Adult Therapy Time Individual Co-Treatment Co-Evaluation Time In 1506 Time Out 1514 Minutes 8 Jazmine Daily, PT Patient's Physical Therapy Plan of Care supervision is transferred to a [facility] Services Physical Therapist. Goals and/or treatment plan was established in collaboration with patient/family/other representatives. [1] History reviewed. No pertinent past medical history. [2] History reviewed. No pertinent surgical history.[facility] 04-05-2025 NotePharmacy to Dose Vancomycin - Progress Note Lab Results Component Value Date CREATININE 1.06 04/05/2025 BUN 13 04/05/2025 WBC 6.5 04/05/2025 VANCOTROUGH 6.7 04/04/2025 Doses, serum creatinine, and vancomycin levels interfaced automatically to Mobiscope and data has been analyzed and interpreted. Infectious Diagnosis: Sepsis Est CrCl: >125 mL/min (Cockcroft-Gault) Assessment: Current regimen vancomycin 1500 mg every 18 hours (13.3 mg/kg) Predicted AUC = 368 mg/L*hr (goal 400-600 mg/L*hr) PAUC = 30% (probability that AUC is >400 mg/L*hr) Pconc = 0% (probability that Ctrough is above 20 mcg/mL (toxicity)) Plan: Is the current dose therapeutic? [] Yes [x] No - predicted AUC subtherapeutc 2/2 SCr decrease (1.38-->1.06) --> change current regimen to vancomycin 1250 mg every 12 hours (11.1 mg/kg) for predicted AUC 459 mg/L*hr, PAUC = 82% , and Pconc* = 4%. Obtain next level on 04/06/25 @ 0900. Trend serum creatinine. Trend AUC using Bayesian Modeling. Orders placed. DATE: 04/05/25 TIME: 2:00 PM Jennifer Stiles PharmD Clinical Pharmacist Available via Secure [place] [id number] NoteOCCUPATIONAL THERAPY [facility] Initial Evaluation Name/MRN: Viral Ann ([id number]) Evaluation Date: 04/05/2025 Date of : 1975 Admission Date: 04/02/2025 6:24 PM Age: 49 y.o. [facility] A Discharge Recommendation: Home independently Equipment Needed: No Assessment IMPRESSION: Patient reports that he is currently homeless but is independent with ADLs at baseline and was not using an assistive device for mobility prior to admission. On eval patient reports ongoing pain in the right foot at rest and with movement. Demonstrates independence with all functional transfers and mobility in room without device and had no loss of balance. Patient has been up in room independently for self-care tasks without physical assist. At this time patient has no acute OT needs will sign off. Admitting Diagnosis: R foot pain (chronic) -- XR shows hallux valgus without definitive fx and no evidence of osteomyelitis per IM notes. Pt with active up with assist order and no WB restrictions per orders. Performance Deficits /Impairments: Increased Pain Prognosis: Good Decision Making: Low Complexity Subjective In bed, agreeable Pain: Parry-Caballero Pain Ratin = Hurts little more Pain Location: R foot Past Medical History: Medical History[1] Past Surgical History: Surgical History[2] Admission Diagnosis: Patient Active Problem List Diagnosis Date Noted Sepsis (HCC) 04/02/2025 Medical Precautions: No active isolations Proper PPE donned/doffed in accordance with facility standards. Fall Risk: Morales Fall Risk Score: 45 (High Risk) Precautions/Restrictions: N/A Family/Caregiver Present: none Overall Cognitive Status: WNL Overall Orientation Status: Oriented x4 Social/Functional History Patient is currently homeless. Assistive Equipment: None Prior Level of Function Prior Level of ADL Function: Independent Prior Level of Mobility: Independent; Device: None Prior Level of Transfers: Independent Objective ADLs LE Dressing: Independent Toileting: Independent Grooming: Independent Able to complete ADLs in room without assist Upper Extremity Assessment AROM: WFL PROM: Not assessed this session Strength: WFL Bed Mobility Supine to sit: Independent Sit to supine: Independent Transfers/Mobility Sit to stand: Independent Stand to sit: Independent Sitting balance: Independent Standing balance: Independent Functional mobility: Independent Indep mob near bedside without device, no LOB Device(s) used: None AM-PAC AM-PAC Inpatient Daily Activity Raw Score: 24 ADL Inpatient CMS G-Code Modifier: CH Plan No skilled acute OT indicated at this time. Please reconsult should changes occur. Safety/Education Safety Safety Devices in place: All fall risk precautions in place, call light within reach, left in bed, nurse notified, no alarms engaged upon entry, and video monitor Restraints: No Education Education Given To: patient Education Provided: OT Role and Plan of Care Education Method: Verbal Barriers to Learning: None Education Outcome: Verbalized Understanding Goals Patient Stated Goal: pain control Therapy Time Individual Co-Treatment Co-Evaluation Time In 1045 Time Out 1055 Minutes 10 Valeriy Benjamin OT Patient's Occupational Therapy Plan of Care supervision is transferred to a [facility] Therapy Services Occupational Therapist. Goals and/or treatment plan was established in collaboration with patient/family/other representatives. [1] History reviewed. No pertinent past medical history. [2] History reviewed. No pertinent surgical history.[facility] 04-05-2025 NoteAddiction Medicine Progress Note Patient: Virla Ann Chief Complaint Patient presents with Shortness of Breath Pt has hx of blood clots in his right leg and IVC filter, pt reports shortness of breath. Pt able to speak in full sentences at this time. Problem List: Principal Problem: Sepsis (HCC) Subjective Interim History: Patient was lying in bed. Denies symptoms of withdrawal. Overall, withdrawal symptoms are improved. No other physical complaints voiced. Did not require PRN medicine. No signs and/or symptoms of withdrawal observed. No events overnight documented. Objective Review of Systems: All ROS was completed and was negative unless stated above Physical Exam: Vitals: 04/04/25 0753 04/04/25 1737 04/04/25 1800 04/05/25 0503 BP: 99/58 (!) 87/59 125/69 112/76 BP Location: Right arm Right arm Right arm Right arm Patient Position: Lying Lying Sitting Lying Pulse: 84 87 98 74 Resp: 20 18 18 Temp: 37.4 ?C (99.4 ?F) 37.4 ?C (99.3 ?F) 36.9 ?C (98.4 ?F) TempSrc: Temporal Temporal Temporal SpO2: 94% 94% 92% Weight: Height: Physical Exam Vitals and nursing note reviewed. Constitutional: Appearance: He is not diaphoretic. Cardiovascular: Rate and Rhythm: Normal rate. Pulmonary: Effort: Pulmonary effort is normal. Musculoskeletal: General: Normal range of motion. Skin: General: Skin is dry. Coloration: Skin is not pale. Neurological: Mental Status: He is alert and oriented to person, place, and time. Psychiatric: Attention and Perception: He does not perceive auditory or visual hallucinations. Mood and Affect: Mood normal. Behavior: Behavior normal. Thought Content: Thought content normal. Thought content does not include homicidal or suicidal ideation. Judgment: Judgment normal. Medications: Scheduled Meds[1] PRN Meds[2] Labs: Last 24 hours: Recent Results (from the past 24 hours) Comprehensive metabolic panel Collection Time: 04/04/25 10:47 AM Result Value Ref Range SODIUM 137 136 - 145 mmol/L POTASSIUM 3.4 (L) 3.5 - 5.1 mmol/L CHLORIDE 107 98 - 107 mmol/L CARBON DIOXIDE 23 22 - 29 mmol/L ANION GAP 7 3 - 13 mmol/L UREA NITROGEN 15 9 - 23 mg/dL CREATININE 1.38 (H) 0.72 - 1.25 mg/dL GLUCOSE 118 (H) 74 - 100 mg/dL CALCIUM 7.9 (L) 8.4 - 10.2 mg/dL AST (SGOT) 42 (H) <34 U/L ALT 23 <40 U/L ALKALINE PHOSPHATASE 24 (L) 40 - 150 U/L ALBUMIN 2.8 (L) 3.5 - 5.0 g/dL BILIRUBIN, TOTAL 0.5 <1.2 mg/dL TOTAL PROTEIN 6.1 (L) 6.4 - 8.3 g/dL eGFR 62.3 >60.0 mL/min/1.73m*2 CBC auto differential Collection Time: 04/04/25 10:47 AM Result Value Ref Range Auto WBC 11.5 (H) 3.6 - 10.7 10*3/uL RBC 4.05 (L) 4.40 - 5.90 10*6/uL Hemoglobin 12.3 (L) 13.0 - 18.0 g/dL Hematocrit 36.7 (L) 40.0 - 52.0 % MCV 90.6 77.0 - 99.0 fL MCH 30.4 26.0 - 34.0 pg MCHC 33.5 30.5 - 36.0 % RDW 13.5 11.5 - 15.0 % Platelets 159 140 - 440 10*3/uL MPV 10.3 9.0 - 12.7 fL nRBC 0.0 0.0 - 2.0 /100 WBCs Neutrophils Relative 81.5 38.0 - 82.0 % Lymphocytes Relative 8.5 (L) 15.0 - 45.0 % Monocytes Relative 9.2 5.0 - 13.0 % Eosinophils Relative 0.0 0.0 - 6.0 % Basophils Relative 0.3 0.0 - 2.0 % Immature Grans % 0.5 0.0 - 2.0 % Neutrophils Absolute 9.4 (H) 1.8 - 7.5 10*3/uL Lymphocytes Absolute 1.0 1.0 - 4.3 10*3/uL Monocytes Absolute 1.1 (H) 0.0 - 0.9 10*3/uL Eosinophils Absolute 0.0 0.0 - 0.5 10*3/uL Basophils Absolute 0.0 0.0 - 0.2 10*3/uL Immature Grans Absolute 0.1 (H) <0.1 10*3/uL CK Collection Time: 04/04/25 10:47 AM Result Value Ref Range CK 928 (H) 30 - 185 U/L Vancomycin, AUC Timed Dosing Collection Time: 04/04/25 10:47 AM Result Value Ref Range VANCOMYCIN, AUC 6.7 ug/mL Magnesium Collection Time: 04/04/25 10:47 AM Result Value Ref Range MAGNESIUM 1.7 1.6 - 2.6 mg/dL Assessment & Plan Methamphetamine use disorder, severe Counseled patient on biopsychosocial consequences of substance use. Encouraged professional chemical dependency treatment. Encouraged 12 step meeting attendance. Addiction treatment plan with patient: Patient not interested in any aftercare treatment. Stimulant withdrawal Last used CREWMAN MAIN BATTLE TANK Continue Risperdal to manage methamphetamine withdrawal symptoms. 1 mg for dose tonight then stop Trazodone 100 mg nightly CINA scores per unit protocol. PRN medications for withdrawal symptom management Homelessness Social work following Rhabdomyolysis GUIDO Per primary team Disposition: Detox anticipated pending: Resolution of withdrawal symptoms. Medical stabilization. Labs/tests/tasks: reviewed. Identification Printing Machine Setter recommendations: None. Remaining medical management per primary team. Will sign off, thank you for this consultation, reconsult if needed Micheline Moeller, BANKRUPTCY PROCESSOR - COMPOUND COATING MACHINE OFFBEARER Addiction Medicine 04/05/2025 at 10:25 AM Note: Narrative portions of note written using [employer] dictation software. Efforts are made to dictate clearly and proofread but errors in dictatio (more content not included)...[facility]06-29-2025 NoteMed Team Progress Note Viral Ann : 1975(49 y.o.) Date: April 05, 2025 Med Team: Monica Attending: Dr. Neely Chief Complaint: Right foot injury Brief Hospital Course: Viral Ann is a 49 y.o. male with PMHx IVDU and substance-induced psychosis that presented to [facility] on 04/02/2025 from home for acute on chronic right foot pain. A picture of the patient's right foot is uploaded in the media tab. Subjective: - Pt declined MRI last night - Currently, Viral is seen lying in hospital bed with eyes closed, easily roused to voice. He is much more conversant today and even offers spontaneous history regarding his injury. He has no new concerns or complaints today. He states he did not decline the MRI last night, the engineer technician came into the room and asked if he wanted it done last night or this morning, so he chose this morning. He is agreeable to getting imaging and labs done today. We discussed the importance of both imaging and labs, he verbalized understanding. PRN meds used in last 24hrs: hydroxyzine 50 x1, ativan 1 x1 Pt seen and examined earlier today on bedside resident teaching rounds. Hx and PE independently obtained and agree with above. Resting comfortably. Slightly better spontaneous eye contact today. Is more conversant and spontaneously offers information. Willing to cooperate with labs and MRI today. Review of Systems Constitutional: Negative for chills and fever. Respiratory: Negative for shortness of breath. Cardiovascular: Negative for chest pain. Gastrointestinal: Negative for abdominal pain and nausea. Genitourinary: Negative for difficulty urinating. Skin: Positive for wound (right foot less tender today). Psychiatric/Behavioral: Negative for hallucinations and sleep disturbance. The patient is nervous/anxious. Scheduled Meds:Scheduled Meds[1] Continuous Infusions:Continuous Meds[2] Objective: BP 112/76 (BP Location: Right arm, Patient Position: Lying) Pulse 74 Temp 36.9 ?C (98.4 ?F) (Temporal) Resp 18 Ht 6' 3 (1.905 m) Wt 250 lb (113 kg) SpO2 92% BMI 31.25 kg/m? Physical Exam Vitals reviewed. Constitutional: General: He is not in acute distress. Appearance: He is ill-appearing. He is not toxic-appearing or diaphoretic. HENT: Head: Normocephalic. Mouth/Throat: Mouth: Mucous membranes are moist. Pharynx: Oropharynx is clear. Eyes: Extraocular Movements: Extraocular movements intact. Cardiovascular: Rate and Rhythm: Normal rate. Pulmonary: Effort: Pulmonary effort is normal. No respiratory distress. Musculoskeletal: Cervical back: Normal range of motion. Right ankle: Swelling present. Tenderness present over the lateral malleolus. Left ankle: Normal. Right foot: Swelling and tenderness present. Left foot: Normal. Comments: Right foot wound stable (see picture in media tab for comparison). Significantly less tender to palpation on today's exam Neurological: General: No focal deficit present. Mental Status: He is alert and oriented to person, place, and time. Awake, alert. Appears tired but not toxic, or even ill. Right foot erythema slightly improved, although remains indurated over forefoot. No extension of regions of erythema. No new skin changes. Slightly less TTP, no lymphangitic streaking. See image under media dated today. Left foot benign. Select Recent Labs BMP: Recent Labs 04/02/25 19104/03/25 1424 04/04/25 1047 NA 137 133* 137 K 3.7 3.5 3.4* CL 101 104 107 CO2 21* 21* 23 BUN 51* 24* 15 CREATININE 2.43* 1.40* 1.38* CALCIUM 8.8 8.1* 7.9* MG -- 1.7 1.7 LFTs: Recent Labs 04/02/25213004/03/25 1424 04/04/25 1047 AST -- 50* 42* ALT -- PROT -- 6.1* 6.1* ALBUMIN -- 3.2* 2.8* BILITOT -- 0.8 0.5 BILIRUBINU Negative -- -- ALKPHOS -- 25* 24* Glucose: Recent Labs 04/02/256 04/03/25 1424 04/04/25 1047 GLUCOSE 91 94 118* Procal: No results for input(s): PROCAL in the last 72 hours. CBC: Recent Labs 04/02/25191504/03/25 0530 04/04/25 1047 WBC 16.3* 13.9* 11.5* HGB 13.3 12.6* 12.3* HCT 38.5* 37.6* 36.7* PLT 233 193 159 MCV 90.2 93.1 90.6 RDW 13.2 13.2 13.5 ABGs: No results for input(s): PHART, CRF8UAN, PO2ART, LUP5FPK, SO2ART, L8UBQUFE in the last 72 hours. Lactic Acid: Recent Labs 04/02/251915 LACTATE 1.6 INR: No results for input(s): INR in the last 72 hours. Cardiac Injury Profile: Recent Labs 04/02/25191504/02/25 2102 04/03/25 1424 04/04/25 1047 CKTOTAL 1,504* 1,296* 1,021* 928* TROPHSBASE 5 -- -- -- TROPHS2 -- 6 -- -- Notable Prior Labs: No results found for: TSH, VITD25, PSA, INR, GLUF Assessment and Plan: Acute on chronic R foot pain, cellulitis- clinically minimally improved, less pain although see very TTP, WBC trending down Reported history of R foot infection (NOS) -XR shows hallux valgus without definitive fx and no evidence of osteomyel (more content not included)...[facility]06-28-2025 Plan of care note* Care Plan - Jen Byrne RN - 04/04/2025 11:07 PM EDT Problem: Pain - Adult Goal: Verbalizes/displays adequate comfort level or baseline comfort level Outcome: Progressing Problem: Safety - Adult Goal: Free from fall injury Outcome: Progressing Problem: Discharge Planning Goal: Discharge to home or other facility with appropriate resources Outcome: Progressing Problem: Chronic Conditions and Co-morbidities Goal: Patient's chronic conditions and co-morbidity symptoms are monitored and maintained or improved Outcome: Progressing Problem: Knowledge Deficit Goal: Patient/family/caregiver demonstrates understanding of disease process, treatment plan, medications, and discharge instructions Outcome: Progressing Problem: Potential for Compromised Skin Integrity Goal: Skin Integrity is Maintained or Improved Outcome: Progressing Goal: Nutritional status is improving Outcome: Progressing Problem: Urinary Incontinence Goal: Perineal skin integrity is maintained or improved Outcome: Progressing [id number] NoteAttempted to get patient for mri 04/04 @2210- patient declining to come down at this [facility]06-28-2025 Procedure note* RT Shan (R)(MR) - 04/04/2025 10:25 PM EDT Attempted to get patient for mri 04/04 @2210- patient declining to come down at this time [id number] Procedure note* RT Shan (R)(MR) - 04/04/2025 10:25 PM EDT Attempted to get patient for mri 04/04 @2210- patient declining to come down at this time documented in this [facility]06-28-2025 NoteBrief Progress Note: The patient's right foot wound was reassessed this evening. The degree of swelling, erythema, and tenderness to palpation appear the same compared to the exam this morning. The photo in the media tab was used for [id number] comparison. Viral was encouraged to inform his nurse or other provider if the above symptoms worsen. [facility]06-28-2025 NotePharmacy to Dose Vancomycin - Progress Note Lab Results Component Value Date CREATININE 1.38 (H) 04/04/2025 BUN 15 04/04/2025 WBC 11.5 (H) 04/04/2025 VANCOTROUGH 6.7 04/04/2025 Doses, serum creatinine, and vancomycin levels interfaced automatically to Mobiscope and data has been analyzed and interpreted. Infectious Diagnosis: Sepsis Est CrCl: 100 mL/min (Cockcroft-Gault) Assessment: Current regimen vancomycin 1500 mg every 18 hours (13.3 mg/kg) Predicted AUC = 458 mg/L*hr (goal 400-600 mg/L*hr) PAUC = 82% (probability that AUC is >400 mg/L*hr) Pconc = 2% (probability that Ctrough is above 20 mcg/mL (toxicity)) Plan: Is the current dose therapeutic? [x] Yes - obtain next level on 04/07/25 unless predicted AUC is sub-/supra-therapeutic or change in serum creatinine. [] No Trend serum creatinine. Trend AUC using Bayesian Modeling. Orders placed. DATE: 04/04/25 TIME: 1:34 PM Jennifer Stiles PharmD Clinical Pharmacist Available via Secure [place] [id number] Nurse Note* Lelo Lux RN - 04/04/2025 8:48 AM EDT Patient refused labs. [facility] [id number] NoteMed Team Progress Note Viral Ann : 1975(49 y.o.) Date: April 04, 2025 Med Team: Monica Attending: Dr. Neely Chief Complaint: Right foot pain Subjective: - NAEO - Currently, Viral is seen lying in hospital bed with eyes closed, easily roused to voice. He is noticeably more conversant today compared to yesterday. He agrees to blood work and an MRI today. We discussed trying hydroxyzine PRN for anxiety before blood work and ativan PRN for anxiety before imaging, he is agreeable. He continued to endorse right foot pain. Denied auditory or visual hallucinations. PRN meds used in last 24hrs: ativan 1 mg x1, melatonin 3 mg x1 Pt seen and examined earlier today on bedside resident teaching rounds. Hx and PE independently obtained and agree with above. Eye contact still only intermittent, but improved over yesterday. Appears in no distress. Pt states he has no metal in body other than IVC filter. Has NOT worked with metal grinding or other means to have risk of metal in eye. No joint replacements. Review of Systems Cardiovascular: Negative for chest pain. Skin: Positive for wound (right lateral foot). Neurological: Negative for weakness and numbness. Psychiatric/Behavioral: Negative for hallucinations and sleep disturbance. The patient is nervous/anxious. Agree. Scheduled Meds:Scheduled Meds[1] Continuous Infusions:Continuous Meds[2] Objective: BP 99/58 (BP Location: Right arm, Patient Position: Lying) Pulse 84 Temp 37.4 ?C (99.4 ?F) (Temporal) Resp 20 Ht 6' 3 (1.905 m) Wt 250 lb (113 kg) SpO2 94% BMI 31.25 kg/m? Physical Exam Vitals reviewed. Constitutional: General: He is not in acute distress. Appearance: He is ill-appearing. He is not toxic-appearing or diaphoretic. HENT: Head: Normocephalic. Eyes: Comments: Unable to adequately assess due to the patient having eyes closed during majority of exam Cardiovascular: Rate and Rhythm: Normal rate. Pulmonary: Effort: Pulmonary effort is normal. No respiratory distress. Musculoskeletal: Cervical back: Normal range of motion. Right upper leg: Normal. Left upper leg: Normal. Right lower leg: Normal. Left lower leg: Normal. Right ankle: Swelling present. Tenderness present over the lateral malleolus. Left ankle: Normal. Right foot: Swelling and tenderness (lateral aspect) present. Left foot: Normal. Neurological: General: No focal deficit present. Mental Status: He is alert. Psychiatric: Attention and Perception: He is inattentive. He does not perceive auditory or visual hallucinations. Mood and Affect: Affect is blunt. Speech: Speech normal. Behavior: Behavior is withdrawn. Thought Content: Thought content normal. Agree. Right foot (+) indurated with (+) TTP over medial malleolus as well as over dorsal aspect of right foot. Appears slightly more progressed than yesterday. No lymphangitic streaks. No crepitance. Select Recent Labs BMP: Recent Labs 04/02/25191504/03/25142304/04/25 1047 NA 137 133* 137 K 3.7 3.5 3.4* CL 101 104 107 CO2 21* 21* 23 BUN 51* 24* 15 CREATININE 2.43* 1.40* 1.38* CALCIUM 8.8 8.1* 7.9* MG -- 1.7 1.7 LFTs: Recent Labs 04/02/25213004/03/25142304/04/25 1047 AST -- 50* 42* ALT -- PROT -- 6.1* 6.1* ALBUMIN -- 3.2* 2.8* BILITOT -- 0.8 0.5 BILIRUBINU Negative -- -- ALKPHOS -- 25* 24* Glucose: Recent Labs 04/02/25191504/03/25142304/04/25 1047 GLUCOSE 91 94 118* Procal: No results for input(s): PROCAL in the last 72 hours. CBC: Recent Labs 04/02/25191504/03/25 0530 04/04/25 1047 WBC 16.3* 13.9* 11.5* HGB 13.3 12.6* 12.3* HCT 38.5* 37.6* 36.7* PLT 233 193 159 MCV 90.2 93.1 90.6 RDW 13.2 13.2 13.5 ABGs: No results for input(s): PHART, ZNM4OUB, PO2ART, BJD8LOB, SO2ART, T6PGTMQL in the last 72 hours. Lactic Acid: Recent Labs 04/02/251915 LACTATE 1.6 INR: No results for input(s): INR in the last 72 hours. Cardiac Injury Profile: Recent Labs 04/02/25191504/02/25210104/03/25142304/04/25 1047 CKTOTAL 1,504* 1,296* 1,021* 928* TROPHSBASE 5 -- -- -- TROPHS2 -- 6 -- -- Notable Prior Labs: No results found for: TSH, VITD25, PSA, INR, GLUF Assessment and Plan: Simple sepsis of unknown source- resolved - Fever of 38.9 C and WBC of 16.3 on arrival, now temp consistently about 99 but afebrile. Tmax 100.7 at 5:20 am today. WBC 11.5 -CTA chest negative -TTE negative for vegetations - blood cx no growth at 24 hours -Vanc, Zosyn for now; de-escalate as appropriate -Pharmacy consulted to dose vancomycin Agree. Acute on chronic R foot pain Reported history of R foot infection (NOS) -XR shows hallux valgus without definitive fx and no evidence of osteomyelitis -MRI of right foot ordered d/t worsening of lesion and exquisite tenderness on today's exam. Concern for infection. See media for image (more content not included)...[facility]06-28-2025 NoteAddiction Medicine Progress Note Patient: Viral Ann Chief Complaint Patient presents with Shortness of Breath Pt has hx of blood clots in his right leg and IVC filter, pt reports shortness of breath. Pt able to speak in full sentences at this time. Problem List: Principal Problem: Sepsis (HCC) Subjective Interim History: Patient was lying in bed. Endorses symptoms of withdrawal paranoia, diaphoreses and restlessness. Overall, withdrawal symptoms are same. No other physical complaints voiced. Has require PRN medicine. Positive signs and/or symptoms of withdrawal observed. No events overnight documented. Objective Review of Systems: All ROS was completed and was negative unless stated above Physical Exam: Vitals: 04/03/25 1135 04/03/25 1704 04/04/25 0519 04/04/25 0753 BP: 100/55 96/52 99/58 BP Location: Right arm Right arm Right arm Patient Position: Sitting Lying Lying Pulse: 89 81 84 Resp: 19 16 20 Temp: 36.9 ?C (98.5 ?F) (!) 38.2 ?C (100.7 ?F) 37.4 ?C (99.4 ?F) TempSrc: Temporal Temporal Temporal SpO2: 93% 95% 94% Weight: 113 kg (250 lb) Height: 1.905 m (6' 3) Physical Exam Vitals and nursing note reviewed. Constitutional: Appearance: He is not diaphoretic. Cardiovascular: Rate and Rhythm: Normal rate. Pulmonary: Effort: Pulmonary effort is normal. Musculoskeletal: General: Normal range of motion. Skin: General: Skin is dry. Coloration: Skin is not pale. Neurological: Mental Status: He is alert and oriented to person, place, and time. Psychiatric: Attention and Perception: He does not perceive auditory or visual hallucinations. Behavior: Behavior is withdrawn. Thought Content: Thought content is paranoid. Thought content does not include homicidal or suicidal ideation. Comments: restlessness Medications: Scheduled Meds[1] PRN Meds[2] Labs: Last 24 hours: Recent Results (from the past 24 hours) Comprehensive metabolic panel Collection Time: 04/03/25 2:24 PM Result Value Ref Range SODIUM 133 (L) 136 - 145 mmol/L POTASSIUM 3.5 3.5 - 5.1 mmol/L CHLORIDE 104 98 - 107 mmol/L CARBON DIOXIDE 21 (L) 22 - 29 mmol/L ANION GAP 8 3 - 13 mmol/L UREA NITROGEN 24 (H) 9 - 23 mg/dL CREATININE 1.40 (H) 0.72 - 1.25 mg/dL GLUCOSE 94 74 - 100 mg/dL CALCIUM 8.1 (L) 8.4 - 10.2 mg/dL AST (SGOT) 50 (H) <34 U/L ALT 25 <40 U/L ALKALINE PHOSPHATASE 25 (L) 40 - 150 U/L ALBUMIN 3.2 (L) 3.5 - 5.0 g/dL BILIRUBIN, TOTAL 0.8 <1.2 mg/dL TOTAL PROTEIN 6.1 (L) 6.4 - 8.3 g/dL eGFR 61.2 >60.0 mL/min/1.73m*2 CK Collection Time: 04/03/25 2:24 PM Result Value Ref Range CK 1,021 (H) 30 - 185 U/L Vancomycin, AUC Timed Dosing Collection Time: 04/03/25 2:24 PM Result Value Ref Range VANCOMYCIN, AUC 6.9 ug/mL Magnesium Collection Time: 04/03/25 2:24 PM Result Value Ref Range MAGNESIUM 1.7 1.6 - 2.6 mg/dL Assessment & Plan Methamphetamine use disorder, severe Counseled patient on biopsychosocial consequences of substance use. Encouraged professional chemical dependency treatment. Encouraged 12 step meeting attendance. Addiction treatment plan with patient: Patient not interested in any aftercare treatment. Stimulant withdrawal Last used CREWMAN [employer] TANK Continue Risperdal to manage methamphetamine withdrawal symptoms. 1 mg every 12 hours Trazodone 100 mg nightly CINA scores per unit protocol. PRN medications for withdrawal symptom management Homelessness Social work following Rhabdomyolysis GUIDO Per primary team Disposition: Detox anticipated pending: Resolution of withdrawal symptoms. Medical stabilization. Labs/tests/tasks: reviewed. Identification Printing Machine Setter recommendations: None. Remaining medical management per primary team. Will follow. Micheline Moeller APRN - [employer] MACHINE OFFBEARER Addiction Medicine 04/04/2025 at 10:42 AM Note: Narrative portions of note written using [employer] dictation software. Efforts are made to dictate clearly and proofread but errors in dictation still may occur. Please reach out to author with any clarifying questions. [1] enoxaparin, 40 mg, SubCUTAneous, Daily gabapentin, 300 mg, Oral, q8h piperacillin-tazobactam, 4,500 mg, IntraVENous, q6h risperiDONE, 1 mg, Oral, BID traZODone, 100 mg, Oral, Nightly vancomycin, 1,500 mg, IntraVENous, q18h [2] PRN medications: acetaminophen OR acetaminophen, hydrOXYzine pamoate, LORazepam, LORazepam, melatonin, ondansetron ODT OR ondansetron, polyethylene glycol (PEG) 3350[facility]06-28-2025 Nurse Note* Melonie Gilmore RN - 04/04/2025 5:45 AM EDT Patient refused his labs again [facility] [id number] Plan of care note* Care Plan - Melonie Gilmore RN - 04/04/2025 4:15 AM EDT Problem: Pain - Adult Goal: Verbalizes/displays adequate comfort level or baseline comfort level Outcome: Progressing Problem: Safety - Adult Goal: Free from fall injury Outcome: Progressing Problem: Discharge Planning Goal: Discharge to home or other facility with appropriate resources Outcome: Progressing Problem: Chronic Conditions and Co-morbidities Goal: Patient's chronic conditions and co-morbidity symptoms are monitored and maintained or improved Outcome: Progressing Problem: Knowledge Deficit Goal: Patient/family/caregiver demonstrates understanding of disease process, treatment plan, medications, and discharge instructions Outcome: Progressing Problem: Potential for Compromised Skin Integrity Goal: Skin Integrity is Maintained or Improved Outcome: Progressing Goal: Nutritional status is improving Outcome: Progressing Problem: Potential for Compromised Skin Integrity Goal: Skin Integrity is Maintained or Improved Outcome: Progressing Goal: Nutritional status is improving Outcome: Progressing Problem: Urinary Incontinence Goal: Perineal skin integrity is maintained or improved Outcome: Progressing [facility] [id number] Nurse Note* Melonie Gilmore RN - 04/03/2025 9:00 PM EDT This RN asked patient several time if I could draw his labs, he ept telling me to come back later. I came back later and now patient is telling me he will do it in the am. Will try again. [facility] [id number] NotePharmacy to Dose Vancomycin - Progress Note Lab Results Component Value Date CREATININE 1.40 (H) 04/03/2025 BUN 24 (H) 04/03/2025 WBC 13.9 (H) 04/03/2025 VANCOTROUGH 6.9 04/03/2025 Doses, serum creatinine, and vancomycin levels interfaced automatically to Mobiscope and data has been analyzed and interpreted. Infectious Diagnosis: Sepsis Est CrCl: 85 mL/min (Cockcroft-Gault) Assessment: Current regimen vancomycin 1250 mg every 24 hours (11.1 mg/kg) Predicted AUC = 318 mg/L*hr (goal 400-600 mg/L*hr) PAUC = 3% (probability that AUC is >400 mg/L*hr) Pconc = 0% (probability that Ctrough is above 20 mcg/mL (toxicity)) Plan: Is the current dose therapeutic? [x] No - change current regimen to vancomycin 1500 mg every 18 hours (13.3 mg/kg) for predicted AUC = 506 mg/L*hr, PAUC = 97% , and Pconc* = 5%. Obtain next level on Trend serum creatinine. Trend AUC using Bayesian Modeling. Orders placed. DATE: 04/03/25 TIME: 3:08 PM Erick Bruce [facility], PharmD. Available via Secure [facility]06-27-2025 Note* Care Coordination - Shayy Loo RN - 04/03/2025 1:38 PM EDT Care Management Progress Note Short Medical why still here: Pt admitted with Sepsis, SOB and infection in R foot. Hx of clots andIVC filter in RLE. IV atb's. TTE ordered. Pt polysubstance use, ADM follows, pt with reported withdrawal symptoms. Pt is noted as Homeless, from [place]. Pt sleeping soundly, will attempt to see at another time as able. SW to follow at other time as well. Planned Discharge Disposition: Other (Comment) (TBD, pt homeless) Barriers/Today we still Wait: Clinical stability, Symptomatic control, Identification Printing Machine Setter recommendations (comment), Post-discharge arrangement completion (comment) Length of Stay (Days): 1 GMLOS: No GMLOS Documented [facility] [id number] Note* Care Coordination - Shayy Loo RN - 04/03/2025 1:38 PM EDT Care Management Progress Note Short Medical why still here: Pt admitted with Sepsis, SOB and infection in R foot. Hx of clots andIVC filter in RLE. IV atb's. TTE ordered. Pt polysubstance use, ADM follows, pt with reported withdrawal symptoms. Pt is noted as Homeless, from [place]. Pt sleeping soundly, will attempt to see at another time as able. SW to follow at other time as well. Planned Discharge Disposition: Other (Comment) (TBD, pt homeless) Barriers/Today we still Wait: Clinical stability, Symptomatic control, Identification Printing Machine Setter recommendations (comment), Post-discharge arrangement completion (comment) Length of Stay (Days): 1 GMLOS: No GMLOS Documented [facility] [id number] NoteCare Management Progress Note Short Medical why still here: Pt admitted with Sepsis, SOB and infection in R foot. Hx of clots and IVC filter in RLE. IV atb's. TTE ordered. Pt polysubstance use, ADM follows, pt with reported withdrawal symptoms. Pt is noted as Homeless, from [place]. Pt sleeping soundly, will attempt to see at another time as able. SW to follow at other time as well. Planned Discharge Disposition: Other (Comment) (TBD, pt homeless) Barriers/Today we still Wait: Clinical stability, Symptomatic control, Identification Printing Machine Setter recommendations (comment), Post-discharge arrangement completion (comment) Length of Stay (Days): 1 GMLOS: No GMLOS Documented [facility]06-27-2025 Note* Care Coordination - JACOBO Pitts - 04/03/2025 11:44 AM EDT Social work follow up on consult- homelessness. Social work review of chart. Appears patient may befrom [place]- visiting family in the area? Social work attempted to meet with the patient on this day- soundly sleeping. Social work will continue to follow and will follow back up as time permits. [facility] [id number] Note* Care Coordination - JACOBO Pitts - 04/03/2025 11:44 AM EDT Social work follow up on consult- homelessness. Social work review of chart. Appears patient may befrom [place]- visiting family in the area? Social work attempted to meet with the patient on this day- soundly sleeping. Social work will continue to follow and will follow back up as time permits. [facility] [id number] Consult note* Agapito Hoffman MD - 04/03/2025 11:24 AM EDT Associated Order(s): IP CONSULT TO ADDICTION MEDICINE [facility] Consult service H&P Admit Date: 04/02/2025 Primary Care Physician: No primary care provider on file. ] Chief Complaint Patient presents with Shortness of Breath Pt has hx of blood clots in his right leg and IVC filter, pt reports shortness of breath. Pt able to speak in full sentences at this time. Substance dependence disorder History of Present Illness Viral Ann is a 49 y.o. year old male unknown to addiction medicine department The patient presented to the emergency room for left foot pain Addiction medicine is consulted because the patient was positive for amphetamine The patient is a very poor historian because he is extremely restless Patient also that he is paranoid but he denies any auditory or visual hallucinations Patient stated that he injects around 2 g of methamphetamine daily for years He also said that he has not had a good sleep for few days now Patient denies alcohol use disorder Denies sedative use disorder Denies opioid use disorder Patient denies any history withdrawal seizures Denies any history of DTs Denies any history of overdoses The patient said that he had multiple admissions psych wards in the past due to hallucinations but not suicidal or homicidal ideation Patient denies being on any psych medication Denies being diagnosed with any psych illness Urine drug screen is positive for methamphetamine Also his CK was elevated above 1200 Substance Use Disorder Criteria 1. Taking substance in larger amounts and/or for longer than intended [x] 2. Wanting to cut down or quit substance use but not being able to [x] 3. Spending a lot of time obtaining the substance [x] 4. Craving or a strong desire to use substance [x] 5. Repeatedly doesn't carry out major obligations due to substance use [x] 6. Using despite recurring social or interpersonal problems caused by substance use [x] 7. Reducing social, occupational, or recreational activities due to substance use [x] 8. Recurrent use of substance in physically hazardous situations [x] 9. Consistent use of substance despite recurrent physical or psychological difficulties [x] 10. Tolerance (increased amounts to achieve intoxication or diminished effect) [x] 11. Withdrawal syndrome or the substance is used to avoid withdrawal [x] 2-3 = mild; 4-5 = moderate; 6 or >6 = severe substance use disorder Remaining History Medical History[1] Surgical History[2] Family History[3] Social History Socioeconomic History Marital status: Single Spouse name: Not on file Number of children: Not on file Years of education: Not on file Highest education level: Not on file Occupational History Not on file Tobacco Use Smoking status: Some Days Types: Cigarettes Smokeless tobacco: Never Vaping Use Vaping status: Never Used Substance and Sexual Activity Alcohol use: Not Currently Drug use: Yes Types: Cocaine, Methamphetamines, Marijuana Sexual activity: Not on file Other Topics Concern Not on file Social History Narrative Not on file Social Drivers of Health Financial Resource Strain: Not on file Food Insecurity: Not on file Transportation Needs: Not on file Physical Activity: Not on file Stress: Not on file Social Connections: Not on file Intimate Partner Violence: Not on file Housing Stability: Not on file Allergies: Patient has no known allergies. Review of Systems Denies suicidal or homicidal ideation denies tactile auditory or visual hallucinations All of systems ROS was completed and was negative unless stated above Physical Exam Vitals: 04/03/25 0149 04/03/25 0247 04/03/25 0249 04/03/25 0416 BP: 105/80 90/56 BP Location: Right arm Patient Position: Sitting Pulse: 92 97 93 82 Resp: 22 20 Temp: 37.4 C (99.3 F) (!) 38.2 C (100.7 F) TempSrc: Oral Temporal SpO2: 96% 91% 95% 96% Weight: Height: General appearance: Cooperative, no distress, appears stated age, non-toxic. Musculoskeletal: Normal muscle strength and tone in 4 distal extremities. Normal range of motion in4 distal extremities. Psychiatric: Alert and oriented to person, place, and time. Insight: poor. Judgment: poor. Diaphoresis: 0/10 Restlessness: 0/10 Palmar Erythema 0/10 Tongue Fasciculations: 0/10 Extremity Tremors: 0/10 Imaging/Labs/Meds @RISRSLT@ Recent Results (from the past 48 hours) ECG 12 lead Collection Time: 04/02/25 6:27 PM Result Value Ref Range Heart Rate 100 bpm QRSD Interval 103 ms QT Interval 323 ms QTC Interval 417 ms P [place] 2 degrees QRS [place] -11 degrees T Wave [place] 59 degrees DE Interval 147 ms Basic metabolic panel Collection Time: 04/02/25 7:16 PM Result Value Ref Range SODIUM 137 136 - 145 mmol/L POTASSIUM 3.7 3.5 - 5.1 mmol/L CHLORIDE 101 98 - 107 mmol/L CARBON DIOXIDE 21 (L) 22 - 29 mmol/L UREA NITROGEN 51 (H) 9 - 23 mg/dL CREATININE 2.43 (H) 0.72 - 1.25 mg/dL GLUCOSE 91 74 - 100 mg/dL CALCIUM 8.8 8.4 - 10.2 mg/dL ANION GAP 15 (H) 3 - 13 mmol/L eGFR 31.6 (L) >60.0 mL/min/1.73m*2 CBC auto differential Collection Time: 04/02/25 7:16 PM Result Value Ref Range Auto WBC 16.3 (H) 3.6 - 10.7 10*3/uL RBC 4.27 (L) 4.40 - 5.90 10*6/uL Hemoglobin 13.3 13.0 - 18.0 g/dL Hematocrit 38.5 (L) 40.0 - 52.0 % MCV 90.2 77.0 - 99.0 fL MCH 31.1 26.0 - 34.0 pg MCHC 34.5 30.5 - 36.0 % RDW 13.2 11.5 - 15.0 % Platelets 233 140 - 440 10*3/uL MPV 10.1 9.0 - 12.7 fL Serial Troponin, High Sensitivity Collection Time: 04/02/25 7:16 PM Result Value Ref Range Troponin HS Serial Baseline 5 <=35 ng/L Lactic acid with reflex Collection Time: 04/02/25 7:16 PM Result Value Ref Range LACTIC ACID 1.6 0.5 - 2.2 mmol/L C-reactive protein Collection Time: 04/02/25 7:16 PM Result Value Ref Range C REACTIVE PROTEIN 26.9 (H) <5.0 mg/L Sedimentation rate, automated Collection Time: 04/02/25 7:16 PM Result Value Ref Range Sed Rate 14 (H) 0 - 10 mm/hr Blood culture Site #2 - Suspected Infection Collection Time: 04/02/25 7:16 PM Specimen: Blood, Venous Result Value Ref Range Blood Culture Blood culture incubation started CK Collection Time: 04/02/25 7:16 PM Result Value Ref Range CK 1,504 (H) 30 - 185 U/L MANUAL DIFFERENTIAL (CELLAVISION) Collection Time: 04/02/25 7:16 PM Result Value Ref Range RBC Morphology Normal Neutrophils % 73 38 - 82 % Lymphocytes % 15 15 - 45 % Monocytes % 13 5 - 13 % Absolute Neutrophil Count 11.9 (H) 1.8 - 7.5 10*3/uL Lymphocytes Absolute 2.4 1.0 - 4.3 10*3/uL Monocytes Absolute 2.1 (H) 0.0 - 0.9 10*3/uL Neutrophils Manual 74 Lymphocytes Manual 15 Monocytes Manual 13 Eosinophils Manual Basophils Manual Bands Manual Metamyelocytes Manual Myelocytes Manual Promyelocytes Manual Blasts Manual Atypical Lymphocytes Manual Unclassified Cells, Manual Blood culture Site #1 - Suspected Infection Collection Time: 04/02/25 7:37 PM Specimen: Blood, Venous Result Value Ref Range Blood Culture Blood culture incubation started Troponin, High Sensitivity, Serial, Second Test Collection Time: 04/02/25 9:02 PM Result Value Ref Range 2h Troponin HS (Serial 2nd Troponin) 6 <=35 ng/L CK Collection Time: 04/02/25 9:02 PM Result Value Ref Range CK 1,296 (H) 30 - 185 U/L Uric acid Collection Time: 04/02/25 9:02 PM Result Value Ref Range URIC ACID 9.0 (H) 3.7 - 7.7 mg/dL Drug screen panel, emergency Collection Time: 04/02/25 9:31 PM Result Value Ref Range AMPHETAMINE SCREEN Positive BARBITURATES SCREEN Negative BENZODIAZEPINE SCREEN Negative COCAINE METAB. SCREEN Negative METHADONE SCREEN Negative OPIATES SCREEN Negative OXYCODONE SCREEN Negative PHENCYCLIDINE SCREEN Negative FENTANYL SCREEN, UR QUAL Negative Complete Urinalysis with reflex to Culture Collection Time: 04/02/25 9:31 PM Result Value Ref Range Color, Urine Light Yellow Lt. Yellow Clarity, Urine Clear Clear pH, Urine 5.5 5.0 - 8.0 pH Leukocytes, Urine Negative Negative Jacey/uL Nitrite, Urine Negative Negative Protein, Urine 50 (A) Negative mg/dL Glucose, Urine Normal Normal (<70) mg/dL Bilirubin, Urine Negative Negative mg/dL Ketones, Urine 10 (A) Negative mg/dL Urobilinogen, Urine Normal Normal (0-1) mg/dL Blood, Urine 0.1 (A) Negative mg/dL RBC, Urine 0-2 0 - 2 /HPF WBC, Urine 0-2 0 - 5 /HPF Squamous Epithelial, Urine 0-2 3 - 5 /HPF Bacteria, Urine Negative Negative /HPF Mucus, Urine Few Negative /LPF Hyaline Casts, Urine 0-2 (A) Negative /LPF SPECIFIC GRAVITY OF URINE (NUMERIC) 1.038 (H) 1.005 - 1.030 CBC auto differential Collection Time: 04/03/25 5:30 AM Result Value Ref Range Auto WBC 13.9 (H) 3.6 - 10.7 10*3/uL RBC 4.04 (L) 4.40 - 5.90 10*6/uL Hemoglobin 12.6 (L) 13.0 - 18.0 g/dL Hematocrit 37.6 (L) 40.0 - 52.0 % MCV 93.1 77.0 - 99.0 fL MCH 31.2 26.0 - 34.0 pg MCHC 33.5 30.5 - 36.0 % RDW 13.2 11.5 - 15.0 % Platelets 193 140 - 440 10*3/uL MPV 10.3 9.0 - 12.7 fL nRBC 0.0 0.0 - 2.0 /100 WBCs Neutrophils Relative 88.1 (H) 38.0 - 82.0 % Lymphocytes Relative 5.5 (L) 15.0 - 45.0 % Monocytes Relative 5.5 5.0 - 13.0 % Eosinophils Relative 0.1 0.0 - 6.0 % Basophils Relative 0.3 0.0 - 2.0 % Immature Grans % 0.5 0.0 - 2.0 % Neutrophils Absolute 12.2 (H) 1.8 - 7.5 10*3/uL Lymphocytes Absolute 0.8 (L) 1.0 - 4.3 10*3/uL Monocytes Absolute 0.8 0.0 - 0.9 10*3/uL Eosinophils Absolute 0.0 0.0 - 0.5 10*3/uL Basophils Absolute 0.0 0.0 - 0.2 10*3/uL Immature Grans Absolute 0.1 (H) <0.1 10*3/uL Scheduled Meds[4] PRN Meds[5] @[id number]@ Plan 1. 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 Will follow. Agapito Hoffman MD, MD Addiction Medicine 04/03/2025 at 11:24 AM I spent total time 75 minutes counseling, coordinating care and provided discussion regarding this patient's chemical dependency, psychiatric and medical history, reviewing past detoxification hospitalizations, assessing withdrawal status, evaluating detoxification medications, and discussing treatment plan. [1] History reviewed. No pertinent past medical history. [2] History reviewed. No pertinent surgical history. [3] No family history on file. [4] enoxaparin, 40 mg, SubCUTAneous, Daily piperacillin-tazobactam, 4,500 mg, IntraVENous, q6h vancomycin, 1,250 mg, IntraVENous, q24h [5] PRN medications: acetaminophen OR acetaminophen, LORazepam, melatonin, ondansetron ODT OR ondansetron, polyethylene glycol (PEG) [address] [employer] Work Phone: [phone] Nurse Note* Raine Ngo RN - 04/03/2025 1:50 AM EDT Patient brought to floor by transport. Patient laying on on his side with his eyes closed yelling out making whale like sounds. Patient thrashing around on the cart. Resident called to bedside, see new orders. Patient able to answer some basic questions but admission questions unable to be answeredat this time. Raine Ngo RN [facility] [id number] Emergency department Note* Erwin Panda RN - 04/03/2025 1:08 AM EDT Patient is calm and responsive to staff, breathing even and unlabored on RA. Patient vitals are stable. Patient is ready for transport at this time[id number]* Erwin Panda RN - 04/03/2025 1:08 AM EDT Patient is calm and responsive to staff, breathing even and unlabored on RA. Patient vitals are stable. Patient is ready for transport at this time. * Jennifer Guzman RN - 04/02/2025 10:10 PM EDT Provided patient with sacked lunch * Trudy Barragan RN - 04/02/2025 9:03 PM EDT Admitting team at bedside * Alta Medina DO - 04/02/2025 6:19 PM EDT EMERGENCY DEPARTMENT ENCOUNTER Pt Name: Viral Ann Birthdate 1975 Date of evaluation: 04/02/2025 ED Provider: Alta Medina DO CHIEF COMPLAINT Chief Complaint Patient presents with Shortness of Breath Pt has hx of blood clots in his right leg and IVC filter, pt reports shortness of breath. Pt able to speak in full sentences at this time. HISTORY OF PRESENT ILLNESS (Location/Symptom, Timing/Onset, Context/Setting, Quality, Duration, Modifying Factors, Severity) Note limiting factors. I wore appropriate PPE for the entirety of this encounter. HPI Viral Ann is a 49 y.o. who presents to the emergency department with concern for chest pain andshortness of breath and concerned that he has an infection in his right foot. The patient states hehas a history of blood clots in his right leg and has had an IVC filter in place for the past 15 years. He states he was also in the hospital for a month for a previous infection of his right foot. He also endorses meth and cocaine use today. He does have a history of IV drug use. The patient has no medical history on chart for review. Patient denies any other medical conditions, he does not takeany other medications. Patients speech is rapid and pressured on arrival. Nursing Notes were reviewed. Limitations to history: None Outside historians: None REVIEW OF SYSTEMS Review of Systems Constitutional: Positive for fever. Negative for chills. Respiratory: Positive for shortness of breath. Negative for cough and wheezing. Cardiovascular: Positive for chest pain. Gastrointestinal: Negative for abdominal pain, diarrhea, nausea and vomiting. Genitourinary: Negative for difficulty urinating and dysuria. Neurological: Negative for dizziness, syncope, light-headedness and headaches. Pertinent positives and negatives as per HPI. PAST MEDICAL HISTORY Medical History[1] SURGICAL HISTORY Surgical History[2] CURRENT MEDICATIONS Previous Medications No medications on file ALLERGIES Patient has no known allergies. FAMILY HISTORY Family History[3] SOCIAL HISTORY Social History[4] SCREENINGS PHYSICAL EXAM ED Triage Vitals [04/02/25 1835] Temp Heart Rate Resp BP (!) 38.9 C (102 F) 99 21 122/88 SpO2 Temp Source Heart Rate Source Patient Position 96 % Temporal -- -- BP Location FiO2 (%) -- -- Physical Exam Constitutional: General: He is not in acute distress. Cardiovascular: Rate and Rhythm: Regular rhythm. Tachycardia present. Heart sounds: Normal heart sounds. No murmur heard. Pulmonary: Effort: Pulmonary effort is normal. No respiratory distress. Breath sounds: No wheezing or rales. Abdominal: General: Abdomen is flat. There is no distension. Palpations: Abdomen is soft. Tenderness: There is no abdominal tenderness. There is no guarding. Musculoskeletal: Right lower leg: No edema. Left lower leg: No edema. Comments: Right foot appears atraumatic, no skin changes concerning for infection. Skin: General: Skin is warm and dry. Neurological: Mental Status: He is alert and oriented to person, place, and time. Psychiatric: Speech: Speech is rapid and pressured. Behavior: Behavior is hyperactive. Behavior is cooperative. DIAGNOSTIC RESULTS RADIOLOGY (Per Emergency Physician): Interpretation per the Radiologist below, if available at the time of this note: CT chest angiogram w and/or wo IV contrast Final Result 1.Negative CT scan of the chest for evidence of acute pulmonary embolism. Report Dictated on Electronically Signed By: Buzz Riley MD Electronically Signed Date/Time: 04/02/2025 7:59 PM EDT XR foot 3+ views right Final Result XR chest 1 view Final Result 1. No acute findings. Report Dictated on Electronically Signed By: Gregory Caal MD Electronically Signed Date/Time: 04/02/2025 7:10 PM EDT LABS: Labs Reviewed BASIC METABOLIC PANEL - Abnormal Result Value SODIUM 137 POTASSIUM 3.7 CHLORIDE 101 CARBON DIOXIDE 21 (*) UREA NITROGEN 51 (*) CREATININE 2.43 (*) GLUCOSE 91 CALCIUM 8.8 ANION GAP 15 (*) eGFR 31.6 (*) CBC WITH AUTO DIFFERENTIAL - Abnormal Auto WBC 16.3 (*) RBC 4.27 (*) Hemoglobin 13.3 Hematocrit 38.5 (*) MCV 90.2 MCH 31.1 MCHC 34.5 RDW 13.2 Platelets 233 MPV 10.1 COMPLETE URINALYSIS WITH REFLEX TO CULTURE - Abnormal Color, Urine Light Yellow Clarity, Urine Clear pH, Urine 5.5 Leukocytes, Urine Negative Nitrite, Urine Negative Protein, Urine 50 (*) Glucose, Urine Normal Bilirubin, Urine Negative Ketones, Urine 10 (*) Urobilinogen, Urine Normal Blood, Urine 0.1 (*) RBC, Urine 0-2 WBC, Urine 0-2 Squamous Epithelial, Urine 0-2 Bacteria, Urine Negative Mucus, Urine Few Hyaline Casts, Urine 0-2 (*) SPECIFIC GRAVITY OF URINE (NUMERIC) 1.038 (*) Narrative: A specimen with <=10 WBC is not consistent with inflammation. This specimen will not reflex to aurine culture. C-REACTIVE PROTEIN - Abnormal C REACTIVE PROTEIN 26.9 (*) SEDIMENTATION RATE, AUTOMATED - Abnormal Sed Rate 14 (*) CK - Abnormal CK 1,504 (*) MANUAL DIFFERENTIAL (CELLAVISION) - Abnormal RBC Morphology Normal Neutrophils % 73 Lymphocytes % 15 Monocytes % 13 Absolute Neutrophil Count 11.9 (*) Lymphocytes Absolute 2.4 Monocytes Absolute 2.1 (*) Neutrophils Manual 74 Lymphocytes Manual 15 Monocytes Manual 13 Eosinophils Manual Basophils Manual Bands Manual Metamyelocytes Manual Myelocytes Manual Promyelocytes Manual Blasts Manual Atypical Lymphocytes Manual Unclassified Cells, Manual BLOOD CULTURE - Normal Blood Culture Blood culture incubation started Narrative: Blood Collection Site: Right Antecubital BLOOD CULTURE - Normal Blood Culture Blood culture incubation started Narrative: Blood Collection Site: Left Forearm HIGH SENSITIVITY TROPONIN, SERIAL BASELINE - Normal Troponin HS Serial Baseline 5 LACTIC ACID WITH REFLEX - Normal LACTIC ACID 1.6 HIGH SENSITIVITY TROPONIN, SERIAL, SECOND TEST - Normal 2h Troponin HS (Serial 2nd Troponin) 6 DRUGS OF ABUSE AMPHETAMINE SCREEN Positive BARBITURATES SCREEN Negative BENZODIAZEPINE SCREEN Negative COCAINE METAB. SCREEN Negative METHADONE SCREEN Negative OPIATES SCREEN Negative OXYCODONE SCREEN Negative PHENCYCLIDINE SCREEN Negative FENTANYL SCREEN, UR QUAL Negative Narrative: The expected value for all of the drugs listed above is Negative. The following drugs or drug groups have been screened for by Immunoassay at the following thresholds: Amphetamine class (1000 ng/mL) Barbiturates (200 ng/mL) Benzodiazepines (200 ng/mL) Cocaine (300 ng/mL) Methadone (300 ng/mL) Opiates (300 ng/mL) Oxycodone (100 ng/mL) PCP (25 ng/mL) Fentanyl (1.0 ng/ml) NOTE: These results are for medical treatment only. Analysis performed using non-forensic procedures. POSITIVE results are NOT confirmed by a more specific alternative method unless requested. If confirmation is needed, request confirmation under separateorder. All other labs were within normal range or not returned as of this dictation. EMERGENCY DEPARTMENT COURSE and DIFFERENTIAL DIAGNOSIS/MDM: Vitals: Vitals: 04/02/25 1926 04/02/25 2102 04/02/25 2152 04/02/25 2318 BP: 112/78 116/83 102/72 BP Location: Left arm Pulse: 94 91 90 Resp: 20 20 20 Temp: 37.4 C (99.4 F) TempSrc: Oral SpO2: 97% 98% 98% Weight: 113 kg (250 lb) Height: 1.905 m (6' 3) The patient presented with a chief complaint of chest pain and shortness of breath. The differential diagnosis associated with this patient's presentation includes ACS versus PE versus endocarditis versus methamphetamine use versus pneumonia. Our workup consisted of ordering/reviewing CTA chest, CXR, XR right foot, EKG, BMP, blood cultures, CRP, CBC, CK, urinalysis, drug screen, lactic acid, ESR,troponin. On arrival patient does meet SIRS criteria with temperature of 102 and tachycardia in thehigh 90s to low 100s. However he does appear to be acutely intoxicated with methamphetamines and does endorse recent methamphetamine use so he was not covered with antibiotics but was given fluid resuscitation and sepsis workup was started. His fever was treated with 650 mg of Tylenol. Patient doeshave an elevated creatinine at 2.43 with no previous to compare to, anion gap elevated at 15, likely related to dehydration. He was given a second liter fluid bolus. Lactic acid within normal limits however patient does have a significant leukocytosis present at 16.3. As he does have history of IV drug use there is concern for possible endocarditis, ESR and CRP both mildly elevated. He was covered with vancomycin. Troponin not elevated. Drug screen positive for amphetamines. The patient will beadmitted to the hospital for further fluid resuscitation and cardiology evaluation for echo to fully rule out endocarditis as the cause of his lab abnormalities. SEP-1 CORE MEASURE DATA SIRS Criteria Sepsis Criteria Severe Sepsis Criteria Septic Shock Criteria Must meet 2: [x] Temperature > 100.4 F (38 C) or < 96.8 F (36 C) [x] HR > 90 [] RR > 20 [] WBC > 12 or < 4 or 10% bands Must be confirmed or suspected to move forward with diagnosisof sepsis. Must select at least one: [x] Bacterial Infection Confirmed or Suspected. [] Viral Infection Confirmed or Suspected. [] No infection present. Patient does not meet criteria for Sepsis. Must meet 1: [] Lactate > 2 or [x] Signs of Organ Dysfunction: - SBP < 90 or MAP < 65 - Altered mental status - Creatinine > 2 or increased from baseline - Urine Output < 0.5 ml/kg/hr - Bilirubin > 2 - INR > 1.5 - Platelets < 100,000 - Acute Respiratory Failure as evidenced by new need for NIPPV or mechanical ventilation [] No criteria met for Severe Sepsis. Must meet 1: [] Lactate = or > 4 or [] SBP < 90 or MAP < 65 for at least two readings in the first hour after fluid bolus administration [x] No criteria met for Septic Shock. Patient Vitals from 04/02/25 2301 to 04/03/25 0000 BP Pulse Resp SpO2 04/02/25 2318 102/72 90 20 98 % Recent Labs 04/02/25 1916 WBC 16.3* LACTATE 1.6 CREATININE 2.43* PLT 233 Sepsis Identified at 2020 hours. Fluid Resuscitation Rational: at least 30mL/kg based on entered actual body weight at time of triage Infection Source: Unknown Alta Medina DO FINAL IMPRESSION 1. Sepsis (HCC) 2. Shortness of breath 3. Chest pain, unspecified type 4. Non-traumatic rhabdomyolysis 5. Amphetamine use DISPOSITION Admit 04/02/2025 09:51:18 PM PATIENT REFERRED TO: No follow-up provider specified. DISCHARGE MEDICATIONS: New Prescriptions No medications on file (Comment: Please note this report has been produced using speech recognition software and may contain errors related to that system including errors in grammar, punctuation, and spelling, as well as words and phrases that may be inappropriate. If there are any questions or concerns please feel freeto contact the dictating provider for clarification.) Alta Medina DO (electronically signed) Emergency Medicine Provider [1] History reviewed. No pertinent past medical history. [2] History reviewed. No pertinent surgical history. [3] No family history on file. [4] Social History Socioeconomic History Marital status: Single Tobacco Use Smoking status: Some Days Types: Cigarettes Smokeless tobacco: Never Vaping Use Vaping status: Never Used Substance and Sexual Activity Alcohol use: Not Currently Drug use: Yes Types: Cocaine, Methamphetamines, Marijuana Alta Medina DO Resident 04/03/25 0033 Cosigned by David Wolfe DO at 04/03/2025 6:52 AM EDT * David Wolfe DO - 04/02/2025 6:19 PM EDT Emergency Department Encounter [facility] Patient: Viral Ann : 1975 Date of Evaluation: 04/02/2025 ED Supervising Physician: David Wolfe DO I personally evaluated Viral Ann and made/approved the management plan and take responsibility for the patient management. This will serve as my Supervisory note and shared attestation. I did perform a substantive portion of the visit including all aspects of the Medical Decision Making. I wore appropriate PPE for the entirety of this encounter. In brief, Viral Ann is a 49 y.o. that presents to the emergency department with complaints of chest pain and shortness of breath. Patient is concerned there is an infection in his right foot. 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 Unable to verify validity. Patient also endorses polysubstance abuse includingmeth and cocaine use today and history of IV drug use. Patient is a little tangential in history taking Focused exam: On exam, vitals tachycardic, febrile. Gen: Nontoxic appearing. Head: NC/AT. CV: RRR. Resp: CTA bilaterally. Abd: Abd soft and notender. Back: No midline vertebral tenderness, no stepoff, no deformity Ext: No obvious deformity or abnormalities of bilat UE and LE, Pulses 2+ bilateral UE and LE. Neuro: No focal neurologic deficit. Skin: No obvious rashes, warm, dry Brief ED course/MDM: Patient with hx of drug abuse presents to the ED with a chief complaint of sob. Additional information found above and also refer to cookie/resident note for further details. On exam, vitals febrile. Per above. Otherwise per above Additional information found above and also refer to cookie/resident note for further details. (Differential diagnosis) With consideration of age, sex/gender, risk factors, to evaluate patient for high risk causes of morbidity and mortality such as, but not limited to, .acute infectious process (ie. CAP/viral/other) vs viral syndrome vs ACS vs inflammatory process vs other Today we will obtain labs and imaging We will also provide medical/symptomatic management with antipyretic . Diagnostic tests considered but not performed: na Independently reviewed external documents including previous none available Discussed plan with patient who agrees with current plan. Diagnostics interpreted by me: Per below I personally discussed the patient's management with other clinicians: Per resident End of visit medical decision making Patient was reassessed. Resting comfortably. No acute distress. Independently reviewed and interpreted the lab results which demonstrated the following: Leukocytosis of 16.3, no significant anemia, no major electrolyte abnormalities, GUIDO with a creatinine of 2.4 and a GFR of 31 with a CPK of 1200 consider rhabdo, lactic acid at 1.6, troponin negative, UDS positive for amphetamines, UA without overt signs of cystitis Independently reviewed and interpreted CXR which demonstrated the following: No acute intrathoracicabnormalities. No obvious consolidation. Sharp costophrenic angles. No pneumothorax. Trachea midline. Independently reviewed and interpreted EKG which demonstrated the following: Sinus tachycardia Rhythm Strip: The case monitor was ordered secondary to the patient's history of blood clots andto monitor the patient for dysrhythmia. I performed an independent interpretation of the rhythm strip which showed no arrhythmia, no signs of ischemic changes, no ectopy. Independently reviewed the reports of other imaging which demonstrated the following: no PE no acute intrathoracic abnl Response to medical management provided in the ED: improving (Consults) Discussed care with: Discussed case with financial consultant, admitting team. They agree with current work up and management. They will evaluate and provide further recommendations, please refer to their note for detailed explanation. They agree to admit the patient for further workup and management. Discussed all results with patient and/or family members. They verbalize understanding. Offered admission for further management. Discussed risks, benefits and alternatives for further management in the hospital. Due to high risk of morbidity and mortality of the stated findings and results, patient will be admitted for further management and care. Patient is agreeable to the plan. Discussed patient information, presentation and workup with admitting team. Admitting team is agreeable to current workup and evaluation. They will admit the patient and provide further care. Pendingresults to be followed by primary admitting team. Patient will need med tele level of care and not appropriate for lower acuity location of care due to risk of morbidity and mortality Patient's condition and/or care was impacted by drug use Patient's condition and/or care was significantly impacted by social determinants of health including: none All diagnostic, treatment, and disposition decisions were made by myself in conjunction with the Resident. I also supervised jordan portions of any procedures performed by the Resident. For all further details of the patient's emergency department visit, please see their documentation. (Comment: Please note this report has been produced using speech recognition software and may contain errors related to that system including errors in grammar, punctuation, and spelling, as well as words and phrases that may be inappropriate. If there are any questions or concerns please feel freeto contact the dictating provider for clarification.) David Wolfe DO [employer] David Wolfe DO 04/03/25 0754 documented in this [facility]06-26-2025 Emergency department Note* Jennifer Guzman RN - 04/02/2025 10:10 PM EDT Provided patient with sacked lunch [id number] Emergency department Note* Trudy Barragan RN - 04/02/2025 9:03 PM EDT Admitting team at bedside [id number] History and physical note* Candelaria Neely MD - 04/02/2025 8:30 PM EDT Internal Medicine: Med Team Initial History and Physical Viral Ann : 1975(49 y.o.) Date: April 03, 2025 TEAM: C Attending: Dr. Neely Subjective: Chief Complaint: Left foot pain Shortness of Breath Associated symptoms include a fever. Pertinent negatives include no abdominal pain, chest pain or vomiting. Viral Ann is a 49 y.o. male with no documented PMHx that presented to [facility] on 04/02/2025 from home for acute on chronic right foot pain. Patient reports that he has had multiple hospital[facility] for a right foot infection (not OM) requiring IV abx. The patient reports that his most recent hospitalization was 4 months ago. He states that he was discharged to a homeless retirement. He has been walking more than usual which he says is exacerbating his pain. He is here in town as he has multiple family members that live in [place]. Right foot pain rated to be severe. Patient also notes fevers and chills for 1-2 days. Pain is alleviated with rest. Patient denies CP, SOB, Abd pain, cough, GI, or symptoms. No pre-syncope, syncope, palpitations. Patient reports that he has been awake for 5 days as he has been using Cocaine and IV methamphetamines. He last used 10 hours prior to arrival to [facility] ED. He also notes a history of recurrent DVTs/PE and states he is s/p IVC filter. He denies any other chronic medical problems. He takes no daily medications. Pt seen and examined earlier today on bedside resident teaching rounds the morning after admission.Hx and PE independently obtained and concur with above. Pt s/p lorazepam 1 mg, haldol 5 mg IM, and 50 mg diphenhydramine at ~ 1:45 am for agitation and was still sleepy at time of teaching rounds. Ptwas able to provide 1-2 word appropriate answers to close-ended questions, but did not make any eyecontact. (+) pain right foot. Review of Systems Constitutional: Positive for fever. Negative for chills. Respiratory: Negative for shortness of breath. Cardiovascular: Negative for chest pain. Gastrointestinal: Negative for abdominal pain, diarrhea, nausea and vomiting. Genitourinary: Negative for difficulty urinating. Musculoskeletal: R foot pain Neurological: Negative for dizziness and light-headedness. Agree. Medical History[1] Surgical History[2] Family History[3] Tobacco Use History[4] Social History Substance and Sexual Activity Alcohol Use Not Currently Social History Substance and Sexual Activity Drug Use Yes Types: Cocaine, Methamphetamines, Marijuana Allergies[5] Prior to Admission medications Not on File Objective: Vitals: 04/03/25 0249 04/03/25 0416 04/03/25 1135 04/03/25 1704 BP: 90/56 100/55 BP Location: Right arm Right arm Patient Position: Sitting Sitting Pulse: 93 82 89 Resp: 20 19 Temp: (!) 38.2 C (100.7 F) 36.9 C (98.5 F) TempSrc: Temporal Temporal SpO2: 95% 96% 93% Weight: 250 lb (113 kg) Height: 6' 3 (1.905 m) Physical Exam Vitals and nursing note reviewed. Constitutional: Appearance: He is not toxic-appearing. HENT: Mouth/Throat: Mouth: Mucous membranes are dry. Pharynx: Oropharynx is clear. Eyes: General: No scleral icterus. Extraocular Movements: Extraocular movements intact. Cardiovascular: Rate and Rhythm: Normal rate and regular rhythm. Heart sounds: Normal heart sounds. No friction rub. No gallop. Pulmonary: Effort: Pulmonary effort is normal. No respiratory distress. Breath sounds: Normal breath sounds. No wheezing. Abdominal: General: There is no distension. Palpations: Abdomen is soft. Tenderness: There is no abdominal tenderness. Musculoskeletal: Cervical back: Neck supple. Right lower leg: No edema. Left lower leg: No edema. Comments: 1st metatarsal joint swelling, erythema, and TTP. No fluctuance of the R foot. No lymphangetic streaking. Neurovascularly intact distally Skin: General: Skin is warm. Comments: Diffuse erythema to sun-exposed areas Neurological: General: No focal deficit present. Mental Status: He is alert. Psychiatric: Mood and Affect: Mood is elated. Speech: Speech is rapid and pressured. Behavior: Behavior is not agitated or aggressive. Judgment: Judgment is impulsive. Morning after admission: agree with above. (+) diffuse sunburn on face ([place] under a heat dome with temps to mid 90s and heat index to 105+). (+) TTP over right lateral foot. No obvious erythema, streaking, crepitance, but pt repeated tender in one area. Also, (+) fullness over right first metatarsal head, but NT to palpation. Foot warm, (+) Palpable DP pulse. Select Recent Labs BMP: Recent Labs 04/02/25191504/03/25 1424 NA 137 133* K 3.7 3.5 CL 101 104 CO2 21* 21* BUN 51* 24* CREATININE 2.43* 1.40* CALCIUM 8.8 8.1* MG -- 1.7 LFTs: Recent Labs 04/02/251 04/03/25 1424 AST -- 50* ALT -- 25 PROT -- 6.1* ALBUMIN -- 3.2* BILITOT -- 0.8 BILIRUBINU Negative -- ALKPHOS -- 25* Glucose: Recent Labs 04/02/25191504/03/25 1424 GLUCOSE 91 94 Procal: No results for input(s): PROCAL in the last 72 hours. CBC: Recent Labs 04/02/25191504/03/25 0530 WBC 16.3* 13.9* HGB 13.3 12.6* HCT 38.5* 37.6* PLT 233 193 MCV 90.2 93.1 RDW 13.2 13.2 ABGs: No results for input(s): PHART, MMT8ZYB, PO2ART, FNB5EMU, SO2ART, W5TUWYEF in thelast 72 hours. Lactic Acid: Recent Labs 04/02/251915 LACTATE 1.6 INR: No results for input(s): INR in the last 72 hours. Cardiac Injury Profile: Recent Labs 04/02/25191504/02/25210104/03/25 1424 CKTOTAL 1,504* 1,296* 1,021* TROPHSBASE 5 -- -- TROPHS2 -- 6 -- Notable Prior Labs: No results found for: TSH, VITD25, PSA, INR, GLUF Notable Imaging: CT chest angiogram w and/or wo IV contrast Final Result 1.Negative CT scan of the chest for evidence of acute pulmonary embolism. Report Dictated on Electronically Signed By: Buzz Riley MD Electronically Signed Date/Time: 04/02/2025 7:59 PM EDT XR foot 3+ views right Final Result XR chest 1 view Final Result 1. No acute findings. Report Dictated on Electronically Signed By: Gregory Caal MD Electronically Signed Date/Time: 04/02/2025 7:10 PM EDT SEP-1 CORE MEASURE DATA SIRS Criteria Sepsis Criteria Severe Sepsis Criteria Septic Shock Criteria Must meet 2: [x] Temperature > 100.4 F (38 C) or < 96.8 F (36 C) [] HR > 90 [] RR > 20 [x] WBC > 12 or < 4 or 10% bands Must be confirmed or suspected to move forward with diagnosis of sepsis. Must select at least one: [x] Bacterial Infection Confirmed or Suspected. [] Viral Infection Confirmed or Suspected. [] No infection present. Patient does not meet criteria for Sepsis. Must meet 1: [] Lactate > 2 or [] Signs of Organ Dysfunction: - SBP < 90 or MAP < 65 - Altered mental status - Creatinine > 2 or increased from baseline - Urine Output < 0.5 ml/kg/hr - Bilirubin > 2 - INR > 1.5 - Platelets < 100,000 - Acute Respiratory Failure as evidenced by new need for NIPPV or mechanical ventilation [x] No criteria met for Severe Sepsis. Must meet 1: [] Lactate = or > 4 or [] SBP < 90 or MAP < 65 for at least two readings in the first hour after fluid bolus administration [x] No criteria met for Septic Shock. Patient Vitals from 04/02/25 2301 to 04/03/25 0000 BP Pulse Resp SpO2 04/02/25 2318 102/72 90 20 98 % Recent Labs 04/02/25 1916 04/03/25 0530 04/03/25 1424 WBC 16.3* 13.9* -- LACTATE 1.6 -- -- CREATININE 2.43* -- 1.40* BILITOT -- -- 0.8 PLT 233 193 -- Sepsis Identified at 1916 hours. Fluid Resuscitation Rational: at least 30mL/kg based on ideal body weight due to obesity defined asBMI >30 (patient's BMI is Body mass index is 31.25 kg/m .and IBW is [place] body weight: 84.5 kg (186 lb 4.6 oz) Adjusted ideal body weight: 96.1 kg (211 lb 12.4 oz)) Infection Source: Unknown Reassessment Exam: Not applicable. Patient does not have Septic Shock. Candelaria Neely MD Assessment and Plan: Principal Problem: Sepsis (HCC) Simple sepsis of unknown source - Fever of 38.9 C, WBC of 16.3 - CTA chest negative - XR of R foot shows no acute fx or evidence of OM - consider MRI of R foot if foot pain is uncontrolled once patient is no longer intoxicated - ED provider concerned for endocarditis; will obtain TTE - blood cx pending; nothing to culture on R foot - Lizzie Manzano for now; de-escalate as appropriate Agree with above. Agree with eval and Abx, but do question is elevated temp may be due to forehead sunburn. Reportedly oral temp in ED was not elevated. On exam, right lateral midfoot is of concern, but pt too restless even with a 'B52' to have MRI done today. Acute on chronic R foot pain Reported history of R foot infection (NOS) - XR shows hallux valgus without definitive fx - uric acid level to evaluate for possible gout Agree. Drug induced Rhabdomyolysis GUIDO - LR @ 200 mL/Hr - CK q6h - Q12H CMP Agree. IV Meth amphetamine use Cocaine use - ADM consult - Ativan 1 mg q3h prn agitation Agree. Reported history of DVT/PE s/p IVC filter - CTA negative for PE - Lovenox for DVT ppx Homelessness - social work consult - Goals of Care: FULL CODE - DVT Prophylaxis: Lovenox 40 q24hr - CrCl >30 - GI Prophylaxis: Not Indicated - Diet: General - BMI Classification: Body mass index is 31.25 kg/m . Obesity (BMI >30) - Disposition: Admit to F. - Given the signs and symptoms associated with his primary diagnosis in the setting of his comorbidconditions, he is expected to require >48 hrs of hospital care (i.e. inpatient level care). Post-Rounds Addendum: - required Haldol, Ativan, and Benadryl overnight for agitation - VSS. Persistently febrile, but improving - labs with improving CK and WBC - on evaluation, patient somnolent - currently getting TTE - will re-evaluate later - otherwise plan as above Attending Supervising Physician's Attestation Statement for Admission I performed a history and physical examination on the patient and discussed the management with theresident physician. I reviewed and agree with the findings and plan as documented in their note except as amended in green font. Addendums may have been dictated using the [employer] Voice Recognition Feature. The document was proofread; however, unrecognized voice recognition family reunification specialist errors may be present. Please note, the time of this note does not reflect the time I saw this patient today, but the time of this documentaton. Pt examined 2025-04-03. Discussed with: [x]Residents [x]Patient []Family [x]RN []Consultants []SW/TCC [] PT/OT []Pharmacist [x]Other- tool grinding technician at bedside Reviewed: [x]Epic notes [x]Radiology studies [x]Labs [x]EKG []Other Initial Inpatient: Spent total time 75 minutes counseling or coordinating care, chart historical review, and discussion regarding presentation with med team. Pt still under effects of meth at time ofteaching rounds. Would answer questions with 1-2 word answers that seemed appropriate, but would not open eyes or engage further. . 7AM-5PM: contact resident on [facility] Med Team (found by hovering over attending's name on left side of patient's chart) 5PM-7AM: contact AI3 resident [1] History reviewed. No pertinent past medical history. [2] History reviewed. No pertinent surgical history. [3] No family history on file. [4] Social History Tobacco Use Smoking Status Some Days Types: Cigarettes Smokeless Tobacco Never [5] No Known Allergies [id number] NoteInternal Medicine: Med Team Initial History and Physical Viral Ann : 1975(49 y.o.) Date: April 03, 2025 TEAM: C Attending: Dr. Neely Subjective: Chief Complaint: Left foot pain Shortness of Breath Associated symptoms include a fever. Pertinent negatives include no abdominal pain, chest pain or vomiting. Viral Ann is a 49 y.o. male with no documented PMHx that presented to [facility] on 04/02/2025 from home for acute on chronic right foot pain. Patient reports that he has [place] for a right foot infection (not OM) requiring IV abx. The patient reports that his most recent hospitalization was 4 months ago. He states that he was discharged to a homeless retirement. He has been walking more than usual which he says is exacerbating his pain. He is here in town as he has multiple family members that live in [place]. Right foot pain rated to be severe. Patient also notes fevers and chills for 1-2 days. Pain is alleviated with rest. Patient denies CP, SOB, Abd pain, cough, GI, or symptoms. No pre-syncope, syncope, palpitations. Patient reports that he has been awake for 5 days as he has been using Cocaine and IV methamphetamines. He last used 10 hours prior to arrival to [facility] ED. He also notes a history of recurrent DVTs/PE and states he is s/p IVC filter. He denies any other chronic medical problems. He takes no daily medications. Pt seen and examined earlier today on bedside resident teaching rounds the morning after admission. Hx and PE independently obtained and concur with above. Pt s/p lorazepam 1 mg, haldol 5 mg IM, and 50 mg diphenhydramine at ~ 1:45 am for agitation and was still sleepy at time of teaching rounds. Pt was able to provide 1-2 word appropriate answers to close-ended questions, but did not make any eye contact. (+) pain right foot. Review of Systems Constitutional: Positive for fever. Negative for chills. Respiratory: Negative for shortness of breath. Cardiovascular: Negative for chest pain. Gastrointestinal: Negative for abdominal pain, diarrhea, nausea and vomiting. Genitourinary: Negative for difficulty urinating. Musculoskeletal: R foot pain Neurological: Negative for dizziness and light-headedness. Agree. Medical History[1] Surgical History[2] Family History[3] Tobacco Use History[4] Social History Substance and Sexual Activity Alcohol Use Not Currently Social History Substance and Sexual Activity Drug Use Yes Types: Cocaine, Methamphetamines, Marijuana Allergies[5] Prior to Admission medications Not on File Objective: Vitals: 04/03/25 0249 04/03/25 0416 04/03/25 1135 04/03/25 1704 BP: 90/56 100/55 BP Location: Right arm Right arm Patient Position: Sitting Sitting Pulse: 93 82 89 Resp: 20 19 Temp: (!) 38.2 ?C (100.7 ?F) 36.9 ?C (98.5 ?F) TempSrc: Temporal Temporal SpO2: 95% 96% 93% Weight: 250 lb (113 kg) Height: 6' 3 (1.905 m) Physical Exam Vitals and nursing note reviewed. Constitutional: Appearance: He is not toxic-appearing. HENT: Mouth/Throat: Mouth: Mucous membranes are dry. Pharynx: Oropharynx is clear. Eyes: General: No scleral icterus. Extraocular Movements: Extraocular movements intact. Cardiovascular: Rate and Rhythm: Normal rate and regular rhythm. Heart sounds: Normal heart sounds. No friction rub. No gallop. Pulmonary: Effort: Pulmonary effort is normal. No respiratory distress. Breath sounds: Normal breath sounds. No wheezing. Abdominal: General: There is no distension. Palpations: Abdomen is soft. Tenderness: There is no abdominal tenderness. Musculoskeletal: Cervical back: Neck supple. Right lower leg: No edema. Left lower leg: No edema. Comments: 1st metatarsal joint swelling, erythema, and TTP. No fluctuance of the R foot. No lymphangetic streaking. Neurovascularly intact distally Skin: General: Skin is warm. Comments: Diffuse erythema to sun-exposed areas Neurological: General: No focal deficit present. Mental Status: He is alert. Psychiatric: Mood and Affect: Mood is elated. Speech: Speech is rapid and pressured. Behavior: Behavior is not agitated or aggressive. Judgment: Judgment is impulsive. Morning after admission: agree with above. (+) diffuse sunburn on face ([place] under a heat dome with temps to mid 90s and heat index to 105+). (+) TTP over right lateral foot. No obvious erythema, streaking, crepitance, but pt repeated tender in one area. Also, (+) fullness over right first metatarsal head, but NT to palpation. Foot warm, (+) Palpable DP pulse. Select Recent Labs BMP: Recent Labs 04/02/25 1916 04/03/25 1424 NA 137 133* K 3.7 3.5 CL 101 104 CO2 21* 21* BUN 51* 24* CREATININE 2.43* 1.40* CALCIUM 8.8 8.1* MG -- 1.7 LFTs: Recent Labs 04/02/25 2131 04/03/25 1424 AST -- 50* ALT -- 25 PROT -- 6.1* ALBUMIN -- 3.2* BILITOT -- 0.8 BILIRUBINU (more content not included)...[facility]06-26-2025 History and physical note* Candelaria Neely MD - 04/02/2025 8:30 PM EDT Internal Medicine: Med Team Initial History and Physical Viral Ann : 1975(49 y.o.) Date: April 03, 2025 TEAM: Monica Attending: Dr. Neely Subjective: Chief Complaint: Left foot pain Shortness of Breath Associated symptoms include a fever. Pertinent negatives include no abdominal pain, chest pain or vomiting. Viral Ann is a 49 y.o. male with no documented PMHx that presented to [facility] on 04/02/2025 from home for acute on chronic right foot pain. [facility] requiring IV abx. The patient reports that his most recent hospitalization was 4 months ago. He states that he was discharged to a homeless retirement. He has been walking more than usual which he says is exacerbating his pain. He is here in town as he has multiple family members that live in [place]. Right foot pain rated to be severe. Patient also notes fevers and chills for 1-2 days. Pain is alleviated with rest. Patient denies CP, SOB, Abd pain, cough, GI, or symptoms. No pre-syncope, syncope, palpitations. Patient reports that he has been awake for 5 days as he has been using Cocaine and IV methamphetamines. He last used 10 hours prior to arrival to [facility] ED. He also notes a history of recurrent DVTs/PE and states he is s/p IVC filter. He denies any other chronic medical problems. He takes no daily medications. Pt seen and examined earlier today on bedside resident teaching rounds the morning after admission.Hx and PE independently obtained and concur with above. Pt s/p lorazepam 1 mg, haldol 5 mg IM, and 50 mg diphenhydramine at ~ 1:45 am for agitation and was still sleepy at time of teaching rounds. Ptwas able to provide 1-2 word appropriate answers to close-ended questions, but did not make any eyecontact. (+) pain right foot. Review of Systems Constitutional: Positive for fever. Negative for chills. Respiratory: Negative for shortness of breath. Cardiovascular: Negative for chest pain. Gastrointestinal: Negative for abdominal pain, diarrhea, nausea and vomiting. Genitourinary: Negative for difficulty urinating. Musculoskeletal: R foot pain Neurological: Negative for dizziness and light-headedness. Agree. Medical History[1] Surgical History[2] Family History[3] Tobacco Use History[4] Social History Substance and Sexual Activity Alcohol Use Not Currently Social History Substance and Sexual Activity Drug Use Yes Types: Cocaine, Methamphetamines, Marijuana Allergies[5] Prior to Admission medications Not on File Objective: Vitals: 04/03/25 0249 04/03/25 0416 04/03/25 1135 04/03/25 1704 BP: 90/56 100/55 BP Location: Right arm Right arm Patient Position: Sitting Sitting Pulse: 93 82 89 Resp: 20 19 Temp: (!) 38.2 C (100.7 F) 36.9 C (98.5 F) TempSrc: Temporal Temporal SpO2: 95% 96% 93% Weight: 250 lb (113 kg) Height: 6' 3 (1.905 m) Physical Exam Vitals and nursing note reviewed. Constitutional: Appearance: He is not toxic-appearing. HENT: Mouth/Throat: Mouth: Mucous membranes are dry. Pharynx: Oropharynx is clear. Eyes: General: No scleral icterus. Extraocular Movements: Extraocular movements intact. Cardiovascular: Rate and Rhythm: Normal rate and regular rhythm. Heart sounds: Normal heart sounds. No friction rub. No gallop. Pulmonary: Effort: Pulmonary effort is normal. No respiratory distress. Breath sounds: Normal breath sounds. No wheezing. Abdominal: General: There is no distension. Palpations: Abdomen is soft. Tenderness: There is no abdominal tenderness. Musculoskeletal: Cervical back: Neck supple. Right lower leg: No edema. Left lower leg: No edema. Comments: 1st metatarsal joint swelling, erythema, and TTP. No fluctuance of the R foot. No lymphangetic streaking. Neurovascularly intact distally Skin: General: Skin is warm. Comments: Diffuse erythema to sun-exposed areas Neurological: General: No focal deficit present. Mental Status: He is alert. Psychiatric: Mood and Affect: Mood is elated. Speech: Speech is rapid and pressured. Behavior: Behavior is not agitated or aggressive. Judgment: Judgment is impulsive. Morning after admission: agree with above. (+) diffuse sunburn on face ([place] under a heat dome with temps to mid 90s and heat index to 105+). (+) TTP over right lateral foot. No obvious erythema, streaking, crepitance, but pt repeated tender in one area. Also, (+) fullness over right first metatarsal head, but NT to palpation. Foot warm, (+) Palpable DP pulse. Select Recent Labs BMP: Recent Labs 04/02/25191504/03/25 1424 NA 137 133* K 3.7 3.5 CL 101 104 CO2 21* 21* BUN 51* 24* CREATININE 2.43* 1.40* CALCIUM 8.8 8.1* MG -- 1.7 LFTs: Recent Labs 04/02/25213004/03/25 1424 AST -- 50* ALT -- 25 PROT -- 6.1* ALBUMIN -- 3.2* BILITOT -- 0.8 BILIRUBINU Negative -- ALKPHOS -- 25* Glucose: Recent Labs 04/02/25191504/03/25 1424 GLUCOSE 91 94 Procal: No results for input(s): PROCAL in the last 72 hours. CBC: Recent Labs 04/02/25191504/03/25 0530 WBC 16.3* 13.9* HGB 13.3 12.6* HCT 38.5* 37.6* PLT 233 193 MCV 90.2 93.1 RDW 13.2 13.2 ABGs: No results for input(s): PHART, XAZ6QOW, PO2ART, KUA1VSS, SO2ART, E9VHJJNU in thelast 72 hours. Lactic Acid: Recent Labs 04/02/251915 LACTATE 1.6 INR: No results for input(s): INR in the last 72 hours. Cardiac Injury Profile: Recent Labs 04/02/25191504/02/25210104/03/25 1424 CKTOTAL 1,504* 1,296* 1,021* TROPHSBASE 5 -- -- TROPHS2 -- 6 -- Notable Prior Labs: No results found for: TSH, VITD25, PSA, INR, GLUF Notable Imaging: CT chest angiogram w and/or wo IV contrast Final Result 1.Negative CT scan of the chest for evidence of acute pulmonary embolism. Report Dictated on Electronically Signed By: Buzz Riley MD Electronically Signed Date/Time: 04/02/2025 7:59 PM EDT XR foot 3+ views right Final Result XR chest 1 view Final Result 1. No acute findings. Report Dictated on Electronically Signed By: Gregory Caal MD Electronically Signed Date/Time: 04/02/2025 7:10 PM EDT SEP-1 CORE MEASURE DATA SIRS Criteria Sepsis Criteria Severe Sepsis Criteria Septic Shock Criteria Must meet 2: [x] Temperature > 100.4 F (38 C) or < 96.8 F (36 C) [] HR > 90 [] RR > 20 [x] WBC > 12 or < 4 or 10% bands Must be confirmed or suspected to move forward with diagnosis of sepsis. Must select at least one: [x] Bacterial Infection Confirmed or Suspected. [] Viral Infection Confirmed or Suspected. [] No infection present. Patient does not meet criteria for Sepsis. Must meet 1: [] Lactate > 2 or [] Signs of Organ Dysfunction: - SBP < 90 or MAP < 65 - Altered mental status - Creatinine > 2 or increased from baseline - Urine Output < 0.5 ml/kg/hr - Bilirubin > 2 - INR > 1.5 - Platelets < 100,000 - Acute Respiratory Failure as evidenced by new need for NIPPV or mechanical ventilation [x] No criteria met for Severe Sepsis. Must meet 1: [] Lactate = or > 4 or [] SBP < 90 or MAP < 65 for at least two readings in the first hour after fluid bolus administration [x] No criteria met for Septic Shock. Patient Vitals from 04/02/25 2301 to 04/03/25 0000 BP Pulse Resp SpO2 04/02/25 2318 102/72 90 20 98 % Recent Labs 04/02/25 1916 04/03/25 0530 04/03/25 1424 WBC 16.3* 13.9* -- LACTATE 1.6 -- -- CREATININE 2.43* -- 1.40* BILITOT -- -- 0.8 PLT 233 193 -- Sepsis Identified at 1916 hours. Fluid Resuscitation Rational: at least 30mL/kg based on ideal body weight due to obesity defined asBMI >30 (patient's BMI is Body mass index is 31.25 kg/m .and IBW is [place] body weight: 84.5 kg (186 lb 4.6 oz) Adjusted ideal body weight: 96.1 kg (211 lb 12.4 oz)) Infection Source: Unknown Reassessment Exam: Not applicable. Patient does not have Septic Shock. Candelaria Neely MD Assessment and Plan: Principal Problem: Sepsis (HCC) Simple sepsis of unknown source - Fever of 38.9 C, WBC of 16.3 - CTA chest negative - XR of R foot shows no acute fx or evidence of OM - consider MRI of R foot if foot pain is uncontrolled once patient is no longer intoxicated - ED provider concerned for endocarditis; will obtain TTE - blood cx pending; nothing to culture on R foot - Vanc, Zosyn for now; de-escalate as appropriate Agree with above. Agree with eval and Abx, but do question is elevated temp may be due to forehead sunburn. Reportedly oral temp in ED was not elevated. On exam, right lateral midfoot is of concern, but pt too restless even with a 'B52' to have MRI done today. Acute on chronic R foot pain Reported history of R foot infection (NOS) - XR shows hallux valgus without definitive fx - uric acid level to evaluate for possible gout Agree. Drug induced Rhabdomyolysis GUIDO - LR @ 200 mL/Hr - CK q6h - Q12H CMP Agree. IV Meth amphetamine use Cocaine use - ADM consult - Ativan 1 mg q3h prn agitation Agree. Reported history of DVT/PE s/p IVC filter - CTA negative for PE - Lovenox for DVT ppx Homelessness - social work consult - Goals of Care: FULL CODE - DVT Prophylaxis: Lovenox 40 q24hr - CrCl >30 - GI Prophylaxis: Not Indicated - Diet: General - BMI Classification: Body mass index is 31.25 kg/m . Obesity (BMI >30) - Disposition: Admit to F. - Given the signs and symptoms associated with his primary diagnosis in the setting of his comorbidconditions, he is expected to require >48 hrs of hospital care (i.e. inpatient level care). Post-Rounds Addendum: - required Haldol, Ativan, and Benadryl overnight for agitation - VSS. Persistently febrile, but improving - labs with improving CK and WBC - on evaluation, patient somnolent - currently getting TTE - will re-evaluate later - otherwise plan as above Attending Supervising Physician's Attestation Statement for Admission I performed a history and physical examination on the patient and discussed the management with theresident physician. I reviewed and agree with the findings and plan as documented in their note except as amended in green font. Addendums may have been dictated using the [employer] Voice Recognition Feature. The document was proofread; however, unrecognized voice recognition family reunification specialist errors may be present. Please note, the time of this note does not reflect the time I saw this patient today, but the time of this documentaton. Pt examined 2025-04-03. Discussed with: [x]Residents [x]Patient []Family [x]RN []Consultants []SW/TCC [] PT/OT []Pharmacist [x]Other- tool grinding technician at bedside Reviewed: [x]Epic notes [x]Radiology studies [x]Labs [x]EKG []Other Initial Inpatient: Spent total time 75 minutes counseling or coordinating care, chart historical review, and discussion regarding presentation with med team. Pt still under effects of meth at time ofteaching rounds. Would answer questions with 1-2 word answers that seemed appropriate, but would not open eyes or engage further. . 7AM-5PM: contact resident on [facility] Med Team (found by hovering over attending's name on left side of patient's chart) 5PM-7AM: contact AI3 resident [1] History reviewed. No pertinent past medical history. [2] History reviewed. No pertinent surgical history. [3] No family history on file. [4] Social History Tobacco Use Smoking Status Some Days Types: Cigarettes Smokeless Tobacco Never [5] No Known Allergies documented in this [facility]06-26-2025 Physician Emergency department Note* Alta Medina DO - 04/02/2025 6:19 PM EDT EMERGENCY DEPARTMENT ENCOUNTER Pt Name: Viral Ann Birthdate 1975 Date of evaluation: 04/02/2025 ED Provider: Alta Medina DO CHIEF COMPLAINT Chief Complaint Patient presents with Shortness of Breath Pt has hx of blood clots in his right leg and IVC filter, pt reports shortness of breath. Pt able to speak in full sentences at this time. HISTORY OF PRESENT ILLNESS (Location/Symptom, Timing/Onset, Context/Setting, Quality, Duration, Modifying Factors, Severity) Note limiting factors. I wore appropriate PPE for the entirety of this encounter. HPI Viral Ann is a 49 y.o. who presents to the emergency department with concern for chest pain andshortness of breath and concerned that he has an infection in his right foot. The patient states hehas a history of blood clots in his right leg and has had an IVC filter in place for the past 15 years. He states he was also in the hospital for a month for a previous infection of his right foot. He also endorses meth and cocaine use today. He does have a history of IV drug use. The patient has no medical history on chart for review. Patient denies any other medical conditions, he does not takeany other medications. Patients speech is rapid and pressured on arrival. Nursing Notes were reviewed. Limitations to history: None Outside historians: None REVIEW OF SYSTEMS Review of Systems Constitutional: Positive for fever. Negative for chills. Respiratory: Positive for shortness of breath. Negative for cough and wheezing. Cardiovascular: Positive for chest pain. Gastrointestinal: Negative for abdominal pain, diarrhea, nausea and vomiting. Genitourinary: Negative for difficulty urinating and dysuria. Neurological: Negative for dizziness, syncope, light-headedness and headaches. Pertinent positives and negatives as per HPI. PAST MEDICAL HISTORY Medical History[1] SURGICAL HISTORY Surgical History[2] CURRENT MEDICATIONS Previous Medications No medications on file ALLERGIES Patient has no known allergies. FAMILY HISTORY Family History[3] SOCIAL HISTORY Social History[4] SCREENINGS PHYSICAL EXAM ED Triage Vitals [04/02/25 1835] Temp Heart Rate Resp BP (!) 38.9 C (102 F) 99 21 122/88 SpO2 Temp Source Heart Rate Source Patient Position 96 % Temporal -- -- BP Location FiO2 (%) -- -- Physical Exam Constitutional: General: He is not in acute distress. Cardiovascular: Rate and Rhythm: Regular rhythm. Tachycardia present. Heart sounds: Normal heart sounds. No murmur heard. Pulmonary: Effort: Pulmonary effort is normal. No respiratory distress. Breath sounds: No wheezing or rales. Abdominal: General: Abdomen is flat. There is no distension. Palpations: Abdomen is soft. Tenderness: There is no abdominal tenderness. There is no guarding. Musculoskeletal: Right lower leg: No edema. Left lower leg: No edema. Comments: Right foot appears atraumatic, no skin changes concerning for infection. Skin: General: Skin is warm and dry. Neurological: Mental Status: He is alert and oriented to person, place, and time. Psychiatric: Speech: Speech is rapid and pressured. Behavior: Behavior is hyperactive. Behavior is cooperative. DIAGNOSTIC RESULTS RADIOLOGY (Per Emergency Physician): Interpretation per the Radiologist below, if available at the time of this note: CT chest angiogram w and/or wo IV contrast Final Result 1.Negative CT scan of the chest for evidence of acute pulmonary embolism. Report Dictated on Electronically Signed By: Buzz Riley MD Electronically Signed Date/Time: 04/02/2025 7:59 PM EDT XR foot 3+ views right Final Result XR chest 1 view Final Result 1. No acute findings. Report Dictated on Electronically Signed By: Gregory Caal MD Electronically Signed Date/Time: 04/02/2025 7:10 PM EDT LABS: Labs Reviewed BASIC METABOLIC PANEL - Abnormal Result Value SODIUM 137 POTASSIUM 3.7 CHLORIDE 101 CARBON DIOXIDE 21 (*) UREA NITROGEN 51 (*) CREATININE 2.43 (*) GLUCOSE 91 CALCIUM 8.8 ANION GAP 15 (*) eGFR 31.6 (*) CBC WITH AUTO DIFFERENTIAL - Abnormal Auto WBC 16.3 (*) RBC 4.27 (*) Hemoglobin 13.3 Hematocrit 38.5 (*) MCV 90.2 MCH 31.1 MCHC 34.5 RDW 13.2 Platelets 233 MPV 10.1 COMPLETE URINALYSIS WITH REFLEX TO CULTURE - Abnormal Color, Urine Light Yellow Clarity, Urine Clear pH, Urine 5.5 Leukocytes, Urine Negative Nitrite, Urine Negative Protein, Urine 50 (*) Glucose, Urine Normal Bilirubin, Urine Negative Ketones, Urine 10 (*) Urobilinogen, Urine Normal Blood, Urine 0.1 (*) RBC, Urine 0-2 WBC, Urine 0-2 Squamous Epithelial, Urine 0-2 Bacteria, Urine Negative Mucus, Urine Few Hyaline Casts, Urine 0-2 (*) SPECIFIC GRAVITY OF URINE (NUMERIC) 1.038 (*) Narrative: A specimen with <=10 WBC is not consistent with inflammation. This specimen will not reflex to aurine culture. C-REACTIVE PROTEIN - Abnormal C REACTIVE PROTEIN 26.9 (*) SEDIMENTATION RATE, AUTOMATED - Abnormal Sed Rate 14 (*) CK - Abnormal CK 1,504 (*) MANUAL DIFFERENTIAL (CELLAVISION) - Abnormal RBC Morphology Normal Neutrophils % 73 Lymphocytes % 15 Monocytes % 13 Absolute Neutrophil Count 11.9 (*) Lymphocytes Absolute 2.4 Monocytes Absolute 2.1 (*) Neutrophils Manual 74 Lymphocytes Manual 15 Monocytes Manual 13 Eosinophils Manual Basophils Manual Bands Manual Metamyelocytes Manual Myelocytes Manual Promyelocytes Manual Blasts Manual Atypical Lymphocytes Manual Unclassified Cells, Manual BLOOD CULTURE - Normal Blood Culture Blood culture incubation started Narrative: Blood Collection Site: Right Antecubital BLOOD CULTURE - Normal Blood Culture Blood culture incubation started Narrative: Blood Collection Site: Left Forearm HIGH SENSITIVITY TROPONIN, SERIAL BASELINE - Normal Troponin HS Serial Baseline 5 LACTIC ACID WITH REFLEX - Normal LACTIC ACID 1.6 HIGH SENSITIVITY TROPONIN, SERIAL, SECOND TEST - Normal 2h Troponin HS (Serial 2nd Troponin) 6 DRUGS OF ABUSE AMPHETAMINE SCREEN Positive BARBITURATES SCREEN Negative BENZODIAZEPINE SCREEN Negative COCAINE METAB. SCREEN Negative METHADONE SCREEN Negative OPIATES SCREEN Negative OXYCODONE SCREEN Negative PHENCYCLIDINE SCREEN Negative FENTANYL SCREEN, UR QUAL Negative Narrative: The expected value for all of the drugs listed above is Negative. The following drugs or drug groups have been screened for by Immunoassay at the following thresholds: Amphetamine class (1000 ng/mL) Barbiturates (200 ng/mL) Benzodiazepines (200 ng/mL) Cocaine (300 ng/mL) Methadone (300 ng/mL) Opiates (300 ng/mL) Oxycodone (100 ng/mL) PCP (25 ng/mL) Fentanyl (1.0 ng/ml) NOTE: These results are for medical treatment only. Analysis performed using non-forensic procedures. POSITIVE results are NOT confirmed by a more specific alternative method unless requested. If confirmation is needed, request confirmation under separateorder. All other labs were within normal range or not returned as of this dictation. EMERGENCY DEPARTMENT COURSE and DIFFERENTIAL DIAGNOSIS/MDM: Vitals: Vitals: 04/02/25 1926 04/02/25 2102 04/02/25 2152 04/02/25 2318 BP: 112/78 116/83 102/72 BP Location: Left arm Pulse: 94 91 90 Resp: 20 20 20 Temp: 37.4 C (99.4 F) TempSrc: Oral SpO2: 97% 98% 98% Weight: 113 kg (250 lb) Height: 1.905 m (6' 3) The patient presented with a chief complaint of chest pain and shortness of breath. The differential diagnosis associated with this patient's presentation includes ACS versus PE versus endocarditis versus methamphetamine use versus pneumonia. Our workup consisted of ordering/reviewing CTA chest, CXR, XR right foot, EKG, BMP, blood cultures, CRP, CBC, CK, urinalysis, drug screen, lactic acid, ESR,troponin. On arrival patient does meet SIRS criteria with temperature of 102 and tachycardia in thehigh 90s to low 100s. However he does appear to be acutely intoxicated with methamphetamines and does endorse recent methamphetamine use so he was not covered with antibiotics but was given fluid resuscitation and sepsis workup was started. His fever was treated with 650 mg of Tylenol. Patient doeshave an elevated creatinine at 2.43 with no previous to compare to, anion gap elevated at 15, likely related to dehydration. He was given a second liter fluid bolus. Lactic acid within normal limits however patient does have a significant leukocytosis present at 16.3. As he does have history of IV drug use there is concern for possible endocarditis, ESR and CRP both mildly elevated. He was covered with vancomycin. Troponin not elevated. Drug screen positive for amphetamines. The patient will beadmitted to the hospital for further fluid resuscitation and cardiology evaluation for echo to fully rule out endocarditis as the cause of his lab abnormalities. SEP-1 CORE MEASURE DATA SIRS Criteria Sepsis Criteria Severe Sepsis Criteria Septic Shock Criteria Must meet 2: [x] Temperature > 100.4 F (38 C) or < 96.8 F (36 C) [x] HR > 90 [] RR > 20 [] WBC > 12 or < 4 or 10% bands Must be confirmed or suspected to move forward with diagnosisof sepsis. Must select at least one: [x] Bacterial Infection Confirmed or Suspected. [] Viral Infection Confirmed or Suspected. [] No infection present. Patient does not meet criteria for Sepsis. Must meet 1: [] Lactate > 2 or [x] Signs of Organ Dysfunction: - SBP < 90 or MAP < 65 - Altered mental status - Creatinine > 2 or increased from baseline - Urine Output < 0.5 ml/kg/hr - Bilirubin > 2 - INR > 1.5 - Platelets < 100,000 - Acute Respiratory Failure as evidenced by new need for NIPPV or mechanical ventilation [] No criteria met for Severe Sepsis. Must meet 1: [] Lactate = or > 4 or [] SBP < 90 or MAP < 65 for at least two readings in the first hour after fluid bolus administration [x] No criteria met for Septic Shock. Patient Vitals from 04/02/25 2301 to 04/03/25 0000 BP Pulse Resp SpO2 04/02/25 2318 102/72 90 20 98 % Recent Labs 04/02/25 1916 WBC 16.3* LACTATE 1.6 CREATININE 2.43* PLT 233 Sepsis Identified at 2020 hours. Fluid Resuscitation Rational: at least 30mL/kg based on entered actual body weight at time of triage Infection Source: Unknown Alta Medina DO FINAL IMPRESSION 1. Sepsis (HCC) 2. Shortness of breath 3. Chest pain, unspecified type 4. Non-traumatic rhabdomyolysis 5. Amphetamine use DISPOSITION Admit 04/02/2025 09:51:18 PM PATIENT REFERRED TO: No follow-up provider specified. DISCHARGE MEDICATIONS: New Prescriptions No medications on file (Comment: Please note this report has been produced using speech recognition software and may contain errors related to that system including errors in grammar, punctuation, and spelling, as well as words and phrases that may be inappropriate. If there are any questions or concerns please feel freeto contact the dictating provider for clarification.) Alta Medina DO (electronically signed) Emergency Medicine Provider [1] History reviewed. No pertinent past medical history. [2] History reviewed. No pertinent surgical history. [3] No family history on file. [4] Social History Socioeconomic History Marital status: Single Tobacco Use Smoking status: Some Days Types: Cigarettes Smokeless tobacco: Never Vaping Use Vaping status: Never Used Substance and Sexual Activity Alcohol use: Not Currently Drug use: Yes Types: Cocaine, Methamphetamines, Marijuana Alta Medina DO Resident 04/03/25 0033 Cosigned by David Wolfe DO at 04/03/2025 6:52 AM EDT [id number] Emergency [facility] Note* David Wolfe DO - 04/02/2025 6:19 PM EDT Emergency Department Encounter [facility] Patient: Viral Ann : 1975 Date of Evaluation: 04/02/2025 ED Supervising Physician: David Wolfe DO I personally evaluated Viral Ann and made/approved the management plan and take responsibility for the patient management. This will serve as my Supervisory note and shared attestation. I did perform a substantive portion of the visit including all aspects of the Medical Decision Making. I wore appropriate PPE for the entirety of this encounter. In brief, Viral Ann is a 49 y.o. that presents to the emergency department with complaints of chest pain and shortness of breath. Patient is concerned there is an infection in his right foot. 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 Unable to verify validity. Patient also endorses polysubstance abuse includingmeth and cocaine use today and history of IV drug use. Patient is a little tangential in history taking Focused exam: On exam, vitals tachycardic, febrile. Gen: Nontoxic appearing. Head: NC/AT. CV: RRR. Resp: CTA bilaterally. Abd: Abd soft and notender. Back: No midline vertebral tenderness, no stepoff, no deformity Ext: No obvious deformity or abnormalities of bilat UE and LE, Pulses 2+ bilateral UE and LE. Neuro: No focal neurologic deficit. Skin: No obvious rashes, warm, dry Brief ED course/MDM: Patient with hx of drug abuse presents to the ED with a chief complaint of sob. Additional information found above and also refer to cookie/resident note for further details. On exam, vitals febrile. Per above. Otherwise per above Additional information found above and also refer to cookie/resident note for further details. (Differential diagnosis) With consideration of age, sex/gender, risk factors, to evaluate patient for high risk causes of morbidity and mortality such as, but not limited to, .acute infectious process (ie. CAP/viral/other) vs viral syndrome vs ACS vs inflammatory process vs other Today we will obtain labs and imaging We will also provide medical/symptomatic management with antipyretic . Diagnostic tests considered but not performed: na Independently reviewed external documents including previous none available Discussed plan with patient who agrees with current plan. Diagnostics interpreted by me: Per below I personally discussed the patient's management with other clinicians: Per resident End of visit medical decision making Patient was reassessed. Resting comfortably. No acute distress. Independently reviewed and interpreted the lab results which demonstrated the following: Leukocytosis of 16.3, no significant anemia, no major electrolyte abnormalities, GUIDO with a creatinine of 2.4 and a GFR of 31 with a CPK of 1200 consider rhabdo, lactic acid at 1.6, troponin negative, UDS positive for amphetamines, UA without overt signs of cystitis Independently reviewed and interpreted CXR which demonstrated the following: No acute intrathoracicabnormalities. No obvious consolidation. Sharp costophrenic angles. No pneumothorax. Trachea midline. Independently reviewed and interpreted EKG which demonstrated the following: Sinus tachycardia Rhythm Strip: The case monitor was ordered secondary to the patient's history of blood clots andto monitor the patient for dysrhythmia. I performed an independent interpretation of the rhythm strip which showed no arrhythmia, no signs of ischemic changes, no ectopy. Independently reviewed the reports of other imaging which demonstrated the following: no PE no acute intrathoracic abnl Response to medical management provided in the ED: improving (Consults) Discussed care with: Discussed case with financial consultant, admitting team. They agree with current work up and management. They will evaluate and provide further recommendations, please refer to their note for detailed explanation. They agree to admit the patient for further workup and management. Discussed all results with patient and/or family members. They verbalize understanding. Offered admission for further management. Discussed risks, benefits and alternatives for further management in the hospital. Due to high risk of morbidity and mortality of the stated findings and results, patient will be admitted for further management and care. Patient is agreeable to the plan. Discussed patient information, presentation and workup with admitting team. Admitting team is agreeable to current workup and evaluation. They will admit the patient and provide further care. Pendingresults to be followed by primary admitting team. Patient will need med tele level of care and not appropriate for lower acuity location of care due to risk of morbidity and mortality Patient's condition and/or care was impacted by drug use Patient's condition and/or care was significantly impacted by social determinants of health including: none All diagnostic, treatment, and disposition decisions were made by myself in conjunction with the Resident. I also supervised jordan portions of any procedures performed by the Resident. For all further details of the patient's emergency department visit, please see their documentation. (Comment: Please note this report has been produced using speech recognition software and may contain errors related to that system including errors in grammar, punctuation, and spelling, as well as words and phrases that may be inappropriate. If there are any questions or concerns please feel freeto contact the dictating provider for clarification.) David Wolfe DO Acute Care [facility] David Wolfe DO 04/03/25 0754 [facility] Work Phone: Evaluation note* Diagnosis Sepsis (HCC)- Primary Shortness of breath Chest pain, unspecified type Non-traumatic rhabdomyolysis Sepsis (HCC) Amphetamine use documented in this encounter [facility] HospitalEvaluation noteNo assessment information availableWSt. Francis Hospital Work Phone: Hospital Discharge instructionsAdditional Instructions You are given a dose of IV antibiotics. I also prescribed a new antibiotic to take at home called doxycycline which is twice daily. Follow-up with your primary care doctor closely. If symptoms worsen such as redness spreading up your leg, red streaking, fever, or pus from the wound please come back to the ER.[facility] Work Phone: Hospital Discharge instructionsAdditional Instructions I have been informed by Dr. Orellana that I need to be admitted because of injury to my kidney. I have been told that this may result in complications due to worsening kidney functions which includes but not limited to renal failure requiring dialysis, worsening really failure that would inhibit my lifestyle. Inability to perform 1 or more activities of daily living, seizure disorder, high semivegetative vegetative state. May require life support, feeding tube or tracheostomy for short or long-term. May result in my . There are additional tests that need to be done and I realize that not complying may result in more complications.[facility] Work Phone: Reason for referral (narrative)No reason for referral information availableWSt. Francis Hospital Work Phone: Summary Purpose Family History No Family History Records FoundNo Family History Records FoundNo Family History Records FoundNo Family History Records FoundNo Family History Records Found Advance Directives No Advanced Directives Records Found Date Activated Date Inactivated Comments 04/03/2025 12:48 AM 04/08/2025 4:55 PM Healthcare Agents on File Name Relationship Healthcare Agent Relationshi p Communication Adam Ann Daughter Health Care Agent Advance Directive Response Recorded Date/ Time Do you have a Healthcare Power of Glaciologist? No April 10, 2025 4:49pm Advance Directive Response Recorded Date/ Time Do you have a Healthcare Power of Glaciologist? No April 10, 2025 4:49pm Do you have a Healthcare Power of Glaciologist? No April 12, 2025 5:38pm Chief Complaint and Reason for Visit Chief Complaint Admit Date FOOT INFECTION April 10, 2025 4:48p m Chief Complaint Admit Date FOOT INFECTION April 10, 2025 4:48p m right foot cellulitis April 12, 2025 3:0 3pm Additional Source Comments (unrecognized sect ion and content) No Status Records FoundNo Status Records FoundNo Status Records FoundNo Status Records FoundNo Status Records Found INFORMATION SOURCE (unrecogn ized section and content) DATE CREATED AUTHOR 12/27/2024 [facility] [facility] DATE CREATED AUTHOR AUTHOR'S ORGANIZ ATION 03/04/2025 [facility] DATE CREATED AUTHOR AUTHOR'S ORGANIZ ATION 03/06/2025 [facility] DATE CREATED AUTHOR AUTHOR'S ORGANIZ ATION 04/17/2025 [facility] DATE CREATED AUTHOR AUTHOR'S ORGANIZ ATION 04/20/2025 [facility] Reason for Visit (unrecogniz ed section and content) Reason Comments Shortness of Breath Pt has hx of blood c lots in his right leg and IVC filter, pt reports shortness of breath. Pt able to speak in full sentences at this time. Specialty Diagnoses / Procedures Referred By Contac t Referred To Contact Diagnoses Shortness of breath Sepsis (HCC) Non-traumatic rhabdomyolysis Chest pain, unspecified type Amphetamine use Procedures SOB Fortino Miller MD [address] [facility] [address] [place] [id number] Phone: tel: fax: [facility] Res[facility] Unit [address] [place] [phone] Phone: tel: Referral ID Status Reason Start Date Expiration Date Visits Re quested Visits Authorized [id number] 1 1 Scheduled Active and Recently Administ ered Medications (unrecognized section and content) Medication Order 04/06/2025 04/07/2025 04/08/2025 enoxaparin (Lovenox) syringe 40 mg 40 mg, SubCUTAneous, Every 24 hours scheduled (Daily), First dose on Sun04/03/25 at 0900, Indication of Use: Prophylaxis-DVT/PE, Indications: Prophylaxis of Venous Thromboembolism 0959 (Given - Provider: Lorelei Malik RN) 0833 (Given - Provider: Lelo Lux RN) 1008 (Given - Provider: Doe Kwon RN) gabapentin (Neurontin) capsule 300 mg 300 mg, Oral, Every 8 hours, First dose on Sun04/03/25 at 1145, Hold for excessive sedation 0428 (Given - Provider: Jen Byrne RN)1216 (Given - Provider: Trudy Sanchez RN)2033 (Given - Provider: Tyree Fisher RN) 0334 (Given - Provider: Tyree Fisher RN)1238 (Given - Provider: Lelo Lux RN)2026 (Given - Provider: Tyree Fisher RN) 0457 (Given - Provider: Tyree Fisher RN)1302 (Given - Provider: Doe Kwon, KRISTIN) piperacillin-tazobactam (Zosyn) 4,500 mg in sodium chloride 0.9 % 100 mL IVPB Mini-Bag Plus 4,500 mg, IntraVENous, at 33.3 mL/hr, Administer over 3 Hours, Every 6 hours, First dose on Sun04/03/25 at 0050, Mini-Bag Plus bag, Suspected Indication (Select all that apply): Sepsis of Unknown Etiology 0428 (New Bag - Provider: Jen Byrne RN)0430 (Stopped - Provider: Jen Byrne RN)0955 (New Bag - Provider: Lorelei Malik, KRISTIN)1344 (Stopped - Provider: Lorelei Malik RN)1723 (New Bag - Provider: Lorelei Malik RN)2030 (Stopped - Provider: Tyree Fisher RN)2320 (New Bag - Provider: Tyree Fisher RN) 0248 (Stopped - Provider: Tyree Fisher RN)0334 (New Bag - Provider: Tyree Fisher RN)0632 (Stopped - Provider: Tyree Fisher RN)1354 (Not Given - Provider: Lelo Lux RN - Reason: Other - Comment: No IV)1430 (New Bag - Provider: Lelo Lux RN)1710 (Stopped - Provider: Lelo Lux RN)2206 (New Bag - Provider: Tyree Fisher RN) 0237 (Stopped - Provider: Tyree Fisher RN)0457 (New Bag - Provider: Tyree Fisher RN)1003 (Stopped - Provider: Doe Kwon RN)1309 (Not Given - Provider: Doe Kwon RN - Reason: Patient/family refused)1500 (Canceled Entry - Provider: Automatic Discharge Provider - Comment: Automatically canceled at discontinue of medication order) traZODone (Desyrel) tablet 100 mg 100 mg, Oral, Nightly, First dose on Sun04/04/25 at 2100 2033 (Given - Provider: Tyree Fisher RN) 202 (Given - Provider: Tyree Fisher RN) vancomycin IVPB 1250 mg in 250 mL NS (premix) 1,250 mg, IntraVENous, at 166.7 mL/hr, Administer over 90 Minutes, Every 12 hours, First dose (after last modification) on Sun04/05/25 at 1700, premix bag, Suspected Indication (Select all that apply): Sepsis of Unknown Etiology 0428 (New Bag - Provider: Jen Byrne, RN)0430 (Stopped - Provider: Jen Byrne, RN)2035 (New Bag - Provider: Tyree Fisher, RN)2323 (Stopped - Provider: Tyree Fisher, RN) 0634 (New Bag - Provider: Tyree Fisher RN)0711 (Stopped - Provider: Lelo Lux, RN)2025 (New Bag - Provider: Tyree Fisher, RN)220 (Stopped - Provider: Tyree Fisher, RN) 1007 (New Bag - Provider: Doe Kwon, RN)1154 (Stopped - Provider: Doe Kwon, RN) PRN Medication Order 04/06/2025 04/07/2025 04/08/2025 acetaminophen (Tylenol) suppository 650 mg(Linked Group 1) 650 mg, Rectal, Every 6 hours PRN, fever, For temp greater than 100.4 F (38 C), Starting on Sun04/03/25 at 0048, Administer if oral route cannot be used. Maximum dose of acetaminophen is 4000 mg from all sources in 24 hours. 0832 (See Alternative - Provider: Lelo Lux RN) acetaminophen (Tylenol) tablet 650 mg(Linked Group 1) 650 mg, Oral, Every 6 hours PRN, mild pain (1-3), fever, For temp greater than 100.4 F (38 C), Starting on Sun04/03/25 at 0048, Maximum dose of acetaminophen is 4000 mg from all sources in 24 hours. First line for pain 0832 (Given - Provider: Lelo Lux, KRISTIN) gadopiclenol (Vueway) injection 11 mL (COMPLETED) 11 mL, IntraVENous, IMG once PRN, contrast, Starting on Sun04/05/25 at 0911, For 1 dose 1828 (Given - Provider: Kody Bundy, RT (R)) LORazepam (Ativan) injection 1 mg(Linked Group 2) 1 mg, IntraVENous, Every 3 hours PRN, agitation, Starting on Sun04/07/25 at 1302, For IV doses dilute dose with 1ml NS. 1325 (Given - Provider: eLlo Lux, RN)171 (Given - Provider: Lelo Lux, RN) LORazepam (Ativan) tablet 1 mg(Linked Group 2) 1 mg, Oral, Every 3 hours PRN, anxiety, Starting on Sun04/07/25 at 1302 1325 (See Alternative - Provider: Lelo Lux, RN)171 (See Alternative - Provider: Lelo Lux, RN) melatonin tablet 3 mg 3 mg, Oral, Nightly PRN, sleep, Starting on Sun04/03/25 at 0048 2034 (Given - Provider: Tyree Fisher, KRISTIN) 2027 (Given - Provider: Tyree Fisher, KRISTIN) naloxone (Narcan) injection 0.4 mg 0.4 mg, IntraVENous, Every 5 min PRN, opioid reversal, respiratory depression, Starting on Sun04/07/25 at 1339, +++ For RR <10, pinpoint pupils, over sedation for opioid reversal - MUST notify day habilitation specialist provider immediately after first dose, may give IM or SQ if no IV access +++ ondansetron (Zofran) injection 4 mg(Linked Group 3) 4 mg, IntraVENous, Every 6 hours PRN, nausea, vomiting, Starting on Sun04/03/25 at 0048, 1st Line. Give IV if patient is unable to take orally. If inadequate response within 60 minutes, proceed to next-line agent or contact provider if no further options ordered. ondansetron ODT (Zofran-ODT) disintegrating tablet 4 mg(Linked Group 3) 4 mg, Oral, Every 8 hours PRN, nausea, vomiting, Starting on Sun04/03/25 at 0048, 1st Line. If inadequate response within 60 minutes, proceed to next-line agent or contact provider if no further options ordered. Patient should allow tablet to dissolve on tongue. Do not remove from blister pack until just before administering. oxyCODONE (Roxicodone) immediate release tablet 2.5 mg(Linked Group 4) 2.5 mg, Oral, Every 4 hours PRN, moderate pain (4-6), Starting on Sun04/07/25 at 1337 1352 (See Alternative - Provider: Lelo Lux, KRISTIN) oxyCODONE (Roxicodone) immediate release tablet 5 mg(Linked Group 4) 5 mg, Oral, Every 4 hours PRN, severe pain (7-10), Starting on Sun04/07/25 at 1337 1352 (Given - Provider: Lelo Lux RN) polyethylene glycol (PEG) 3350 (Miralax) packet 17 g 17 g, Oral, Daily PRN, constipation, Starting on Sun04/03/25 at 0048, 1st line for treatment of constipation - give scheduled if no bowel movement in past 24 hours. Linked Groups Order Group 1: acetaminophen (Tylenol) tablet 650 mgJump to med 650 mg, Oral, Every 6 hours PRN, mild pain (1-3), fever, For temp greater than 100.4 F (38 C), Starting on Sun04/03/25 at 0048, Maximum dose of acetaminophen is 4000 mg from all sources in 24 hours. First line for pain Or acetaminophen (Tylenol) suppository 650 mgJump to med 650 mg, Rectal, Every 6 hours PRN, fever, For temp greater than 100.4 F (38 C), Starting on Sun04/03/25 at 0048, Administer if oral route cannot be used. Maximum dose of acetaminophen is 4000 mg from all sources in 24 hours. Group 2: LORazepam (Ativan) injection 1 mgJump to med 1 mg, IntraVENous, Every 3 hours PRN, agitation, Starting on Sun04/07/25 at 1302, For IV doses dilute dose with 1ml NS. Or LORazepam (Ativan) tablet 1 mgJump to med 1 mg, Oral, Every 3 hours PRN, anxiety, Starting on Sun04/07/25 at 1302 Group 3: ondansetron ODT (Zofran-ODT) disintegrating tablet 4 mgJump to med 4 mg, Oral, Every 8 hours PRN, nausea, vomiting, Starting on Sun04/03/25 at 0048, 1st Line. If inadequate response within 60 minutes, proceed to next-line agent or contact provider if no further options ordered. Patient should allow tablet to dissolve on tongue. Do not remove from blister pack until just before administering. Or ondansetron (Zofran) injection 4 mgJump to med 4 mg, IntraVENous, Every 6 hours PRN, nausea, vomiting, Starting on Sun04/03/25 at 0048, 1st Line. Give IV if patient is unable to take orally. If inadequate response within 60 minutes, proceed to next-line agent or contact provider if no further options ordered. Group 4: oxyCODONE (Roxicodone) immediate release tablet 2.5 mgJump to med 2.5 mg, Oral, Every 4 hours PRN, moderate pain (4-6), Starting on Sun04/07/25 at 1337 Or oxyCODONE (Roxicodone) immediate release tablet 5 mgJump to med 5 mg, Oral, Every 4 hours PRN, severe pain (7-10), Starting on Sun04/07/25 at 1337 Care Teams (unrecognized sec tion and content) Team Status: Active Member Role/Relationship Status Dates No Primary Care Physician Primary Care Provider Active Team Status: Inactive Member Role/Relationship Status Dates Dr. Yahir Torres DO Emergency Provider Active Start: April 10, 2025 End: April 10, 2025 No Primary Care Physician Primary Care Provider Active Start: April 10, 2025 End: April 10, 2025 Team Status: Inactive Member Role/Relationship Status Dates No Primary Care Physician Primary Care Provider Active Start: April 12, 2025 End: April 12, 2025 Dr. Bryant Orellana MD Emergency Provider Active Sta rt: April 12, 2025 End: April 12, 2025 Goals (unrecognized section and content) Goals may be documented in a n alternate sectionGoals may be documented in an alternate section FOR RECORDS PERTAINING TO PATIENTS WHO ARE OR HAVE BEEN ENROLLED IN A CHEMICAL DEPENDENCY/SUBSTANCEABUSE PROGRAM, SOME INFORMATION MAY BE OMITTED. This clinical summary was aggregated from multiple sources. Caution should be exercised in using it in the provision of clinical care. This summary normalizes information from multiple sources, and as a consequence, information in this document may materially change the coding, format and clinical context of patient data. In addition, data may be omitted in some cases. CLINICAL DECISIONS SHOULD BE BASED ON THE PRIMARY CLINICAL RECORDS. [employer] provides no warranty or guarantee of the accuracy or completeness of information in this document.
[2025-06-25 20:08] LABS: Hematocrit 44.6 % (40-54); Hemoglobin 15.2 g/dL (13.0-16.5); Immature Granulocytes Count 0.020 X10^3/uL (0.0-0.0); Mean Corp Hgb Conc 34.1 g/dL (32-36); Mean Corpuscular Volume 89.9 fL (80-94); Mean Platelet Vol. 9.6 fl (6.2-12.0); NRBC Flagged by Analyzer 0 % (0-5); Platelet Count 349 K/mm3 (150-450); RBC Distribution Width CV 12.6 % (11.6-14.6); RBC Distribution Width SD 41.1 fl (35.1-43.9); Red Blood Count 4.96 M/mm3 (4.6-6.2); White Blood Count 8.0 K/mm3 (4.4-11.0)
[2025-06-25 20:11] VITALS: BP 118/81; PULSE 93; RESP 20; O2SAT 100
--- NOTE | 2025-06-25 20:18 | EDS_ITS ---
HPI HPI - Psych History of Present Illness Chief Complaint: Suicidal Informant: patient Onset/Context/Timing Onset: Days Context: Gradual Onset Conflict: Family Timing: Continuous Current Severity: Moderate Maximum Severity: Moderate Associated Symptoms Associated Symptoms - Psych: Positive for Depressed and Suicidal Thoughts Specific plan (suicidal thought): Overdose. Denies any attempt this time. Prior attempts. Narrative Narrative: 49-year-old male history of depression. History of methamphetamine abuse. States depressed has been unable to see his child. He is having suicidal though ts. He recently was just discharged from a psychiatric facility he says about a week ago. He denies any attempt this time. He is attempted in the past to overdose himself. Prior similar symptoms: Yes Recent Illness/Hospitalization: Yes PFSH PFSH Medical History IV drug user Marijuana abuse Methamphetamine abuse Deep venous thrombosis Pulmonary embolism Presence of IVC filter Cellulitis Home Medications ?Medication ?Instructions ?Recorded ?Last Taken ?Type amoxicillin 875 mg-potassium 1 tab PO BID 04/10/25 Unk nown History clavulanate 125 mg tablet doxycycline hyclate 100 mg capsule 100 mg PO BID 7 day s #14 caps 04/10/25 Unknown Rx gabapentin 300 mg capsule 300 mg PO Q8H 04/10/25 Unkno wn History sulfamethoxazole 800 1 tab PO BID 04/10/25 Unknow n History mg-trimethoprim 160 mg tablet (Bactrim DS) trazodone 100 mg tablet 100 mg PO QHS 04/10/25 Unkno wn History Allergy/AdvReac Type Severity Reaction Status Date / Time No Known Allergies Allergy Verified 04/12/25 15:03 Surgical History Hx of tonsillectomy H/O hernia repair Social History Smoking Status: Current every day smoker tobacco type: e-cigarettes substance use type: marijuana and amphetamines ROS ROS ED ROS Narrative Denies recent illness. Constitutional Constitutional ED: Denies chills or fever(s) Eyes Eyes: Denies blurry vision ENT ENT ED: Denies ear pain Cardiovascular Cardiovascular: Denies chest pain Respiratory/Chest Respiratory/Chest: Denies cough or dyspnea Gastrointestinal Gastrointestinal: Denies abdominal pain Genitourinary Genitourinary ED: Denies dysuria or hematuria Musculoskeletal Musculoskeletal: Denies arthralgias Integumentary Denies abscess or Abrasions Neurologic Neurologic: Denies headache(s) Psychiatric Psychiatric: Reports depression, suicidal ideation and suicidal thoughts; Denies anxiety Endocrine Endocrinology: Denies polydipsia or polyphagia Hematologic/Lymphatic Hematologic/Lymphatic: Denies easy bleeding Allergic/Immunologic Allergic/Immunologic ED: Denies mouth swelling EXAM Physical Exam Narrative Exam Narrative: 49-year-old male sitting upright in bed. Vital signs stable afebrile. No distress. Cooperative. Makes eye contact. HEENT exam estonian. Pupils round reactive light. Moist mutes membranes. No signs of trauma to his face or scalp. Neck nontender no signs of trauma. Back nontender. Lungs clear to auscultation bilaterally. Heart regular rhythm no murmur rate about 75. Chest wall ribs nontender. Abdomen soft nontender. Moving all 4 extremities. Nontender no edema. Normal strength. Normal range of motion. Neurologically he is awake alert. Answering questions following commands. Currently no signs of toxidrome. No smell of alcohol. Const Vital Signs: 06/25/25 19:11 06/25/25 20:11 06/25/25 21:00 Temperature 98.5 F Temperature Source Oral Pulse Rate 77 93 84 Respiratory Rate 16 20 H 16 Blood Pressure 143/101 H 118/81 H 112/86 H Blood Pressure Mean 115 93 94 Pulse Ox 98 100 98 Oxygen Delivery Method Room Air Room Air Room Air Positive well nourished and well developed; Negative for cachectic, contractures or unkempt General Appearance ED: well developed; Negative for unkempt, cachectic, contractures or pallor Nutritional Appearance: Negative for cachectic HEENT Reports moist mucous membranes normocephalic and atraumatic Eyes PERRL and EOMs intact bilaterally Neck no lymphadenopathy, supple and no JVD Resp normal respiratory effort and clear to auscultation bilaterally Cardio S1 normal heart sound, S2 normal heart sound and no murmurs Rate: regular rate Rhythm: regular rhythm GI non-tender, non-distended and no masses Inspection: Negative for abdominal distention Auscultation: normoactive bowel sounds Palpation: soft; Negative for tender or guarding Back/Spine no CVA tenderness General Back: Negative for CVA tenderness Cervical Spine: Negative for cervical spine tenderness Thoracic Spine / Upper Back: Negative for thoracic spinal tenderness Lumbar Spine / Lower Back: Negative for lumbar spinal tenderness Extremity normal to inspection General Extremety ED: Negative for edema or tenderness General Extremity: Negative for edema Neuro oriented x3 and CN's II-XII intact bilaterally Sensorium / Orientation: alert, oriented to person, oriented to place and oriented to time Motor Exam: strength 5/5 throughout Psych cooperative, speech normal and activity/motor behavior normal; Negative for denies suicidal ideation Appearance: grossly normal, appropriate and well kempt; Negative for unkempt Attitude: calm, engaged, No paranoid, No withdrawn, No bizarre, No uncooperative, No evasive, No guarded and No belligerent Activity / Motor Behavior: appropriate eye contact Speech: normal speech Mood & Affect: depressed Thought Process: normal thought process Thought Content: suicidality Attention / Concentration: attention grossly intact and concentration grossly intact Memory / Cognition: memory grossly intact Insight: insight good Judgement: judgement good Skin General Skin Exam: Negative for jaundice or pallor Lesions: no lesions Rashes: no rashes MDM MDM MDM Narrative Medical decision making narrative: 49-year-old male depressed and suicidal. History of methamphetamine IV abuse. ED mental health screening labs and crisis evaluation for possible placement. He was just recently hospitalized for being suicidal. I spoke to the counseling center personnel. Evaluated the patient. He is concerned the patient is malingering but given the patient's history and his statements tonight he will place him in a psychiatric facility. He did not specifically want this patient pink slipped though. History & Record Review Discussion w/independent historian: Patient Additional record(s) reviewed:: Prior inpatient record, Prior outpatient record, Prior ED visit and Prior labs Lab Data Attestation: I reviewed the patient's lab results. Lab results narrative: CBC normal. White count 8. H&H 15 and 44. Chemistry shows sodium 139. Gap 14. BUN and creatinine of 21 and 1.37. Glucose 96. Tox screen is positive for amphetamines only. Alcohol negative Labs: Laboratory Results - last 24 hr 06/25/25 19:55 WBC 8.0 RBC 4.96 Hgb 15.2 Hct 44.6 MCV 89.9 MCH 30.6 MCHC 34.1 RDW Std Deviation 41.1 RDW Coeff of Errol 12.6 Plt Count 349 MPV 9.6 Immature Gran % (Auto) 0.300 Neut % (Auto) 58.1 Lymph % (Auto) 31.2 [place] % (Auto) 9.2 Eos % (Auto) 0.8 Baso % (Auto) 0.4 Absolute Neuts (auto) 4.6 Absolute Lymphs (auto) 2.49 Nucleated RBC % 0 Sodium 139 Potassium 4.2 Chloride 101 Carbon Dioxide 24.1 Anion Gap 14 BUN 21 H Creatinine 1.37 H Est GFR (MDRD) Non-Af 63 BUN/Creatinine Ratio 15.1 Glucose 96 Calcium 9.8 Urine Opiates Screen NEGATIVE U Buprenorphine Qual NEGATIVE Ur Oxycodone Screen NEGATIVE Urine Methadone Screen NEGATIVE Urine Fentanyl Screen NEGATIVE Ur Barbiturates Screen NEGATIVE Ur Phencyclidine Scrn NEGATIVE Ur Amphetamines Screen PRESUMPTIVE POSITIVE U Benzodiazepines Scrn NEGATIVE Urine Cocaine Screen NEGATIVE U Cannabinoids Screen NEGATIVE Ethyl Alcohol < 10.1 Discharge Plan Triage Chief Complaint: Suicidal ED Provider: Ramón Noe Dx/Rx/DC Orders Clinical Impression: Depression, Suicidal thoughts, History of bipolar disorder, History of drug abuse Prescriptions: No Action gabapentin 300 mg capsule 300 mg PO Q8H amoxicillin-pot clavulanate 875-125 mg tablet 1 tab PO BID trazodone 100 mg tablet 100 mg PO QHS sulfamethoxazole-trimethoprim [Bactrim DS] 800-160 mg tablet 1 tab PO BID doxycycline hyclate 100 mg capsule 100 mg PO BID 7 Days Qty: 14 0RF Primary Care Provider: Care Physician,No Primary Referrals: Care Physician,No Primary [Primary Care Provider, Medical] Print Language: Nepalese Disposition Disposition: Psychiatric Hospital or Unit
--- NOTE | 2025-06-25 20:21 | CM.ED ---
Social work While SW was completing another task, SW was advised by nursing that patient was in the waiting room, refusing to be checked in to see a doctor. Per nursing, patient is homeless and in need of resources. As SW was about to go the waiting room to see what this SW could help with, nursing approached SW stating that patient was now agreeable to be checked in and was making suicidal statements. Due to SW shift ending, SW unable to see to assess for mental health concerns. Jazmine Velazco, TOP COLLAR BASTER, LIBRARIAN HELPER
[2025-06-25 20:31] LABS: Anion Gap 14 (5-15); BUN 21 mg/dL (4-19); BUN/Creat Ratio 15.1 RATIO (10-20); Calcium,Total 9.8 mg/dL (7.6-11.0); Carbon Dioxide 24.1 mmol/L (21.0-32.0); Chloride 101 mmol/L (98-108); Glucose 96 mg/dL (70-99); Potassium 4.2 mmol/L (3.3-5.1)
[2025-06-25 20:56] LABS: Alcohol, Blood (Medical)-Serum < 10.1 mg/dL (<=10.0)
[2025-06-25 20:57] LABS: Barbiturate Urine NEGATIVE (< 200 ng/mL); Benzodiazepine Urine NEGATIVE (< 200 ng/mL); PCP Urine NEGATIVE (< 25 ng/mL); THC Urine NEGATIVE (< 50 ng/mL)
[2025-06-25 21:00] VITALS: BP 112/86; PULSE 84; RESP 16; O2SAT 98
--- NOTE | 2025-06-25 21:03 | PCA ---
[facility] CALLED, CHART FAXED
[2025-06-26 05:20] VITALS: BP 115/65; PULSE 63; RESP 15; O2SAT 99
--- NOTE | 2025-06-26 07:09 | EKG12_ITS ---
Test Reason : PLACEMENT Blood Pressure : */* mmHG Vent. Rate : 64 BPM Atrial Rate : 64 BPM P-R Int : 182 ms QRS Dur : 98 ms QT Int : 400 ms P-R-T Axes : 37 -2 43 degrees QTcB Int : 412 ms Normal sinus rhythm Normal ECG Confirmed by JAMMIE BLUM, KITA ([id number]), managing editor DANIEL LOVE ([id number]) on 06/29/2025 8:14:56 AM Referred By: Confirmed By: KITA AGUDELO MD
--- NOTE | 2025-06-26 10:17 | ED.RN ---
0900 PT ASKED TO GO BACK IN HIS ROOM BY Lizbeth. PT STATES DONT TELL ME WHAT TO FUCKING DO. PT VERBALLY DEESCALATES BY Lizbeth.
--- NOTE | 2025-06-26 11:40 | CM.ED ---
Social work SW entered shift with patient still in ED reportedly pending placement at [facility]. At 0925, SW called Crisis and spoke with Rosio (ph: [phone]) who stated [facility] had patient under review due to patient's suicidal comments and recommended need for placement last evening. Per doctor's note, no pink slip had been written for patient due to concerns for patient malingering. Patient was being loud in the hallway when returning from the bathroom and SW approached patient, introducing self and role at [facility]. Patient thanked SW for coming by to answer questions. SW asked patient to return to patient's room and patient stated not listening due to not being told what to do. Patient then continued to participant administrator patient's doorway, talking loudly with SW and patient's sitter. Patient discussed not feeling suicidal anymore and patient stated never being suicidal, but stated checking self in last evening due to knowing patient would get a room if patient made suicidal comments. Patient stated wanting to shower and wanting to check self out if not being able to do so. Patient stated [facility] should be able to set me up a ride and patient stated belief in this due to other hospitals doing so. Patient stated coming to [place] from [place] then [place] to be with patient's daughter. Patient stated having a residence in [place], [place] and wanted transport there. Patient stated not being suicidal and desiring to take a [employer] bus or a taxi to either [facility] or [facility]. Patient stated being annoyed with patient's daughter for not helping patient more. SW stated needing to make some calls to try to help patient out and patient agreeable to go back into room with sitter present. SW called [facility] (ph: [phone]) who stated not having beds. SW called [facility] (ph: [phone]) who stated patient is on their no fly list and is not allowed back in the intermediate due to causing disturbances in the past. SW called [facility] (ph: [phone]) who stated having beds available. SW spoke with Moe Webb who stated being at [facility] until 1600 today. Patient stated not having money, a phone, or in-state insurance. SW looked into the following transportation options: [employer] bus and taxi services. The closest [employer] bus station in [place] is 2 blocks away from [facility] and patient stated not being able to walk that with patient's giant bag of belongings. Rosio from Crisis was present at [facility] already and was able to safety plan with patient; Dr Ahumada in agreement. Prior to calling a taxi, THOMAS explored [facility] van's ability to take patient to [place]; this was declined. THOMAS Israel checked with nursing supervisor whipped topping Matthew who was in agreement with calling a taxi and billing [facility]. ED Mayo called for taxi to take patient to [facility]. SW repeatedly expressed to patient that SW found a resource, but it was a one time resource. Patient thankful to THOMAS and [facility] for setting up transport to [place]. Plan: transport to [place]' [facility] via taxi, ETA 1315 Jazmine Velazco, GAS TRUCK DRIVER, DUST MILL OPERATOR
[2025-06-26 12:37] VITALS: BP 134/78; PULSE 78; RESP 16; TEMP 37.1; O2SAT 99
== END 2025-06-26 12:38 | disposition home or self-care (01) ==
PROVIDERS: Emergency Provider Emergency Medicine; Visit Provider Emergency Medicine
DX: F31.9 Bipolar disorder, unspecified (principal); F19.99 Other psychoactive substance use, unspecified with unspecified psychoactive substance-induced disorder; R45.851 Suicidal ideations; F17.290 Nicotine dependence, other tobacco product, uncomplicated
CPT/HCPCS: 80048; 80307; 82077; 85025; 93005; 99283